=== PATIENT | male | born 1945 | race Caucasian/White ===

== ENCOUNTER → 2017-05-10 12:53 | Outpatient (CLI) | payer MEDICARE, SELFPAY ==
[2017-05-10 14:05] LABS: Hemoglobin A1C 6.6 % (0.0-7.0)
[2017-05-10 14:25] LABS: Alanine Aminotransferase 26 U/L (12-78); Albumin Level 3.8 gm/dL (3.4-5.0); Albumin/Globulin Ratio 0.9 (1.1-1.8); Alkaline Phosphatase 69 U/L (46-116); Anion Gap 14.6 mEq/L (5-15); Aspartate Amino Transferase 21 U/L (15-37); Bilirubin,Total 0.3 mg/dL (0.2-1.0); Blood Urea Nitrogen 25 mg/dL (7-18); Calcium 8.6 mg/dL (8.5-10.1); Carbon Dioxide 28 mmol/L (21.0-32.0); Chloride 102 mmol/L (98-107); Chol/HDL Ratio 2.6 (1-3.5); Cholesterol 114 mg/dL (140-200); Estimated Glomerular Filt Rate 54 ml/min (>60); GFR (African American) 65 ML/MIN (>60); Globulin 4.1 gm/dl (1.3-3.2); Glucose 107 mg/dL (74-106); HDL Cholesterol 44 mg/dL (27-67); LDL Cholesterol 46 mg/dL (0-130); Potassium 4.6 mmoL/L (3.5-5.1); Sodium 140 mmol/L (136-145); Total Protein,Serum 7.9 gm/dL (6.4-8.2); Triglycerides 122 mg/dL (30-200); VLDL Cholesterol 24 mg/dL (0-40)
== END ==
PROVIDERS: PCP Internal Medicine Adolescent Medicine; Visit Provider Internal Medicine Adolescent Medicine
DX: R73.9 Hyperglycemia, unspecified (principal); E78.5 Hyperlipidemia, unspecified
CPT/HCPCS: 36415; 80053; 80061; 83036

== ENCOUNTER → 2017-05-11 12:01 | Outpatient (CLI) | payer MEDICARE, SELFPAY ==
--- NOTE | 2017-05-11 12:08 | XR_ITS ---
EXAM: XR lumbar spine min 4V HISTORY: Low back pain ITS.REASON: PAD,CAD,CLAUDICATION, ORDERING PHYSICIAN: Cody Hook MD PATIENT AGE: 72 years COMPARISON: None FINDINGS: Normal alignment. Minimal lumbar curvature convex left No fracture or dislocation. No lytic or blastic change. Small anterior osteophytes are present involving the lumbar spine. There is mild wedging involving what appears to represent T11 appears old No significant degenerative change. The disc spaces are preserved. Severe atherosclerotic calcification noted of the aorta. Bilateral iliac artery stents are present. IMPRESSION: 1. Mild spondylosis with small anterior osteophytes. 2. Otherwise negative lumbar spine with no acute finding 3. Atherosclerotic vascular disease. 4. Old wedging of T11
--- NOTE | 2017-05-11 12:56 | US_ITS ---
US Arterial Ankle Brachial Ind INDICATION: Claudication, hypertension, smoker, diabetes, leg pain, rest pain, diminished pulses ORDERING PHYSICIAN: Cody Hook MD PATIENT AGE: 72 years TECHNIQUE: Segmental pressures obtained of both right and left leg. These are compared to brachial blood pressure to yield index at each level sampled including summary DOMITILA. The data sheets from the procedure are available in PACS FINDINGS Rest study only performed today No prior studies available for comparison. Blood pressures reported are in millimeters mercury. RIGHT LEG DOMITILA = .8 Brachial BP: Number Thigh BP: 132 Calf BP: >254 Ankle PT: 124 Ankle DP : 126 Digit =69 LEFT LEG DOMITILA = .5 Brachial BPD: 149 Thigh BP: 131 Calf BP: 86 Ankle PT:72 Ankle DP: 57 Digit = 30 Pulses and waveforms: Diminished pulses and waveforms and diminished pulses and waveforms of the left leg. Dorsalis pedis bilaterally IMPRESSION: 1. Low left DOMITILA of 0.5 consistent with moderate to severe arterial disease. The greatest pressure drop between the left thigh and calf degenerative stenosis in the popliteal area. CT angiogram may confirm. 2. Slightly low right DOMITILA of 0.8 indicating mild arterial disease. 3. Depressed waveforms and pulses as described above
== END ==
PROVIDERS: PCP Internal Medicine Adolescent Medicine; Visit Provider Internal Medicine
DX: I70.213 Atherosclerosis of native arteries of extremities with intermittent claudication, bilateral legs (principal); I73.9 Peripheral vascular disease, unspecified; I25.10 Atherosclerotic heart disease of native coronary artery without angina pectoris; G57.90 Unspecified mononeuropathy of unspecified lower limb
CPT/HCPCS: 72110; 93922

== ENCOUNTER → 2017-05-27 06:58 | Day surgery (SDC) | payer MEDICARE, SELFPAY ==
[2017-05-27] VITALS (40 sets, daily range): BP systolic 100–173; BP diastolic 38–89; PULSE 47–59; RESP 16–20; TEMP 36.7; O2SAT 92–100; BMI 32.3
--- NOTE | 2017-05-27 | IR_ITS ---
PROCEDURE: 1. Catheter placement in the abdominal aorta 2. Abdominal aortography 3. Repositioning of the catheter in the abdominal aorta 4. Bilateral iliofemoral runoff 5. Angioplasty stent deployment to the left superficial femoral artery 6. Angioplasty stent deployment to the left common femoral artery INDICATION: 1. Peripheral artery disease 2. Abnormal DOMITILA 0.5 on the left [place] class III claudication Informed consent was obtained prior to the procedure. COMPLICATIONS: None ESTIMATED BLOOD LOSS: Blood loss less than 10 cc. TECHNIQUE:1% lidocaine used to anesthetize the right groin. The right femoral artery was accessed via the Seldinger technique and a 5 Algerian sheath was placed in the right femoral artery. Pigtail catheter was placed in the abdominal aorta and abdominal aortography was performed. The catheter was then repositioned and bilateral iliofemoral runoff was performed. Following this a rim catheter was placed in the distal abdominal aorta and used to cannulate the left common iliac artery. A wire was placed into the left superficial femoral artery and a 6 Algerian destination sheath was advanced. Following this an 8 mm x 60 mm self-expanding Nolasco stent was deployed in the left SFA extending back into the left common femoral artery. Following this a 7 mm x 60 mm balloon was deployed at 12 gus in order to post dilate. Repeat angiography demonstrated excellent patency of the stent with its significant improvement in flow to the left superficial femoral artery. At the end of the procedure the apparatus was removed the sheath was removed the patient was transferred to the postop holding area in stable condition ANGIOGRAPHIC RESULTS: The suprarenal abdominal aorta is calcified with no focal stenosis while the infrarenal abdominal aorta has 20% stenoses which are also calcified. The mesenteric arteries and renal arteries appear to have no significant flow limitation. The right common iliac artery has a stent in the proximal to mid segment which is widely patent free of in-stent restenosis while the left common iliac artery has a stent in the ostium extending into the mid segment distally and even into the external iliac artery. Stent is widely patent in the left system The right external iliac artery has a 20% stenosis while the right common femoral arteries normal. The right profunda femoris artery is normal. The right superficial femoral artery has mild atheromatous plaque as does the right popliteal artery. The anterior tibialis artery is patent while the peroneal and posterior tibialis artery are occluded proximally. The left external iliac artery has a 10% stenosis while the left common femoral artery has 20 and 30% disease. The left profunda femoris artery is normal. The ostium of the left superficial femoral artery has an 80-90% stenosis followed by an additional 80% proximal stenosis. The remaining vessel is patent with 40% mid vessel calcification with a widely patent popliteal artery with no stenosis greater than 20%. The posterior tibialis artery is occluded while the peroneal artery is patent. The left anterior tibialis artery is patent to the mid segment then becomes subtotally occluded and reconstitutes distally and supplies a left foot Impression: Peripheral artery disease as described above Severe stenosis in the left superficial femoral artery treated with one bare metal self expanding stent extending back into the left common femoral artery Plan: Aspirin Plavix Physical therapy LDL less than 55 Risk factor modification
[2017-05-27 07:33] LABS: Basophils # 0.1 K/mm3 (0-0.2); Basophils % 0.7 % (0.1-2.0); Eosinophils # 0.4 K/mm3 (0.0-0.4); Eosinophils % 3.1 % (0.1-12.0); Hematocrit 37.5 % (42.0-52.0); Hemoglobin 12.2 g/dL (14.1-18.0); Lymphocytes # 2.9 K/mm3 (0.7-4.5); Lymphocytes % 22.3 K/mm3 (10-50); Mean Corpuscular HGB Conc 32.6 g/dL (31.8-35.4); Mean Corpuscular Hemoglobin 29.7 pg (27.0-31.2); Mean Corpuscular Volume 91.3 fl (80-94); Mean Platelet Volume 8.4 fl (7.4-10.4); Monocytes % 7.6 % (1.7-9.3); Neutrophils # 8.8 K/mm3 (1.8-7.8); Neutrophils % 66.3 % (37.0-80.0); Platelet Count 268 K/mm3 (142-424); Red Blood Count 4.11 M/mm3 (4.60-6.20); Red Cell Distribution Width 13.6 % (11.5-17.5); White Blood Count 13.2 K/mm3 (4.8-10.8)
[2017-05-27 07:37] LABS: Blood Urea Nitrogen 17 mg/dL (7-18); Carbon Dioxide 31 mmol/L (21.0-32.0); Chloride 102 mmol/L (98-107); Creatinine Clearance Estimated 84 mL/min (0-300); Creatinine,Serum 1.24 mg/dL (0.70-1.30); Estimated Glomerular Filt Rate 57 ml/min (>60); GFR (African American) 69 ML/MIN (>60); Glucose 123 mg/dL (74-106); Sodium 139 mmol/L (136-145)
[2017-05-27 09:59] LABS: CATHL Activated Clotting Time 324 SEC (74-125)
--- NOTE | 2017-05-27 11:58 | HMH.ITSHM ---
topirmate, amilriptyline, tizanidine, lorazepam, atorvastatin
[2017-05-27 12:18] LABS: Microscopic, Urine URINE MICROSCOPIC (MICROSCOPIC)
[2017-05-27 12:22] LABS: Appearance,Urine CLEAR (Clear); Bilirubin,Urine Negative (Negative); Blood, Urine Negative (Negative); Color,Urine YELLOW (Yellow); Glucose,Urine (UA) Negative (Negative); Ketones,Urine Negative (Negative); Leukocyte Esterase,Urine Negative (Negative); Nitrate,Urine Negative (Negative); PH,Urine 6.5 (5.0-8.5); Protein,Urine Negative (Negative); Urobilinogen,Urine 0.2 EU/dl (0.2)
[2017-05-27 12:27] LABS: Bacteria,Urine Trace /lpf
--- NOTE | 2017-05-27 16:31 | SUR.PHASEII ---
villagomez catheter discontinued prior to discharge, patient urinated after discontinuation. patient and spouse both stated understanding of discharge instructions.
[2017-06-24 08:16] LABS: CATHL Activated Clotting Time 181 SEC (74-125)
== END ==
PROVIDERS: Family Provider Internal Medicine Adolescent Medicine; PCP Internal Medicine Adolescent Medicine; Visit Provider Internal Medicine
DX: I70.212 Atherosclerosis of native arteries of extremities with intermittent claudication, left leg (principal); I10 Essential (primary) hypertension; Z95.828 Presence of other vascular implants and grafts
CPT/HCPCS: 36200; 37226; 75630; 80048; 81001; 85025; 85347; 99152; 99153; C1725; C1766; C1769; C1876; C1894; J1644; J2720; Q9966

== ENCOUNTER → 2017-10-01 10:20 | Outpatient (CLI) | payer MEDICARE, SELFPAY ==
--- NOTE | 2017-10-01 10:23 | XR_ITS ---
XR shoulder RT min 2V COMPARISON: Right shoulder 01/15/2016 HISTORY: Right shoulder pain TECHNIQUE: 3 views right shoulder FINDINGS: Multiple metallic anchors are again seen projecting over the humeral head and near the AC joint. Humeral head right somewhat high in the glenoid and there is a slightly lateral downsloping acromion process and the findings would predispose to some degree of impingement syndrome. There is mild spurring of the AC joint superiorly. There are no soft tissue calcifications. IMPRESSION: Findings suggesting predisposition to impingement syndrome, stable postsurgical changes as well
== END ==
PROVIDERS: PCP Internal Medicine Adolescent Medicine; Visit Provider Orthopaedic Surgery
DX: M25.511 Pain in right shoulder (principal)
CPT/HCPCS: 73030

== ENCOUNTER → 2017-10-12 09:59 | Outpatient (CLI) | payer MEDICARE, SELFPAY ==
[2017-10-12 10:30] LABS: Basophils # 0.1 K/mm3 (0-0.2); Basophils % 0.6 % (0.1-2.0); Eosinophils # 0.5 K/mm3 (0.0-0.4); Eosinophils % 3.4 % (0.1-12.0); Hematocrit 46.2 % (42.0-52.0); Hemoglobin 14.4 g/dL (14.1-18.0); Lymphocytes # 2.7 K/mm3 (0.7-4.5); Lymphocytes % 19.5 K/mm3 (10-50); Mean Corpuscular HGB Conc 31.1 g/dL (31.8-35.4); Mean Corpuscular Hemoglobin 28.8 pg (27.0-31.2); Mean Corpuscular Volume 92.8 fl (80-94); Monocytes # 0.9 K/mm3 (0.1-1.0); Monocytes % 6.9 % (1.7-9.3); Neutrophils # 9.5 K/mm3 (1.8-7.8); Neutrophils % 69.5 % (37.0-80.0); Platelet Count 291 K/mm3 (142-424); Red Blood Count 4.98 M/mm3 (4.60-6.20); Red Cell Distribution Width 14.1 % (11.5-17.5); White Blood Count 13.6 K/mm3 (4.8-10.8)
[2017-10-12 11:14] LABS: Alanine Aminotransferase 21 U/L (12-78); Albumin Level 3.5 gm/dL (3.4-5.0); Albumin/Globulin Ratio 0.9 (1.1-1.8); Alkaline Phosphatase 64 U/L (46-116); Anion Gap 11.4 mEq/L (5-15); Aspartate Amino Transferase 15 U/L (15-37); Bilirubin,Total 0.4 mg/dL (0.2-1.0); Blood Urea Nitrogen 18 mg/dL (7-18); Calcium 8.4 mg/dL (8.5-10.1); Carbon Dioxide 30 mmol/L (21.0-32.0); Chloride 101 mmol/L (98-107); Creatinine,Serum 1.21 mg/dL (0.70-1.30); Estimated Glomerular Filt Rate 59 ml/min (>60); Free Thyroxine Index 2.1 ug/dL (5.93-13.13); GFR (African American) 71 ML/MIN (>60); Globulin 3.7 gm/dl (1.3-3.2); Glucose 127 mg/dL (74-106); Potassium 4.4 mmoL/L (3.5-5.1); Sodium 138 mmol/L (136-145); T4 (Thyroxine) 5.4 ug/dl (4.7-13.3); Thyroid Stimulating Hormone 5.06 uIU/ml (0.358-3.740); Total Protein,Serum 7.2 gm/dL (6.4-8.2); Triiodothryronine (T3) Uptake 38 % (31-39)
[2017-10-12 11:17] LABS: Hemoglobin A1C 6.1 % (0.0-7.0)
== END ==
PROVIDERS: Visit Provider Internal Medicine Adolescent Medicine
DX: R73.9 Hyperglycemia, unspecified (principal); E78.5 Hyperlipidemia, unspecified; R94.6 Abnormal results of thyroid function studies; I25.10 Atherosclerotic heart disease of native coronary artery without angina pectoris
CPT/HCPCS: 36415; 80053; 83036; 84436; 84443; 84479; 85025

== ENCOUNTER → 2017-10-18 07:48 | Outpatient (CLI) | payer MEDICARE, SELFPAY ==
--- NOTE | 2017-10-18 07:48 | MR_ITS ---
MR shoulder RT wo con COMPARISON: None HISTORY: Shoulder pain, Cyst like knot on top of shoulder, prior shoulder surgery ORDERING PHYSICIAN: Phuc Cordero MD PATIENT AGE: 72 years COMPARISON: 10/01/2017 radiograph TECHNIQUE: Standard multiplanar multiecho sequences are performed. FINDINGS: There is extensive artifact from patient's prior shoulder surgery. This does obscure detail of the shoulder girdle. Cannot adequately evaluate the supraspinatus tendon due to the artifact. There is a 3.9 x 2 x 3.4 cm fluid collection along the superior aspect of the shoulder. This is superior and lateral to the acromioclavicular joint subcutaneous in nature.. The subscapularis and teres minor tendons appear intact. No obvious labral tear. IMPRESSION: 1. Extensive artifact obscuring fine detail from prior shoulder surgery. 2. 3.9 x 2 x 3.4 cm subcutaneous cyst superior to the lateral aspect of the acromion
== END ==
PROVIDERS: Family Provider Internal Medicine Adolescent Medicine; PCP Internal Medicine Adolescent Medicine; Visit Provider Orthopaedic Surgery
DX: M75.101 Unspecified rotator cuff tear or rupture of right shoulder, not specified as traumatic (principal); M67.411 Ganglion, right shoulder
CPT/HCPCS: 73221

== ENCOUNTER → 2018-01-05 09:07 | Outpatient (CLI) | payer MEDICARE, SELFPAY ==
[2018-01-05 09:22] LABS: Blood Urea Nitrogen 22 mg/dL (7-18); Creatinine,Serum 1.28 mg/dL (0.70-1.30); Estimated Glomerular Filt Rate 55 ml/min (>60); GFR (African American) 66 ML/MIN (>60)
--- NOTE | 2018-01-05 09:39 | CT_ITS ---
CT angio LE BI INDICATION: Intermittent claudication, leg pain ITS.REASON: INTERMITTENT CLAUDICATION' ORDERING PHYSICIAN: Karan Fuller MD PATIENT AGE: 72 years COMPARISON: None TECHNIQUE: Axial images are obtained following the bolus administration 120 mL's of Isovue-370 contrast. Sagittal and coronal reformatted images are reviewed as well. All CT scans at the facility use one or more dose reduction, viz: automated exposure control, ma/kV adjustment per patient size (including targeted exams where dose is matched to indication, i.e. head), or iterative reconstruction technique. FINDINGS: Angiographic findings: There are atheromatous changes of the abdominal aorta and its branches. High-grade stenosis is present at the ostium of the superior mesenteric artery with approximate 75% stenosis at the ostium of the superior mesenteric artery. Severe stenosis of 90% or more present at the ostium of the inferior mesenteric artery. No evidence of abdominal aortic aneurysm. No significant renal artery stenosis. There are patent bilateral common iliac artery stents. Atheromatous changes of the right external iliac with no significant stenosis. Atheromatous changes of the left external iliac but no significant stenosis. There is a patent stent within the left common femoral artery. Bilateral lower extremity runoff: There are segmental areas of plaque with stenosis of approximately 50% in the mid to proximal right SFA. Short segment high-grade stenosis of 70% noted in the mid SFA with some calcific plaque in this region. The popliteal artery is unremarkable. Atherosclerotic changes involving the runoff vessels in the calf. Severe atheromatous changes involving the runoff vessels. The main runoff vessel to the ankle on the right is the dorsalis pedis and peroneal. The anterior tibial is not visualized past the mid calf. On the left scattered atheromatous changes involving the SFA. Popliteal patent. Severe atheromatous changes involve the trifurcation vessels to the calf with multiple small segmental areas of stenosis. Dorsalis pedis is patent at the foot. The peroneal is patent at the ankle and the anterior tibia is present in the mid calf region. Nonangiographic findings: Prior cholecystectomy. The liver, spleen, adrenal glands, pancreas, and kidneys show no acute finding. There is diverticulosis of the sigmoid colon and descending colon. IMPRESSION: 1. 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 2. Patent bilateral common iliac artery stents and left common femoral artery stent. 3. 50% stenosis of the proximal right SFA with 70% stenosis in the mid SFA on the right. 4. Extensive plaque involving the trifurcation vessels bilaterally.
--- NOTE | 2018-01-05 13:26 | HMH.ITSHM ---
HCTZ AMLODIPINE,TAMUSLOIN LEVOTHRYROIXE, CLOPIDKORGREL CARVELIDLO LRASZEMA ASPRIN,
== END ==
PROVIDERS: Family Provider Internal Medicine Adolescent Medicine; PCP Internal Medicine Adolescent Medicine; Visit Provider Internal Medicine Adolescent Medicine
DX: I73.9 Peripheral vascular disease, unspecified (principal)
CPT/HCPCS: 36415; 73701; 82565; 84520; Q9967

== ENCOUNTER → 2018-05-23 09:03 | Outpatient (CLI) | payer MEDICARE, SELFPAY ==
[2018-05-23 09:28] LABS: Basophils # 0.1 K/mm3 (0-0.2); Basophils % 0.8 % (0.1-2.0); Eosinophils # 0.6 K/mm3 (0.0-0.4); Hematocrit 44.2 % (42.0-52.0); Hemoglobin 14.1 g/dL (14.1-18.0); Lymphocytes # 2.8 K/mm3 (0.7-4.5); Lymphocytes % 18.7 % (10-50); Mean Corpuscular HGB Conc 31.9 g/dL (31.8-35.4); Mean Corpuscular Hemoglobin 29.5 pg (27.0-31.2); Mean Corpuscular Volume 92.4 fl (80-94); Monocytes % 6.3 % (1.7-9.3); Neutrophils # 10.7 K/mm3 (1.8-7.8); Neutrophils % 70.2 % (37.0-80.0); Platelet Count 316 K/mm3 (142-424); Red Blood Count 4.78 M/mm3 (4.60-6.20); Red Cell Distribution Width 14.2 % (11.5-17.5); White Blood Count 15.2 K/mm3 (4.8-10.8)
[2018-05-23 09:32] LABS: MANUAL DIFFERENTIAL MANUAL DIFFERENTIAL (MANUAL DIFF)
[2018-05-23 10:07] LABS: Hemoglobin A1C 6.6 % (0.0-7.0)
[2018-05-23 10:21] LABS: Alanine Aminotransferase 20 U/L (12-78); Albumin Level 3.4 gm/dL (3.4-5.0); Albumin/Globulin Ratio 0.9 (1.1-1.8); Alkaline Phosphatase 70 U/L (46-116); Anion Gap 13.2 mEq/L (5-15); Aspartate Amino Transferase 8 U/L (15-37); Bilirubin,Total 0.3 mg/dL (0.2-1.0); Blood Urea Nitrogen 18 mg/dL (7-18); Calcium 9.5 mg/dL (8.5-10.1); Carbon Dioxide 31 mmol/L (21.0-32.0); Chloride 101 mmol/L (98-107); Cholesterol 125 mg/dL (140-200); Creatinine,Serum 1.35 mg/dL (0.70-1.30); Estimated Glomerular Filt Rate 52 ml/min (>60); GFR (African American) 62 ML/MIN (>60); Globulin 3.9 gm/dl (1.3-3.2); Glucose 141 mg/dL (74-106); HDL Cholesterol 41 mg/dL (27-67); LDL Cholesterol 67 mg/dL (0-130); Potassium 4.2 mmoL/L (3.5-5.1); Sodium 141 mmol/L (136-145); Total Protein,Serum 7.3 gm/dL (6.4-8.2); Triglycerides 87 mg/dL (30-200); VLDL Cholesterol 17 mg/dL (0-40)
[2018-05-23 10:35] LABS: Eosinophils % 1 % (0-3); Lymphocytes % 22 % (10-50); Monocytes % 6 % (2-9); Neutrophils % 71 % (42-76); Platelet Estimate Normal; RBC Morphology Normal; Total Cells Counted 100
[2018-05-24 16:15] LABS: Vitamin B12 377 pg/mL (232-1245)
== END ==
PROVIDERS: Visit Provider Internal Medicine Adolescent Medicine
DX: G62.9 Polyneuropathy, unspecified (principal); E11.9 Type 2 diabetes mellitus without complications
CPT/HCPCS: 36415; 80053; 80061; 82607; 83036; 85007; 85025

== ENCOUNTER → 2018-10-26 12:54 | Outpatient (CLI) | payer MEDICARE, SELFPAY ==
[2018-10-26 13:17] LABS: Basophils # 0.1 K/mm3 (0-0.2); Basophils % 0.7 % (0.1-2.0); Eosinophils # 0.6 K/mm3 (0.0-0.4); Eosinophils % 3.8 % (0.1-12.0); Hematocrit 39.8 % (42.0-52.0); Hemoglobin 12.5 g/dL (14.1-18.0); Lymphocytes # 2.6 K/mm3 (0.7-4.5); Lymphocytes % 17.2 % (10-50); Mean Corpuscular HGB Conc 31.4 g/dL (31.8-35.4); Mean Corpuscular Hemoglobin 28.5 pg (27.0-31.2); Mean Corpuscular Volume 90.9 fl (80-94); Mean Platelet Volume 7.9 fl (7.4-10.4); Monocytes # 0.9 K/mm3 (0.1-1.0); Monocytes % 5.6 % (1.7-9.3); Neutrophils # 11.2 K/mm3 (1.8-7.8); Neutrophils % 72.8 % (37.0-80.0); Platelet Count 274 K/mm3 (142-424); Red Blood Count 4.38 M/mm3 (4.60-6.20); Red Cell Distribution Width 13.7 % (11.5-17.5); White Blood Count 15.4 K/mm3 (4.8-10.8)
[2018-10-26 13:21] LABS: MANUAL DIFFERENTIAL MANUAL DIFFERENTIAL (MANUAL DIFF)
[2018-10-26 16:44] LABS: Alanine Aminotransferase 20 U/L (12-78); Albumin Level 3.5 gm/dL (3.4-5.0); Alkaline Phosphatase 67 U/L (46-116); Anion Gap 14.4 mEq/L (5-15); Aspartate Amino Transferase 13 U/L (15-37); Bilirubin,Total 0.3 mg/dL (0.2-1.0); Blood Urea Nitrogen 22 mg/dL (7-18); Calcium 8.9 mg/dL (8.5-10.1); Carbon Dioxide 28 mmol/L (21.0-32.0); Chloride 105 mmol/L (98-107); Creatinine,Serum 1.26 mg/dL (0.70-1.30); Estimated Glomerular Filt Rate 56 ml/min (>60); GFR (African American) 68 ML/MIN (>60); Globulin 3.6 gm/dl (1.3-3.2); Glucose 103 mg/dL (74-106); Potassium 5.4 mmoL/L (3.5-5.1); Sodium 142 mmol/L (136-145); Total Protein,Serum 7.1 gm/dL (6.4-8.2)
[2018-10-26 17:21] LABS: Eosinophils % 2 % (0-3); Lymphocytes % 18 % (10-50); Monocytes % 2 % (2-9); Neutrophils % 78 % (42-76); Platelet Estimate Normal; RBC Morphology Normal; Total Cells Counted 100
== END ==
PROVIDERS: Visit Provider Internal Medicine Adolescent Medicine
DX: R19.7 Diarrhea, unspecified (principal)
CPT/HCPCS: 36415; 80053; 85007; 85025

== ENCOUNTER → 2018-11-14 09:43 | Outpatient (CLI) | payer MEDICARE, SELFPAY ==
--- NOTE | 2018-11-14 09:46 | CT_ITS ---
CT abdomen pelvis wo con CLINICAL INDICATION: Lower abdominal pain with nausea ITS.REASON: LOWER ABD PAIN ORDERING PHYSICIAN: Karan Fuller MD PATIENT AGE: 73 years COMPARISON: None TECHNIQUE: Axial images obtained with sagittal and coronal reformats. All CT scans at the facility use one or more dose reduction, viz: automated exposure control, ma/kV adjustment per patient size (including targeted exams where dose is matched to indication, i.e. head), or iterative reconstruction technique. FINDINGS: Lower thorax: Prior CABG. Coronary artery calcification and/or stents noted Postcholecystectomy change. The liver, spleen, adrenal glands, and pancreas have an unremarkable appearance. No renal or ureteral calculi. Vascular calcifications are present in the kidneys. Extensive vascular calcification also noted of the aorta and its branches. Calcification is present at the ostium of the superior mesenteric artery suggesting high-grade SMA stenosis. This could be confirmed with CT angiogram if clinically warranted. No intestinal obstruction or free air. Unremarkable appendix. Colonic diverticulosis is noted. There is some mild thickening of the sigmoid colon with some very minimal haziness of the pericolic fat may represent some mild diverticulitis. No evidence of abscess or perforation. There is mild prominence of the prostate 5.5 cm. IMPRESSION: 1. Dense calcification at the ostium of the superior mesenteric artery which may result in SMA stenosis. CT angiogram may confirm 2. Diverticulosis of the descending and sigmoid colon with possible low grade diverticulitis of the sigmoid colon without evidence of abscess or perforation.
== END ==
PROVIDERS: PCP Internal Medicine Adolescent Medicine; Visit Provider Internal Medicine Adolescent Medicine
DX: R10.30 Lower abdominal pain, unspecified (principal)
CPT/HCPCS: 74176

== ENCOUNTER → 2019-03-06 08:14 | Outpatient (CLI) | payer MEDICARE, SELFPAY ==
[2019-03-06 08:40] LABS: Basophils # 0.1 K/mm3 (0-0.2); Basophils % 0.7 % (0.1-2.0); Eosinophils # 0.5 K/mm3 (0.0-0.4); Eosinophils % 3.6 % (0.1-12.0); Hematocrit 42.2 % (42.0-52.0); Hemoglobin 12.7 g/dL (14.1-18.0); Lymphocytes # 2.5 K/mm3 (0.7-4.5); Lymphocytes % 17.9 % (10-50); Mean Corpuscular HGB Conc 30.2 g/dL (31.8-35.4); Mean Corpuscular Hemoglobin 29.8 pg (27.0-31.2); Mean Corpuscular Volume 98.9 fl (80-94); Mean Platelet Volume 8.8 fl (7.4-10.4); Monocytes # 0.9 K/mm3 (0.1-1.0); Monocytes % 6.2 % (1.7-9.3); Neutrophils % 71.7 % (37.0-80.0); Platelet Count 284 K/mm3 (142-424); Red Blood Count 4.27 M/mm3 (4.60-6.20); Red Cell Distribution Width 13.9 % (11.5-17.5); White Blood Count 13.9 K/mm3 (4.8-10.8)
[2019-03-06 09:36] LABS: Alanine Aminotransferase 17 U/L (12-78); Albumin Level 3.4 gm/dL (3.4-5.0); Alkaline Phosphatase 63 U/L (46-116); Anion Gap 10.7 mEq/L (5-15); Aspartate Amino Transferase 17 U/L (15-37); Bilirubin,Total 0.3 mg/dL (0.2-1.0); Blood Urea Nitrogen 27 mg/dL (7-18); Calcium 8.7 mg/dL (8.5-10.1); Carbon Dioxide 29 mmol/L (21.0-32.0); Chloride 102 mmol/L (98-107); Chol/HDL Ratio 2.8 (1-3.5); Cholesterol 112 mg/dL (140-200); Creatinine,Serum 1.44 mg/dL (0.70-1.30); Estimated Glomerular Filt Rate 48 ml/min (>60); GFR (African American) 58 ML/MIN (>60); Globulin 3.5 gm/dl (1.3-3.2); Glucose 120 mg/dL (74-106); HDL Cholesterol 40 mg/dL (27-67); LDL Cholesterol 57 mg/dL (0-130); Potassium 4.7 mmoL/L (3.5-5.1); Sodium 137 mmol/L (136-145); Thyroid Stimulating Hormone 1.97 uIU/ml (0.358-3.740); Total Protein,Serum 6.9 gm/dL (6.4-8.2); Triglycerides 77 mg/dL (30-200); VLDL Cholesterol 15 mg/dL (0-40)
[2019-03-07 11:28] LABS: Vitamin B12 536 pg/mL (232-1245)
== END ==
PROVIDERS: Visit Provider Internal Medicine Adolescent Medicine
DX: M54.5 Low back pain (principal); I25.9 Chronic ischemic heart disease, unspecified; G62.9 Polyneuropathy, unspecified; Z79.899 Other long term (current) drug therapy
CPT/HCPCS: 36415; 80053; 80061; 82607; 84443; 85025

== ENCOUNTER 2019-03-24 08:54 | Outpatient (RCR) | payer MEDICARE, SELFPAY ==
--- NOTE | 2019-03-24 10:34 | HMH.PTOPEV ---
PT Outpatient Evaluation Rehab PT Outpatient Evaluation Start: 03/24/19 09:14 Freq: Status: Active Protocol: Document 03/24/19 09:15 SANGEETA (Rec: 03/24/19 10:34 SANGEETA [id number]) Electronically Signed By Kb Mercedes, PT 03/24/19 09:15 Outpatient Therapy Subjective History Subjective History Pt reports h/o chronic LBP for ~20+ yrs, however, reports exacerbation since August. Pt reports R > L sided LBP with intermittent B LE s/s, however , 'that leg pain in my calves might be coming from the stents they've put in my legs for my heart'. Chief Complaint Pain,Stiff Symptom Type Ache,Sharp,Dull Symptoms Relieved By Rest/Positioning Symptoms Aggravated By Bending/Stooping,Physical Activity,Lifting Prior Functional Limitations Lifting,Housework,Standing, Walking Current Functional Limitations Lifting,Housework,Standing, Walking Symptom Description Intermittent Level of pain today (0-10) 0 Pain scale - at its best (0-10) 0 Pain scale - at its worst (0-10) 8 Lumbopelvic Eval Posture Thoracic Spine Posture Standing Position Flattened Lumbar Spine Posture Standing Position Flattened Assistive device Assistive Devices None / NA Gait Observation General Gait Pattern Observation Antalgic Gait Palapation tenderness right lumbar spinal tenderness Yes: 3/4 paraspinal tenderness Yes: 3/4 Lumbar/Sacral Palpation Findings Tenderness Accessory Movement L-spine Vertebrae Accessory Movements Right P/A [place] that Elicit Symptoms L4 right L5 right Range of Motion Lumbar Spine Active Flexion Range of 0-30 Motion (degrees) Lumbar Spine Active Extension Range of 0-15 Motion (degrees) Left Lumbar Spine Lateral Flexion Active 0-30 Range of Motion (degrees) Right Lumbar Spine Lateral Flexion 0-20 Active Range of Motion (degrees) Lumbar Spine ROM Limitations Pain Manual Muscle Test Bilateral Knee Extension Strength Grade 5 Normal Knee Flexion Strength Grade 5 Normal Hip Flexion Strength Grade 4 Good Extensor Hallucis Longus Strength Grade 5 Normal Ankle Dorsiflexion Strength Grade 5 Normal Gastronemius/Soleus Strength Grade 5 Normal DTR Rt Patellar 1+ Lt Patellar 1+ Rt Gastroc/Soleus 1+ Lt Gastroc/Soleus 1+ Special Tests Hip Piriformis Test
== END 2019-03-24 08:59 | disposition home or self-care (01) ==
LOC: PT 08:54
PROVIDERS: PCP Internal Medicine Adolescent Medicine; Visit Provider Internal Medicine Adolescent Medicine
DX: M54.5 Low back pain (principal)
CPT/HCPCS: 97010; 97014; 97035; 97110; 97163; G0283

== ENCOUNTER → 2019-10-19 11:47 | Outpatient (CLI) | payer MEDICARE, SELFPAY ==
--- NOTE | 2019-10-19 | CA_ITS ---
APPROVED REPORT Exam: Pharmacologic Technologist: Clover Gaxiola, Ht: 6 ft 2 in Wt: 250 lbs BSA: 2.39 m2 HR: 49 bpm BP: 158/53 mmHg Medical History Medical History: HTN, Hyperlipidemia, Smoking Cardiac Risk Factors: HTN, Hyperlipidemia, FHX of CAD, Smoking Stress Test Details Test: LEXISCAN HR Resting HR: 50 bpm Max Heart Rate (APMHR): 144 bpm Max HR Achieved: 60 bpm Target HR (85% APMHR): 122 bpm % of APMHR: 41 Recovery HR: 52 bpm BP Resting BP: 158.0/53.0 mmHg Max BP: 158.0/53.0 mmHg Recovery BP: 146.0/49.0 mmHg ECG Resting ECG: MARKED SINUS BRADYCARDIA,T WAVE ABNORMALITY Clinical Exercise duration: 04:11 min Highest Stage Achieved: Exercise capacity: 1.0 METs Stress ECG Conclusion DURING INFUSION PATIENT HAD SOA,NAUSEA AND HOT FEELING. NO CHEST PAIN. NO ARRHYTHMIAS/ECTOPY. MILD EXAGGERATION OF BASELINE ABNORMALITIES. UNREMARKABLE LEXISCAN STRESS. MYOVIEW IMAGES REPORTED SEPARATELY Electronically signed by : Ochoa Starr, 10/19/2019 14:47:25
--- NOTE | 2019-10-19 11:47 | NM_ITS ---
APPROVED REPORT Exam: Nuclear Stress Test Indication: syncope..fatigue Patient Location: Outpatient Stress Tech: Saranya Usnkson NM Tech:Roxy JoyceRANDY RT(R)(N) Ht: 6 ft 2 in Wt: 250 lbs HR: 49 bpm BP: 158/53 mmHg BSA: 2.39 m2 BMI: 32.0 History: syncope..fatigue Procedure: Patient received a 0.4 mg of intravenous Lexiscan, resting heart rate 49 bpm, resting blood pressure 158/53 mmHg, with Lexiscan maximum heart rate achived was 56 bpm which is Less than 85 % of the maximum predicted heart rate and blood pressure was 140/53 mmHg. With Lexiscan, patient denied any complaint of chest pain. Electrocardiogram Resting electrocardiogram showed sinus rhythm, with Lexiscan there is less than 1.[address] segment depression noted from the baseline EKG. The EKG portion of the Lexiscan Myoview is nondiagnostic. Cardiac Stress and Resting SPECT Images: Cardiac Stress and Resting SPECT images were obtained using technetium 99m Myoview 32.1 mCi stress and 10.61 mCi at rest. Gated SPECT with analysis of segmental wall motion and calculation of the ejection fraction also done. Cardiac stress and resting SPECT images show uniform myocardial activity without segmental perfusion abnormality, computer derived ejection fraction is 64% with no regional wall motion abnormality, right ventricle is normal size and contractility. Conclusion: 1. The EKG portion of the Lexiscan Myoview is nondiagnostic. 2. No scintigraphic evidence of reversible ischemia seen, computer derived ejection fraction is 64% with no regional wall motion abnormality, right ventricle is normal size and contractility. 3. Normal Lexiscan Myoview study. Electronically signed by : Ochoa Starr, 10/19/2019 15:23:31
--- NOTE | 2019-10-19 13:43 | HMH.ITSHM ---
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 [] tamsulosin losartan levothyroxine hctz clopidogrel asa atorvastatin amlodipine
== END ==
PROVIDERS: PCP Internal Medicine Adolescent Medicine; Visit Provider Physician Assistant
DX: E78.5 Hyperlipidemia, unspecified (principal); G62.9 Polyneuropathy, unspecified; I10 Essential (primary) hypertension; I25.10 Atherosclerotic heart disease of native coronary artery without angina pectoris; I73.9 Peripheral vascular disease, unspecified; I77.1 Stricture of artery; R55 Syncope and collapse; Z95.1 Presence of aortocoronary bypass graft; Z95.828 Presence of other vascular implants and grafts
CPT/HCPCS: 78452; 93017; A9502; J2785

== ENCOUNTER 2019-10-31 08:55 | Day surgery (SDC) | payer MEDICARE, SELFPAY ==
[2019-10-31] VITALS (21 sets, daily range): BP systolic 114–172; BP diastolic 48–111; PULSE 49–60; RESP 15–18; TEMP 36.8; O2SAT 91–98; BMI 32.2
--- NOTE | 2019-10-31 | IR_ITS ---
APPROVED REPORT Patient Location: Outpatient PROCEDURES Catheter placement in the abdominal aorta Abdominal aortography Repositioning of the catheter in the abdominal aorta Bilateral iliofemoral runoff INDICATION Abnormal DOMITILA, [place] class III claudication, Known peripheral artery disease Informed consent was obtained prior to the procedure. COMPLICATIONS none Estimated Blood Loss: less than 10 mls TECHNIQUE 1% lidocaine used anesthetize the right groin the right femoral artery is accessed via the Salinger technique and a 5 Faroese sheath was placed in the right femoral artery. The pigtail catheter was advanced to the abdominal aorta and abdominal aortography was performed. The catheter was then repositioned and bilateral iliofemoral runoff was performed. At the end of the procedure the patient was transferred to the postop holding her stable condition for sheath removal ANGIOGRAPHIC RESULTS The suprarenal abdominal aorta is mildly atheromatous while the inferior renal abdominal aorta is mild to moderately atheromatous with diffuse 20 to 30% stenoses. The bilateral renal arteries are normal. The superior mesenteric artery is normal. The right common iliac artery has a stent in its proximal to mid segment which is widely patent free of in-stent restenosis. The right internal iliac artery is patent as is the right external iliac artery. The right common femoral artery is normal. The right profunda femoris artery is normal. The right superficial femoral artery has a mid vessel 50 to 60% stenosis. The right popliteal artery has an eccentric 60% stenosis. The right anterior tibialis artery is mid mid vessel occluded while the posterior tibialis artery is proximally occluded but does reconstitute distally. The right peroneal artery is patent and then crosses over into the dorsalis pedis. The left common iliac artery has a stent in the ostial proximal segment widely patent free of in-stent restenosis. The left internal iliac artery is occluded while the external iliac artery is widely patent. The left common femoral artery is normal and patent. The left profunda femoris artery has a proximal 50% stenosis and otherwise patent. Left superficial femoral artery has proximal and mid vessel 30 to 40% [id number] stenoses. The left popliteal artery is widely patent. There appears to be three-vessel runoff below the knee on the left side IMPRESSION Peripheral artery disease as described above PLAN 1. Continue medical management Electronically signed by : Cody Hook, 10/31/2019 12:33:12
[2019-10-31 09:35] LABS: Anion Gap 13.6 mEq/L (5-15); Blood Urea Nitrogen 19 mg/dl (9-20); Calcium 8.8 mg/dl (8.4-10.2); Carbon Dioxide 27 mmol/L (22.0-30.0); Chloride 103 mmol/L (98-107); Creatinine Clearance Estimated 84 mL/min (50-200); Estimated Glomerular Filt Rate 59 ml/min (>60); GFR (African American) 71 ML/MIN (>60); Glucose 134 mg/dl (74-100); Potassium 4.6 mmoL/L (3.5-5.1); Sodium 139 mmol/L (136-145)
[2019-10-31 09:39] LABS: Basophils # 0.1 K/mm3 (0-0.2); Basophils % 0.8 % (0.1-2.0); Eosinophils # 0.5 K/mm3 (0.0-0.4); Eosinophils % 3.5 % (0.1-12.0); Hematocrit 43.4 % (42.0-52.0); Hemoglobin 13.8 g/dL (14.1-18.0); Lymphocytes # 2.4 K/mm3 (0.7-4.5); Lymphocytes % 17.2 % (10-50); Mean Corpuscular HGB Conc 31.8 g/dL (31.8-35.4); Mean Corpuscular Hemoglobin 30.2 pg (27.0-31.2); Mean Platelet Volume 8.6 fl (7.4-10.4); Monocytes # 0.7 K/mm3 (0.1-1.0); Neutrophils # 10.4 K/mm3 (1.8-7.8); Neutrophils % 73.6 % (37.0-80.0); Platelet Count 264 K/mm3 (142-424); Red Blood Count 4.57 M/mm3 (4.60-6.20); Red Cell Distribution Width 14.2 % (11.5-17.5); White Blood Count 14.1 K/mm3 (4.8-10.8)
== END 2019-10-31 14:39 | disposition home or self-care (01) ==
LOC: CATHLAB 08:56
PROVIDERS: PCP Internal Medicine Adolescent Medicine; Visit Provider Internal Medicine
DX: I70.213 Atherosclerosis of native arteries of extremities with intermittent claudication, bilateral legs (principal); R55 Syncope and collapse; I25.10 Atherosclerotic heart disease of native coronary artery without angina pectoris; I10 Essential (primary) hypertension; I77.1 Stricture of artery; Z95.5 Presence of coronary angioplasty implant and graft; Z95.1 Presence of aortocoronary bypass graft; Z95.820 Peripheral vascular angioplasty status with implants and grafts; Z79.01 Long term (current) use of anticoagulants; Z79.82 Long term (current) use of aspirin; Z79.899 Other long term (current) drug therapy; Z72.0 Tobacco use; E03.9 Hypothyroidism, unspecified
CPT/HCPCS: 36247; 75716; 80048; 85025; 99152; C1725; C1769; C1894; J1644; Q9966

== ENCOUNTER → 2020-01-15 07:05 | Outpatient (CLI) | payer MEDICARE, SELFPAY ==
--- NOTE | 2020-01-15 07:10 | CT_ITS ---
PROCEDURE: CT LUNG SCREENING CLINICAL INDICATION: CURRENT SMOKER 50 pack year smoking history COMPARISON: CT LDCTLCAS LDCT FOR LUNG CA SCREEN from 10/22/2016 TECHNIQUE: The exam was performed on a GE Light Speed [address] scanner using 2.90 mGy CTDI. A low dose helical CT CHEST was performed on a multi-detector scanner. All CT scans at the facility use one or more dose reduction, viz: automated exposure control, ma/kV adjustment per patient size (including targeted exams where dose is matched to indication, i.e. head), or iterative reconstruction technique. The LDCT was performed in a facility that meets the criteria for the screening program. Data regarding this exam was submitted to ACR which is an approved registry. The order for this exam indicates that it came as a result of a lung cancer screening counseling shard decision-making visit that included all the elements required of such a visit including smoking cessation. The radiologist interpreting this exam meets the CMS criteria for the LDCT lung cancer screening program. The exam is reported using the Lung-RADS classification scale and reported to the ACR registry. NOTE: This study was performed for the specific purposes of lung cancer screening and is not an alternative to diagnostic chest CT. RADIATION DOSE: CTDI vol(CT dose Index-volume) = 2.90mG DLP (Dose Length Product) = 114.11 mGcm FINDINGS: Changes of COPD with mild prominence of the interstitium with mild bronchial thickening and scattered areas of scarring and/or atelectatic change. There is evidence of old granulomatous disease. There is a stable 4 mm noncalcified nodule in the right lung base posteriorly axial image 65 OTHER FINDINGS: Prior CABG. Coronary artery calcification. Calcification of the aortic root IMPRESSION: Lung-RADS Category 2 Benign Appearance or Behavior Follow-up: Continue annual screening with LDCT in 12 months COPD/chronic bronchitis Dictated by: Garrison Barron MD 01/21/2020 08:56 Garrison Barron MD in [place] 01/21/2020 08:56
[2020-01-15 07:57] LABS: Basophils # 0.1 K/mm3 (0-0.2); Eosinophils # 0.4 K/mm3 (0.0-0.4); Hematocrit 43.1 % (42.0-52.0); Hemoglobin 13.9 g/dL (14.1-18.0); Lymphocytes # 2.6 K/mm3 (0.7-4.5); Lymphocytes % 18.5 % (10-50); Mean Corpuscular HGB Conc 32.2 g/dL (31.8-35.4); Mean Corpuscular Hemoglobin 30.2 pg (27.0-31.2); Mean Corpuscular Volume 94.1 fl (80-94); Mean Platelet Volume 8.4 fl (7.4-10.4); Monocytes # 0.8 K/mm3 (0.1-1.0); Monocytes % 5.4 % (1.7-9.3); Neutrophils # 10.3 K/mm3 (1.8-7.8); Neutrophils % 72.2 % (37.0-80.0); Platelet Count 288 K/mm3 (142-424); Red Blood Count 4.58 M/mm3 (4.60-6.20); Red Cell Distribution Width 14.6 % (11.5-17.5); White Blood Count 14.3 K/mm3 (4.8-10.8)
[2020-01-15 09:11] LABS: Hemoglobin A1C 6.6 % (4.0-6.0)
[2020-01-15 10:25] LABS: Alanine Aminotransferase 12 U/L (12-78); Albumin Level 3.8 g/dl (3.5-5.0); Albumin/Globulin Ratio 1.2 (1.1-1.8); Alkaline Phosphatase 63 U/L (38-126); Anion Gap 13.9 mEq/L (5-15); Aspartate Amino Transferase 19 U/L (17-59); Bilirubin,Total 0.4 mg/dl (0.2-1.3); Blood Urea Nitrogen 18 mg/dl (9-20); Calcium 9.6 mg/dl (8.4-10.2); Carbon Dioxide 28 mmol/L (22.0-30.0); Chloride 101 mmol/L (98-107); Chol/HDL Ratio 4.4 (1-3.5); Cholesterol 203 mg/dl (140-200); Estimated Glomerular Filt Rate 54 ml/min (>60); GFR (African American) 65 ML/MIN (>60); Globulin 3.1 g/dL (1.3-3.2); Glucose 141 mg/dl (74-100); HDL Cholesterol 46 mg/dl (40-60); Potassium 4.9 mmoL/L (3.5-5.1); Sodium 138 mmol/L (136-145); Total Protein,Serum 6.9 g/dl (6.3-8.2); Triglycerides 125 mg/dl (30-150); Uric Acid 10.3 mg/dl (3.5-8.5); VLDL Cholesterol 25 mg/dL (0-40)
[2020-01-15 10:35] LABS: Direct LDL Cholesterol 142.29 mg/dL (100-129)
[2020-01-15 10:55] LABS: Thyroid Stimulating Hormone 5.32 uIU/mL (0.465-4.68)
== END ==
PROVIDERS: PCP Internal Medicine Adolescent Medicine; Visit Provider Internal Medicine Adolescent Medicine
DX: Z87.891 Personal history of nicotine dependence (principal); Z12.2 Encounter for screening for malignant neoplasm of respiratory organs; I25.10 Atherosclerotic heart disease of native coronary artery without angina pectoris; E03.9 Hypothyroidism, unspecified; E11.9 Type 2 diabetes mellitus without complications; E78.5 Hyperlipidemia, unspecified; M10.9 Gout, unspecified
CPT/HCPCS: 36415; 80053; 80061; 83036; 84443; 84550; 85025

== ENCOUNTER → 2020-02-16 11:04 | Outpatient (CLI) | payer MEDICARE, SELFPAY ==
--- NOTE | 2020-02-16 11:10 | XR_ITS ---
PROCEDURE: XR CHEST PORTABLE CLINICAL HISTORY: COVID OUT PATIENT Cough, weakness, shortness of air, heart disease COMPARISON: No exams were available for comparison FINDINGS: There is cardiomegaly without failure. Prior median sternotomy. The lungs are clear without infiltrates, suspicious nodules, or pleural effusions. No acute bony abnormalities. IMPRESSION: Cardiomegaly otherwise negative Dictated by: Garrison Barron MD 02/16/2020 12:04 Garrison Barron MD in [place] 02/16/2020 12:04
[2020-02-17 16:13] LABS: Covid-19 Nasal PCR Sendout Lex Not Detected
== END ==
PROVIDERS: PCP Internal Medicine Adolescent Medicine; Visit Provider Internal Medicine Adolescent Medicine
DX: Z03.818 Encounter for observation for suspected exposure to other biological agents ruled out (principal); R05 Cough
CPT/HCPCS: 71045; U0004

== ENCOUNTER → 2020-05-15 09:38 | Outpatient (CLI) | payer MEDICARE, SELFPAY ==
[2020-05-15 10:14] LABS: Basophils # 0.1 K/mm3 (0-0.2); Basophils % 0.3 % (0.1-2.0); Eosinophils # 0.1 K/mm3 (0.0-0.4); Eosinophils % 0.3 % (0.1-12.0); Hematocrit 46.1 % (42.0-52.0); Hemoglobin 14.4 g/dL (14.1-18.0); Lymphocytes # 2.1 K/mm3 (0.7-4.5); Lymphocytes % 10.5 % (10-50); Mean Corpuscular HGB Conc 31.2 g/dL (31.8-35.4); Mean Corpuscular Hemoglobin 30.5 pg (27.0-31.2); Mean Corpuscular Volume 97.7 fl (80-94); Mean Platelet Volume 8.8 fl (7.4-10.4); Monocytes # 0.8 K/mm3 (0.1-1.0); Monocytes % 4.2 % (1.7-9.3); Neutrophils # 16.8 K/mm3 (1.8-7.8); Neutrophils % 84.6 % (37.0-80.0); Platelet Count 306 K/mm3 (142-424); Red Blood Count 4.72 M/mm3 (4.60-6.20); Red Cell Distribution Width 16.1 % (11.5-17.5); White Blood Count 19.9 K/mm3 (4.8-10.8)
[2020-05-15 10:18] LABS: MANUAL DIFFERENTIAL MANUAL DIFFERENTIAL (MANUAL DIFF)
[2020-05-15 10:21] LABS: Hemoglobin A1C 6.4 % (4.0-6.0)
[2020-05-15 10:54] LABS: Chloride 107 mmol/L (98-107); Potassium 4.8 mmoL/L (3.5-5.1); Sodium 141 mmol/L (136-145)
[2020-05-15 10:56] LABS: Alanine Aminotransferase 16 U/L (12-78); Albumin Level 3.9 g/dl (3.5-5.0); Alkaline Phosphatase 64 U/L (38-126); Aspartate Amino Transferase 20 U/L (17-59); Bilirubin,Total 0.2 mg/dl (0.2-1.3); Blood Urea Nitrogen 35 mg/dl (9-20); Estimated Glomerular Filt Rate 54 ml/min (>60); GFR (African American) 65 ML/MIN (>60)
[2020-05-15 10:57] LABS: Albumin/Globulin Ratio 1.2 (1.1-1.8); Anion Gap 9.8 mEq/L (5-15); Calcium 9.7 mg/dl (8.4-10.2); Carbon Dioxide 29 mmol/L (22.0-30.0); Chol/HDL Ratio 3.5 (1-3.5); Cholesterol 194 mg/dl (140-200); Globulin 3.3 g/dL (1.3-3.2); Glucose 129 mg/dl (74-100); HDL Cholesterol 55 mg/dl (40-60); Total Protein,Serum 7.2 g/dl (6.3-8.2); Triglycerides 85 mg/dl (30-150); VLDL Cholesterol 17 mg/dL (0-40)
[2020-05-15 11:08] LABS: Direct LDL Cholesterol 118.59 mg/dL (100-129)
[2020-05-15 11:37] LABS: Lymphocytes % 13 % (10-50); Monocytes % 5 % (2-9); Neutrophils % 81 % (42-76); Platelet Estimate Normal; RBC Morphology Normal; Total Cells Counted 100
== END ==
PROVIDERS: Visit Provider Internal Medicine Adolescent Medicine
DX: I25.10 Atherosclerotic heart disease of native coronary artery without angina pectoris (principal); E78.5 Hyperlipidemia, unspecified; R73.9 Hyperglycemia, unspecified
CPT/HCPCS: 36415; 80053; 80061; 83036; 85007; 85025

== ENCOUNTER → 2020-06-10 12:19 | Outpatient (CLI) | payer MEDICARE, SELFPAY ==
--- NOTE | 2020-06-10 12:23 | XR_ITS ---
PROCEDURE: XR SACROILIAC JOINT BI MIN 3V CLINICAL INDICATION: LOW BACK PAIN AT MULTIPLE SITES COMPARISON: No exams were available for comparison FINDINGS: No fracture or dislocation. No lytic or blastic change. There is normal mineralization. The SI joints have an unremarkable appearance. No fracture or dislocation. No lytic or blastic change. Other findings:None. IMPRESSION: No acute findings. Dictated by: Garrison Barron MD 06/10/2020 15:13 Garrison Barron MD in [place] 06/10/2020 15:13
--- NOTE | 2020-06-10 12:24 | XR_ITS ---
PROCEDURE: XR LUMBAR SPINE MIN 4V CLINICAL INDICATION: LOW BACK PAIN AT MULTIPLE SITES COMPARISON: CR [id number] XR lumbar spine min 4V from 05/11/2017 FINDINGS: No fracture or dislocation. No lytic or blastic change. There is normal mineralization. Mild lumbar curvature convex left. Multilevel degenerative disc disease is present from L1-S1 most severe at L2-L3. Small endplate osteophytes are present from L1-L4. Other findings:There is diffuse vascular calcification with bilateral iliac artery stents calcification noted over both renal outlines and may represent vascular calcifications. Cannot exclude a small right renal stone at 3 mm. IMPRESSION: Degenerative changes of the thoracic spine as described above Dictated by: Garrison Barron MD 06/10/2020 15:12 Garrison Barron MD in [place] 06/10/2020 15:12
== END ==
PROVIDERS: PCP Internal Medicine Adolescent Medicine; Visit Provider Internal Medicine Adolescent Medicine
DX: M54.5 Low back pain (principal)
CPT/HCPCS: 72110; 72202

== ENCOUNTER → 2020-06-17 08:24 | Outpatient (POV) | payer MEDICARE, SELFPAY ==
[2020-06-17 08:57] VITALS: BP 112/50; PULSE 65; RESP 18; O2SAT 98; BMI 32.2
--- NOTE | 2020-06-17 09:19 | HMH.PMCON ---
Assessment and Plan (1) Degenerative disc disease, lumbar Status: Chronic Category: Medical Code(s): M51.36 - Other intervertebral disc degeneration, lumbar region (2) Back pain Status: Chronic Qualifiers: Sciatica laterality: bilateral sciatica Category: Medical Code(s): M54.9 - Dorsalgia, unspecified - Assessment and plan all Dx Assessment and Plan for all problems:: Today we will order lumbar epidural at L4-L5 for diagnostic purposes, since he has gotten relief from these injections in the past. If he is or unrelieved by epidural we will order MRI for further evaluation. He is currently taking Plavix, will verify ability to discontinue the Plavix for 7 days prior to the injection. Pending Plavix discontinued we will schedule lumbar epidural injection. Dr. Louise has reviewed this note and agrees with this plan of care. This note was dictated using voice recognition software and may contain errors or omissions HPI - Data of Consult Consult date: 06/17/20 Requesting Physician: Matilde Baum APRN Primary Care Provider: Karan Fuller MD - Consult Narrative Reason for consult: Back pain History of present illness: Mr. Boswell is a 75 year old male In today for back pain as a referral from office for low back pain. He states he has been having back pain for the past 2 years. 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 Today he complains of low back pain as well as numbness and tingling in bilateral legs. He states that standing for long periods of time as well as bending forward makes the pain worse. He rates his pain today a 6 out of 10. At times he feels that the pain makes him want to pass out. Sitting provides relief in symptoms, I can sit all day without problems of him in a comfortable chair . He states he has had cortisone injections past that provided relief for 3 to 6 months. He has had failed chiropractic and physical therapy in the past. CC: Matilde Baum APRN [facility] History I have reviewed the patient's past medical history: Yes Medical History: Reports:: Coronary Artery Disease, Diabetes Mellitus Type 2, Gastroesophageal Reflux Disease(GERD), Hyperlipidemia, Hypertension, Peripheral Artery Disease, Supraventricular Tachycardia Denies:: Cancer, Diabetes Mellitus Type 1, MRSA, Seizures *Have you ever received a pneumonia vaccine?: Yes *Have you received a flu vaccine this season?: Yes Other Medical History: Reports: Arthritis Other Surgeries: Yes: Angiogram, Angioplasty, Other Amputation: No Fractures: No - *Social History Smoking Status: Current every day smoker Tobacco Type: cigarettes # Packs/Day (cigarettes): 1 #Yrs smoked (if former smoker): 60 Alcohol Intake: never Alcohol Intake Frequency:: other Substance Use Type: denies use *Occupational Status:: retired Housing: house Household Members: other *Travel in the last 8 weeks: None Family Hx:: Unable to obtain Review of Systems - Review of Systems ROS General: no recent weight change, no fever, no sleep disturbances Respiratory: no cough, no shortness of air, no recurring pulmonary infections Cardiovascular/Peripheral Vascular: No chest pain, No palpitations, no edema, no shortness of breath. Gastrointestinal: no new onset incontinence, normal bowel movements reported Genitourinary: no new onset incontinence Musculoskeletal:low back pain, numbness to bilateral legs. Psychiatric: normal mood/ affect, [denies depression], [denies anxiety] Neurological: [denies new onset weakness in extremities], [denies new onset balance issues] Meds Home Medications Medication Instructions Recorded Confirmed Type aspirin 81 mg tablet,delayed 81 mg PO ONCE 04/26/17 11/14/19 History release clopidogrel 75 mg tablet 75 mg PO ONCE 04/26/17 11/14/19 History levothyroxine 25 mcg tablet 25 mcg PO ONCE tab 04/26/17 11/14/19 H
== END ==
PROVIDERS: PCP Internal Medicine Adolescent Medicine; Visit Provider Clinical Nurse Specialist Family Health
DX: M51.36 Other intervertebral disc degeneration, lumbar region (principal)
CPT/HCPCS: 99202; G0463

== ENCOUNTER 2020-06-28 11:12 | Day surgery (SDC) | payer MEDICARE, SELFPAY ==
[2020-06-28 11:39] VITALS: BP 106/49; PULSE 61; RESP 18; TEMP 36.7; O2SAT 98; BMI 32.1
[2020-06-28 12:49] VITALS: BP 141/74; PULSE 79; RESP 18
[2020-06-28 12:50] VITALS: BP 142/79; PULSE 89; RESP 18; O2SAT 99
--- NOTE | 2020-06-28 12:52 | HMH.PMPROC ---
- Procedure Date: 06/28/20 Time: 12:53 Anesthesiologist:: Franck Louise MD Complications:: None Pre-procedure Diagnosis:: Generative disc disease of lumbar spine with lumbar radiculopathy symptoms Post-procedure Diagnosis:: Same Indications for Procedure:: Patient is a pleasant 75-year-old white male who we are treating for low back pain with lumbar radicular symptoms. He has been off his Plavix for 7 days. Will do lumbar epidural steroid injection today to help him with his pain symptoms. Procedure Details:: Lumbar epidural steroid injection under fluoroscopy Informed consent was obtained and the risk and benefits of the procedure was explained to the patient. The patient was taken to the procedure room. The patient was placed prone on the procedure table. The patient was prepped and draped in sterile fashion. C-arm fluoroscopy was used to view the lumbar spine. Skin and subcutaneous tissues were anesthetized using lidocaine. I placed an 18-gauge epidural needle and advanced into the L4-L5 interspace using fluoroscopic guidance and [id number] to air. After confirmation of needle placement in the epidural space with dye I injected 2 mL of lidocaine 1.5% with Depo-Medrol 80 mg. Patient tolerated the procedure well with no complications. Plan and Disposition:: We will follow-up with him in 2 weeks. Will reevaluate symptoms at that time. He can resume his Plavix tomorrow.
[2020-06-28 13:02] VITALS: BP 111/51; PULSE 66; RESP 20; O2SAT 98
== END 2020-06-28 13:03 | disposition home or self-care (01) ==
LOC: SC.PAINP 11:13
PROVIDERS: PCP Internal Medicine Adolescent Medicine; Visit Provider Anesthesiology
DX: M51.16 Intervertebral disc disorders with radiculopathy, lumbar region (principal); E78.5 Hyperlipidemia, unspecified; I10 Essential (primary) hypertension; I25.10 Atherosclerotic heart disease of native coronary artery without angina pectoris; I73.9 Peripheral vascular disease, unspecified; R55 Syncope and collapse; G62.9 Polyneuropathy, unspecified; F41.9 Anxiety disorder, unspecified; F32.9 Major depressive disorder, single episode, unspecified; Z95.1 Presence of aortocoronary bypass graft; Z88.0 Allergy status to penicillin; Z72.0 Tobacco use
CPT/HCPCS: 62323; J1040; Q9966

== ENCOUNTER → 2020-07-25 13:22 | Outpatient (POV) | payer MEDICARE, SELFPAY ==
[2020-07-25 13:49] VITALS: BP 145/85; PULSE 88; RESP 18; TEMP 36.6; O2SAT 99; BMI 32.1
--- NOTE | 2020-07-25 13:59 | P.CONS_ITS ---
[facility] Pain Management SOAP Note Subjective:: Patient is a pleasant 75-year-old white male who presents today for follow-up after lumbar epidural steroid injection. Patient did not get any relief from this injection. He rates his pain a 10 out of 10. Patient is interested in pursuing diagnostic imaging which I do believe will be beneficial. He may need a surgical neurosurgical consultation. We will also start him on Naprosyn. He has taken this in the past with good relief. ROS General: no recent weight change, no fever, no sleep disturbances Respiratory: no cough, no shortness of air, no recurring pulmonary infections Cardiovascular/Peripheral Vascular: No chest pain, No palpitations, no edema, no shortness of breath. Gastrointestinal: no new onset incontinence, normal bowel movements reported Genitourinary: no new onset incontinence Musculoskeletal: Back pain, leg pain Psychiatric: normal mood/ affect Neurological: [denies new onset weakness in extremities], [denies new onset balance issues] Objective:: Physical Exam General: Alert and oriented x3, no acute distress, pleasant and cooperative, [on room air] Lungs: Resps E/U, Symmetrical chest expansion Eyes: PERRL Musculoskeletal: Flexion and extension of lumbar spine somewhat guarded secondary to pain, deep tendon reflexes normal, strength in upper and lower extremities [5/5], [abnormal gait noted] Neurological: speech clear, hardware trainer equal, no gross sensory deficits Assessment:: Degenerative disc disease lumbar spine lumbar radiculopathy symptoms Plan:: We will see the patient back after a lumbar MRI to help determine pathology. Also start him on naproxen with his the naproxen 500 mg 1 p.o. twice daily. He has been instructed to call the office if he has any issues prior to his next appointment. Dr. Louise has reviewed this note and agrees with this plan of care. This note was dictated using voice recognition software and may contain errors or omissions [facility] History I have reviewed the patient's past medical history: Yes Medical History: Reports:: Coronary Artery Disease, Gastroesophageal Reflux Disease(GERD), Hyperlipidemia, Hypertension, Myocardial Infarction, Peripheral Artery Disease, Peripheral Vascular Disease, Supraventricular Tachycardia Denies:: Cancer, Diabetes Mellitus Type 1, Diabetes Mellitus Type 2, MRSA, Seizures *Have you ever received a pneumonia vaccine?: Yes *Have you received a flu vaccine this season?: Yes Other Medical History: Reports: Arthritis. Denies: Blood Transfusion Reaction Other Surgeries: Yes: Angiogram, Angioplasty, CABG, Cardiac Catheterization, Cardiac Surgery, Other Amputation: No Fractures: No - *Social History Smoking Status: Current every day smoker Tobacco Type: cigarettes # Packs/Day (cigarettes): 1 #Yrs smoked (if former smoker): 60 Alcohol Intake: never Alcohol Intake Frequency:: other Substance Use Type: denies use *Occupational Status:: other Housing: house Household Members: spouse *Travel in the last 8 weeks: None Family Hx:: Unable to obtain
== END ==
PROVIDERS: PCP Internal Medicine Adolescent Medicine; Visit Provider Clinical Nurse Specialist Family Health
DX: M51.16 Intervertebral disc disorders with radiculopathy, lumbar region (principal)
CPT/HCPCS: 99212; G0463

== ENCOUNTER → 2020-08-02 15:04 | Outpatient (CLI) | payer MEDICARE, SELFPAY ==
--- NOTE | 2020-08-02 15:19 | MR_ITS ---
PROCEDURE: MR LUMBAR SPINE WO CON CLINICAL INDICATION: Pt c/o lbp with bilateral leg weakness x5yrs with no recent trauma or injury. Prior L-spine x-rays done 06/10/2020. COMPARISON: CR XR LUMBAR SPINE MIN 4V from 06/10/2020 TECHNIQUE: Standard multiplanar multiecho sequences are performed without contrast. 3-D MIP and myelographic images are also rendered and reviewed FINDINGS: There is normal alignment. The spinal cord ends at the L1-L2 level. L1-L2: Unremarkable. L2-L3: Degenerative disc disease with bulging disc and a small central disc protrusion with facet and ligamentum hypertrophy and canal stenosis along with bilateral lateral recess and foraminal narrowing. There is anterior endplate spurring as well. Slightly hyperintense T1 and T2 rounded areas are present in the L1 and L2 vertebral bodies at 16 and 23 mm consistent with hemangiomas/lipomas. L3-L4: Mild facet ligamentum hypertrophy. L4-5: Minimal bulging disc slightly eccentric toward the left with facet and ligamentum hypertrophy with mild left lateral recess and foraminal narrowing. L5-S1: Mild facet hypertrophic change. IMPRESSION: 1. L2-L3: Degenerative disc disease with bulging disc and a small central disc protrusion with facet and ligamentum hypertrophy and canal stenosis along with bilateral lateral recess and foraminal narrowing. There is anterior endplate spurring as well. 2. L4-5: Minimal bulging disc slightly eccentric toward the left with facet and ligamentum hypertrophy with mild left lateral recess and foraminal narrowing. Dictated by: Garrison Barron MD 08/06/2020 15:55 Garrison Barron MD in [place] 08/06/2020 15:55
== END ==
PROVIDERS: PCP Internal Medicine Adolescent Medicine; Visit Provider Clinical Nurse Specialist Family Health
DX: M54.5 Low back pain (principal)
CPT/HCPCS: 72148; 76376

== ENCOUNTER → 2020-08-08 13:37 | Outpatient (POV) | payer MEDICARE, SELFPAY ==
[2020-08-08 14:00] VITALS: BP 141/74; PULSE 74; RESP 18; O2SAT 98; BMI 31.8
--- NOTE | 2020-08-08 14:05 | P.CONS_ITS ---
[facility] Pain Management SOAP Note Subjective:: Pleasant 75-year-old white male who presents today for follow-up after lumbar MRI. Patient has ligamentum flavum hypertrophy, facet arthropathy, spinal stenosis and bulging disc. Patient at this time does not want to move forward with any neurosurgical consultation. Patient rates his pain a 10 out of 10 when he is standing or walking and is alleviated by sitting and laying down. Patient and I discussed potential minimally invasive lumbar decompression he would like to move forward with an epidurogram to see if he is a candidate for this. ROS General: no recent weight change, no fever, no sleep disturbances Respiratory: no cough, no shortness of air, no recurring pulmonary infections Cardiovascular/Peripheral Vascular: No chest pain, No palpitations, no edema, no shortness of breath. Gastrointestinal: no new onset incontinence, normal bowel movements reported Genitourinary: no new onset incontinence Musculoskeletal: Back pain, leg pain Psychiatric: normal mood/ affect Neurological: [denies new onset weakness in extremities], [denies new onset balance issues] Objective:: Physical Exam General: Alert and oriented x3, no acute distress, pleasant and cooperative, [on room air] Lungs: Resps E/U, Symmetrical chest expansion, Eyes: PERRL Musculoskeletal: Flexion and extension of lumbar spine somewhat guarded secondary to pain, deep tendon reflexes normal, strength in upper and lower extremities [5/5], [abnormal gait noted] Neurological: speech clear, tobacco acreage measurer equal, no gross sensory deficits Assessment:: Degenerative disc disease lumbar spine lumbar radiculopathy, spinal stenosis with neurogenic claudication Plan:: We will schedule the patient for an epidurogram to see if he is a candidate for a minimally invasive lumbar decompression. Patient would like to avoid surgeries. He is not any anticoagulation therapy. I will follow-up with him afterwards reassess his symptoms at that time he has been instructed to call the office if he has any issues prior to his next appointment. Dr. Louise has reviewed this note and agrees with this plan of care. This note was dictated using voice recognition software and may contain errors or omissions [facility] History I have reviewed the patient's past medical history: Yes Medical History: Reports:: Coronary Artery Disease, Gastroesophageal Reflux Disease(GERD), Hyperlipidemia, Hypertension, Myocardial Infarction, Peripheral Artery Disease, Peripheral Vascular Disease, Supraventricular Tachycardia Denies:: Cancer, Diabetes Mellitus Type 1, Diabetes Mellitus Type 2, MRSA, Seizures *Have you ever received a pneumonia vaccine?: Yes *Have you received a flu vaccine this season?: Yes Other Medical History: Reports: Arthritis. Denies: Blood Transfusion Reaction Other Surgeries: Yes: Angiogram, Angioplasty, CABG, Cardiac Catheterization, Cardiac Surgery, Other Amputation: No Fractures: No - *Social History Smoking Status: Current every day smoker Tobacco Type: cigarettes # Packs/Day (cigarettes): 1 #Yrs smoked (if former smoker): 60 Alcohol Intake: never Alcohol Intake Frequency:: other Substance Use Type: denies use *Occupational Status:: other Housing: house Household Members: spouse *Travel in the last 8 weeks: None Family Hx:: Unable to obtain
== END ==
PROVIDERS: PCP Internal Medicine Adolescent Medicine; Visit Provider Clinical Nurse Specialist Family Health
DX: M51.16 Intervertebral disc disorders with radiculopathy, lumbar region (principal); M48.062 Spinal stenosis, lumbar region with neurogenic claudication
CPT/HCPCS: 99212; G0463

== ENCOUNTER → 2020-09-16 09:11 | Outpatient (POV) | payer MEDICARE, SELFPAY ==
[2020-09-16 09:15] VITALS: BP 140/72; PULSE 76; RESP 18; O2SAT 98; BMI 32.1
--- NOTE | 2020-09-16 09:49 | HMH.PAINSOAP ---
[facility] Pain Management SOAP Note Subjective:: Patient is a 75-year-old white male who presents today for follow-up. Patient was scheduled for a lumbar epidural steroid injection with an epidurogram. He is here today upset because he feels he was not thoroughly educated regarding the epidurogram. Patient says he is undergoing a series of the injections and did not get any relief and did not understand why he needed to do a repeat lumbar epidural steroid injection. Patient was being worked up for a mild procedure and needed an epidurogram. Patient says that he is unsure he wants to proceed with the epidurogram. We did discuss possible spinal cord stimulation. He says that he has a friend that is currently with SCS therapy and does well. She is a patient in our clinic. Patient feels that he was not given adequate information regarding the mild procedure and epidurogram. Patient says he has severe low back pain which is worse than his lower extremity pain. He says he would prefer to discuss possible SCS therapy. He has tried and failed conservative therapies of physical therapy for more than 6 weeks along with continued home stretching. He has also tried oral medications. Patient is on anticoagulation therapy and does understand that he would need to hold his therapy for the trial and for implant. He has been approved to hold his anticoagulation therapy with injections in the past. He is not gotten relief with epidural steroid injections in the past. He continues to have significant pain in his low back and into his bilateral lower extremities. He rates his pain a 10 out of 10 today. He does continue with home stretching at this time. Is unable to take anti-inflammatories due to his anticoagulation therapy. \ Review of Systems General: No recent weight changes, no fever, no sleep disturbances Respiratory: No cough, no shortness of air, no recurring pulmonary infections Cardiovascular/peripheral vascular: No chest pain, no palpitations, no edema, no shortness of breath Gastrointestinal: No new onset incontinence, normal bowel movements reported Genitourinary: No new onset incontinence Musculoskeletal: Low back pain with radiation into lower extremities Psychiatric: Normal mood/affect Neurological: [Denies weakness in extremities], [denies balance issues] Objective:: Physical exam General: Alert and oriented x3, no acute distress, pleasant and cooperative, [on room air] Lungs: Respirations even and unlabored, symmetrical chest expansion Eyes: PERRL Musculoskeletal: Flexion and extension of lumbar spine somewhat guarded secondary to pain, deep tendon reflexes normal, strength in upper and lower extremities [5/5], [abnormal gait noted] Neurological: Speech clear, exhaust emissions automotive technician equal, no gross sensory deficit Assessment:: Degenerative disc disease lumbar spine with lumbar radiculopathy symptoms, spinal stenosis with neurogenic claudication symptoms Plan:: Patient I did discuss the mild procedure in detail. He was given educational information. Patient says that he feels he would be more appropriate for possible SCS therapy. We will send him for psychological evaluation and discuss possible trial. He has tried and failed conservative therapies of injective therapy, physical therapy for greater than 6 weeks and home stretching. He is unable to take anti-inflammatories due to anticoagulation therapy. We will see him back after her psychological evaluation to discuss further plan of care. He is not interested in the mild procedure at this time. Dr. Louise has reviewed this note and agrees with this plan of care. This note was dictated using voice recognition software and make contain errors or omissions. [facility] History I have reviewed the patient's past medical history: Yes Medical History: Reports:: Coronary Artery Disease, Gastroesophageal Reflux Disease(GERD), Hyperlipidemia, Hypertension, Myocardial Infarction, Peripheral Artery Disease
--- NOTE | 2020-11-05 08:46 | PC.NURSE ---
Spoke with patient notifying of stim trial date and time, along with letting him know pre op will call for the arrival time and pre op labs. Patient is aware to stop bloodthinner Plavix on 11/08.
== END ==
PROVIDERS: Visit Provider Clinical Nurse Specialist Family Health
DX: M51.16 Intervertebral disc disorders with radiculopathy, lumbar region (principal); M48.062 Spinal stenosis, lumbar region with neurogenic claudication
CPT/HCPCS: 99212; G0463

== ENCOUNTER → 2020-11-13 13:31 | Outpatient (CLI) | payer MEDICARE, SELFPAY ==
[2020-11-13 14:24] LABS: Basophils # 0.1 K/mm3 (0-0.2); Basophils % 0.8 % (0.1-2.0); Eosinophils # 0.6 K/mm3 (0.0-0.4); Eosinophils % 3.7 % (0.1-12.0); Hematocrit 44.9 % (42.0-52.0); Hemoglobin 14.4 g/dL (14.1-18.0); Lymphocytes # 2.6 K/mm3 (0.7-4.5); Lymphocytes % 16.3 % (10-50); Mean Corpuscular HGB Conc 32.1 g/dL (31.8-35.4); Mean Corpuscular Volume 93.3 fl (80-94); Mean Platelet Volume 8.1 fl (7.4-10.4); Monocytes # 0.7 K/mm3 (0.1-1.0); Monocytes % 4.5 % (1.7-9.3); Neutrophils # 12.1 K/mm3 (1.8-7.8); Neutrophils % 74.7 % (37.0-80.0); Platelet Count 279 K/mm3 (142-424); Red Blood Count 4.81 M/mm3 (4.60-6.20); Red Cell Distribution Width 14.3 % (11.5-17.5); White Blood Count 16.2 K/mm3 (4.8-10.8)
[2020-11-13 14:26] LABS: MANUAL DIFFERENTIAL MANUAL DIFFERENTIAL (MANUAL DIFF)
[2020-11-13 15:11] LABS: Eosinophils % 2 % (0-3); Lymphocytes % 5 % (10-50); Monocytes % 1 % (2-9); Neutrophils % 83 % (42-76); Platelet Estimate Normal; RBC Morphology Normal; Total Cells Counted 100
[2020-11-13 15:18] LABS: Anion Gap 14.4 mEq/L (5-15); Blood Urea Nitrogen 17 mg/dl (9-20); Carbon Dioxide 29 mmol/L (22.0-30.0); Chloride 98 mmol/L (98-107); Estimated Glomerular Filt Rate 65 ml/min (>60); GFR (African American) 79 ML/MIN (>60); Glucose 122 mg/dl (74-100); Potassium 5.4 mmoL/L (3.5-5.1); Sodium 136 mmol/L (136-145)
[2020-11-15 10:42] LABS: Lactate Dehydrogenase 182 U/L (313-618); Uric Acid 9.8 mg/dl (3.5-8.5)
[2020-11-17 10:33] LABS: Peripheral Smear Review Scanned Result
== END ==
PROVIDERS: Internal Medicine Adolescent Medicine; Visit Provider Anesthesiology
DX: Z01.812 Encounter for preprocedural laboratory examination (principal); Z20.822 Contact with and (suspected) exposure to COVID-19; M51.16 Intervertebral disc disorders with radiculopathy, lumbar region
CPT/HCPCS: 36415; 80048; 83615; 84550; 85007; 85025; U0003

== ENCOUNTER 2020-11-15 07:10 | Day surgery (SDC) | payer MEDICARE, MEDICAID, SELFPAY ==
[2020-11-12 09:56] VITALS: BMI 32.3
[2020-11-15 07:28] VITALS: BP 154/54; PULSE 54; RESP 18; TEMP 36.1; O2SAT 97
[2020-11-15 07:55] LABS: Basophils # 0.2 K/mm3 (0-0.2); Eosinophils # 0.9 K/mm3 (0.0-0.4); Eosinophils % 5.3 % (0.1-12.0); Hematocrit 43.2 % (42.0-52.0); Lymphocytes # 2.6 K/mm3 (0.7-4.5); Lymphocytes % 15.1 % (10-50); Mean Corpuscular HGB Conc 32.4 g/dL (31.8-35.4); Mean Corpuscular Hemoglobin 30.2 pg (27.0-31.2); Mean Corpuscular Volume 93.1 fl (80-94); Mean Platelet Volume 8.2 fl (7.4-10.4); Monocytes # 0.9 K/mm3 (0.1-1.0); Neutrophils # 12.6 K/mm3 (1.8-7.8); Neutrophils % 73.6 % (37.0-80.0); Platelet Count 270 K/mm3 (142-424); Red Blood Count 4.64 M/mm3 (4.60-6.20); Red Cell Distribution Width 14.3 % (11.5-17.5); White Blood Count 17.1 K/mm3 (4.8-10.8)
[2020-11-15 07:57] LABS: MANUAL DIFFERENTIAL MANUAL DIFFERENTIAL (MANUAL DIFF)
[2020-11-15 07:59] LABS: Microscopic, Urine URINE MICROSCOPIC (MICROSCOPIC)
[2020-11-15 08:02] LABS: Appearance,Urine CLEAR (Clear); Bilirubin,Urine Negative (Negative); Blood, Urine Negative (Negative); Color,Urine YELLOW (Yellow); Glucose,Urine (UA) Negative (Negative); Ketones,Urine Negative (Negative); Leukocyte Esterase,Urine Negative (Negative); Nitrate,Urine Negative (Negative); PH,Urine 5.5 (5.0-8.5); Protein,Urine Negative (Negative); Urobilinogen,Urine 0.2 EU/dl (0.2)
[2020-11-15 08:05] LABS: Eosinophils % 1 % (0-3); Lymphocytes % 22 % (10-50); Monocytes % 9 % (2-9); Neutrophils % 68 % (42-76); Platelet Estimate Normal; RBC Morphology Normal; Total Cells Counted 100
[2020-11-15 08:19] LABS: Squamous Epithelial Cell,Urine Occasional #/hpf (0-5); WBC,Urine Occasional #/hpf (0-3)
--- NOTE | 2020-11-15 08:43 | XR_ITS ---
PROCEDURE: XR CHEST PORTABLE CLINICAL HISTORY: wbc 17.1 and expiratory wheezing COMPARISON: CR XR CHEST PORTABLE from 02/16/2020 FINDINGS: There has been a prior CABG. There is mild patient rotation to the right. Mild cardiomegaly. No lobar consolidation or collapse. There are degenerative changes in the shoulders and postsurgical change of the right shoulder. IMPRESSION: No acute findings. Dictated by: Garrison Barron MD 11/15/2020 10:25 Garrison Barron MD in [place] 11/15/2020 10:25
--- NOTE | 2020-11-15 15:32 | P.CONS_ITS ---
[facility] Pain Management SOAP Note Subjective:: This patient was scheduled for epidural placement x2 for temporary spinal cord stimulator trial today. However, lab work revealed leukocytosis with a white blood cell count of 16.2. Repeat CBC demonstrated a white blood cell count of 17.1. He states that he has been experiencing some burning on urination as well as some shortness of breath and wheezing. Preliminary UA was negative for UTI. He denies any recent steroid use. Given that the patient has an elevated white blood cell count with no known etiology I discussed with the patient we will postpone this elective procedure for now until further work-up has been performed. I recommended the patient contact his PCP to inform him of these lab results and further work-up if indicated. [facility] History Medical History: Reports:: Coronary Artery Disease, Gastroesophageal Reflux Disease(GERD), Hyperlipidemia, Hypertension, Myocardial Infarction, Peripheral Artery Disease, Peripheral Vascular Disease, Supraventricular Tachycardia Denies:: Cancer, Diabetes Mellitus Type 1, Diabetes Mellitus Type 2, Internal Pacemaker, MRSA, Seizures *Have you ever received a pneumonia vaccine?: Yes *Have you received a flu vaccine this season?: Yes Other Medical History: Reports: Arthritis. Denies: Blood Transfusion Reaction Other Surgeries: Yes: Angiogram, Angioplasty, CABG, Cardiac Catheterization, Cardiac Surgery, Other. No: Pacemaker Amputation: No Fractures: No - *Social History Last grade of school completed: High school graduate Smoking Status: Current every day smoker Tobacco Type: cigarettes # Packs/Day (cigarettes): 1 #Yrs smoked (if former smoker): 60 Alcohol Intake: never Alcohol Intake Frequency:: other Substance Use Type: denies use *Occupational Status:: unemployed Housing: house Household Members: spouse *Travel in the last 8 weeks: None Family Hx:: Unable to obtain
== END 2020-11-15 12:41 ==
LOC: OR 07:11
PROVIDERS: Visit Provider Anesthesiology Pain Medicine
DX: M51.36 Other intervertebral disc degeneration, lumbar region (principal); D72.829 Elevated white blood cell count, unspecified; R06.2 Wheezing; Z95.5 Presence of coronary angioplasty implant and graft
CPT/HCPCS: 71045; 81001; 85007; 85025; 96374; J3370

== ENCOUNTER → 2020-11-23 10:21 | Outpatient (CLI) | payer MEDICARE, MEDICAID, SELFPAY ==
[2020-11-23 10:54] LABS: Basophils # 0.1 K/mm3 (0-0.2); Basophils % 0.5 % (0.1-2.0); Eosinophils # 0.5 K/mm3 (0.0-0.4); Eosinophils % 2.2 % (0.1-12.0); Hematocrit 45.6 % (42.0-52.0); Hemoglobin 14.5 g/dL (14.1-18.0); Lymphocytes # 2.2 K/mm3 (0.7-4.5); Lymphocytes % 9.9 % (10-50); Mean Corpuscular HGB Conc 31.8 g/dL (31.8-35.4); Mean Corpuscular Hemoglobin 29.8 pg (27.0-31.2); Mean Corpuscular Volume 93.6 fl (80-94); Mean Platelet Volume 8.2 fl (7.4-10.4); Monocytes # 1.2 K/mm3 (0.1-1.0); Monocytes % 5.3 % (1.7-9.3); Neutrophils % 82.1 % (37.0-80.0); Platelet Count 258 K/mm3 (142-424); Red Blood Count 4.87 M/mm3 (4.60-6.20)
[2020-11-23 10:57] LABS: MANUAL DIFFERENTIAL MANUAL DIFFERENTIAL (MANUAL DIFF)
[2020-11-23 11:24] LABS: Hemoglobin A1C 6.1 % (4.0-6.0)
[2020-11-23 11:42] LABS: Alanine Aminotransferase 11 U/L (12-78); Albumin Level 3.5 g/dl (3.5-5.0); Albumin/Globulin Ratio 1.3 (1.1-1.8); Alkaline Phosphatase 66 U/L (38-126); Anion Gap 10.1 mEq/L (5-15); Aspartate Amino Transferase 16 U/L (17-59); Bilirubin,Total 0.5 mg/dl (0.2-1.3); Blood Urea Nitrogen 27 mg/dl (9-20); Calcium 8.5 mg/dl (8.4-10.2); Carbon Dioxide 32 mmol/L (22.0-30.0); Chloride 98 mmol/L (98-107); Estimated Glomerular Filt Rate 54 ml/min (>60); GFR (African American) 65 ML/MIN (>60); Globulin 2.8 g/dL (1.3-3.2); Glucose 201 mg/dl (74-100); Potassium 4.1 mmoL/L (3.5-5.1); Sodium 136 mmol/L (136-145); Total Protein,Serum 6.3 g/dl (6.3-8.2)
[2020-11-23 12:11] LABS: Thyroid Stimulating Hormone 2.22 uIU/mL (0.465-4.68)
[2020-11-23 13:27] LABS: Eosinophils % 2 % (0-3); Lymphocytes % 14 % (10-50); Monocytes % 10 % (2-9); Neutrophils % 74 % (42-76); Platelet Estimate Normal; RBC Morphology Normal; Total Cells Counted 100
== END ==
PROVIDERS: Visit Provider Internal Medicine Adolescent Medicine
DX: E03.9 Hypothyroidism, unspecified (principal); Z79.899 Other long term (current) drug therapy
CPT/HCPCS: 36415; 80053; 83036; 84443; 85007; 85025

== ENCOUNTER → 2020-11-26 16:03 | Outpatient (CLI) | payer MEDICARE, MEDICAID, SELFPAY ==
--- NOTE | 2020-11-26 16:10 | XR_ITS ---
PROCEDURE: XR ANKLE LT MIN 3V CLINICAL INDICATION: LT ANKLE PAIN COMPARISON: No exams were available for comparison FINDINGS: No fracture or dislocation. No lytic or blastic change. There is normal mineralization. The joint spaces are well-preserved. No significant degenerative/arthritic changes. No erosive changes evident. Vascular calcification. IMPRESSION: No acute findings. Dictated by: Garrison Barron MD 11/26/2020 17:12 Garrison Barron MD in [facility] 11/26/2020 17:12
== END ==
PROVIDERS: PCP Internal Medicine Adolescent Medicine; Visit Provider Internal Medicine Adolescent Medicine
DX: M25.572 Pain in left ankle and joints of left foot (principal)
CPT/HCPCS: 73610

== ENCOUNTER → 2020-12-09 08:42 | Outpatient (CLI) | payer MEDICARE, MEDICAID, SELFPAY ==
[2020-12-09 09:41] LABS: Basophils # 0.1 K/mm3 (0-0.2); Basophils % 0.8 % (0.1-2.0); Eosinophils # 1.2 K/mm3 (0.0-0.4); Eosinophils % 7.7 % (0.1-12.0); Hemoglobin 13.5 g/dL (14.1-18.0); Lymphocytes # 2.7 K/mm3 (0.7-4.5); Lymphocytes % 17.5 % (10-50); Mean Corpuscular HGB Conc 30.8 g/dL (31.8-35.4); Mean Corpuscular Hemoglobin 30.2 pg (27.0-31.2); Mean Corpuscular Volume 98.3 fl (80-94); Mean Platelet Volume 8.4 fl (7.4-10.4); Monocytes # 0.8 K/mm3 (0.1-1.0); Monocytes % 4.9 % (1.7-9.3); Neutrophils # 10.6 K/mm3 (1.8-7.8); Neutrophils % 69.1 % (37.0-80.0); Platelet Count 351 K/mm3 (142-424); Red Blood Count 4.48 M/mm3 (4.60-6.20); Red Cell Distribution Width 13.7 % (11.5-17.5); White Blood Count 15.4 K/mm3 (4.8-10.8)
[2020-12-09 09:44] LABS: MANUAL DIFFERENTIAL MANUAL DIFFERENTIAL (MANUAL DIFF)
[2020-12-09 10:09] LABS: Chloride 101 mmol/L (98-107); Sodium 136 mmol/L (136-145)
[2020-12-09 10:11] LABS: Alanine Aminotransferase 10 U/L (12-78); Alkaline Phosphatase 72 U/L (38-126); Aspartate Amino Transferase 18 U/L (17-59); Blood Urea Nitrogen 14 mg/dl (9-20); Estimated Glomerular Filt Rate 42 ml/min (>60); GFR (African American) 51 ML/MIN (>60)
[2020-12-09 10:12] LABS: Albumin Level 3.5 g/dl (3.5-5.0); Albumin/Globulin Ratio 1.1 (1.1-1.8); Calcium 8.9 mg/dl (8.4-10.2); Carbon Dioxide 22 mmol/L (22.0-30.0); Globulin 3.2 g/dL (1.3-3.2); Glucose 167 mg/dl (74-100); Total Protein,Serum 6.7 g/dl (6.3-8.2)
[2020-12-09 10:14] LABS: Bilirubin,Total 0.1 mg/dl (0.2-1.3)
[2020-12-09 10:16] LABS: Eosinophils % 10 % (0-3); Lymphocytes % 10 % (10-50); Monocytes % 2 % (2-9); Neutrophils % 77 % (42-76); Total Cells Counted 100
[2020-12-09 10:17] LABS: Hypochromasia 2+; Platelet Estimate Normal
== END ==
PROVIDERS: Visit Provider Internal Medicine Adolescent Medicine
DX: R06.02 Shortness of breath (principal)
CPT/HCPCS: 36415; 80053; 85007; 85025

== ENCOUNTER → 2021-01-20 09:16 | Outpatient (POV) | payer MEDICARE, MEDICAID, SELFPAY ==
[2021-01-20 09:37] VITALS: BP 129/69; PULSE 58; RESP 18; O2SAT 97; BMI 31.4
--- NOTE | 2021-01-20 12:27 | HMH.PAINSOAP ---
[facility] Pain Management SOAP Note Subjective:: Patient is a 76-year-old white male who presents today for follow-up. The patient was scheduled to undergo a spinal cord stimulator trial on 11/15/2020, however, due to leukocytosis with a white count of 17.1, the procedure was postponed. He was advised to follow-up with his primary care provider. Unfortunately, the patient's insurance was changed since then and he has had difficulty getting in with his primary care provider. Patient was worked up for possible urinary tract infection which was negative. The patient did have a fall 1 month prior to his stimulator trial and was noted to have an area to his left ankle that was infected. He was treated with antibiotic therapy to this area. Patient had forgotten to inform the provider prior to the trial that he had received antibiotic therapy for the area. He does rate his pain a 10 out of 10 today. He is having pain in the low back which will change periodically from side to side. The pain does go into his bilateral lower extremities causing him to have intermittent numbness and tingling. He has undergone physical therapy for more than 6 weeks and does continue with home stretching. He uses ice and heat therapies. He has tried injective therapy which gave him no significant relief. He is also tried using ice and heat therapies as well as [id number] oral medications. Patient has not gotten any significant relief. The pain is progressively worsening. The patient is now using a cane for ambulation. Review of Systems General: No recent weight changes, no fever, no sleep disturbances Respiratory: No cough, no shortness of air, no recurring pulmonary infections Cardiovascular/peripheral vascular: No chest pain, no palpitations, no edema, no shortness of breath Gastrointestinal: No new onset incontinence, normal bowel movements reported Genitourinary: No new onset incontinence Musculoskeletal: Low back pain with radiation into bilateral lower extremities Psychiatric: [Normal mood/affect] Neurological: [Denies weakness in extremities], [denies balance issues] Objective:: Physical exam General: Alert and oriented x3, no acute distress, pleasant and cooperative Lungs: Respirations even and unlabored, symmetrical chest expansion Eyes: PERRL Musculoskeletal: Flexion and extension of lumbar [spine] somewhat guarded secondary to pain, [antalgic gait noted] Neurological: Speech clear, no gross sensory deficit Assessment:: Degenerative disc disease lumbar spine with lumbar radiculopathy symptoms Plan:: We will schedule the patient once again for spinal cord stimulator trial. He has had a psychological evaluation and was considered an appropriate candidate. Patient will be seeing his primary care provider tomorrow and will be undergoing lab work. He will contact the clinic to inform us when he has completed lab work so that we may view the lab work to determine if he still has an elevated white count. If the patient does continue to have an elevated white count or any concerning lab work, we will need to postpone injective therapy as well as spinal cord stimulator trial until further work-up is performed. Patient does understand this. Patient says he is not on any anticoagulation therapy. Risk and benefits of the procedure have been explained in detail to the patient and he would like to proceed. He has tried physical therapy for more than 6 weeks and continues with home stretching. He has also tried ice and heat therapies and oral medications with no relief. The patient's pain is a 10 out of 10 today. We will see him back after his trial for reevaluation of symptoms. Patient has been instructed to contact the clinic with any concerns before the next appointment. Dr. Louise has reviewed this note and agrees with this plan of care. This note was dictated using voice recognition software and make contain errors or omissions. [facility]
== END ==
PROVIDERS: Visit Provider Clinical Nurse Specialist Family Health
DX: M51.16 Intervertebral disc disorders with radiculopathy, lumbar region (principal)
CPT/HCPCS: 99212; G0463

== ENCOUNTER → 2021-01-21 10:58 | Outpatient (CLI) | payer MEDICARE, MEDICAID, SELFPAY ==
[2021-01-21 11:41] LABS: Basophils # 0.2 K/mm3 (0-0.2); Basophils % 1.5 % (0.1-2.0); Eosinophils # 1.4 K/mm3 (0.0-0.4); Eosinophils % 8.4 % (0.1-12.0); Hematocrit 44.3 % (42.0-52.0); Lymphocytes # 2.1 K/mm3 (0.7-4.5); Lymphocytes % 12.6 % (10-50); Mean Corpuscular HGB Conc 31.5 g/dL (31.8-35.4); Mean Corpuscular Hemoglobin 29.9 pg (27.0-31.2); Mean Corpuscular Volume 95.1 fl (80-94); Mean Platelet Volume 8.5 fl (7.4-10.4); Monocytes # 0.8 K/mm3 (0.1-1.0); Monocytes % 4.9 % (1.7-9.3); Neutrophils # 11.9 K/mm3 (1.8-7.8); Neutrophils % 72.6 % (37.0-80.0); Platelet Count 381 K/mm3 (142-424); Red Blood Count 4.66 M/mm3 (4.60-6.20); Red Cell Distribution Width 14.8 % (11.5-17.5); White Blood Count 16.3 K/mm3 (4.8-10.8)
[2021-01-21 11:44] LABS: MANUAL DIFFERENTIAL MANUAL DIFFERENTIAL (MANUAL DIFF)
[2021-01-21 11:58] LABS: Alanine Aminotransferase 9 U/L (12-78); Albumin Level 3.7 g/dl (3.5-5.0); Albumin/Globulin Ratio 1.1 (1.1-1.8); Alkaline Phosphatase 73 U/L (38-126); Anion Gap 9.3 mEq/L (5-15); Aspartate Amino Transferase 18 U/L (17-59); Bilirubin,Total 0.2 mg/dl (0.2-1.3); Blood Urea Nitrogen 16 mg/dl (9-20); Calcium 9.1 mg/dl (8.4-10.2); Carbon Dioxide 32 mmol/L (22.0-30.0); Chloride 100 mmol/L (98-107); Estimated Glomerular Filt Rate 65 ml/min (>60); GFR (African American) 78 ML/MIN (>60); Globulin 3.4 g/dL (1.3-3.2); Glucose 133 mg/dl (74-100); Potassium 5.3 mmoL/L (3.5-5.1); Sodium 136 mmol/L (136-145); Total Protein,Serum 7.1 g/dl (6.3-8.2)
[2021-01-21 13:34] LABS: Eosinophils % 10 % (0-3); Lymphocytes % 17 % (10-50); Monocytes % 4 % (2-9); Neutrophils % 69 % (42-76); Total Cells Counted 100
[2021-01-21 13:35] LABS: Platelet Estimate Normal
== END ==
PROVIDERS: Visit Provider Internal Medicine Adolescent Medicine
DX: R53.83 Other fatigue (principal)
CPT/HCPCS: 36415; 80053; 85007; 85025

== ENCOUNTER → 2021-02-06 12:43 | Outpatient (CLI) | payer MEDICARE, MEDICAID, SELFPAY ==
[2021-02-11 15:10] LABS: Strongyloides IgG Antibody Negative (Negative)
== END ==
PROVIDERS: Visit Provider Internal Medicine Adolescent Medicine
DX: Z01.84 Encounter for antibody response examination (principal); D72.829 Elevated white blood cell count, unspecified
CPT/HCPCS: 36415; 86682

== ENCOUNTER → 2021-02-19 13:50 | Outpatient (CLI) | payer MEDICARE, MEDICAID, SELFPAY ==
[2021-02-19 14:24] LABS: Basophils # 0.2 K/mm3 (0-0.2); Basophils % 0.7 % (0.1-2.0); Eosinophils # 0.7 K/mm3 (0.0-0.4); Eosinophils % 2.9 % (0.1-12.0); Hematocrit 45.4 % (42.0-52.0); Hemoglobin 14.2 g/dL (14.1-18.0); Lymphocytes # 2.3 K/mm3 (0.7-4.5); Lymphocytes % 10.3 % (10-50); Mean Corpuscular HGB Conc 31.3 g/dL (31.8-35.4); Mean Corpuscular Hemoglobin 29.6 pg (27.0-31.2); Mean Corpuscular Volume 94.5 fl (80-94); Mean Platelet Volume 8.7 fl (7.4-10.4); Monocytes # 1.4 K/mm3 (0.1-1.0); Monocytes % 6.3 % (1.7-9.3); Neutrophils # 18.1 K/mm3 (1.8-7.8); Neutrophils % 79.8 % (37.0-80.0); Platelet Count 368 K/mm3 (142-424); Red Blood Count 4.81 M/mm3 (4.60-6.20); Red Cell Distribution Width 15.4 % (11.5-17.5); White Blood Count 22.7 K/mm3 (4.8-10.8)
[2021-02-19 14:29] LABS: MANUAL DIFFERENTIAL MANUAL DIFFERENTIAL (MANUAL DIFF)
[2021-02-19 14:53] LABS: Eosinophils % 3 % (0-3); Lymphocytes % 8 % (10-50); Monocytes % 8 % (2-9); Neutrophils % 81 % (42-76); Platelet Estimate Normal; Spherocytes 1+; Total Cells Counted 100
[2021-02-19 15:04] LABS: Chloride 94 mmol/L (98-107); Potassium 4.8 mmoL/L (3.5-5.1); Sodium 134 mmol/L (136-145)
[2021-02-19 15:07] LABS: Anion Gap 13.8 mEq/L (5-15); Blood Urea Nitrogen 16 mg/dl (9-20); Carbon Dioxide 31 mmol/L (22.0-30.0); Estimated Glomerular Filt Rate 72 ml/min (>60); GFR (African American) 87 ML/MIN (>60)
[2021-02-19 15:08] LABS: Calcium 9.1 mg/dl (8.4-10.2); Glucose 150 mg/dl (74-100)
== END ==
PROVIDERS: Visit Provider Anesthesiology
DX: Z01.812 Encounter for preprocedural laboratory examination (principal); Z11.52 Encounter for screening for COVID-19; M51.36 Other intervertebral disc degeneration, lumbar region
CPT/HCPCS: 36415; 80048; 85007; 85025; C9803; U0003; U0005

== ENCOUNTER → 2021-03-24 10:35 | Outpatient (CLI) | payer MEDICARE, MEDICAID, SELFPAY ==
[2021-03-24 11:24] LABS: Basophils # 0.1 K/mm3 (0-0.2); Basophils % 0.8 % (0.1-2.0); Eosinophils # 0.9 K/mm3 (0.0-0.4); Eosinophils % 5.6 % (0.1-12.0); Hemoglobin 14.2 g/dL (14.1-18.0); Lymphocytes # 2.3 K/mm3 (0.7-4.5); Lymphocytes % 14.3 % (10-50); Mean Corpuscular HGB Conc 31.5 g/dL (31.8-35.4); Mean Corpuscular Hemoglobin 29.4 pg (27.0-31.2); Mean Corpuscular Volume 93.4 fl (80-94); Monocytes # 0.9 K/mm3 (0.1-1.0); Monocytes % 5.8 % (1.7-9.3); Neutrophils # 11.8 K/mm3 (1.8-7.8); Neutrophils % 73.5 % (37.0-80.0); Platelet Count 341 K/mm3 (142-424); Red Blood Count 4.82 M/mm3 (4.60-6.20); Red Cell Distribution Width 15.2 % (11.5-17.5)
[2021-03-24 11:29] LABS: MANUAL DIFFERENTIAL MANUAL DIFFERENTIAL (MANUAL DIFF)
[2021-03-24 11:45] LABS: Eosinophils % 10 % (0-3); Lymphocytes % 16 % (10-50); Monocytes % 8 % (2-9); Neutrophils % 66 % (42-76); Total Cells Counted 100
[2021-03-24 11:46] LABS: Platelet Estimate Normal; Spherocytes 1+
[2021-03-24 11:51] LABS: Chloride 100 mmol/L (98-107)
[2021-03-24 11:52] LABS: Potassium 4.1 mmoL/L (3.5-5.1); Sodium 138 mmol/L (136-145)
[2021-03-24 11:54] LABS: Alanine Aminotransferase 15 U/L (12-78); Alkaline Phosphatase 74 U/L (38-126); Anion Gap 12.1 mEq/L (5-15); Aspartate Amino Transferase 24 U/L (17-59); Bilirubin,Total 0.2 mg/dl (0.2-1.3); Blood Urea Nitrogen 16 mg/dl (9-20); Carbon Dioxide 30 mmol/L (22.0-30.0); Estimated Glomerular Filt Rate 72 ml/min (>60); GFR (African American) 87 ML/MIN (>60)
[2021-03-24 11:55] LABS: Albumin Level 3.9 g/dl (3.5-5.0); Albumin/Globulin Ratio 1.3 (1.1-1.8); Glucose 208 mg/dl (74-100); Total Protein,Serum 6.9 g/dl (6.3-8.2)
[2021-03-25 08:20] LABS: Hep A Ab, IgM Negative (Negative); Hepatitis B Core Antibody IgM Negative (Negative); Hepatitis B Surface Antigen Negative (Negative); Hepatitis C Antibody 0.1 s/co ratio (0.0-0.9)
[2021-03-26 12:34] LABS: Strongyloides IgG Antibody Negative (Negative)
[2021-03-31 15:32] LABS: Interpretation: Negative (.)
== END ==
PROVIDERS: Visit Provider Internal Medicine Medical Oncology
DX: D47.1 Chronic myeloproliferative disease (principal); D72.829 Elevated white blood cell count, unspecified; R10.84 Generalized abdominal pain; Z79.899 Other long term (current) drug therapy; R79.89 Other specified abnormal findings of blood chemistry; Z72.0 Tobacco use
CPT/HCPCS: 36415; 80053; 80074; 81206; 81270; 85007; 85025; 86682

== ENCOUNTER → 2021-03-28 09:36 | Outpatient (CLI) | payer MEDICARE, MEDICAID, SELFPAY ==
--- NOTE | 2021-03-28 09:40 | CT_ITS ---
PROCEDURE: CT ABDOMEN PELVIS W CON CLINICAL INDICATION: ANEMIA COMPARISON: CT AGLEBI CT angio LE BI from 01/05/[address] ABDOMEN PELVIS WO CON from 11/14/2018 TECHNIQUE: IV Contrast: 75ML Isovue 370 Oral Contrast None Axial images obtained with sagittal and coronal reformats. All CT scans at the facility use one or more dose reduction, viz: automated exposure control, ma/kV adjustment per patient size (including targeted exams where dose is matched to indication, i.e. head), or iterative reconstruction technique. FINDINGS: LOWER THORAX: Coronary artery calcifications. Prior median sternotomy. ABDOMEN & PELVIS: There are low-density changes involving the liver near the gallbladder fossa. These are nonspecific and could be related to focal fatty infiltration. The spleen, adrenal glands, pancreas, and kidneys have an unremarkable appearance. No renal or ureteral calculi. Unremarkable appendix. There is colonic diverticulosis. No evidence of diverticulitis. No pelvic mass or abnormal fluid collection. The prostate is enlarged at 5.7 cm. Atherosclerotic changes of the aorta with calcific plaque of the aortoiliac vessels. There is moderate to high-grade stenosis involving the ostium of the left iliac artery with calcific plaque. The degree of stenosis is difficult to evaluate but is at least 60 percent. No acute bony anomalies. Mild degenerative changes are present in the lumbar spine and in the hips. There is mild lumbar scoliosis convex left. IMPRESSION: No acute finding. Focal low-density changes involving the liver in the left hepatic lobe at the gallbladder fossa region possibly related to focal fatty infiltration. MRI could confirm if clinically desired. Follow-up suggested to confirm stability and the possibility of a neoplastic process Colonic diverticulosis. No evidence of diverticulitis. 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
--- NOTE | 2021-03-28 09:40 | CT_ITS ---
PROCEDURE: CT CHEST W CON CLINCAL INDICATION: ANEMIA COMPARISON: No exams were available for comparison TECHNIQUE: IV Contrast: 75ml Isovue 370 Axial images obtained with sagittal and coronal reformats. All CT scans at the facility use one or more dose reduction, viz: automated exposure control, ma/kV adjustment per patient size (including targeted exams where dose is matched to indication, i.e. head), or iterative reconstruction technique. FINDINGS: HEART AND MEDIASTINAL STRUCTURES: Prior CABG. No mediastinal mass or adenopathy. Coronary artery calcifications there is atheromatous plaque within the thoracic aorta with some ulceration along the descending thoracic aorta. No mediastinal or hilar mass or adenopathy. LUNGS AND PLEURAL SPACES: Evidence of old granulomatous disease. Thickening of the interlobular septa consistent with interstitial lung disease. There are scattered areas of scarring. No suspicious nodules. No effusions or infiltrates. BONY STRUCTURES: No acute bony abnormalities apparent. UPPER ABDOMEN: Please see abdomen report from the same day ADDITIONAL FINDINGS: No other significant abnormalities. IMPRESSION: 1. No acute finding. 2. Prominence of the interlobular septa suggesting interstitial lung disease. 3. Other nonacute findings as described above Dictated by: Garrison Barron MD 03/29/2021 09:54 Garrison Barron MD in [facility] 03/29/2021 09:54
== END ==
PROVIDERS: PCP Internal Medicine Adolescent Medicine; Visit Provider Internal Medicine Medical Oncology
DX: D64.9 Anemia, unspecified (principal)
CPT/HCPCS: 71260; 74177; Q9967

== ENCOUNTER → 2021-04-30 13:22 | Outpatient (CLI) | payer MEDICARE, MEDICAID, SELFPAY ==
[2021-04-30 14:46] LABS: Basophils # 0.1 K/mm3 (0-0.2); Eosinophils # 0.5 K/mm3 (0.0-0.4); Eosinophils % 5.3 % (0.1-12.0); Hematocrit 46.5 % (42.0-52.0); Hemoglobin 15.2 g/dL (14.1-18.0); Lymphocytes # 1.9 K/mm3 (0.7-4.5); Lymphocytes % 21.7 % (10-50); Mean Corpuscular HGB Conc 32.6 g/dL (31.8-35.4); Mean Corpuscular Hemoglobin 30.5 pg (27.0-31.2); Mean Corpuscular Volume 93.4 fl (80-94); Mean Platelet Volume 9.2 fl (7.4-10.4); Monocytes # 0.7 K/mm3 (0.1-1.0); Monocytes % 8.3 % (1.7-9.3); Neutrophils # 5.6 K/mm3 (1.8-7.8); Neutrophils % 63.7 % (37.0-80.0); Platelet Count 301 K/mm3 (142-424); Red Blood Count 4.98 M/mm3 (4.60-6.20); Red Cell Distribution Width 15.5 % (11.5-17.5); White Blood Count 8.8 K/mm3 (4.8-10.8)
[2021-04-30 15:08] LABS: Anion Gap 17.6 mEq/L (5-15); Blood Urea Nitrogen 19 mg/dl (9-20); Calcium 9.5 mg/dl (8.4-10.2); Carbon Dioxide 30 mmol/L (22.0-30.0); Chloride 92 mmol/L (98-107); Estimated Glomerular Filt Rate 59 ml/min (>60); GFR (African American) 71 ML/MIN (>60); Glucose 153 mg/dl (74-100); Potassium 4.6 mmoL/L (3.5-5.1); Sodium 135 mmol/L (136-145)
== END ==
PROVIDERS: Visit Provider Anesthesiology
DX: Z01.818 Encounter for other preprocedural examination (principal); U07.1 COVID-19
CPT/HCPCS: 36415; 80048; 85025; C9803; U0003; U0005

== ENCOUNTER 2021-05-02 15:19 | Emergency (ER) | payer MEDICARE, MEDICAID, SELFPAY ==
[2021-05-02 15:20] VITALS: BP 146/59; PULSE 56; RESP 18; TEMP 36.6; O2SAT 98; BMI 12.3
[2021-05-02 15:39] VITALS: BMI 27.2
--- NOTE | 2021-05-02 15:53 | ECG_ITS ---
APPROVED REPORT Exam: Resting ECG HR:54 bpm ECG Measurements Heart Rate 54 AXES PA 219 P -16 QRSd 97 QRS 2 QT 469 T 222 QTc 455 Conclusion SINUS BRADYCARDIA WITH FIRST DEGREE AV BLOCK ST DEVIATION AND MODERATE T-WAVE ABNORMALITY, unchanged from 2017 ABNORMAL ECG UNCONFIRMED REPORT Electronically signed by : Karan Fuller MD 05/03/2021 13:46:57
--- NOTE | 2021-05-02 16:10 | XR_ITS ---
PROCEDURE INFORMATION: Exam: XR Chest Exam date and time: 05/02/2021 4:10 PM Age: 76 years old Clinical indication: Cough; Prior surgery; Surgery type: Stents; Patient HX: Covid positive, PT having trouble with blood pressure, smoker; Additional info: Syncope TECHNIQUE: Imaging protocol: XR of the chest. Views: 1 view. COMPARISON: CT CHEST W CON 03/28/2021 10:06 AM FINDINGS: Tubes, catheters and devices: There are sternal wires consistent with previous sternotomy incision. Airway: Patent Lungs: Unremarkable. No consolidation. Pleural spaces: Unremarkable. No pleural effusion. No pneumothorax. Heart/Mediastinum: The heart is mildly enlarged. Bones/joints: Tendon anchors in the right shoulder. No acute skeletal abnormality or aggressive osseous lesion. IMPRESSION: No acute thoracic pathology.
[2021-05-02 16:12] LABS: Alanine Aminotransferase 22 U/L (12-78); Albumin Level 4.1 g/dl (3.5-5.0); Albumin/Globulin Ratio 1.1 (1.1-1.8); Alkaline Phosphatase 85 U/L (38-126); Anion Gap 12.9 mEq/L (5-15); Aspartate Amino Transferase 37 U/L (17-59); Basophils # 0.1 K/mm3 (0-0.2); Basophils % 0.8 % (0.1-2.0); Bilirubin,Total 0.4 mg/dl (0.2-1.3); Blood Urea Nitrogen 21 mg/dl (9-20); Carbon Dioxide 29 mmol/L (22.0-30.0); Chloride 95 mmol/L (98-107); Creatinine Clearance Estimated 57 mL/min (50-200); Eosinophils # 0.4 K/mm3 (0.0-0.4); Eosinophils % 4.4 % (0.1-12.0); Estimated Glomerular Filt Rate 53 ml/min (>60); GFR (African American) 65 ML/MIN (>60); Globulin 3.6 g/dL (1.3-3.2); Glucose 139 mg/dl (74-100); Hematocrit 44.2 % (42.0-52.0); Hemoglobin 14.1 g/dL (14.1-18.0); Lymphocytes # 1.6 K/mm3 (0.7-4.5); Lymphocytes % 16.9 % (10-50); Mean Corpuscular Hemoglobin 29.8 pg (27.0-31.2); Mean Corpuscular Volume 93.3 fl (80-94); Mean Platelet Volume 9.2 fl (7.4-10.4); Monocytes # 0.8 K/mm3 (0.1-1.0); Monocytes % 7.8 % (1.7-9.3); Neutrophils # 6.7 K/mm3 (1.8-7.8); Neutrophils % 70.1 % (37.0-80.0); Platelet Count 275 K/mm3 (142-424); Potassium 3.9 mmoL/L (3.5-5.1); Red Blood Count 4.73 M/mm3 (4.60-6.20); Red Cell Distribution Width 15.3 % (11.5-17.5); Sodium 133 mmol/L (136-145); Total Protein,Serum 7.7 g/dl (6.3-8.2); White Blood Count 9.6 K/mm3 (4.8-10.8)
[2021-05-02 16:29] LABS: D-Dimer 0.96 ug/mL (0.0-0.5)
--- NOTE | 2021-05-02 16:34 | HMH.EDGENADL ---
ED Disposition Clinical Impression: Pre-syncope, Orthostatic hypotension Disposition: Home, Self-Care Condition on Discharge: Good Instructions: DI for COVID-19 (Suspected or Confirmed ), DI for Orthostatic Hypotension Referrals: Khoa Mckeon MD [Primary Care Provider] - 3 days Time of Disposition: 18:17 - Critical Care Critical Care Time: Yes Attestation: On 05/02/21, the high probability of a clinically significant, sudden or life threatening deterioration of the following system(s) required my full and direct attention, intervention and personal management. The time I documented below is in addition to time spent performing reported procedures but includes the following listed in this critical care notation. Total Critical Care Time: 35 Vital system(s) involved:: Circulatory Failure My critical care processes included: Assessment & monitoring of V/S, Initial and Re-exams, Data Review/Interpretation, Medication Orders and management, Documentation Comment: I spent 35 minutes routinely reevaluating this patient due to hypotension and significant risk for life-threatening pulmonary embolism as well as syncope. I also made medication adjustments due to patient's orthostatic hypotension. Medical Decision Making - Medical Records Medical records reviewed: Yes: I reviewed the patient's medical records. - Darren Inquiry Pt receiving controlled substance: No Vital Signs: 05/02/21 15:20 Temperature 97.9 F Temperature Source Oral Pulse Rate [Right Radial] 56 L Respiratory Rate 18 Blood Pressure [Right Arm] 146/59 H Blood Pressure Mean [Right Arm] 88 Blood Pressure Source [Right Arm] Automatic Cuff Blood Pressure Position [Right Arm] Sitting 02 Sat by Pulse Oximetry 98 Oxygen Delivery Method Room Air - Lab Data Lab results reviewed: Yes: I reviewed the patient's lab results. Lab Results 05/02/21 15:36: D-Dimer 0.96 H 05/02/21 15:45: WBC 9.6, RBC 4.73, Hgb 14.1, Hct 44.2, MCV 93.3, MCH 29.8, MCHC 32.0, RDW 15.3, Plt Count 275, MPV 9.2, Neut % (Auto) 70.1, Lymph % (Auto) 16.9, Tucker % (Auto) 7.8, Eos % (Auto) 4.4, Baso % (Auto) 0.8, Neut # (Auto) 6.7, Lymph # (Auto) 1.6, Tucker # (Auto) 0.8, Eos # (Auto) 0.4, Baso # (Auto) 0.1 05/02/21 15:45: Sodium 133 L, Potassium 3.9, Chloride 95 L, Carbon Dioxide 29, Anion Gap 12.9, BUN 21 H, Creatinine 1.30 H, Estimated Creat Clear 57, Estimated GFR 53 L, Est GFR ( Amer) 65, Glucose 139 H, Calcium 9.0, Total Bilirubin 0.4, AST 37, ALT 22, Alkaline Phosphatase 85, Troponin I 0.01, Total Protein 7.7, Albumin 4.1, Globulin 3.6 H, Albumin/Globulin Ratio 1.1 Result diagrams: 05/02/21 15:45 05/02/21 15:45 Orders (Tests/Meds): ED MEDICATIONS Discontinued Medications Generic Name Dose Route Start Last Admin Trade Name Freq PRN Reason Stop Dose Admin Albuterol/Ipratropium 3 ml 05/02/21 16:10 Ipratropium/Albuterol 3 Ml Neb IH 05/02/21 16:11 ONCE ONE Albuterol/Ipratropium 1 puff 05/02/21 17:01 05/02/21 17:02 Combivent 20mcg/100mcg Respimat Inhaler IH 05/02/21 17:02 1 puff ONCE ONE Administration Lactated Ringer's 500 mls @ 999 mls/hr 05/02/21 16:15 05/02/21 16:32 Lactated Ringer's 1000 Ml Bag IV 05/02/21 16:45 999 mls/hr .Q31M VJ Administration Iopamidol 70 ml 05/02/21 17:30 05/02/21 17:31 Iopamidol-370 (76%);100ml Bottle IV 05/02/21 17:31 70 ml ONCE ONE Administration Sodium Chloride 50 ml 05/02/21 17:30 05/02/21 17:31 0.9 % Sodium Chloride 50 Ml Vial IV 05/02/21 17:31 50 ml ONCE ONE Administration Sodium Chloride 10 ml 05/02/21 17:30 05/02/21 17:31 Sodium Chloride 0.9% 10ml Syr (Rad Only) IV 05/02/21 17:31 10 ml ONCE ONE Administration ORDERS Category Date Time Status Troponin I Q3H Lab 05/02/21 18:45 Ordered Troponin I Q3H Lab 05/02/21 21:45 Ordered Medical Decision Narrative: 76-year-old male with past medical history of CAD, PAD, status post three-vessel CABG and BPH on multiple m
[2021-05-02 16:37] LABS: Troponin I 0.01 ng/ml (0.00-0.034)
--- NOTE | 2021-05-02 17:17 | CT_ITS ---
PROCEDURE INFORMATION: Exam: CTA Chest With Contrast Exam date and time: 05/02/2021 5:17 PM Age: 76 years old Clinical indication: Cough; Additional info: Pre-syncope; Elevated d-dimer TECHNIQUE: Imaging protocol: Computed tomographic angiography of the chest with contrast. 3D rendering (Not supervised by radiologist): MIP and/or 3D reconstructed images were created by the technologist. Radiation optimization: All CT scans at this facility use at least one of these dose optimization techniques: automated exposure control; mA and/or kV adjustment per patient size (includes targeted exams where dose is matched to clinical indication); or iterative reconstruction. Contrast material: ISOVUE 370; Contrast volume: 75 ml; Contrast route: INTRAVENOUS (IV); COMPARISON: CT CHEST W CON 03/28/2021 10:06 AM FINDINGS: Limitations: Evaluation of the lung parenchyma and distal pulmonary arterial segmental branches is limited by respiratory motion. Tubes, catheters and devices: There are sternal wires consistent with previous sternotomy incision. Pulmonary arteries: No definitive evidence for pulmonary emboli, with the caveat that the distal pulmonary arterial segmental branches are obscured by respiratory motion. Pulmonary arteries are otherwise normal in course and caliber. Aorta: The aorta demonstrates severe atherosclerotic calcification. There are multiple atherosclerotic plaque ulcerations seen throughout the descending thoracic aorta. There is no evidence for a penetrating atherosclerotic ulcer. Thyroid: There is a 1.3 cm nodule in the left thyroid lobe. Consider correlation with nonemergent thyroid ultrasound. Lungs: There is subpleural atelectasis of the dependent portions of the lungs. COPD related lung changes are appreciated. Evaluation of the lung parenchyma is partially limited by respiratory motion. No significant acute interstitial or airspace disease is appreciated at this time. Mild apical predominant paraseptal emphysema. Pleural spaces: Unremarkable. No pneumothorax. No pleural effusion. Heart: There is calcification of the aortic valve annulus. There is severe atherosclerotic calcification of the coronary arteries. Prior CABG. The heart is mildly enlarged. No pericardial thickening or effusion. Lymph nodes: Unremarkable. No enlarged lymph nodes. Diaphragm: A small hiatal hernia is present. Gallbladder and bile ducts: Prior cholecystectomy. Bones/joints: No acute skeletal pathology. Moderate multilevel degenerative changes of the spine, as manifested by multilevel anterior osteophytes and multilevel decrease in intervertebral disc space. Soft tissues: Tendon anchors in the right humeral head. Other findings: The visualized intra-abdominal structures demonstrate no acute findings. IMPRESSION: 1. No discrete evidence for pulmonary emboli, with the caveat that the distal segmental pulmonary arterial branches are obscured by respiratory motion. 2. No other acute thoracic pathology is identified. 3. Incidental/chronic findings as above. COMMENTS: Consistent with the [employer]'s Incidental Findings Committee white paper (J Am Chidi Radiol 2015): In patients aged 35 years and older with an incidental thyroid nodule equal to or greater than 1.[address], MRI or extrathyroidal US, further evaluation with dedicated thyroid US is recommended for patients with normal life expectancy and without comorbidities. For smaller nodules without suspicious features, no further evaluation or follow up is recommended.
[2021-05-02 19:18] VITALS: BP 128/55; PULSE 62; RESP 16; TEMP 36.8; O2SAT 99
== END 2021-05-02 19:19 | disposition home or self-care (01) ==
PROVIDERS: Emergency Provider Emergency Medicine; PCP Internal Medicine Adolescent Medicine
DX: R55 Syncope and collapse (principal); U07.1 COVID-19; I95.1 Orthostatic hypotension; I25.10 Atherosclerotic heart disease of native coronary artery without angina pectoris; E11.9 Type 2 diabetes mellitus without complications; K21.9 Gastro-esophageal reflux disease without esophagitis; E78.5 Hyperlipidemia, unspecified; I10 Essential (primary) hypertension; I25.2 Old myocardial infarction; F17.210 Nicotine dependence, cigarettes, uncomplicated
CPT/HCPCS: 71045; 71275; 80053; 84484; 85025; 85378; 93005; 96365; 99283; Q9967

== ENCOUNTER 2021-06-16 06:37 | Day surgery (SDC) | payer MEDICARE, MEDICAID, SELFPAY ==
[2021-06-12 09:53] VITALS: BMI 29.5
[2021-06-16 07:06] VITALS: BP 155/55; PULSE 79; RESP 18; TEMP 36.6; O2SAT 94
[2021-06-16 07:20] LABS: Basophils # 0.1 K/mm3 (0-0.2); Basophils % 0.7 % (0.1-2.0); Eosinophils # 1.2 K/mm3 (0.0-0.4); Hematocrit 42.1 % (42.0-52.0); Hemoglobin 13.2 g/dL (14.1-18.0); Lymphocytes # 2.4 K/mm3 (0.7-4.5); Lymphocytes % 14.5 % (10-50); Mean Corpuscular HGB Conc 31.4 g/dL (31.8-35.4); Mean Corpuscular Hemoglobin 28.9 pg (27.0-31.2); Mean Corpuscular Volume 91.9 fl (80-94); Mean Platelet Volume 8.4 fl (7.4-10.4); Neutrophils # 11.8 K/mm3 (1.8-7.8); Neutrophils % 71.7 % (37.0-80.0); Platelet Count 359 K/mm3 (142-424); Red Blood Count 4.58 M/mm3 (4.60-6.20); Red Cell Distribution Width 15.9 % (11.5-17.5); White Blood Count 16.4 K/mm3 (4.8-10.8)
--- NOTE | 2021-06-16 07:24 | HMH.ANESCL ---
[facility] [place] Anesthesia Checklist - Patient Identification Patient Identification: Arm Band - Structural Data Admitted From: Home Planned Operative Procedure/s: Spinal cord stimulator trial Consent for Planned Operative Procedure(s) Verified: Yes - NPO Status Verified Time NPO: 00:00 - Additional verifications Anesthesia Reactions: No Hx Blood Transfusions: No Blood Transfusion Reaction: No - Airway Assessment C-Spine Mobility Assessed: Yes TMJ Mobility Assessed: Yes Dentition: Edentulous - Neurological Assessment Level of Consciousness: Awake Hx Seizures: No Numbness or tingling in extremities: No - Anesthesia Plan Anesthesia Risk discussed: Yes Anesthesia Plan: Verified ASA Class: III Anesthesia Type: MAC [facility] [place] History I have reviewed the patient's past medical history: Yes Medical History: Reports:: Coronary Artery Disease, Gastroesophageal Reflux Disease(GERD), Hyperlipidemia, Hypertension, Myocardial Infarction, Peripheral Artery Disease, Peripheral Vascular Disease, Supraventricular Tachycardia Denies:: Cancer, Diabetes Mellitus Type 1, Diabetes Mellitus Type 2, Internal Pacemaker, MRSA, Seizures *Have you ever received a pneumonia vaccine?: No *Have you received a flu vaccine this season?: Yes Other Medical History: Reports: Arthritis. Denies: Blood Transfusion Reaction Anesthesia experience/problems:: None Laterality Cases: Right: Arthroscopy Shoulder Other Surgeries: Yes: Angiogram, Angioplasty, CABG, Cardiac Catheterization, Cardiac Surgery, Other. No: Pacemaker Amputation: No Fractures: No - *Social History Last grade of school completed: High school graduate Smoking Status: Current every day smoker Tobacco Type: cigarettes # Packs/Day (cigarettes): 1 #Yrs smoked (if former smoker): 60 Alcohol Intake: never Alcohol Intake Frequency:: other Substance Use Type: denies use *Occupational Status:: retired Housing: house Household Members: significant other *Travel in the last 8 weeks: None Family Hx:: Diabetes, Hypertension, Kidney Disease
[2021-06-16 07:25] LABS: MANUAL DIFFERENTIAL MANUAL DIFFERENTIAL (MANUAL DIFF)
[2021-06-16 07:29] LABS: Blood Urea Nitrogen 13 mg/dl (9-20); Calcium 8.5 mg/dl (8.4-10.2); Carbon Dioxide 28 mmol/L (22.0-30.0); Chloride 99 mmol/L (98-107); Creatinine Clearance Estimated 90 mL/min (50-200); Estimated Glomerular Filt Rate 72 ml/min (>60); GFR (African American) 87 ML/MIN (>60); Glucose 145 mg/dl (74-100); Sodium 136 mmol/L (136-145)
[2021-06-16 07:45] LABS: Eosinophils % 4 % (0-3); Lymphocytes % 11 % (10-50); Monocytes % 7 % (2-9); Neutrophils % 78 % (42-76); Platelet Estimate Normal; RBC Morphology Normal; Total Cells Counted 100
[2021-06-16 09:32] VITALS: BP 120/52; PULSE 64; RESP 18; TEMP 36.6; O2SAT 94
--- NOTE | 2021-06-16 09:33 | HMH.OPNOTE ---
Date of procedure: 06/16/21 Pre-op Diagnosis:: Degenerative disc disease of lumbar spine with lumbar radiculopathy symptoms Post-op Diagnosis:: Same Procedure performed:: Spinal cord stimulator lead placement epidural x2 for spinal cord stimulator trial Surgeon:: Franck Louise MD INSURANCE ATTORNEY:: Vianey Hutchinson Anesthesia: MAC Estimated blood loss (mL): 1 Clinical Note:: This patient is a pleasant 76-year-old white male who we are treating for low back pain with lumbar radiculopathy symptoms. He has failed all previous conservative therapy including injections, oral medications, physical therapy and he is not a surgical candidate. He primarily has pain in his back with radiation into the right hip now this is new. Injections have helped his left leg radicular symptoms. He has not had any success with conservative treatments for his low back pain and right hip radicular symptoms. He does have a high white count today however given his history this is normal for him. Operative findings:: None Operative note:: Informed consent was obtained the risk and benefits of the procedure were explained to the patient. Patient was taken to the procedure room and prepped and draped in sterile fashion. C-arm fluoroscopy was used to view the lumbar spine. The skin and subcutaneous tissues were anesthetized using lidocaine. A 17-gauge epidural needle was inserted and advanced into the L2-L3 interspace. After confirmation of needle placement in the epidural space stimulating lead was inserted and advanced very easily to the T7-T8-T9 vertebral body. A second needle was inserted advanced again into the L2-3 interspace. Again after confirmation of needle placement in the epidural space a second stimulating lead was inserted and advanced again very easily to the T7-T8-T9 vertebral body. Lead placement was checked in AP and lateral views. Thanks the stylets and needles were removed. The leads were secured in place. Patient was taken recovery in stable condition. Patient was programmed by the [employer] delivery representative with good stimulation in all areas of pain. He was placed on a paresthesia free fast program. Patient was discharged home neurologically intact with good relief of pain symptoms. Plan and disposition: We will follow-up with him in 1 week for lead pull. If he has any problems or questions he is to call us back in the pain clinic. We will continually evaluate him make changes as needed throughout the week. Condition: stable Disposition: PACU Complications:: none
[2021-06-16 09:47] VITALS: BP 132/62; PULSE 65; RESP 18; TEMP 36.6; O2SAT 97
[2021-06-16 10:02] VITALS: BP 150/66; PULSE 66; RESP 18; TEMP 36.6; O2SAT 97
[2021-06-16 10:17] VITALS: BP 143/67; PULSE 65; RESP 18; TEMP 36.6; O2SAT 96
[2021-06-16 10:35] VITALS: BP 159/53; PULSE 68; RESP 18; TEMP 36.6; O2SAT 97
== END 2021-06-16 10:35 | disposition home or self-care (01) ==
LOC: OR 06:40
PROVIDERS: PCP Internal Medicine Adolescent Medicine; Visit Provider Anesthesiology
DX: M51.16 Intervertebral disc disorders with radiculopathy, lumbar region (principal); I25.10 Atherosclerotic heart disease of native coronary artery without angina pectoris; K21.9 Gastro-esophageal reflux disease without esophagitis; E78.5 Hyperlipidemia, unspecified; I10 Essential (primary) hypertension; I25.2 Old myocardial infarction; R00.0 Tachycardia, unspecified; I73.9 Peripheral vascular disease, unspecified; M19.90 Unspecified osteoarthritis, unspecified site; Z72.0 Tobacco use
CPT/HCPCS: 63650 ×2; 80048; 85007; 85025; 96374; C1778; J2704; J3370

== ENCOUNTER → 2021-06-20 14:26 | Outpatient (POV) | payer MEDICARE, MEDICAID, SELFPAY ==
[2021-06-20 14:41] VITALS: BP 141/65; PULSE 58; RESP 20; O2SAT 97; BMI 28.2
--- NOTE | 2021-06-20 15:10 | HMH.PAINSOAP ---
[facility] Pain Management SOAP Note Subjective:: This patient is a pleasant 76-year-old white male who we are treating for low back pain with lumbar radiculopathy symptoms. He has failed all previous conservative therapy including injections, oral medications, physical therapy and he is not a surgical candidate. Most of his pain is primarily in the back with radiation into the right hip which is new. He has undergone spinal cord stimulator trial with some relief of his pain symptoms. His is noticed that he has been more functional and more active. He is walking more than he had previously. He would like to extend this trial. We will reprogram him today and extend his trial to Wednesday. Objective:: Alert and oriented x3 no acute distress. Patient does have an antalgic gait. Motor strength of lower extremities is 5/5. There is no gross sensory deficit. Stimulator leads are in place we did retape the trial leads. Assessment:: Degenerative disc disease of lumbar spine with lumbar radiculopathy symptoms Plan:: We will extend his trial to Wednesday. We will reprogram him today. We will follow-up with him on Wednesday to assess efficacy of the trial. Patient is to concentrate on activity level more so than pain. [facility] History Medical History: Reports:: Coronary Artery Disease, Gastroesophageal Reflux Disease(GERD), Hyperlipidemia, Hypertension, Myocardial Infarction, Peripheral Artery Disease, Peripheral Vascular Disease, Supraventricular Tachycardia Denies:: Cancer, Diabetes Mellitus Type 1, Diabetes Mellitus Type 2, Internal Pacemaker, MRSA, Seizures *Have you ever received a pneumonia vaccine?: Yes *Have you received a flu vaccine this season?: Yes Other Medical History: Reports: Arthritis. Denies: Blood Transfusion Reaction Laterality Cases: Right: Arthroscopy Shoulder Other Surgeries: Yes: Angiogram, Angioplasty, CABG, Cardiac Catheterization, Cardiac Surgery, Other. No: Pacemaker Amputation: No Fractures: No - *Social History Smoking Status: Current every day smoker Tobacco Type: cigarettes # Packs/Day (cigarettes): 1 #Yrs smoked (if former smoker): 60 Alcohol Intake: never Alcohol Intake Frequency:: other Substance Use Type: denies use *Occupational Status:: other Housing: house Household Members: significant other *Travel in the last 8 weeks: None Family Hx:: Diabetes, Hypertension, Kidney Disease
== END ==
PROVIDERS: PCP Internal Medicine Adolescent Medicine; Visit Provider Anesthesiology
DX: M51.16 Intervertebral disc disorders with radiculopathy, lumbar region (principal)
CPT/HCPCS: 99212; G0463

== ENCOUNTER → 2021-06-23 10:24 | Outpatient (POV) | payer MEDICARE, MEDICAID, SELFPAY ==
[2021-06-23 10:38] VITALS: BP 162/64; PULSE 74; RESP 20; TEMP 36.6; O2SAT 99; BMI 28.5
--- NOTE | 2021-06-23 11:35 | HMH.PMPROC ---
- Procedure Date: 06/23/21 Time: 11:30 Anesthesiologist:: John Gann CRNA Complications:: None Pre-procedure Diagnosis:: The disc disease lumbar spine multiple levels. Lumbar radiculopathy. Post-procedure Diagnosis:: Same Indications for Procedure:: Patient presents to the office today for spinal cord stimulator trial lead pull. Patient had minimal relief from his initial placement. However, 3 days ago patient underwent adjustment with a spinal cord stimulator rep. Patient reporting today pain level has decreased since adjustment. Also, patient reports having less stiffness with daily activities. Procedure Details:: Verbal consent was obtained. Patient was taken to the procedure room. Using sterile technique the spinal cord stimulator trial leads were pulled. Patient tolerated the procedure without difficulty. There were no complications. Plan and Disposition:: Patient will return to see us in 1 month for follow-up and reevaluation.
== END ==
PROVIDERS: Visit Provider Nurse Anesthetist, Certified Registered
DX: M51.16 Intervertebral disc disorders with radiculopathy, lumbar region (principal)
CPT/HCPCS: 99212; G0463

== ENCOUNTER → 2021-07-24 11:42 | Outpatient (POV) | payer MEDICARE, MEDICAID, SELFPAY ==
[2021-07-24 11:58] VITALS: BP 115/63; PULSE 60; RESP 18; TEMP 36.2; O2SAT 96; BMI 28.2
--- NOTE | 2021-07-24 13:05 | HMH.PAINSOAP ---
[facility] Pain Management SOAP Note Subjective:: Patient is a pleasant 68-year-old male who presents today for follow-up. Patient is currently being treated for degenerative disc disease lumbar spine with lumbar radiculopathy symptoms. We have tried conservative therapy such as oral medication, injective therapy, and at home exercise with minimal relief. Patient tried a spinal cord stimulator last month that provided no relief. Patient states that he continues to have pain around his right upper buttock. He cannot tolerate any prolonged activity such as sitting, standing, and walking. Denies any recent falls or traumas. Denies any loss of bowel and bladder functions. He was recently started on tramadol [address] Mckeon. He takes about 2 tablets every 2 to 3 days. He states that this is somewhat helping his pain. He is also taking gabapentin 600 mg twice a day that are prescribed by an outside clinic. [facility] #[id number] with an active morphine equivalent of 0. Review of Systems: General: No recent weight changes, no fever, no sleep disturbances Respiratory: No cough, no shortness of air, no recurring pulmonary infections Cardiovascular/peripheral vascular: No chest pain, no palpitations, no edema, no shortness of breath Gastrointestinal: No new onset incontinence, normal bowel movements reported Genitourinary: No new onset incontinence Musculoskeletal: Right hip pain, low back pain Psychiatric: [Normal mood/affect] Neurological: [Denies weakness in extremities], [denies balance issues] Objective:: Physical Exam: General: Alert and oriented x3, no acute distress, pleasant and cooperative, [on room air] Lungs: Respirations even and unlabored, symmetrical chest expansion Eyes: PERRL Musculoskeletal: Flexion and extension of lumbar [spine] somewhat guarded secondary to pain, [antalgic gait noted]; right SI is positive for MALLORY, Issac's, Westville's, Gaenslen's, compression, and distraction. Neurological: Speech clear, no gross sensory deficit Assessment:: Degenerative disc disease of lumbar spine with lumbar radiculopathy symptoms Sacroiliitis Plan:: Patient continues to have pain on his right upper buttock. He has tried and failed a spinal cord stimulator trial. He is currently taking tramadol 50 mg 2 tablets every 2 to 3 days. He is also taking gabapentin 600 mg twice a day. These medications are not helping manage his pain. Patient cannot tolerate any prolonged activities such as sitting, standing, and walking. Right SI is positive for MALLORY, Issac's, Westville's, Gaenslen's, compression, and distraction. Risk and benefits have been discussed with the patient. Patient would like to proceed with the procedure. We will not continue his tramadol this clinic. Patient has been instructed to contact the clinic with any concerns before the next appointment. Dr. Louise has reviewed this note and agrees with this plan of care. This note was dictated using voice recognition software and make contain errors or omissions. [facility] History Medical History: Reports:: Coronary Artery Disease, Gastroesophageal Reflux Disease(GERD), Hyperlipidemia, Hypertension, Myocardial Infarction, Peripheral Artery Disease, Peripheral Vascular Disease, Supraventricular Tachycardia Denies:: Cancer, Diabetes Mellitus Type 1, Diabetes Mellitus Type 2, Internal Pacemaker, MRSA, Seizures *Have you ever received a pneumonia vaccine?: Yes *Have you received a flu vaccine this season?: Yes Other Medical History: Reports: Arthritis. Denies: Blood Transfusion Reaction Laterality Cases: Right: Arthroscopy Shoulder Other Surgeries: Yes: Angiogram, Angioplasty, CABG, Cardiac Catheterization, Cardiac Surgery, Other. No: Pacemaker Amputation: No Fractures: No - *Social History Smoking Status: Current every day smoker Tobacco Type: cigarettes # Packs/Day (cigarettes): 1 #Yrs smoked (if former smoker): 60 Alcohol Intake: never Alcohol Intake Frequency:: other Substance
== END ==
PROVIDERS: Visit Provider Student in an Organized Health Care Education/Training Program
DX: M51.16 Intervertebral disc disorders with radiculopathy, lumbar region (principal); M46.1 Sacroiliitis, not elsewhere classified
CPT/HCPCS: 99212; G0463

== ENCOUNTER 2021-08-01 07:38 | Day surgery (SDC) | payer MEDICARE, MEDICAID, SELFPAY ==
[2021-08-01 08:23] VITALS: BP 144/91; PULSE 55; RESP 18; TEMP 36.4; O2SAT 97; BMI 28.2
[2021-08-01 08:32] VITALS: BP 107/84; PULSE 62; RESP 18; O2SAT 96
[2021-08-01 08:36] VITALS: BP 163/62; PULSE 57; RESP 18; O2SAT 98
[2021-08-01 08:45] VITALS: BP 152/62; PULSE 54; RESP 18; O2SAT 99
--- NOTE | 2021-08-01 08:45 | P.PCN_ITS ---
- Procedure Date: 08/01/21 Time: 08:45 Anesthesiologist:: John Gann CRNA Complications:: None Pre-procedure Diagnosis:: Right sacroiliitis Post-procedure Diagnosis:: Same Indications for Procedure:: This a pleasant 76-year-old male who is responded in the past significantly with SI joint injections. He has extreme point tenderness over the right SI joint. He reports his pain is 8/10. Pain intensifies when sitting and/or standing for any length of time. We will inject his right SI joint today. Procedure Details:: Procedure: Right sacroliliac joint injection under fluoroscopy Informed consent was obtained and the risk and benefits of the procedure were explained to the patient.~ The patient was taken to the procedure room and noninvasive monitors were placed including noninvasive blood pressure cuff and pulse oximeter.~ The patient was placed prone on the procedure table.~ The~ right hip was cleansed using Betadine as a cleansing solution.~ C-arm fluorosocpy was used to view the right SI joint.~ The skin and subcutaneous tissues were anesthetized using Lidocaine 1.5% and a 25-gauge needle.~ After this, a 22-gauge spinal needle was inserted under fluoroscopic guidance into the inferior aspect of the right SI joint.~ Omnipaque dye was injected and a good spread was seen throughout the joint.~ After this, approximately 5 mL of bupivac jasvir 0.25% and Depo-Medrol 40 mg was incrementally injected into the sacroiliac joint.~ The patient tolerated the procedure well with no complications.~ The patient was observed in the Pain Clinic, then discharged home neurologically intact.~ Plan and Disposition:: Patient was discharged without pain. He was doing very well. He will return to see us in the clinic for follow-up.
== END 2021-08-01 08:46 | disposition home or self-care (01) ==
LOC: SC.PAINP 07:39
PROVIDERS: PCP Internal Medicine Adolescent Medicine; Visit Provider Nurse Anesthetist, Certified Registered
DX: M46.1 Sacroiliitis, not elsewhere classified (principal); I25.10 Atherosclerotic heart disease of native coronary artery without angina pectoris; K21.9 Gastro-esophageal reflux disease without esophagitis; E78.5 Hyperlipidemia, unspecified; I10 Essential (primary) hypertension; I25.2 Old myocardial infarction; I73.9 Peripheral vascular disease, unspecified; R00.0 Tachycardia, unspecified; Z72.0 Tobacco use; Z83.3 Family history of diabetes mellitus; Z82.49 Family history of ischemic heart disease and other diseases of the circulatory system; Z84.2 Family history of other diseases of the genitourinary system
CPT/HCPCS: 27096; G0260; J1040

== ENCOUNTER → 2021-09-02 09:17 | Outpatient (POV) | payer MEDICARE, MEDICAID, SELFPAY ==
[2021-09-02 09:42] VITALS: BP 96/43; PULSE 52; RESP 18; TEMP 35.9; O2SAT 98; BMI 28.2
--- NOTE | 2021-09-02 09:50 | HMH.PAINSOAP ---
[facility] Pain Management SOAP Note Subjective:: This patient is a pleasant 76-year-old male who returns our clinic today after receiving a right SI joint injection on 08/01/2021. He reports significant improvement terms of right hip pain. This lasted about 3 weeks. His pain is coming back to some degree. However, he still remains better than he was prior to the injection. I discussed with the patient in detail regarding a repeat injection. He agrees. He rates his pain 6/10. He said prior to the injection it was 10/10. [facility] [phone] is been reviewed and appropriate. Patient is taken tramadol 50 mg 1 p.o. as needed. This medication comes from his PCP. Objective:: Patient is awake alert oriented x3. In no acute distress. Flexion and extension of the cervical lumbar spine normal. Deep tendon reflexes upper and lower extremities normal. There is no gross sensory deficit. Gait is antalgic. Patient requires a cane for stability. Assessment:: Degenerative disc lumbar spine multilevels. Bilateral sacroiliitis. Plan:: Patient has extreme point tenderness over the right SI joint. Again, I discussed in detail with the patient regarding a second injection at the right SI joint. He wishes to proceed. We will get him on the schedule. [facility] History Medical History: Reports:: Coronary Artery Disease, Gastroesophageal Reflux Disease(GERD), Heart Murmur, Hyperlipidemia, Hypertension, Myocardial Infarction, Peripheral Artery Disease, Peripheral Vascular Disease, Supraventricular Tachycardia Denies:: Cancer, Diabetes Mellitus Type 1, Diabetes Mellitus Type 2, Internal Pacemaker, MRSA, Seizures *Have you ever received a pneumonia vaccine?: Yes *Have you received a flu vaccine this season?: Yes Other Medical History: Reports: Arthritis. Denies: Blood Transfusion Reaction Laterality Cases: Right: Arthroscopy Shoulder Other Surgeries: Yes: Angiogram, Angioplasty, CABG, Cardiac Catheterization, Cardiac Surgery, Other. No: Pacemaker Amputation: No Fractures: No - *Social History Smoking Status: Current every day smoker Tobacco Type: cigarettes # Packs/Day (cigarettes): 1 #Yrs smoked (if former smoker): 60 Alcohol Intake: never Alcohol Intake Frequency:: other Substance Use Type: denies use *Occupational Status:: retired Housing: house Household Members: significant other *Travel in the last 8 weeks: None Family Hx:: No significant family history
== END ==
PROVIDERS: Visit Provider Nurse Anesthetist, Certified Registered
DX: M51.36 Other intervertebral disc degeneration, lumbar region (principal); M46.1 Sacroiliitis, not elsewhere classified
CPT/HCPCS: 99212; G0463

== ENCOUNTER 2021-09-12 12:31 | Day surgery (SDC) | payer MEDICARE, MEDICAID, SELFPAY ==
[2021-09-12 12:43] VITALS: BP 140/55; PULSE 60; RESP 20; TEMP 36.5; O2SAT 97; BMI 28.2
[2021-09-12 12:49] VITALS: BP 138/112; PULSE 60; RESP 18; O2SAT 96
[2021-09-12 12:51] VITALS: BP 156/60; PULSE 59; RESP 18; O2SAT 97
--- NOTE | 2021-09-12 13:03 | HMH.PMPROC ---
- Procedure Date: 09/12/21 Time: 13:03 Anesthesiologist:: Franck Louise MD Complications:: None Pre-procedure Diagnosis:: Sacroiliitis Post-procedure Diagnosis:: Same Indications for Procedure:: Patient is a pleasant 76-year-old white male who we are treating for right-sided hip pain. He is tender over the right SI joint. Is positive Octavio's test on the right side. He has a positive Liliane test on the right side. Is positive SI joint compression test on the right side. We will do a right SI joint injection under fluoroscopy today to help with his pain symptoms. Procedure Details:: Right SI joint injection under fluoroscopy Informed consent was obtained and the risks and benefits of the procedure was going to the patient. Patient was taken to the procedure room. Patient was placed prone on the procedure table. The right hip was prepped using ChloraPrep. The skin and subcutaneous tissues were anesthetized using lidocaine. I placed a 22-gauge spinal needle into the inferior aspect of the right SI joint. Needle placement was confirmed with dye. After this we injected 5 mL bupivacaine 0.25% and Depo-Medrol 40 mg into the right SI joint. The patient tolerated the procedure well with no complication. Plan and Disposition:: We will follow-up with him in 2 weeks. Will reevaluate his symptoms at that time.
[2021-09-12 13:05] VITALS: BP 149/55; PULSE 55; RESP 20; O2SAT 97
== END 2021-09-12 13:06 | disposition home or self-care (01) ==
LOC: SC.PAINP 12:32
PROVIDERS: PCP Internal Medicine Adolescent Medicine; Visit Provider Anesthesiology
DX: M46.1 Sacroiliitis, not elsewhere classified (principal)
CPT/HCPCS: 27096; G0260; J1040; Q9966

== ENCOUNTER → 2021-10-23 10:20 | Outpatient (POV) | payer MEDICARE, MEDICAID, SELFPAY ==
[2021-10-23 11:03] VITALS: BP 98/56; PULSE 50; RESP 18; TEMP 36.3; O2SAT 97; BMI 28.2
--- NOTE | 2021-10-23 14:31 | HMH.PAINSOAP ---
[facility] Pain Management SOAP Note Subjective:: Patient is a pleasant 76-year-old male who presents today for follow-up after a right SI injection on October 09, 2021. Patient is currently being treated for right hip pain, right sacroiliitis, degenerative disc disease of lumbar spine. After his injection, patient had significant relief with his right upper buttock pain. He states though that he has been having weakness on his right leg. He is unsure if this started after the injection. He has been trouble with lifting his right leg. He is still having trouble with walking and standing. It does help when he lays down. Rates pain today as 10 out of 10. He is prescribed tramadol [address] Mckeon. [facility] [id number] with an active morphine equivalent of 0. Review of Systems: General: No recent weight changes, no fever, no sleep disturbances Respiratory: No cough, no shortness of air, no recurring pulmonary infections Cardiovascular/peripheral vascular: No chest pain, no palpitations, no edema, no shortness of breath Gastrointestinal: No new onset incontinence, normal bowel movements reported Genitourinary: No new onset incontinence Musculoskeletal: Low back pain, right hip pain Psychiatric: [Normal mood/affect] Neurological: [Denies weakness in extremities], [denies balance issues] Objective:: Physical Exam: General: Alert and oriented x3, no acute distress, pleasant and cooperative Lungs: Respirations even and unlabored, symmetrical chest expansion Eyes: PERRL Musculoskeletal: Flexion and extension of lumbar [spine] somewhat guarded secondary to pain, [antalgic gait noted]; limited range of motion of the right hip secondary to pain Neurological: Speech clear, no gross sensory deficit Assessment:: Degenerative disc disease of lumbar spine, right-sided sacroiliitis, right hip pain Plan:: Patient had significant relief with the right SI injection and has been able to increase activity since then. He does complain of pain around his low back and has been having weakness with lifting his right leg. We will obtain an updated lumbar MRI. We will also refer the patient for physical therapy for his right leg weakness. I will start the patient on a compounding cream that he can use for his low back pain. Patient has been instructed to contact the clinic with any concerns before the next appointment. Dr. Louise has reviewed this note and agrees with this plan of care. This note was dictated using voice recognition software and make contain errors or omissions. [facility] History Medical History: Reports:: Coronary Artery Disease, Gastroesophageal Reflux Disease(GERD), Heart Murmur, Hyperlipidemia, Hypertension, Myocardial Infarction, Peripheral Artery Disease, Peripheral Vascular Disease, Supraventricular Tachycardia Denies:: Cancer, Diabetes Mellitus Type 1, Diabetes Mellitus Type 2, Internal Pacemaker, MRSA, Seizures *Have you ever received a pneumonia vaccine?: No *Have you received a flu vaccine this season?: Yes Other Medical History: Reports: Arthritis, Hypothyroidism. Denies: Blood Transfusion Reaction Laterality Cases: Right: Arthroscopy Shoulder Other Surgeries: Yes: Angiogram, Angioplasty, CABG, Cardiac Catheterization, Cardiac Surgery, Other. No: Pacemaker Amputation: No Fractures: No - *Social History Smoking Status: Current every day smoker Tobacco Type: cigarettes # Packs/Day (cigarettes): 1 #Yrs smoked (if former smoker): 60 Alcohol Intake: never Alcohol Intake Frequency:: other Substance Use Type: denies use *Occupational Status:: other Housing: house Household Members: other *Travel in the last 8 weeks: None Family Hx:: No significant family history
== END ==
PROVIDERS: Visit Provider Student in an Organized Health Care Education/Training Program
DX: M51.36 Other intervertebral disc degeneration, lumbar region (principal); M46.1 Sacroiliitis, not elsewhere classified; M19.90 Unspecified osteoarthritis, unspecified site; Z72.0 Tobacco use
CPT/HCPCS: 99212; G0463

== ENCOUNTER → 2021-10-28 10:56 | Outpatient (CLI) | payer MEDICARE, MEDICAID, SELFPAY ==
--- NOTE | 2021-10-28 10:59 | MR_ITS ---
FINAL REPORT CLINICAL HISTORY: BACK PAIN. RIGHT SIDED LOW BACK PAIN. SYMPTOMS FOR 3 YEARS. NO INJURY OR TRAUMA. RIGHT FOOT DROP. COMPARISON: 08/02/2020 FINDINGS: MRI LUMBAR SPINE W/O CONTRAST Multiplanar MR imaging of the lumbar spine was performed without contrast. On the sagittal T2-weighted images, disc degeneration is seen throughout. Endplate changes are seen at multiple levels. The vertebral alignment is normal. There is leftward curvature. Note is made of several hemangiomas. There is no evidence of fracture. The conus has an unremarkable appearance. T11-12: An annular bulge is present. There is a small right foraminal disc protrusion. T12-L1: No significant central canal stenosis or neuroforaminal narrowing. L1-2: There is an annular disc bulge with facet arthropathy and vertebral osteophytes. There is mild bilateral neural foraminal narrowing. L2-3: There is an annular disc bulge with facet arthropathy and vertebral osteophytes. There is moderate right and mild left neural foraminal narrowing. L3-4: An annular bulge is present. There is mild bilateral neural foraminal narrowing. L4-5: An annular bulge is present. There is a left foraminal disc protrusion. There is mild right moderate left neural foraminal narrowing. L5-S1: There is an annular disc bulge with facet arthropathy. IMPRESSION: There has been interval improvement of a central L2-3 disc protrusion. Other findings are stable. Reviewed, Interpreted and Dictated by Kodak Fletcher III, MD Transcribed by Dana Greer Authenticated and . [facility]
== END ==
PROVIDERS: PCP Internal Medicine Adolescent Medicine; Visit Provider Student in an Organized Health Care Education/Training Program
DX: M54.50 Low back pain, unspecified (principal)
CPT/HCPCS: 72148; 76376

== ENCOUNTER → 2021-11-25 10:42 | Outpatient (POV) | payer MEDICARE, MEDICAID, SELFPAY ==
[2021-11-25 10:48] VITALS: BP 110/54; PULSE 58; RESP 20; O2SAT 97; BMI 28.2
--- NOTE | 2021-11-25 12:23 | HMH.PAINSOAP ---
[facility] Pain Management SOAP Note Subjective:: Patient is a pleasant 76-year-old male who presents today for follow-up. We are currently treating the patient for degenerative disc disease of lumbar spine with lumbar radiculopathy symptoms, right-sided sacroiliitis, right hip pain. Today the patient rates his pain a 10 out of 10. He states is all in his low back that radiates to his right hip. He states occasionally he will have radiating symptoms down his right leg. Patient describes this as a sharp, throbbing sensation that is worse with increased activity. He states that since his last injection he cannot raise his right foot as well and just feels like it is weak. patient denies any new trauma or injury to the site. He denies any change to the location or type of pain he experiences. We have done injective therapy in the past for him with minimal to no improvement of his symptoms. Patient is currently managed with gabapentin 600 mg 4 times a day and tramadol 50 mg 6 times a day by Dr. Mckeon. Patient states his tramadol prescription only gives him a 5-day supply and states that that it has been like this since they started prescribing this medication. Patient states he does not feel like he is able to really see if he gets any improvement with the tramadol due to the limited pills he is given. Patient denies any side effects from these medications. He states he does also try [id number] Tylenol and ibuprofen with no relief of symptoms. He has been given the compounding cream but he felt like that actually made his pain worse. Patient states he would like to be referred to a surgeon to see if surgery is an option for improvement. Patient states he recently had an updated MRI of his lumbar spine and was told for the most part it was unremarkable. His Darren is [id number]. It has been reviewed and appropriate. Injections: LESI L4-L5 06/2020 Right SI 07/2021 Right SI 09/2021 Review of Systems: General: No recent weight changes, no fever, no sleep disturbances Respiratory: No cough, no shortness of air, no recurring pulmonary infections Cardiovascular/peripheral vascular: No chest pain, no palpitations, no edema, no shortness of breath Gastrointestinal: No new onset incontinence, normal bowel movements reported Genitourinary: No new onset incontinence Musculoskeletal: Low back pain, right leg pain Psychiatric: [Normal mood/affect] Neurological: [Denies weakness in extremities], [denies balance issues] Objective:: Physical Exam: General: Alert and oriented x3, no acute distress, pleasant and cooperative Lungs: Respirations even and unlabored, symmetrical chest expansion Eyes: PERRL Musculoskeletal: Flexion and extension of lumbar [spine] somewhat guarded secondary to pain, [antalgic gait noted]. Point tenderness along lumbar spine and radiates to right hip Neurological: Speech clear, no gross sensory deficit. FINAL REPORT CLINICAL HISTORY: BACK PAIN. RIGHT SIDED LOW BACK PAIN. SYMPTOMS FOR 3 YEARS. NO INJURY OR TRAUMA. RIGHT FOOT DROP. COMPARISON: 08/02/2020 FINDINGS: MRI LUMBAR SPINE W/O CONTRAST Multiplanar MR imaging of the lumbar spine was performed without contrast. On the sagittal T2-weighted images, disc degeneration is seen throughout. Endplate changes are seen at multiple levels. The vertebral alignment is normal. There is leftward curvature. Note is made of several hemangiomas. There is no evidence of fracture. The conus has an unremarkable appearance. T11-12: An annular bulge is present. There is a small right foraminal disc protrusion. T12-L1: No significant central canal stenosis or neuroforaminal narrowing. L1-2: There is an annular disc bulge with facet arthropathy and vertebral osteophytes. There is mild bilateral neural foraminal narrowing. L2-3: There is an annular disc bulge with facet arthropathy and vertebral osteophytes. There is moderate right and mild left neural foraminal narrowing. L3-4:
== END ==
PROVIDERS: Visit Provider Nurse Practitioner Family
DX: M51.16 Intervertebral disc disorders with radiculopathy, lumbar region (principal); M46.1 Sacroiliitis, not elsewhere classified
CPT/HCPCS: 99212; G0463

== ENCOUNTER → 2022-03-16 07:59 | Outpatient (CLI) | payer MEDICARE, MEDICAID, SELFPAY ==
--- NOTE | 2022-03-16 08:16 | CT_ITS ---
FINAL REPORT TECHNIQUE: Axial imaging of the chest was obtained without contrast. Reformatted images were also obtained and reviewed.This study was performed with techniques to keep radiation doses as low as reasonably achievable, (ALARA). Individualized dose reduction technique using automated exposure control or adjustment of mA and/or kV according to the patient's size were employed. CLINICAL HISTORY: LUNG NODULE COMPARISON: 05/02/2021, 03/28/2021 FINDINGS: There is a 9 mm nodule in the inferior left thyroid lobe which is stable from prior exam. Patient is status post median sternotomy. There is no axillary adenopathy. There is no hilar or mediastinal mass or adenopathy. Heart size is normal. There is no pericardial or pleural effusion. There is mild pulmonary scarring/fibrosis. A 4 mm nodule is seen at the right lung base on image number 56 which is partially obscured by pulmonary opacities but appears stable. No new suspicious infiltrate or nodule is identified on lung window images. Limited imaging of the upper abdomen demonstrates postoperative change of cholecystectomy. IMPRESSION: Stable left thyroid lobe nodule. Stable 4 mm nodule in the right lung base. No new mass or nodule. Reviewed, Interpreted and Dictated by Kodak Fletcher III, MD Transcribed by Carlee Rehman Authenticated and [facility]
[2022-03-16 08:21] LABS: Basophils # 0.1 K/mm3 (0-0.2); Basophils % 0.9 % (0.1-2.0); Eosinophils # 0.8 K/mm3 (0.0-0.4); Eosinophils % 5.5 % (0.1-12.0); Hematocrit 42.9 % (42.0-52.0); Hemoglobin 13.5 g/dL (14.1-18.0); Lymphocytes # 2.8 K/mm3 (0.7-4.5); Lymphocytes % 18.8 % (10-50); Mean Corpuscular HGB Conc 31.6 g/dL (31.8-35.4); Mean Platelet Volume 8.1 fl (7.4-10.4); Monocytes # 0.9 K/mm3 (0.1-1.0); Monocytes % 5.8 % (1.7-9.3); Neutrophils # 10.4 K/mm3 (1.8-7.8); Platelet Count 372 K/mm3 (142-424); Red Blood Count 4.51 M/mm3 (4.60-6.20); Red Cell Distribution Width 15.7 % (11.5-17.5); White Blood Count 15.1 K/mm3 (4.8-10.8)
[2022-03-16 08:23] LABS: MANUAL DIFFERENTIAL MANUAL DIFFERENTIAL (MANUAL DIFF)
[2022-03-16 08:32] LABS: Eosinophils % 4 % (0-3); Lymphocytes % 21 % (10-50); Monocytes % 7 % (2-9); Neutrophils % 68 % (42-76); Total Cells Counted 100
[2022-03-16 08:33] LABS: Platelet Estimate Normal; RBC Morphology Normal
[2022-03-16 09:29] LABS: Chloride 100 mmol/L (98-107); Potassium 4.1 mmoL/L (3.5-5.1); Sodium 136 mmol/L (136-145)
[2022-03-16 09:32] LABS: Alanine Aminotransferase 12 U/L (12-78); Albumin Level 3.8 g/dl (3.5-5.0); Albumin/Globulin Ratio 1.2 (1.1-1.8); Alkaline Phosphatase 75 U/L (38-126); Anion Gap 7.1 mEq/L (5-15); Aspartate Amino Transferase 21 U/L (17-59); Bilirubin,Total 0.4 mg/dl (0.2-1.3); Blood Urea Nitrogen 19 mg/dl (9-20); Calcium 9.2 mg/dl (8.4-10.2); Carbon Dioxide 33 mmol/L (22.0-30.0); Estimated Glomerular Filt Rate 72 ml/min (>60); GFR (African American) 87 ML/MIN (>60); Globulin 3.1 g/dL (1.3-3.2); Glucose 110 mg/dl (74-100); Total Protein,Serum 6.9 g/dl (6.3-8.2)
== END ==
PROVIDERS: PCP Internal Medicine Adolescent Medicine; Visit Provider Internal Medicine Adolescent Medicine
DX: I25.10 Atherosclerotic heart disease of native coronary artery without angina pectoris (principal); R91.1 Solitary pulmonary nodule
CPT/HCPCS: 36415; 71250; 80053; 85007; 85025

== ENCOUNTER → 2022-06-04 15:12 | Outpatient (CLI) | payer MEDICARE, MEDICAID, SELFPAY ==
--- NOTE | 2022-06-04 15:20 | XR_ITS ---
FINAL REPORT CLINICAL HISTORY: LUNG CRACKLES COMPARISON: 05/02/2021 FINDINGS: Two views of the chest were obtained. There is cardiomegaly. There is evidence of prior median sternotomy. There is a small right pleural effusion which has worsened. There is right base lung opacity may represent atelectasis or pneumonia which has worsened from prior. There is no pneumothorax. The bony thorax is intact. Postoperative changes in the right shoulder. IMPRESSION: Worsened right lung base atelectasis or pneumonia and worsened right pleural effusion. Reviewed, Interpreted and Dictated by Kodak Fletcher III, MD Transcribed by Barbra Arellano Authenticated and [facility]
== END ==
PROVIDERS: PCP Internal Medicine Adolescent Medicine; Visit Provider Internal Medicine Adolescent Medicine
DX: R09.89 Other specified symptoms and signs involving the circulatory and respiratory systems (principal)
CPT/HCPCS: 71046

== ENCOUNTER → 2022-07-23 13:40 | Outpatient (CLI) | payer MEDICARE, MEDICAID, SELFPAY ==
--- NOTE | 2022-07-23 | CA_ITS ---
FINAL REPORT TECHNIQUE: Ultrasound images of the deep venous system were obtained from the left groin to the calf veins. CLINICAL HISTORY: .LEFT LEG EDEMA, HTN, CHRONIC BACK INJURY COMPARISON: None FINDINGS: The deep venous system is normally compressible. Normal flow is identified. IMPRESSION: No evidence of left lower extremity DVT. Reviewed, Interpreted and Dictated by Kodak Fletcher III, MD Transcribed by Barbra Arellano Authenticated and [facility]
--- NOTE | 2022-07-23 14:05 | XR_ITS ---
FINAL REPORT CLINICAL HISTORY: LT LEG SWELLING COMPARISON: 11/26/2020 FINDINGS: LEFT ANKLE Three views of the left ankle were obtained. There is no acute fracture or dislocation. There are mild degenerative changes. There is a posterior calcaneal spur. There is soft tissue swelling. IMPRESSION: Soft tissue swelling with no acute bony abnormality. Reviewed, Interpreted and Dictated by Kodak Fletcher III, MD Transcribed by Dana Greer Authenticated and [facility]
--- NOTE | 2022-07-23 14:05 | XR_ITS ---
FINAL REPORT CLINICAL HISTORY: LEFT LEG SWELLING FINDINGS: LEFT TIBIA FIBULA 2 views were obtained. There is no acute fracture or dislocation. There are mild degenerative changes of the knee and ankle. There are mild vascular calcifications. IMPRESSION: No acute bony abnormality. Reviewed, Interpreted and Dictated by Kodak Fletcher III, MD Transcribed by Dana Greer Authenticated and [facility]
== END ==
PROVIDERS: PCP Internal Medicine Adolescent Medicine; Visit Provider Internal Medicine Adolescent Medicine
DX: M79.662 Pain in left lower leg (principal); M25.572 Pain in left ankle and joints of left foot; M79.89 Other specified soft tissue disorders
CPT/HCPCS: 73590; 73610; 93971

== ENCOUNTER 2022-09-22 08:27 | Day surgery (SDC) | payer MEDICARE, MEDICAID, SELFPAY ==
[2022-09-21 10:33] VITALS: BMI 25.7
[2022-09-22 08:58] VITALS: BP 129/51; PULSE 54; RESP 18; TEMP 36.1; O2SAT 97
[2022-09-22 09:30] VITALS: BP 129/51; PULSE 54; RESP 18; TEMP 36.1; O2SAT 97
== END 2022-09-22 09:30 | disposition home or self-care (01) ==
PROVIDERS: PCP Internal Medicine Adolescent Medicine; Visit Provider Ophthalmology
PROC: (CPT 66821; principal; 2022-09-22 09:00)
DX: H26.40 Unspecified secondary cataract (principal); H40.9 Unspecified glaucoma; H04.123 Dry eye syndrome of bilateral lacrimal glands
CPT/HCPCS: 66821

== ENCOUNTER → 2022-12-17 13:34 | Outpatient (CLI) | payer MEDICARE, MEDICAID, SELFPAY ==
--- NOTE | 2022-12-17 13:39 | CT_ITS ---
FINAL REPORT TECHNIQUE: Axial images through the chest was performed with and without contrast by computed tomography. Sagittal and coronal reformatted images were obtained and reviewed. This study was performed with techniques to keep radiation doses as low as reasonably achievable, (ALARA). Individualized dose reduction techniques using automated exposure control or adjustment of mA and/or kV according to the patient's size were employed. CLINICAL HISTORY: WHEEZING, smoker COMPARISON: 03/16/2022 FINDINGS: The patient is status post median sternotomy. There are multiple small mediastinal nodes. No axillary nodes are identified. The heart is normal in size. There is no pleural or pericardial effusion. There is mild bibasilar atelectasis. There is mild diffuse bronchial wall thickening consistent with bronchitis. Limited images of the upper abdomen show the patient to be status postcholecystectomy. IMPRESSION: Mild bronchial wall thickening consistent with bronchitis. Reviewed, Interpreted and Dictated by Kodak Fletcher III, MD Transcribed by Jennifer Blancas Authenticated and [facility]
== END ==
PROVIDERS: PCP Internal Medicine Adolescent Medicine; Visit Provider Internal Medicine Adolescent Medicine
DX: R06.2 Wheezing (principal)
CPT/HCPCS: 71270; Q9967

== ENCOUNTER → 2023-01-11 12:01 | Outpatient (CLI) | payer MEDICARE, MEDICAID, SELFPAY ==
[2023-01-11 12:40] LABS: Basophils # 0.1 K/mm3 (0-0.2); Basophils % 0.6 % (0.1-2.0); Eosinophils # 1.1 K/mm3 (0.0-0.4); Eosinophils % 7.4 % (0.1-12.0); Hematocrit 38.9 % (42.0-52.0); Hemoglobin 11.9 g/dL (14.1-18.0); Lymphocytes # 2.4 K/mm3 (0.7-4.5); Lymphocytes % 16.3 % (10-50); Mean Corpuscular HGB Conc 30.7 g/dL (31.8-35.4); Mean Corpuscular Hemoglobin 29.2 pg (27.0-31.2); Mean Platelet Volume 8.8 fl (7.4-10.4); Monocytes % 6.8 % (1.7-9.3); Neutrophils # 10.2 K/mm3 (1.8-7.8); Neutrophils % 68.9 % (37.0-80.0); Platelet Count 246 K/mm3 (142-424); Red Blood Count 4.09 M/mm3 (4.60-6.20); Red Cell Distribution Width 16.5 % (11.5-17.5); White Blood Count 14.8 K/mm3 (4.8-10.8)
[2023-01-11 13:26] LABS: Alanine Aminotransferase 22 U/L (12-78); Albumin Level 3.5 g/dl (3.5-5.0); Alkaline Phosphatase 69 U/L (38-126); Anion Gap 9.5 mEq/L (5-15); Aspartate Amino Transferase 24 U/L (17-59); Bilirubin,Direct 0.1 mg/dl (0.0-0.4); Bilirubin,Indirect 0.1 mg/dL (0.0-0.9); Bilirubin,Total 0.2 mg/dl (0.2-1.3); Bilirubin,Unconjugated 0.1 mg/dL (0.0-1.1); Blood Urea Nitrogen 15 mg/dl (9-20); Calcium 8.5 mg/dl (8.4-10.2); Carbon Dioxide 35 mmol/L (22.0-30.0); Chloride 101 mmol/L (98-107); Chol/HDL Ratio 2.4 (1-3.5); Cholesterol 120 mg/dl (140-200); Estimated Glomerular Filt Rate 65 ml/min (>60); GFR (African American) 78 ML/MIN (>60); Glucose 129 mg/dl (74-100); HDL Cholesterol 49 mg/dl (40-60); Potassium 4.5 mmoL/L (3.5-5.1); Sodium 141 mmol/L (136-145); Total Protein,Serum 6.7 g/dl (6.3-8.2); Triglycerides 47 mg/dl (30-150); VLDL Cholesterol 9 mg/dL (0-40)
[2023-01-11 13:37] LABS: Direct LDL Cholesterol 60.29 mg/dL (100-129)
[2023-01-11 13:43] LABS: Free T4 (Free Thyroxine) 1.02 ng/dl (0.78-2.19)
[2023-01-11 13:57] LABS: Thyroid Stimulating Hormone 3.42 uIU/mL (0.465-4.68)
[2023-01-11 15:46] LABS: Iron 46 ug/dL (49-181)
[2023-01-11 15:55] LABS: Total Iron Binding Capacity 270 ug/dL (261-462)
== END ==
PROVIDERS: PCP Internal Medicine Adolescent Medicine; Visit Provider Nurse Practitioner Family
DX: R06.02 Shortness of breath (principal); E78.5 Hyperlipidemia, unspecified; I25.10 Atherosclerotic heart disease of native coronary artery without angina pectoris; R60.0 Localized edema; I10 Essential (primary) hypertension; I73.9 Peripheral vascular disease, unspecified; Z95.1 Presence of aortocoronary bypass graft; R79.89 Other specified abnormal findings of blood chemistry
CPT/HCPCS: 36415; 80048; 80061; 80076; 83540; 83550; 84439; 84443; 85025

== ENCOUNTER → 2023-01-12 12:22 | Outpatient (CLI) | payer MEDICARE, MEDICAID, SELFPAY ==
--- NOTE | 2023-01-12 13:05 | CA_ITS ---
APPROVED REPORT EXAM: Comprehensive 2D, Doppler, and color-flow Echocardiogram [employer] Worker: Kristy Rios CRT Ht: 6 ft 2 in Wt: 224lbs BSA: 2.28 BP: 120/44 mmHg Indications: SOB, PAD, PVD, Edema, HLD 2D Dimensions LVOT 1.58 cm (M/F) 1.5-2.5 LA Volume 57.70 mL LA Volume Index 25.31 mL/m2 (M/F) 16-34 M-Mode Dimensions RVDd 2.71 cm (0.9-2.6) LA Diam 5.34 cm (1.9-4.0) LVDd 6.19 cm (3.5-5.7) Ao Diam 4.06 cm (2.0-3.7) LVDs 4.05 cm (3.5-5.7) IVSd 1.24 cm (0.6-1.1) PWd 0.74 cm (0.6-1.1) EF (Teich) 62.70% FS 34.60% EDV (Teich) 193.30 mL TAPSE 1.84 (<1.7) ESV (Teich) 72.10 mL LV Diastology E Decel Time 203.00 (160-240 msec) E/A Ratio 1.44 MED E' 4.60 (< 7 cm/sec) MED A' 5.50 cm/s E'/MED E' Ratio 22.13 (>14) LAT E' 5.10 (<10 cm/sec) LAT A' 4.40 cm/s E/LAT E' Ratio 19.96 (>14) Aortic Valve AO Peak GR. 5.00 mmHg Mitral Valve MV A Velocity 71.00 (40-130 cm/s) E/A Ratio 1.44 MV Decel. Time 203.00 (160-240 ms) Pulmonary Valve PV Peak Velocity 100.00 (50-150 cm/s) Tricuspid Valve TR P. Velocity 266.00 cm/s RAP Estimate 10.00 mmHg RVSP 38.30 mmHg Left Ventricle The left ventricle is normal size. The left ventricular systolic function is normal. The left ventricular ejection fraction is within the normal range. There is normal left ventricular wall thickness. There is normal LV segmental wall motion. Diastolic function is indeterminate. LVEF is 60% Right Ventricle The right ventricle is normal size. The right ventricular systolic function is normal. Atria The left atrium size is normal. The right atrium size is normal. The interatrial septum is not well visualized. Aortic Valve The aortic valve is mildly thickened. There is no aortic valvular stenosis. Trace aortic regurgitation. Mitral Valve The mitral valve is mildly thickened. No evidence of mitral valve stenosis. Trace mitral regurgitation. Tricuspid Valve The tricuspid valve leaflets are thin and fragile. Mild tricuspid regurgitation. RVSP is 28 mmHg + RA pressure. Pulmonic Valve The pulmonary valve is normal in structure. Trace pulmonic regurgitation. Great Vessels The aortic root is normal in size. The ascending aorta is not well visualized. The IVC is not well visualized. Veins Pericardium There is no pericardial effusion. Other Information Study Quality: Technically Difficult Conclusion This was a technically difficult study due to poor acoustic windows. Normal biventricular systolic function. No significant valvular stenosis or regurgitation. RVSP is 28 mmHg + RA pressure. Electronically signed by : Katiana Mead MD 01/12/2023 19:00:36
== END ==
PROVIDERS: PCP Internal Medicine Adolescent Medicine; Visit Provider Nurse Practitioner Family
DX: R06.02 Shortness of breath (principal); R60.0 Localized edema
CPT/HCPCS: 93306

== ENCOUNTER 2023-04-19 12:31 | Outpatient (CLI) | payer MEDICARE, MEDICAID, SELFPAY ==
[2023-04-19 13:49] LABS: Blood Urea Nitrogen 13 mg/dl (9-20); Estimated Glomerular Filt Rate 81 ml/min (>60); GFR (African American) 98 ML/MIN (>60)
== END 2023-04-19 23:59 ==
LOC: LAB 12:38
PROVIDERS: PCP Internal Medicine Adolescent Medicine; Visit Provider Nurse Practitioner Family
DX: I10 Essential (primary) hypertension (principal); Z72.0 Tobacco use
CPT/HCPCS: 36415; 82565; 84520

== ENCOUNTER 2023-05-11 09:49 | Outpatient (CLI) | payer MEDICARE, MEDICAID, SELFPAY ==
--- NOTE | 2023-05-11 09:54 | CT_ITS ---
FINAL REPORT TECHNIQUE: Multiple axial CT sections were performed from the foramen magnum to the vertex. Coronal and sagittal reformatted images were also obtained. Precontrast and postcontrast injection images were obtained. This study was performed with technique to keep radiation doses as low as reasonably achievable, (ALARA). Individualized dose reduction techniques using automated exposure control or adjustment of mA and/or kV according to the patient size were employed. CLINICAL HISTORY: SLURRED SPEECH/BLURRED VISION COMPARISON: None FINDINGS: CT HEAD WITH AND WITHOUT CONTRAST: The ventricles are normal in size and configuration. No extra-axial fluid collections are noted. No mass effect or midline shift is seen. No focal enhancement or mass is seen. The paranasal sinuses are unremarkable. IMPRESSION: Unremarkable CT of the head with and without contrast. Reviewed, Interpreted and Dictated by Ade Mcmullen MD Transcribed by Nelsy Frausto Authenticated and [facility]
[2023-05-11] MEDS: IOHEXOL-240 100ML BOTTLE 100 ML IV (10:11)
== END 2023-05-11 23:59 ==
PROVIDERS: PCP Internal Medicine Adolescent Medicine; Visit Provider Internal Medicine Adolescent Medicine
DX: R47.81 Slurred speech (principal); R26.89 Other abnormalities of gait and mobility; W19.XXXA Unspecified fall, initial encounter
CPT/HCPCS: 70470; Q9966

== ENCOUNTER 2023-06-03 14:54 | Outpatient (CLI) | payer MEDICARE, SELFPAY ==
[2023-06-03 15:10] LABS: Basophils % 0.2 % (0.1-2.0); Eosinophils # 0.7 K/mm3 (0.0-0.4); Eosinophils % 4.6 % (0.1-12.0); Hematocrit 42.8 % (42.0-52.0); Hemoglobin 13.8 g/dL (14.1-18.0); Lymphocytes # 2.2 K/mm3 (0.7-4.5); Lymphocytes % 15.5 % (10-50); Mean Corpuscular HGB Conc 32.4 g/dL (31.8-35.4); Mean Corpuscular Hemoglobin 31.8 pg (27.0-31.2); Mean Corpuscular Volume 98.1 fl (80-94); Mean Platelet Volume 8.6 fl (7.4-10.4); Monocytes # 0.9 K/mm3 (0.1-1.0); Monocytes % 6.5 % (1.7-9.3); Neutrophils # 10.5 K/mm3 (1.8-7.8); Neutrophils % 73.3 % (37.0-80.0); Platelet Count 265 K/mm3 (142-424); Red Blood Count 4.36 M/mm3 (4.60-6.20); Red Cell Distribution Width 15.3 % (11.5-17.5); White Blood Count 14.3 K/mm3 (4.8-10.8)
[2023-06-03 15:29] LABS: Alanine Aminotransferase 14 U/L (12-78); Albumin Level 3.6 g/dl (3.5-5.0); Albumin/Globulin Ratio 1.2 (1.1-1.8); Alkaline Phosphatase 74 U/L (38-126); Anion Gap 9.8 mEq/L (5-15); Aspartate Amino Transferase 21 U/L (17-59); Bilirubin,Total 0.4 mg/dl (0.2-1.3); Blood Urea Nitrogen 19 mg/dl (9-20); Calcium 8.7 mg/dl (8.4-10.2); Carbon Dioxide 31 mmol/L (22.0-30.0); Chloride 102 mmol/L (98-107); Estimated Glomerular Filt Rate 53 ml/min (>60); GFR (African American) 64 ML/MIN (>60); Glucose 140 mg/dl (74-100); Potassium 3.8 mmoL/L (3.5-5.1); Sodium 139 mmol/L (136-145); Total Protein,Serum 6.6 g/dl (6.3-8.2)
== END 2023-06-03 23:59 ==
PROVIDERS: PCP Internal Medicine Adolescent Medicine; Visit Provider Internal Medicine Adolescent Medicine
DX: R10.32 Left lower quadrant pain (principal)
CPT/HCPCS: 36415; 80053; 85025

== ENCOUNTER 2023-06-22 08:21 | Outpatient (CLI) | payer MEDICARE, MEDICAID, SELFPAY ==
--- NOTE | 2023-06-22 08:25 | CT_ITS ---
FINAL REPORT TECHNIQUE: Axial CT images of the abdomen and pelvis were obtained before and after the administration of IV contrast. Oral contrast was administered.This study was performed with techniques to keep radiation doses as low as reasonably achievable (ALARA). Individualized dose reduction techniques using automated exposure control or adjustment of mA and/or kV according to the patient''s size were employed. CLINICAL HISTORY: LEFT LOWER QUADRANT ABDOMINAL PAIN COMPARISON: 03/28/2021 FINDINGS: Abdomen: There is a 4 mm right lower lobe nodule not well-seen on the previous exam but could have been obscured by atelectasis. The heart is normal in size. The liver has an unremarkable appearance, without evidence of mass or biliary duct dilatation. Postcholecystectomy. The spleen is unremarkable. No adrenal masses present. The pancreas has an unremarkable appearance. The kidneys enhance normally. The aorta is normal in caliber. There are diffuse vascular calcifications. There is no free fluid or adenopathy. No mass or abnormal fluid collection is seen. There is a small umbilical hernia containing fat. There are bilateral iliac artery stents. Precontrast images demonstrate no evidence of nephrolithiasis. Pelvis: The appendix is normal. There is descending and sigmoid diverticulosis. There is stranding adjacent to the distal sigmoid colon with several mildly enlarged lymph nodes which may represent mild acute diverticulitis. There is also wall thickening of the distal sigmoid colon, neoplasm not excluded. There is bladder wall thickening with mild stranding, likely inflammatory. There is a small amount of pelvic free fluid, likely reactive. There is no evidence of bowel obstruction. There are bilateral inguinal hernias containing fat. IMPRESSION: Right lower lobe 4 mm nodule. Recommend follow-up chest CT in 6 to 12 months to evaluate for stability. Descending and sigmoid diverticulosis with possible mild acute diverticulitis in the distal sigmoid colon. Wall thickening of the distal sigmoid colon, neoplasm not excluded. Recommend correlation with colonoscopy. Reviewed, Interpreted and Dictated by Kodak Fletcher III, MD Transcribed by Barbra Arellano Authenticated and [facility]
[2023-06-22] MEDS: BARIUM SULFATE(READI-CAT2);450ML BOTTLE 450 ML PO (08:51)
[2023-06-22] MEDS: IOPAMIDOL-370 (76%);100ML BOTTLE 75 ML IV (08:51)
[2023-06-22] MEDS: SODIUM CHLORIDE 0.9% 10ML SYR (RAD ONLY) 10 ML IV (08:51)
== END 2023-06-22 23:59 ==
LOC: RAD 08:21
PROVIDERS: PCP Internal Medicine Adolescent Medicine; Visit Provider Internal Medicine Adolescent Medicine
DX: R10.32 Left lower quadrant pain (principal)
CPT/HCPCS: 74178; Q9967

== ENCOUNTER 2023-08-02 16:26 | Outpatient (CLI) | payer MEDICARE, MEDICAID, SELFPAY ==
--- NOTE | 2023-08-02 | XR_ITS ---
PROCEDURE INFORMATION: Exam: XR Chest Exam date and time: 08/02/2023 4:32 PM Age: 78 years old Clinical indication: Chest wall pain TECHNIQUE: Imaging protocol: Radiologic exam of the chest. Views: 2 views. COMPARISON: CT CHEST WO/W CON 12/17/2022 2:45 PM FINDINGS: Lungs: The lungs are clear. Pleural spaces: Unremarkable. No pleural effusion. No pneumothorax. Heart/Mediastinum: The heart size is within normal limits. Bones/joints: Median sternotomy wires are identified. IMPRESSION: No acute abnormalities are identified.
[2023-08-02 17:14] LABS: Basophils # 0.1 K/mm3 (0-0.2); Basophils % 0.6 % (0.1-2.0); Eosinophils # 0.3 K/mm3 (0.0-0.4); Eosinophils % 1.7 % (0.1-12.0); Hematocrit 43.3 % (42.0-52.0); Hemoglobin 13.8 g/dL (14.1-18.0); Lymphocytes # 2.7 K/mm3 (0.7-4.5); Lymphocytes % 13.8 % (10-50); Mean Corpuscular HGB Conc 31.8 g/dL (31.8-35.4); Mean Corpuscular Hemoglobin 30.1 pg (27.0-31.2); Mean Corpuscular Volume 94.8 fl (80-94); Mean Platelet Volume 8.7 fl (7.4-10.4); Monocytes # 1.4 K/mm3 (0.1-1.0); Neutrophils # 14.8 K/mm3 (1.8-7.8); Neutrophils % 76.9 % (37.0-80.0); Platelet Count 311 K/mm3 (142-424); Red Blood Count 4.57 M/mm3 (4.60-6.20); Red Cell Distribution Width 15.3 % (11.5-17.5); White Blood Count 19.3 K/mm3 (4.8-10.8)
[2023-08-02 17:15] LABS: MANUAL DIFFERENTIAL MANUAL DIFFERENTIAL (MANUAL DIFF)
[2023-08-02 19:14] LABS: Eosinophils % 2 % (0-3); Lymphocytes % 16 % (10-50); Monocytes % 8 % (2-9); Neutrophils % 74 % (42-76); Platelet Estimate Normal; RBC Morphology Normal; Total Cells Counted 100
[2023-08-02 19:38] LABS: Alanine Aminotransferase 10 U/L (12-78); Albumin Level 3.4 g/dl (3.5-5.0); Albumin/Globulin Ratio 1.2 (1.1-1.8); Alkaline Phosphatase 60 U/L (38-126); Anion Gap 7.6 mEq/L (5-15); Aspartate Amino Transferase 22 U/L (17-59); Bilirubin,Total 0.5 mg/dl (0.2-1.3); Blood Urea Nitrogen 13 mg/dl (9-20); Calcium 8.3 mg/dl (8.4-10.2); Carbon Dioxide 32 mmol/L (22.0-30.0); Chloride 100 mmol/L (98-107); Estimated Glomerular Filt Rate 64 ml/min (>60); GFR (African American) 78 ML/MIN (>60); Globulin 2.9 g/dL (1.3-3.2); Glucose 106 mg/dl (74-100); Potassium 3.6 mmoL/L (3.5-5.1); Sodium 136 mmol/L (136-145); Total Protein,Serum 6.3 g/dl (6.3-8.2)
[2023-08-02 20:09] LABS: Thyroid Stimulating Hormone 1.75 uIU/mL (0.465-4.68)
[2023-08-02 20:45] LABS: Vitamin B12 285 pg/mL (239-931)
[2023-08-02 20:57] LABS: Ferritin 105 ng/ml (17.9-464)
== END 2023-08-02 23:59 | disposition home or self-care (01) ==
LOC: LAB 16:27
PROVIDERS: PCP Internal Medicine Adolescent Medicine; Visit Provider Nurse Practitioner Family
DX: R41.89 Other symptoms and signs involving cognitive functions and awareness; R07.89 Other chest pain; D64.9 Anemia, unspecified
CPT/HCPCS: 36415; 71046; 80053; 82607; 82728; 82746; 84443; 85007; 85025

== ENCOUNTER 2023-08-11 13:38 | Outpatient (CLI) | payer MEDICARE, MEDICAID, SELFPAY ==
--- NOTE | 2023-08-11 13:41 | XR_ITS ---
FINAL REPORT CLINICAL HISTORY: Precordial chest pain COMPARISON: 08/02/2023 FINDINGS: No acute pulmonary density is evident. There is no evidence of effusion or other pleural disease. Status post CABG. The cardiac silhouette is unremarkable. IMPRESSION: Unremarkable chest exam. No change from prior. Reviewed, Interpreted and Dictated by Ade Mcmullen MD Transcribed by Barbra Arellano Authenticated and [facility]
== END 2023-08-11 23:59 | disposition home or self-care (01) ==
LOC: RAD 13:39
PROVIDERS: PCP Internal Medicine Adolescent Medicine; Visit Provider Physician Assistant
DX: R06.02 Shortness of breath (principal); I25.10 Atherosclerotic heart disease of native coronary artery without angina pectoris; I10 Essential (primary) hypertension; Z95.1 Presence of aortocoronary bypass graft; I73.9 Peripheral vascular disease, unspecified; I77.1 Stricture of artery; Z95.828 Presence of other vascular implants and grafts; E78.49 Other hyperlipidemia
CPT/HCPCS: 71046

== ENCOUNTER 2023-08-17 08:44 | Day surgery (SDC) | payer MEDICARE, MEDICAID, SELFPAY ==
[2023-08-17] VITALS (12 sets, daily range): BP systolic 117–195; BP diastolic 43–94; PULSE 46–56; RESP 17–18; TEMP 36.1–36.9; O2SAT 94–97; BMI 26.9
--- NOTE | 2023-08-17 07:28 | IR_ITS ---
APPROVED REPORT Patient Location: Outpatient Librarian Specialist: RANDY Ge RT (R) PROCEDURES Selective coronary angiogram Selective engagement of the left internal mammary artery to the LAD Selective engagement of the saphenous vein graft to the circumflex artery Drug-eluting stent deployment to the ostial left main artery Drug-eluting stent deployment to the ostial proximal mid and distal dominant right coronary in a contiguous manner Drug-eluting stent deployment to the ostial proximal saphenous vein graft to circumflex artery INDICATION Coronary artery disease, Crescendo angina pectoris, History of coronary bypass surgery Informed consent was obtained prior to the procedure. COMPLICATIONS NONE Estimated Blood Loss: LESS THAN 10 ML TECHNIQUE One percent lidocaine used to anesthetize the right groin. The right femoral artery was accessed via the Seldinger technique and a 5 [place] sheath was placed in the right femoral artery. A JL 4, JR4 catheter were used to perform left heart catheterization, left ventriculogram selective coronary angiography as well as selective engagement of the 1 vein graft and the left internal mammary artery. At the end of the diagnostic angiogram therapeutic heparin was administered giving a therapeutic ACT and the 5 [place] sheath was exchanged for a 6 [place] sheath. A JL 4 guide catheter was placed in left main artery followed by Choice PT extra-support wire placed on the LAD. A 4 mm x 8 mm Gordon frontier stent was deployed in the ostial segment of the left main artery at 24 gus reducing the stenosis to 0%. SHAUNA-3 flow was present before and after the procedure. Following this the guide catheter was removed and a JR4 guide catheter was placed in the right coronary followed by Choice PT extra-support wire placed distally. Two 3.5 x 38 mm Gordon frontier stents were placed in the proximal mid and distal segment in overlapping manner and deployed at 20 and then 24 gus. An additional 4 mm x 26 mm Jose Martin frontier stent was placed in the ostial proximal segment overlapping one of the 38 mm stents and then deployed at 20 gus. The balloon was advanced and deployed at [address] to the RV marginal to further post dilate. SHAUNA-3 flow was present before and after the procedure. After achieving excellent angiographic results the guide catheter was placed in the saphenous vein graft of the circumflex artery followed by Choice PT extra-support wire. Predilatation was required as the stent would not pass due to the severe in-stent restenosis in the ostial proximal segment. The guide liner was then required to deliver a 3.5 x 38 mm Jose Martin frontier stent at 24 gus. A 4 mm x 12 mm noncompliant balloon was then deployed in the ostial segment. At 20 gus patient was experiencing chest pain therefore the balloon was decreased and deflated and the apparatus was removed. SHAUNA-3 flow was present before and after the procedure. Following this the apparatus was removed the groin was reprepped closure change sheath was removed and hemostasis was achieved using Perclose device patient was transferred to the postop putting in stable condition ANGIOGRAPHIC RESULTS The left main artery Has an ostial 50 to 60% stenosis followed by a stent which extends into the LAD which is widely patent with minimal in-stent restenosis. The left anterior descending artery Has a stent originating off the left main artery which is patent in the proximal segment followed by hazy concentric 30% stenosis. The remaining LAD has additional 20% disease. This gives rise to a large second diagonal artery which is widely patent with mild 30% stenosis The circumflex artery Proximally occluded The right coronary artery Dominant and has an ostial 30% stenosis followed by proximal 30 and 50% stenosis followed by mid vessel 50% stenosis followed by concentric distal 70% stenosis followed by additional distal 50% stenosis The ONTIVEROS ventriculogram reveals Not performed The left ventricular end-diastolic pressure Not measured VILLALTA to LAD proximally occluded Saphenous vein graft to circumflex artery has ostial proximal hazy 70,80, and 90% stenoses. There are distal hazy 40 and 50% stenoses. IMPRESSION Coronary disease as described above Successful stent to the ostial left main artery severe disease reduced to 0% with 1 drug-eluting stent Occluded left internal mammary artery Successful reconstruction of the moderate and severely diseased dominant right coronary diffuse disease reduced to 0% with 3 contiguous drug-eluting stents Successful stenting of an ostial proximal severely diseased saphenous vein graft to an obtuse marginal artery/circumflex artery reducing severe disease to less than 20% with 1 drug-eluting stent PLAN 1. Dual antiplatelet therapy 2. Cardiac rehabilitation 3. Avoidance of tobacco products 4. Risk factor modification 5. Tighter control of hypertension 6. LDL less than 55 to be achieved with high intensity statin Electronically signed by : Cody Hook MD 08/17/2023 13:03:21
--- OUTSIDE RECORDS SUMMARY | 2023-08-17 08:47 | XMS_ITS | Patient Health Record ---
Author Name Unknown Organization [facility] Address [address] [place] [address] Care Team Providers Care Rn Vascular Name Role Phone Karan Fuller Primary Care Provider Karan Fuller Unavailable Unavailable Yarely Lara Unavailable [phone] Shauna Martin Unavailable [phone] ALLERGIES Allergen (clinical drug ingredient) Drug/Non Drug Allergy documented on EMR Reaction Allergy Type Onset Date Status penicillin swelling Drug Allergy Active RESULTS Component Value Reference Range Notes CT Scan : Head, with/without contrast Reviewed date:05/14/2023 12:31:41 PM Interpretation: Performing Lab: Notes/Report: M-Manual Differential Reviewed date:08/03/2023 02:09:50 PM Interpretation: Performing Lab: Notes/Report: VENUS MANUAL DIFFERENTIAL MANUAL DIFF TCC 100 NEUT%M 74 42-76 % LYMPH%M 16 10-50 % MONO%M 8 2-9 % EOS%M 2 0-3 % PLTE Normal RM Normal H-VITB12 Reviewed date:08/03/2023 02:09:50 PM Interpretation: Performing Lab: Notes/Report: VITB12 285 239-931 pg/mL H-FOL Reviewed date:08/03/2023 02:09:51 PM Interpretation: Performing Lab: Notes/Report: FOL 13.90 Normal Adult: 2.76->20 ng/mL Folate Deficent: 1.04-2.79ng/mL M-BUN & Creatinine Reviewed date:04/19/2023 08:13:47 PM Interpretation: Performing Lab: Notes/Report: BUN 13 9-20 mg/dl CREATT 0.90 0.66-1.25 mg/dl GFRAA 98 >60 ML/MIN EGFR 81 >60 ml/min X ray : Chest Reviewed date:08/03/2023 04:45:48 PM Interpretation: Performing Lab: Notes/Report: M-Thyroid Stimulating Hormon e Reviewed date:08/03/2023 04:46:14 PM Interpretation: Performing Lab: Notes/Report: TSH 1.75 0.465-4.68 uIU/mL M-Ferritin Reviewed date:08/03/2023 04:45:36 PM Interpretation: Performing Lab: Notes/Report: JAMEEL 105 17.9-464 ng/ml M-Comprehensive Metabolic Pa katlin Reviewed date:08/03/2023 04:46:00 PM Interpretation: Performing Lab: Notes/Report: NA 136 136-145 mmol/L K 3.6 3.5-5.1 mmoL/L CL 100 98-107 mmol/L CO2 32 22.0-30.0 mmol/L GAP 7.6 5-15 mEq/L BUN 13 9-20 mg/dl CREATT 1.10 0.66-1.25 mg/dl GFRAA 78 >60 ML/MIN EGFR 64 >60 ml/min GLU 106 74-100 mg/dl CA 8.3 8.4-10.2 mg/dl BILIT 0.5 0.2-1.3 mg/dl AST 22 17-59 U/L ALT 10 12-78 U/L TP 6.3 6.3-8.2 g/dl ALB 3.4 3.5-5.0 g/dl GLOB 2.9 1.3-3.2 g/dL AGRATIO 1.2 1.1-1.8 ALP 60 38-126 U/L M-Complete Blood Count Auto Diff Reviewed date:08/03/2023 04:46:22 PM Interpretation: Performing Lab: Notes/Report: WBC 19.3 4.8-10.8 K/mm3 RBC 4.57 4.60-6.20 M/mm3 HGB 13.8 14.1-18.0 g/dL HCT 43.3 42.0-52.0 % MCV 94.8 80-94 fl MCH 30.1 27.0-31.2 pg MCHC 31.8 31.8-35.4 g/dL RDW 15.3 11.5-17.5 % PLT 311 142-424 K/mm3 MPV 8.7 7.4-10.4 fl NE% 76.9 37.0-80.0 % LY% 13.8 10-50 % MO% 7.0 1.7-9.3 % EO% 1.7 0.1-12.0 % BA% 0.6 0.1-2.0 % NE# 14.8 1.8-7.8 K/mm3 LY# 2.7 0.7-4.5 K/mm3 MO# 1.4 0.1-1.0 K/mm3 EO# 0.3 0.0-0.4 K/mm3 BA# 0.1 0-0.2 K/mm3 CT Scan : Abdomen and Pelvis , with and without contrast Reviewed date:06/24/2023 04:30:12 PM Interpretation: Performing Lab: Notes/Report: M-Comprehensive Metabolic Pa katlin Reviewed date:06/04/2023 11:30:01 AM Interpretation: Performing Lab: Notes/Report: NA 139 136-145 mmol/L K 3.8 3.5-5.1 mmoL/L CL 102 98-107 mmol/L CO2 31 22.0-30.0 mmol/L GAP 9.8 5-15 mEq/L BUN 19 9-20 mg/dl CREATT 1.30 0.66-1.25 mg/dl GFRAA 64 >60 ML/MIN EGFR 53 >60 ml/min GLU 140 74-100 mg/dl CA 8.7 8.4-10.2 mg/dl BILIT 0.4 0.2-1.3 mg/dl AST 21 17-59 U/L ALT 14 12-78 U/L TP 6.6 6.3-8.2 g/dl ALB 3.6 3.5-5.0 g/dl GLOB 3.0 1.3-3.2 g/dL AGRATIO 1.2 1.1-1.8 ALP 74 38-126 U/L M-Complete Blood Count Auto Diff Reviewed date:06/04/2023 11:30:01 AM Interpretation: Performing Lab: Notes/Report: WBC 14.3 4.8-10.8 K/mm3 RBC 4.36 4.60-6.20 M/mm3 HGB 13.8 14.1-18.0 g/dL HCT 42.8 42.0-52.0 % MCV 98.1 80-94 fl MCH 31.8 27.0-31.2 pg MCHC 32.4 31.8-35.4 g/dL RDW 15.3 11.5-17.5 % PLT 265 142-424 K/mm3 MPV 8.6 7.4-10.4 fl NE% 73.3 37.0-80.0 % LY% 15.5 10-50 % MO% 6.5 1.7-9.3 % EO% 4.6 0.1-12.0 % BA% 0.2 0.1-2.0 % NE# 10.5 1.8-7.8 K/mm3 LY# 2.2 0.7-4.5 K/mm3 MO# 0.9 0.1-1.0 K/mm3 EO# 0.7 0.0-0.4 K/mm3 BA# 0.0 0-0.2 K/mm3 Rapid Covid Antigen Reviewed date:04/07/2023 06:04:12 PM Interpretation:Negative Performing Lab: Notes/Report: Negative HEMOGLOBIN A1c (496) Reviewed date:12/18/2022 04:35:23 PM Interpretation: Performing Lab:[facility] [id number] [facility] HospitaleIL[address] Eliseo Kamara Notes/Report: NON-FASTING; NON-FASTING HEMOGLOBIN A1c 5.8 <5.7 % of total Hgb For someone without known diabetes, a hemoglobin A1c value between 5.7% and 6.4% is consistent with prediabetes and should be confirmed with a follow-up test. For someone with known diabetes, a value <7% indicates that their diabetes is well controlled. A1c targets should be individualized based on duration of diabetes, age, comorbid conditions, and other considerations. This assay result is consistent with an increased risk of diabetes. Currently, no consensus exists regarding use of hemoglobin A1c for diagnosis of diabetes for children. BASIC METABOLIC PANEL (46093 ) Reviewed date:12/18/2022 04:35:23 PM Interpretation: Performing Lab:[facility] [id number] [facility] CenterZozfVV[address] Eliseo Kamara Notes/Report: NON-FASTING; NON-FASTING GLUCOSE 94 65-99 mg/dL Fasting reference interval UREA NITROGEN (BUN) 15 7-25 mg/dL CREATININE 1.08 0.70-1.28 mg/dL EGFR 70 > OR = 60 mL/min/1.73m2 BUN/CREATININE RATIO SEE NOTE: 6-22 (calc) Not Reported: BUN and Creatinine are within reference range. SODIUM 142 135-146 mmol/L POTASSIUM 4.0 3.5-5.3 mmol/L CHLORIDE 102 98-110 mmol/L CARBON DIOXIDE 31 20-32 mmol/L CALCIUM 8.8 8.6-10.3 mg/dL TSH W/REFLEX TO FT4 (28944) Reviewed date:12/11/2022 10:40:43 AM Interpretation: Performing Lab:DANITZA [employer] [id number] [employer] [facility] CenterGbayCU[address] Eliseo Kamara Notes/Report: NON-FASTING; NON-FASTING; NON-FASTING; NON-FASTING; NON-FAST TSH W/REFLEX TO FT4 4.16 0.40-4.50 mIU/L URINALYSIS, COMPLETE (5913) Reviewed date:12/11/2022 10:40:43 AM Interpretation: Performing Lab:DANITZA [employer] [id number] [address] [facility] CenterEogfJX[address] Eliseo Kamara Notes/Report: NON-FASTING; NON-FASTING; NON-FASTING; NON-FASTING; NON-FAST COLOR YELLOW YELLOW APPEARANCE CLEAR CLEAR SPECIFIC GRAVITY 1.015 1.001-1.035 PH 5.5 5.0-8.0 GLUCOSE NEGATIVE NEGATIVE BILIRUBIN NEGATIVE NEGATIVE KETONES NEGATIVE NEGATIVE OCCULT BLOOD NEGATIVE NEGATIVE PROTEIN 2+ NEGATIVE NITRITE NEGATIVE NEGATIVE LEUKOCYTE ESTERASE NEGATIVE NEGATIVE WBC NONE SEEN < OR = 5 /HPF RBC NONE SEEN < OR = 2 /HPF SQUAMOUS EPITHELIAL CELLS NONE SEEN < OR = 5 /HPF BACTERIA NONE SEEN NONE SEEN /HPF HYALINE CAST 0-5 NONE SEEN /LPF NOTE This urine was analyzed for the presence of WBC, RBC, bacteria, casts, and other formed elements. Only those elements seen were reported. CBC (INCLUDES DIFF/PLT) (639 9) Reviewed date:12/11/2022 10:40:43 AM Interpretation: Performing Lab:[facility] Centere[address] [facility] CenterAirnIU[address] Eliseo Kamara Notes/Report: NON-FASTING; NON-FASTING; NON-FASTING; NON-FASTING; NON-FAST WHITE BLOOD CELL COUNT 14.1 3.8-10.8 Thousand/uL RED BLOOD CELL COUNT 3.94 4.20-5.80 Million/uL HEMOGLOBIN 11.6 13.2-17.1 g/dL HEMATOCRIT 35.2 38.5-50.0 % MCV 89.3 80.0-100.0 fL MCH 29.4 27.0-33.0 pg MCHC 33.0 32.0-36.0 g/dL RDW 15.1 11.0-15.0 % PLATELET COUNT 259 140-400 Thousand/uL MPV 10.7 7.5-12.5 fL ABSOLUTE NEUTROPHILS 9433 5575-5286 cells/uL ABSOLUTE LYMPHOCYTES 2369 850-3900 cells/uL ABSOLUTE MONOCYTES 1100 200-950 cells/uL ABSOLUTE EOSINOPHILS 1043 15-500 cells/uL ABSOLUTE BASOPHILS 155 0-200 cells/uL NEUTROPHILS 66.9 LYMPHOCYTES 16.8 MONOCYTES 7.8 EOSINOPHILS 7.4 BASOPHILS 1.1 PROTEIN, TOTAL W/CREAT, RAND OM URINE (4495) Reviewed date:12/11/2022 10:40:43 AM Interpretation: Performing Lab:[facility]1355 [employer] [facility] CenterKmzwZT[address] Eliseo Kamara Notes/Report: NON-FASTING; NON-FASTING; NON-FASTING; NON-FASTING; NON-FAST CREATININE, RANDOM URINE 102 20-320 mg/dL PROTEIN/CREATININE RATIO 804 25-148 mg/g creat PROTEIN/CREATININE RATIO 0.804 0.025-0.148 mg/mg creat PROTEIN, TOTAL, RANDOM UR 82 5-25 mg/dL COMPREHENSIVE METABOLIC PANE L ([id number]) Reviewed date:12/11/2022 10:40:43 AM Interpretation: Performing Lab:[facility]13[address] [facility] CenterKpycTH[address] Eliseo Kamara Notes/Report: NON-FASTING; NON-FASTING; NON-FASTING; NON-FASTING; NON-FAST GLUCOSE 98 65-99 mg/dL Fasting reference interval UREA NITROGEN (BUN) 14 7-25 mg/dL CREATININE 0.92 0.70-1.28 mg/dL EGFR 85 > OR = 60 mL/min/1.73m2 BUN/CREATININE RATIO SEE NOTE: 6- (calc) Not Reported: BUN and Creatinine are within reference range. SODIUM 140 135-146 mmol/L POTASSIUM 4.4 3.5-5.3 mmol/L CHLORIDE 105 98-110 mmol/L CARBON DIOXIDE 27 20-32 mmol/L CALCIUM 8.9 8.6-10.3 mg/dL PROTEIN, TOTAL 7.3 6.1-8.1 g/dL ALBUMIN 3.9 3.6-5.1 g/dL GLOBULIN 3.4 1.9-3.7 g/dL (calc) ALBUMIN/GLOBULIN RATIO 1.1 1.0-2.5 (calc) BILIRUBIN, TOTAL 0.4 0.2-1.2 mg/dL ALKALINE PHOSPHATASE 74 35-144 U/L AST 16 10-35 U/L ALT 14 9-46 U/L REASON FOR REFERRAL Reason CT chest With and wi thout contrast Diagnosis 1 Wheezing (R06.2) Referral Organization [facility] Referring Provider First Name Karan Referring Provider Last Name Alina Referring Provider Speciality Internal M edicine General Notes Patrick Velazquez 12:57:51 PM > waiting on pre certMarcus Jenci D 12/15/2022 04:13:54 PM > pt notified Referral Priority Routine Referral Appointment Date 12/17/[address] head with and wit hout contrast Diagnosis 1 Slurred speech (R47. 81) Referral Organization [facility] Referring Provider First Name Yarely Referring Provider Last Name Jane Referring Provider Speciality Family Pra ctice General Notes Nayana Michel 2022 03:55:45 PM >Precert done for [facility] since they have the first aval. [employer] auth # [id number] exp 05-08-23 [facility] , Order faxed with precert information to [facility], They will call patient to schedule, Patrick Velazquez 04/13/2023 11:34:05 AM > Petr and I spoke to Meghann about appt Referral Priority Routine Referral Appointment Date 04/27/[address] abd pelvis at [facility] Diagnosis 1 Left lower quadrant abdominal pain (R10.32) Referral Organization [facility] Referring Provider First Name Karan Referring Provider Last Name Aleeherson Referring Provider Speciality Internal M edicine General Notes Patrick Velazquez 09:45:09 AM >, Patrick Velazquez 06/07/2023 11:32:41 AM > pt informed Referral Priority Urgent Referral Appointment Date 06/22/2023 Reason [facility] Neurology for ne urocognitive testing Diagnosis 1 Cognitive changes (R 41.89) Referral Organization [facility] Referring Provider First Name Yarely Referring Provider Last Name Jane [facility] Referred Address [address] [facility] [address] [place], [place],[address],[place] Referred Provider Specialty Neurology General Notes Nayana Michel 2023 02:48:45 PM >Referral sent to Neurology [facility] Referral Priority Routine Reason Dr. Martinez - [place] py Consultation Referral Organization [facility] Referring Provider First Name Yarely Referring Provider Last Name Jane Ref[facility] Referred Organization [facility] Referred Address [address] [facility] [address] [place], [place],[address],[place] Referred Provider Specialty General Surg emile General Notes Nayana Michel 2023 02:46:02 PM >Patient wishes to cancel appt until he sees Dr. Eng. Referral Priority Routine Referral Appointment Date 08/11/[address] Eng - [facility]- Elev ated WBC abnormal abd/pelvis CT Referral Organization [facility] Referring Provider First Name Yarely Referring Provider Last Name Jane Ref[facility] Referred Organization [facility] Referred Address [address] [facility] [address] [place], [place],[address],[place] Referred Provider Specialty Hematology General Notes Nayana Michel 2023 09:43:15 AM >referral sent to Dr. Eng Referral Priority Routine MEDICATIONS Medication SIG (Take, Route, Frequency, Duration) Notes Start Date End Date Status Lipitor 20 mg 1 tab(s) orally once a day for 90 days Active Plavix 75 mg 1 tab(s) orally once a day for 90 days Active Synthroid 50 mcg (0.05 mg) TAKE 1 TABLET EVERY DAY. orally once a day for 90 days Active allopurinol 300 mg 1 tab(s) orally once a day for 90 days Active albuterol 0.083% 3 mL inhaled tid for 30 day(s) 02/06/2021 Active lisinopril 40 mg 1 tab(s) orally once a day for 90 days 05/24/2023 Active nitroglycerin 0.4 mg 1 tab(s) sublingual ly every 5 minutes PRN chest pain for 30 day(s) Active carvedilol 25 mg 1 tab(s) orally 3 ti mes daily for 30 days Active LORazepam 0.5 mg 1 tab(s) orally 3 ti mes a day for 30 days 06/24/2023 Active Farxiga 10 mg 1 tab(s) orally once a day for 90 days Active traMADol 50 mg 1 tab(s) orally ever y 6 hours for 30 days 06/21/2023 Active IMMUNIZATIONS Vaccine Route Administration Date Status Comme nts Prevnar PCV-13 (Pneumococcal conjugate 13) IM Intramuscular 06/21/2014 Administered Prevnar PCV-13 (Pneumococcal conjugate 13) Unknown 12/20/2017 Administered Pneumovax 23 IM Intramuscular 05/10/2017 Administered Influenza-Fluzone 3+years (NON-MEDICARE) IM Intramuscular 01/23/2015 Administered Influenza-Fluzone 3+years (NON-MEDICARE) Unknown 12/20/2017 Administered Fluzone High Dose IM Intramuscular 01/24/2019 Administered Fluvirin (MEDICARE ONLY) IM Intramuscular 12/12/2015 Administered Given by [facility] Lot # [id number] Exp 07/01/16 Adacel (Tdap) IM Intramuscular 05/24/2015 Administered SOCIAL HISTORY Tobacco Use: Social History Observation Description Date Details (start date - stop date) Current Smoker NA - NA Sex Assigned At : Social History Observation Description Sex Assigned At Unknown Smoking: Question Answer Notes Are you a: current smoker How often do you smoke cigarettes? every day How many cigarettes a day do you smoke? 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) Active confirmed 878595168 Problem Polyneuropathy, unspecified (G62.9) Active confirmed 22388868 Problem Other chronic pain (G89.29) Active confirmed 94741676 Problem Other secondary cataract, bilateral (H26.493) Active confirmed 140865736 Problem Essential (primary) hypertension (I10) Active confirmed 45011205 Problem Chronic ischemic heart disease, 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) Active confirmed Chronic ischemi c heart disease (472024134) Problem Orthostatic hypotension (I95.1) Active confirmed 36062642 Problem Chronic rhinitis (J31.0) Active confirmed 63992048 Problem Centrilobular emphysema (J43.2) Active confirmed 76476571 Problem Tobacco use disorder (Z72.0) Active confirmed 94759098 Problem Hyperglycemia (R73.9) Active confirmed 51024558 Problem Hyperlipemia, idiopathic familial (E78.5) Active confirmed 262436020 Problem Mild cognitive impairment (G31.84) Active confirmed 702901559 Problem Hypertension, essential (I10) Active confirmed 45512171 Problem Diverticulitis (K57.92) Active confirmed 543090054 Problem COPD exacerbation (J44.1) Active confirmed 702159259 Problem BMI 33.0-33.9,adult (Z68.33) Active confirmed 653246969 Problem Other chronic pain (G89.29) Active confirmed 35120491 Problem Type 2 diabetes mellitus without complication (E11.9) Active confirmed 54546744 Problem Coronary artery disease involving washoe coronary artery of washoe heart without angina pectoris (I25.10) Active confirmed 4479588190403 Problem Frequent falls (R29.6) Active confirmed 484778010 Problem BMI 36.0-36.9,adult (Z68.36) Active confirmed 160338968 Problem Sigmoid diverticulitis (K57.32) Active confirmed 837124717 Problem Lung nodule (R91.1) Active confirmed 653353292 Problem Gouty arthritis (M10.9) Active confirmed 95162621 Problem Hypothyroidism, unspecified type (E03.9) Active confirmed 47452676 Problem Intermittent claudication (I73.9) Active confirmed 19330581 Problem Peripheral neuropathic pain (G62.9) Active confirmed 934153007 Problem 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) Active confirmed 485725436 Problem Tobacco dependence (F17.200) Active confirmed 05197792 Problem Leukocytosis, unspecified (D72.829) Active confirmed 071420437 Problem Seasonal allergic rhinitis, unspecified allergic rhinitis trigger (J30.2) Active confirmed 998948826 Problem Leukocytosis, unspecified type (D72.829) Active confirmed 432656129 Problem Peripheral polyneuropathy (G62.9) Active confirmed 70987603 Problem Tinnitus of left ear (H93.12) Active confirmed 88630076 Problem Type 2 diabetes mellitus with diabetic neuropathy, without long-term current use of insulin (E11.40) Active confirmed 46007850 Problem Balance problem (R26.89) Active confirmed Impairment of balance (101325407) Problem Poor balance (R26.89) Active confirmed 506343160 Problem Arterial leg ulcer (L97.909) Active confirmed Arteritic le g ulcer (disorder) (695713602) Problem Lumbago of multiple sites in spine with sciatica (M54.40) Active confirmed 405347642 VITAL SIGNS Heart Rate 74 /min 08/02/2023 Temperature 98.4 degrees Fahrenheit 08/02/2023 Blood pressure diastolic 50 mm Hg 08/02/2023 Height 72 in 08/02/2023 Blood pressure systolic 130 mm Hg 08/02/2023 Weight 209.4 lbs 08/02/2023 BMI 28.4 kg/m2 08/02/2023 Encounters Encounter Location Date Provider Diagnosis [facility] [address] [facility] [address] [place] [address] 09/14/2022 Karan Besson [facility] [address] [place] [address] 09/16/2022 Karan Besson [facility] [address] [place] [address] 12/30/2022 Karan Besson [facility] [address] [place] [address] 02/15/2023 Karan Besson [facility] [address] [place] [address] 03/01/2023 Shauna Martin [facility] [address] [facility] [address] [place] [address] 03/10/2023 Karan Fuller [facility] [address] [facility] [address] [place] [address] 07/29/2023 Yarely Lara [facility] [address] [address] 12/08/2022 Karan Fuller Hypertension, essent ial I10 ; Peripheral edema R60.9 ; Generalized anxiety disorder F41.1 ; Hypothyroidism, unspecified type E03.9 ; Frequent falls R29.6 and Wheezing R06.2 [facility] [address] [place] [address] 12/16/2022 Karan Fuller Type 2 diabetes gail itus with other diabetic kidney complication E11.29 ; Proteinuria, unspecified R80.9 ; Type 2 diabetes mellitus with other specified complication E11.69 ; Mixed hyperlipidemia E78.2 and Hypertension, essential I10 [facility] [address] [address] 04/07/2023 Yarely Lara Cough R05.9 ; Acute non-recurrent maxillary sinusitis J01.00 ; Slurred speech R47.81 and Poor balance R26.89 [facility] [address] [place] [address] 05/24/2023 Karan Fuller Mild cognitive impairment G31.84 ; Coronary artery disease involving washoe coronary artery of washoe heart without angina pectoris I25.10 ; Hyperlipemia, idiopathic familial E78.5 ; Peripheral neuropathic pain G62.9 ; Type 2 diabetes mellitus without complication E11.9 ; Hypothyroidism, unspecified type E03.9 ; Healthcare maintenance Z00.00 and Essential (primary) hypertension I10 [facility] [address] [address] 06/03/2023 Karan Fuller Left lower quadrant abdominal pain R10.32 and Pneumonia of right lower lobe due to infectious organism J18.9 [facility] [address] [place] [address] 07/23/2023 Yarely Lara Diverticulitis K57.9 2 and Costochondritis M94.0 [facility] [address] [place] [address] 08/02/2023 Yarely Lara Chest wall pain R07. 89 and Cognitive changes R41.89 [facility] [address] [place] [address] 12/09/2022 Karan Besson [facility] [address] [place] [address] 12/15/2022 Karan Besson [facility] [address] [place] [address] 02/04/2023 Karan Besson [facility] [address] [place] [address] 02/18/2023 Karan Besson Hypertension, essent ial I10 [facility] [address] [place] [address] 02/18/2023 Karan Besson Hypertension, essent ial I10 [facility] [address] [place] [address] 04/07/2023 Karan Besson Slurred speech R47.8 1 ; Balance problem R26.89 and Fall at home W19.XXXA [facility] [address] [place] [address] 04/09/2023 Karan Besson [facility] [address] [place] [address] 04/13/2023 Yarely Lara Hypertension, essent ial I10 [facility] [address] [place] [address] 06/03/2023 Karan Besson Left lower quadrant abdominal pain R10.32 [facility] [address] [place] [address] 06/24/2023 Karan Besson Left lower quadrant abdominal pain R10.32 [facility] [address] [place] [address] 08/10/2023 Karan Besson [facility] [address] [place] [address] 08/11/2023 Yarely Lara Essential (primary) hypertension I10 [facility] [address] [place] [address] 08/11/2023 Yarely Lara ASSESSMENTS Encounter Date Diagnosis Assessment Notes Treatment Notes Treatment Clinical Notes 04/13/2023 Hypertension, essential (ICD-10 - I10) 04/07/2023 Slurred speech (ICD-10 - R47.81) 07/23/2023 Diverticulitis (ICD-10 - K57.92) allergic to PCN...recommend treatment as noted but discussed importance of FU with fevers, worsening pain, etc. Also encouraged to consider colonoscopy 07/23/2023 Costochondritis (ICD-10 - M94.0) prednisone as noted, also discussed positioning 06/24/2023 Left lower quadrant abdominal pain (ICD-10 - R10.32) 06/03/2023 Left lower quadrant abdominal pain (ICD-10 - R10.32) 06/03/2023 Pneumonia of right lower lobe due to infectious organism (ICD-10 - J18.9) ALso with concern on RLL given coarsness but overall breathing is stable PLAN: Augmentin for suspected dibverticulits will cover PNA with adequate course. 06/03/2023 Left lower quadrant abdominal pain (ICD-10 - R10.32) LLQ tenderness to palpation, history of diverticulitis and feels the exact same per patient PLAN: Will trial augmentin BID for [address] A/P w/ contrast, will obtain labs prior to ordering scan. 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 - starting Farxiga 10 mg daily 12/16/2022 Proteinuria, unspecified (ICD-10 - R80.9) - patient with bilateral lower extremity edema as well as proteinuria on labs obtained last visit - UA and BMP obtained last visit otherwise WNL - will start lisinopril 20 mg daily and Farxiga 10 mg daily 12/08/2022 Hypertension, essential (ICD-10 - I10) Blood pressure at goal today, continue current therapy 12/08/2022 Peripheral edema (ICD-10 - R60.9) Persistant over past week, no orthopnea, no changes in urination, no acute redness or trauma, had U/S duplex of lower extremities at last visit, no indications that patient had acute DVT in the interim, will check labs to assess renal and liver function, TSH 02/18/2023 Hypertension, essential (ICD-10 - I10) 02/18/2023 Hypertension, essential (ICD-10 - I10) 04/07/2023 Acute non-recurrent maxillary sinusitis (ICD-10 - J01.00) 04/07/2023 Cough (ICD-10 - R05.9) 05/24/2023 Mild cognitive impairment (ICD-10 - G31.84) MOCA 24, consistent with MCI No signs of depressions PHQ2 =0 Discussed results with patient who expresses appreciation No further testing warranted. 05/24/2023 Coronary artery disease involving washoe coronary artery of washoe heart without angina pectoris (ICD-10 - I25.10) Continue plavix and statin 08/02/2023 Chest wall pain (ICD-10 - R07.89) Particular symptoms are resolved at this point. His imaging at that time was concerning for some abnormalities in the large intestine but he had declined colonoscopy at that point. Encouraged him to repeat labs today, obtain CXR and we will consider additional evaluation based on results. 08/02/2023 Cognitive changes (ICD-10 - R41.89) 08/11/2023 Essential (primary) hypertension (ICD-10 - I10) 05/24/2023 Hyperlipemia, idiopathic familial (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) Continue statin, labs UTD 04/07/2023 Slurred speech (ICD-10 - R47.81) very difficult between he and SO to discern acuteness of symptoms, we will arrange for outpatient imaging but instructed them both to seek emergency room eval should symptoms acutely worsen or new concerns arise needs FU in 1-2 weeks to re-eval blood pressure control, cognition 12/08/2022 Generalized anxiety disorder (ICD-10 - F41.1) Symptoms stable and controlled on Lorazepam, will send refill 12/16/2022 Type 2 diabetes mellitus with other specified complication (ICD-10 - E11.69) 04/07/2023 Balance problem (ICD-10 - R26.89) 04/07/2023 Fall at home (ICD-10 - W19.XXXA) 12/16/2022 Mixed hyperlipidemia (ICD-10 - E78.2) 04/07/2023 Poor balance (ICD-10 - R26.89) 12/08/2022 Hypothyroidism, unspecified type (ICD-10 - E03.9) Having LE edema persistant over past week, additionally mentioning bradycardia however has been going on for some time, will check TSH 05/24/2023 Peripheral neuropathic pain (ICD-10 - G62.9) Stable on home gabapentin 05/24/2023 Type 2 diabetes mellitus without complication (ICD-10 - E11.9) COntinue current regimen of farxiga on KALIE-I and statin 12/08/2022 Frequent falls (ICD-10 - R29.6) Patient with frequent falls and would greatly benefit from rollator walker. A cane is unable to meet patients needs as he is having upper extremity weakness 12/16/2022 Hypertension, essential (ICD-10 - I10) - patient states that he has noted SBPs in the 170s periodically at home. SBP in clinic today is 140 - no associated red flag sxs - will start lisinopril 20 mg for better blood pressure control in addition to renal protection - patient with BLLE edma and currently on 10 mg amlodipine. Will halve amlodipine dose as this could be a contributing factor to his edema and in the setting of starting lisinopril 12/08/2022 Wheezing (ICD-10 - R06.2) Patient has focused wheezing in the right lower lung field. Given his history of heavy smoking, history of abnormal low-dose CT scan and now focused wheezing needs CT of chest with contrast to rule out bronchial lesion 05/24/2023 Hypothyroidism, unspecified type (ICD-10 - E03.9) Continue levothyroxine 50mcg 05/24/2023 Healthcare maintenance (ICD-10 - Z00.00) In regards to health risk assessment-reviewed with patient-concerned about memory but MoCA test is reassuring. Fall risk discussed. No issues with depression at this point.Agred out of cancer screenings Routine labs UTD Vaccines UTD at this time One fall a couple of months, TIA workup completed, functionally independant with cane. 05/24/2023 Essential (primary) hypertension (ICD-10 - I10) On coeg 25mg BID and amlodipine 5mg Increase lisinopril to 40mg daily PLAN OF TREATMENT Pending Test Test Name Order Date Echocardiogram 11/06/2016 Physical Therapy 03/17/2019 Physical Therapy 03/23/2019 CT Scan : Chest, With & Without Contrast 12/08/2022 Ankle/Brachial Index--Segmental BPs 12/11 CT Scan : Chest with Contrast 12/06/2020 H-CMP 09/04/2016 C-CMP 08/28/2016 C-LIPID PANEL 08/28/2016 C-TSH 08/28/2016 C-PSA 08/28/2016 C-HGBA1C 08/28/2016 CT SCan : LS spine 03/03/2019 M-Complete Blood Count Auto Diff 019 M-BUN & Creatinine 04/13/2023 M-Uric Acid 11/15/2020 M-Lactate Dehydrogenase 11/15/2020 M-Peripheral Smear Review 11/15/2020 M-Vitamin B12 08/02/2023 M-Folate 08/02/2023 M-COVID WITH RESPIRATORY PANEL 0 Insurance Providers Payer Name Payer Address Payer Phone Subscriber Number Group Number Insured Name Patient Relationship to Insured Coverage Start Date Coverage End Date [employer] [address] [address] [place] [phone] [id number] Boswell Self - patient is the insured MEDICATIONS ADMINISTERED Medication Instructions Date of Administration Dosage Notes Triamcinolone Acetonide 40mg Injection 02/07/2020 1 mL Triamcinolone Acetonide 40mg Injection 05/13/2020 1 mL Triamcinolone Acetonide 40mg Injection 08/22/2020 1 mL Kenalog 10/16/2013 1 Kenalog 03/19/2014 1 Kenalog 06/21/2014 1 Kenalog 10/01/2014 1 mL Kenalog 12/05/2014 1 mL Kenalog 10/11/2015 1 mL Kenalog 04/10/2016 1 mL MEDICAL (GENERAL) HISTORY Medical History History ICD Code hypertension coronary artery disease PVD s/p right lower extremity angioplast y tobacco use NIDDM GERD [facility] 2016 [facility] - normal Normal LDCT 01/29 Surgical History Surgery Date(Month/Year) Open heart surgeryx 2, 5 stents angioplasty right leg rotator cuff surgery, right shoulder carotid endarctectomy Cholecystectomy bilateral eyelids-tucked 03/2015 2 stents 01/2017 cataract surgery-both eyes 02/2017 2 stents placed- left leg 05/26/2017 Hospitalization History Reason Date(Month/Year) above surgeries
[2023-08-17 09:19] LABS: Basophils # 0.1 K/mm3 (0-0.2); Basophils % 1.2 % (0.1-2.0); Eosinophils # 0.6 K/mm3 (0.0-0.4); Eosinophils % 4.8 % (0.1-12.0); Hematocrit 40.5 % (42.0-52.0); Hemoglobin 12.8 g/dL (14.1-18.0); Lymphocytes # 2.3 K/mm3 (0.7-4.5); Lymphocytes % 20.1 % (10-50); Mean Corpuscular HGB Conc 31.6 g/dL (31.8-35.4); Mean Corpuscular Hemoglobin 29.7 pg (27.0-31.2); Mean Corpuscular Volume 94.1 fl (80-94); Mean Platelet Volume 8.5 fl (7.4-10.4); Monocytes # 0.7 K/mm3 (0.1-1.0); Monocytes % 5.8 % (1.7-9.3); Neutrophils # 7.9 K/mm3 (1.8-7.8); Neutrophils % 68.1 % (37.0-80.0); Platelet Count 239 K/mm3 (142-424); Red Blood Count 4.31 M/mm3 (4.60-6.20); Red Cell Distribution Width 15.4 % (11.5-17.5); White Blood Count 11.7 K/mm3 (4.8-10.8)
[2023-08-17] MEDS: HEPARIN 1,000 UNITS/500ML NS (CATH LAB) 3000 UNIT IV (10:39)
[2023-08-17] MEDS: 0.9 % SODIUM CHLORIDE 500 ML 25 ML IV (10:39)
[2023-08-17] MEDS: diphenhydrAMINE 50MG/ML VIAL 50 MG IV (10:40)
[2023-08-17] MEDS: LIDOCAINE 1% 10ML MDV 20 ML IJ (10:40)
[2023-08-17 10:47] LABS: Chloride 104 mmol/L (98-107); Sodium 136 mmol/L (136-145)
[2023-08-17 10:48] LABS: Potassium 4.2 mmoL/L (3.5-5.1)
[2023-08-17] MEDS: FENTANYL 100MCG/2ML VIAL 50 MCG IV (10:50)
[2023-08-17] MEDS: MIDAZOLAM HCL 1MG/1ML 5ML VIAL 1 MG IV (10:50)
[2023-08-17 10:51] LABS: Anion Gap 5.2 mEq/L (5-15); Blood Urea Nitrogen 15 mg/dl (9-20); Calcium 8.3 mg/dl (8.4-10.2); Carbon Dioxide 31 mmol/L (22.0-30.0); Creatinine Clearance Estimated 79 mL/min (50-200); Estimated Glomerular Filt Rate 93 ml/min (>60); GFR (African American) 113 ML/MIN (>60); Glucose 121 mg/dl (74-100)
[2023-08-17] MEDS: HEPARIN 1,000 UNITS/ML 10ML VIAL (CATH LAB) 10000 UNIT IV (10:58)
[2023-08-17] MEDS: HYDRALAZINE 20MG/ML VIAL 20 MG IV (11:25)
[2023-08-17] MEDS: CLOPIDOGREL 300MG TABLET 600 MG PO (11:45)
[2023-08-17] MEDS: IOPAMIDOL-370 (76%);100ML BOTTLE 110 ML IV (14:17)
[2023-08-17 14:49] LABS: CATHL Activated Clotting Time > 400 SEC (74-125)
== END 2023-08-17 14:51 | disposition home or self-care (01) ==
PROVIDERS: PCP Internal Medicine Adolescent Medicine; Visit Provider Internal Medicine
DX: R06.02 Shortness of breath (principal); I25.110 Atherosclerotic heart disease of native coronary artery with unstable angina pectoris; I10 Essential (primary) hypertension; Z95.828 Presence of other vascular implants and grafts; I77.1 Stricture of artery; Z95.1 Presence of aortocoronary bypass graft; I73.9 Peripheral vascular disease, unspecified; E78.5 Hyperlipidemia, unspecified
CPT/HCPCS: 80048; 85025; 85347; 92928; 92937; 93459; 99152; 99153; C1725; C1760; C1769; C1876; C1894; C9600; C9604; J1644; Q9967

== ENCOUNTER 2023-08-20 13:36 | Outpatient (CLI) | payer MEDICARE, MEDICAID, SELFPAY ==
--- OUTSIDE RECORDS SUMMARY | 2023-08-20 13:39 | XMS_ITS | Patient Health Record ---
Author Name Unknown Organization [facility] Address [address] [place] [address] Care Team Providers Care Gas Station Clerk Name Role Phone Karan Fuller Primary Care Provider [phone] Karan Fuller Unavailable Unavailable Yarely Lara Unavailable [phone] Shauna Martin Unavailable [phone] ALLERGIES Allergen (clinical drug ingredient) Drug/Non Drug Allergy documented on EMR Reaction Allergy Type Onset Date Status penicillin swelling Drug Allergy Active RESULTS Component Value Reference Range Notes COMPREHENSIVE METABOLIC RAYMUNDO Saleh (95992) Reviewed date:12/11/2022 10:40:43 AM Interpretation: Performing Lab:CB, [facility] [address], [facility] HealthBksvQA[address] Eliseo Kamara Notes/Report: NON-FASTING; NON-FASTING; NON-FASTING; NON-FASTING; [...] 16 10-35 U/L ALT 14 9-46 U/L PROTEIN, TOTAL W/CREAT, RAND OM URINE (1715) Reviewed date:12/11/2022 10:40:43 AM Interpretation: Performing Lab:DANITZA Sakti[facility] [id number], [facility] AmericaDkmrMQ[address] Eliseo Kamara Notes/Report: NON-FASTING; NON-FASTING; NON-FASTING; NON-FASTING; NON-FAST CREATININE, RANDOM URINE 102 20-320 mg/dL PROTEIN/CREATININE RATIO 804 25-148 mg/g creat PROTEIN/CREATININE RATIO 0.804 0.025-0.148 mg/mg creat PROTEIN, TOTAL, RANDOM UR 82 5-25 mg/dL CBC (INCLUDES DIFF/PLT) (639 9) Reviewed date:12/11/2022 10:40:43 AM Interpretation: Performing Lab:DANITZA Sak[facility]dy [id number] [employer], [facility] AmericaFwgySP[address] Eliseo Kamara Notes/Report: NON-FASTING; NON-FASTING; NON-FASTING; NON-FASTING; NON-FAST WHITE BLOOD CELL COUNT 14.1 3.8-10.8 Thousand/uL RED BLOOD CELL COUNT 3.94 4.20-5.80 Million/uL HEMOGLOBIN 11.6 13.2-17.1 g/dL HEMATOCRIT 35.2 38.5-50.0 % MCV 89.3 80.0-100.0 fL MCH 29.4 27.0-33.0 pg MCHC 33.0 32.0-36.0 g/dL RDW 15.1 11.0-15.0 % PLATELET COUNT 259 140-400 Thousand/uL MPV 10.7 7.5-12.5 fL ABSOLUTE NEUTROPHILS [phone] cells/uL ABSOLUTE LYMPHOCYTES 2369 850-3900 cells/uL ABSOLUTE MONOCYTES 1100 200-950 cells/uL ABSOLUTE EOSINOPHILS 1043 15-500 cells/uL ABSOLUTE BASOPHILS 155 0-200 cells/uL NEUTROPHILS 66.9 LYMPHOCYTES 16.8 MONOCYTES 7.8 EOSINOPHILS 7.4 BASOPHILS 1.1 URINALYSIS, COMPLETE (2735) Reviewed date:12/11/2022 10:40:43 AM Interpretation: Performing Lab:DANIT[facility] Sakti3-Buddy [id number] [employer] [place], [facility] CenterRiaxLY[address] Eliseo Kamara Notes/Report: NON-FASTING; NON-FASTING; NON-FASTING; NON-FASTING; [...] elements. Only those elements seen were reported. TSH W/REFLEX TO FT4 (28399) Reviewed date:12/11/2022 10:40:43 AM Interpretation: Performing Lab:DANITZA Sak[facility] Associatese1355 [employer] [place], [facility] CenterRnvpNJ[address] Eliseo Kamara Notes/Report: NON-FASTING; NON-FASTING; NON-FASTING; NON-FASTING; NON-FAST TSH W/REFLEX TO FT4 4.16 0.40-4.50 mIU/L BASIC METABOLIC PANEL (30436 ) Reviewed date:12/18/2022 04:35:23 PM Interpretation: Performing Lab:DANITZA [facility] Associatese1355 [employer] BlViolet [place], [facility] CenterPorcYA[address] Eliseo Kamara Notes/Report: NON-FASTING; NON-FASTING GLUCOSE 94 [...] 31 20-32 mmol/L CALCIUM 8.8 8.6-10.3 mg/dL HEMOGLOBIN A1c (496) Reviewed date:12/18/2022 04:35:23 PM Interpretation: Performing Lab:CB, [facility] [address], Phillip ChavesQpgeQK[address] Eliseo Kamara Notes/Report: NON-FASTING; NON-FASTING HEMOGLOBIN A1c [...] A1c for diagnosis of diabetes for children. M-Complete Blood Count Auto Diff Reviewed date:06/04/2023 [...] 0.7 0.0-0.4 K/mm3 BA# 0.0 0-0.2 K/mm3 M-Comprehensive Metabolic Pa katlin Reviewed date:06/04/2023 11:30:01 [...] AGRATIO 1.2 1.1-1.8 ALP 74 38-126 U/L CT Scan : Abdomen and Pelvis , with and without contrast Reviewed date:06/24/2023 04:30:12 PM Interpretation: Performing Lab: Notes/Report: CT Scan : Head, with/without contrast Reviewed [...] Normal Adult: 2.76->20 ng/mL Folate Deficent: 1.04-2.79ng/mL X ray : Chest Reviewed date:08/03/2023 04:45:48 [...] 0.3 0.0-0.4 K/mm3 BA# 0.1 0-0.2 K/mm3 Rapid Covid Antigen Reviewed date:04/07/2023 06:04:12 PM Interpretation:Negative Performing Lab: Notes/Report: Negative M-BUN & Creatinine Reviewed date:04/19/2023 08:13:47 PM Interpretation: Performing Lab: Notes/Report: BUN 13 9-20 mg/dl CREATT 0.90 0.66-1.25 mg/dl GFRAA 98 >60 ML/MIN EGFR 81 >60 ml/min REASON FOR REFERRAL Reason CT chest With and wi thout contrast Diagnosis 1 Wheezing (R06.2) Referral Organization [facility] Referring Provider First Name Karan Referring Provider Last Name Alina Referring Provider Speciality Internal M edicine General Notes Patrick Velazquez 12:57:51 PM > waiting on pre certMarcus Jenci D 12/15/2022 04:13:54 PM > pt notified Referral Priority Routine Referral Appointment Date 12/17/[address] head with and wit hout contrast Diagnosis 1 Slurred speech (R47. 81) Referral Organization [facility] Referring Provider First Name Yarely Referring Provider Last Name Jane Referring Provider Speciality Family Pra ctice General Notes Nayana Michel 2022 03:55:45 PM >Precert done for [facility] since they have the first aval. [employer] auth # [id number] exp 05-08-23 [facility] , Order faxed with precert information to [facility], They will call patient to schedule, Patrick Velazquez 04/13/2023 11:34:05 AM > Petr and I spoke to Meghann about appt Referral Priority Routine Referral Appointment Date 04/27/[address] abd pelvis at [facility] Diagnosis 1 Left lower quadrant abdominal pain (R10.32) Referral Organization [facility] Referring Provider First Name Karan Referring Provider Last Name Aleeherson Referring Provider Speciality Internal M edicine General Notes Patrick Velazquez 09:45:09 AM >, Patrick Velazquez 06/07/2023 11:32:41 AM > pt informed Referral Priority Urgent Referral Appointment Date 06/22/2023 Reason [facility] Neurology for ne urocognitive testing Diagnosis 1 Cognitive changes (R 41.89) Referral Organization [facility] Referring Provider First Name Yarely Referring Provider Last Name Jane [facility] Referred Address [address] [facility] [address] [place], [place],[address],[place] Referred Provider Specialty Neurology General Notes Nayana Michel 2023 02:48:45 PM >Referral sent to Neurology [facility] Referral Priority Routine Reason Dr. Martinez - [place] py Consultation Referral Organization [facility] Referring Provider First Name Yarely Referring Provider Last Name Jane [facility] Referred Organization [facility] Referred Address [address] [facility] [address] [place], [place],[address],[place] Referred Provider Specialty General Surg emile General Notes Nayana Michel 2023 02:46:02 PM >Patient wishes to cancel appt until he sees Dr. Eng. Referral Priority Routine Referral Appointment Date 08/11/[address] Eng - [facility]- Elev ated WBC abnormal abd/pelvis CT Referral Organization [facility] Referring Provider First Name Yarely Referring Provider Last Name Jane [facility] Referred Organization [facility] Referred Address [address] [facility] [address] [place], [place],[address],[place] Referred Provider Specialty Hematology General Notes Nayana [...] Vaccine Route Administration Date Status Comme nts Adacel (Tdap) IM Intramuscular 05/24/2015 Administered Fluvirin (MEDICARE ONLY) IM Intramuscular 12/12/2015 Administered Given by [facility] Lot # [id number] 07/01/16 Fluzone High Dose IM Intramuscular 01/24/2019 Administered Influenza-Fluzone 3+years (NON-MEDICARE) IM Intramuscular 01/23/2015 Administered Influenza-Fluzone 3+years (NON-MEDICARE) Unknown 12/20/2017 Administered Pneumovax 23 IM Intramuscular 05/10/2017 Administered Prevnar PCV-13 (Pneumococcal conjugate 13) IM Intramuscular 06/21/2014 Administered Prevnar PCV-13 (Pneumococcal conjugate 13) Unknown 12/20/2017 Administered SOCIAL HISTORY Tobacco Use: Social History [...] other 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) Active confirmed [id number] Problem Type 2 diabetes mellitus with other specified complication (E11.69) Active confirmed 975664032116 Problem Mixed hyperlipidemia (E78.2) Active confirmed 881003770 Problem Generalized anxiety disorder (F41.1) Active confirmed 77119041 Problem 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) Active confirmed 174491233 Problem Polyneuropathy, unspecified (G62.9) Active confirmed 67409809 Problem Other chronic pain (G89.29) Active confirmed 03431196 Problem Other secondary cataract, bilateral (H26.493) Active confirmed 068824343 Problem Essential (primary) hypertension (I10) Active confirmed 00870183 Problem Chronic ischemic heart disease, 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) Active confirmed Chronic ischemi c heart disease (399519785) Problem Orthostatic hypotension (I95.1) Active confirmed 79022072 Problem Chronic rhinitis (J31.0) Active confirmed 27953225 Problem Centrilobular emphysema (J43.2) Active confirmed 81277787 Problem Tobacco use disorder (Z72.0) Active confirmed 76114672 Problem Hyperglycemia (R73.9) Active confirmed 68508858 Problem Hyperlipemia, idiopathic familial (E78.5) Active confirmed 933394525 Problem Mild cognitive impairment (G31.84) Active confirmed 555000967 Problem Hypertension, essential (I10) Active confirmed 11979871 Problem Diverticulitis (K57.92) Active confirmed 920293287 Problem COPD exacerbation (J44.1) Active confirmed 032349568 Problem BMI 33.0-33.9,adult (Z68.33) Active confirmed 501207428 Problem Other chronic pain (G89.29) Active confirmed 38878156 Problem Type 2 diabetes mellitus without complication (E11.9) Active confirmed 81566399 Problem Coronary artery disease involving omaha coronary artery of omaha heart without angina pectoris (I25.10) Active confirmed 4119974051568 Problem Frequent falls (R29.6) Active confirmed 291838725 Problem BMI 36.0-36.9,adult (Z68.36) Active confirmed 516057862 Problem Sigmoid diverticulitis (K57.32) Active confirmed 243278029 Problem Lung nodule (R91.1) Active confirmed 370794662 Problem Gouty arthritis (M10.9) Active confirmed 00100346 Problem Hypothyroidism, unspecified type (E03.9) Active confirmed 62185022 Problem Intermittent claudication (I73.9) Active confirmed 75340823 Problem Peripheral neuropathic pain (G62.9) Active confirmed 010302523 Problem 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) Active confirmed 351072377 Problem Tobacco dependence (F17.200) Active confirmed 96522536 Problem Leukocytosis, unspecified (D72.829) Active confirmed 155143021 Problem Seasonal allergic rhinitis, unspecified allergic rhinitis trigger (J30.2) Active confirmed 186036356 Problem Leukocytosis, unspecified type (D72.829) Active confirmed 088953126 Problem Peripheral polyneuropathy (G62.9) Active confirmed 80228994 Problem Tinnitus of left ear (H93.12) Active confirmed 94365626 Problem Type 2 diabetes mellitus with diabetic neuropathy, without long-term current use of insulin (E11.40) Active confirmed 07327322 Problem Balance problem (R26.89) Active confirmed Impairment of balance (767501186) Problem Poor balance (R26.89) Active confirmed 344942872 Problem Arterial leg ulcer (L97.909) Active confirmed Arteritic le g ulcer (disorder) (275691384) Problem Lumbago of multiple sites in spine with sciatica (M54.40) Active confirmed 134059823 VITAL SIGNS Heart Rate 74 /min 08/02/2023 Temperature 98.4 degrees Fahrenheit 08/02/2023 Blood pressure diastolic 50 mm Hg 08/02/2023 Height 72 in 08/02/2023 Blood pressure systolic 130 mm Hg 08/02/2023 Weight 209.4 lbs 08/02/2023 BMI 28.4 kg/m2 08/02/2023 Encounters Encounter Location Date Provider Diagnosis [facility] [address] [facility] [address] [place] [address] 09/14/2022 Karan Besson [facility] [address] [place] [address] 09/16/2022 Karan Besson [facility] [address] [place] [address] 12/30/2022 Karan Besson [facility] [address] [place] [address] 02/15/2023 Karan Besson [facility] [address] [place] [address] 03/01/2023 Shauna Martin [facility] [address] [facility] [address] [place] [address] 03/10/2023 Karan Fuller [facility] [address] [facility] [address] [place] [address] 07/29/2023 Yarely Lara [facility] [address] [address] 12/08/2022 Karan Fuller Hypertension, essent ial I10 ; Peripheral edema R60.9 ; Generalized anxiety disorder F41.1 ; Hypothyroidism, unspecified type E03.9 ; Frequent falls R29.6 and Wheezing R06.2 [facility] [address] [place] [address] 12/16/2022 Karan Fuller Type 2 diabetes gail itus with other diabetic kidney complication E11.29 ; Proteinuria, unspecified R80.9 ; Type 2 diabetes mellitus with other specified complication E11.69 ; Mixed hyperlipidemia E78.2 and Hypertension, essential I10 [facility] [address] [address] 04/07/2023 Yarely Lara Cough R05.9 ; Acute non-recurrent maxillary sinusitis J01.00 ; Slurred speech R47.81 and Poor balance R26.89 [facility] [address] [place] [address] 05/24/2023 Karan Fuller Mild cognitive impairment G31.84 ; Coronary artery disease involving omaha coronary artery of omaha heart without angina pectoris I25.10 ; Hyperlipemia, idiopathic familial E78.5 ; Peripheral neuropathic pain G62.9 ; Type 2 diabetes mellitus without complication E11.9 ; Hypothyroidism, unspecified type E03.9 ; Healthcare maintenance Z00.00 and Essential (primary) hypertension I10 [facility] [address] [address] 06/03/2023 Karan Fuller Left lower quadrant abdominal pain R10.32 and Pneumonia of right lower lobe due to infectious organism J18.9 [facility] [address] [place] [address] 07/23/2023 Yarely Lara Diverticulitis K57.9 2 and Costochondritis M94.0 [facility] [address] [place] [address] 08/02/2023 Yarely Lara Chest wall pain R07. 89 and Cognitive changes R41.89 [facility] [address] [place] [address] 12/09/2022 Karan Besson [facility] [address] [place] [address] 12/15/2022 Karan Besson [facility] [address] [place] [address] 02/04/2023 Karan Besson [facility] [address] [place] [address] 02/18/2023 Karan Besson Hypertension, essent ial I10 [facility] [address] [place] [address] 02/18/2023 Karan Besson Hypertension, essent ial I10 [facility] [address] [place] [address] 04/07/2023 Karan Besson Slurred speech R47.8 1 ; Balance problem R26.89 and Fall at home W19.XXXA [facility] [address] [place] [address] 04/09/2023 Karan Besson [facility] [address] [place] [address] 04/13/2023 Yarely Lara Hypertension, essent ial I10 [facility] [address] [place] [address] 06/03/2023 Karan Besson Left lower quadrant abdominal pain R10.32 [facility] [address] [place] [address] 06/24/2023 Karan Besson Left lower quadrant abdominal pain R10.32 [facility] [address] [place] [address] 08/10/2023 Karan Besson [facility] [address] [place] [address] 08/11/2023 Yarely Lara Essential (primary) hypertension I10 [facility] [address] [place] [address] 08/11/2023 Yarely Lara ASSESSMENTS Encounter Date Diagnosis Assessment Notes Treatment Notes Treatment Clinical Notes 12/16/2022 Type 2 diabetes mellitus with other [...] mg daily and Farxiga 10 mg daily 04/07/2023 Slurred speech (ICD-10 - R47.81) 04/13/2023 Hypertension, essential (ICD-10 - I10) 05/24/2023 Mild cognitive impairment (ICD-10 - G31.84) MOCA 24, consistent with MCI No signs of depressions PHQ2 =0 Discussed results with patient who expresses appreciation No further testing warranted. 05/24/2023 Coronary artery disease involving omaha coronary artery of omaha heart without angina pectoris (ICD-10 - I25.10) Continue plavix and statin 06/24/2023 Left lower quadrant abdominal pain (ICD-10 - R10.32) 07/23/2023 Diverticulitis (ICD-10 - K57.92) allergic to PCN...recommend treatment as noted but discussed importance of FU with fevers, worsening pain, etc. Also encouraged to consider colonoscopy 07/23/2023 Costochondritis (ICD-10 - M94.0) prednisone as noted, also discussed positioning 08/02/2023 Chest wall pain (ICD-10 - R07.89) [...] 08/11/2023 Essential (primary) hypertension (ICD-10 - I10) 06/03/2023 Left lower quadrant abdominal pain (ICD-10 [...] will obtain labs prior to ordering scan. 04/07/2023 Acute non-recurrent maxillary sinusitis (ICD-10 - J01.00) 04/07/2023 Cough (ICD-10 - R05.9) 02/18/2023 Hypertension, essential (ICD-10 - I10) 02/18/2023 Hypertension, essential (ICD-10 - I10) 12/08/2022 Hypertension, essential (ICD-10 - I10) Blood [...] to assess renal and liver function, TSH 12/08/2022 Generalized anxiety disorder (ICD-10 - F41.1) Symptoms stable and controlled on Lorazepam, will send refill 04/07/2023 Slurred speech (ICD-10 - R47.81) very difficult between he and SO to discern acuteness of symptoms, we will arrange for outpatient imaging but instructed them both to seek emergency room eval should symptoms acutely worsen or new concerns arise needs FU in 1-2 weeks to re-eval blood pressure control, cognition 04/07/2023 Balance problem (ICD-10 - R26.89) 05/24/2023 Hyperlipemia, idiopathic familial (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) Continue statin, labs UTD 12/16/2022 Type 2 diabetes mellitus with other specified complication (ICD-10 - E11.69) 12/16/2022 Mixed hyperlipidemia (ICD-10 - E78.2) 04/07/2023 Fall at home (ICD-10 - W19.XXXA) 05/24/2023 Peripheral neuropathic pain (ICD-10 - G62.9) Stable on home gabapentin 04/07/2023 Poor balance (ICD-10 - R26.89) 12/08/2022 Hypothyroidism, unspecified type (ICD-10 - E03.9) Having LE edema persistant over past week, additionally mentioning bradycardia however has been going on for some time, will check TSH 12/08/2022 Frequent falls (ICD-10 - R29.6) Patient with frequent falls and would greatly benefit from rollator walker. A cane is unable to meet patients needs as he is having upper extremity weakness 05/24/2023 Type 2 diabetes mellitus without complication (ICD-10 - E11.9) COntinue current regimen of farxiga on KALIE-I and statin 12/16/2022 Hypertension, essential (ICD-10 - I10) - [...] and in the setting of starting lisinopril 05/24/2023 Hypothyroidism, unspecified type (ICD-10 - E03.9) Continue levothyroxine 50mcg 12/08/2022 Wheezing (ICD-10 - R06.2) Patient has focused wheezing in the right lower lung field. Given his history of heavy smoking, history of abnormal low-dose CT scan and now focused wheezing needs CT of chest with contrast to rule out bronchial lesion 05/24/2023 Healthcare maintenance (ICD-10 - Z00.00) In [...] End Date [employer] [address] [address] [place] [address] [phone] [id number] Boswell Self - patient is [...]
[2023-08-20 14:26] LABS: Basophils # 0.1 K/mm3 (0-0.2); Basophils % 0.8 % (0.1-2.0); Eosinophils # 0.5 K/mm3 (0.0-0.4); Eosinophils % 4.4 % (0.1-12.0); Hematocrit 40.3 % (42.0-52.0); Hemoglobin 12.5 g/dL (14.1-18.0); Lymphocytes # 1.8 K/mm3 (0.7-4.5); Lymphocytes % 16.3 % (10-50); Mean Corpuscular Hemoglobin 29.9 pg (27.0-31.2); Mean Corpuscular Volume 96.6 fl (80-94); Mean Platelet Volume 8.5 fl (7.4-10.4); Monocytes # 0.7 K/mm3 (0.1-1.0); Monocytes % 6.1 % (1.7-9.3); Neutrophils # 7.8 K/mm3 (1.8-7.8); Neutrophils % 72.4 % (37.0-80.0); Platelet Count 227 K/mm3 (142-424); Red Blood Count 4.17 M/mm3 (4.60-6.20); Red Cell Distribution Width 15.5 % (11.5-17.5); White Blood Count 10.7 K/mm3 (4.8-10.8)
[2023-08-20 15:17] LABS: Anion Gap 9.4 mEq/L (5-15); Blood Urea Nitrogen 10 mg/dl (9-20); Calcium 8.5 mg/dl (8.4-10.2); Carbon Dioxide 31 mmol/L (22.0-30.0); Chloride 102 mmol/L (98-107); Estimated Glomerular Filt Rate 93 ml/min (>60); GFR (African American) 113 ML/MIN (>60); Glucose 147 mg/dl (74-100); Potassium 4.4 mmoL/L (3.5-5.1); Sodium 138 mmol/L (136-145)
== END 2023-08-20 23:59 | disposition home or self-care (01) ==
LOC: LAB 13:37
PROVIDERS: PCP Internal Medicine Adolescent Medicine; Visit Provider Internal Medicine
DX: I25.10 Atherosclerotic heart disease of native coronary artery without angina pectoris (principal); Z95.5 Presence of coronary angioplasty implant and graft
CPT/HCPCS: 36415; 80048; 85025

== ENCOUNTER 2024-02-15 12:47 | Outpatient (CLI) | payer MEDICARE, SELFPAY ==
--- NOTE | 2024-02-15 12:52 | XR_ITS ---
PROCEDURE INFORMATION: Exam: XR Chest Exam date and time: 02/15/2024 1:09 PM Age: 79 years old Clinical indication: Shortness of breath; Additional info: SOA TECHNIQUE: Imaging protocol: Radiologic exam of the chest. Views: 2 views. COMPARISON: CR XR CHEST 2V 08/11/2023 1:43 PM FINDINGS: Lungs: Questionable subtle hazy increased density in both lung bases. No consolidation. Lungs are otherwise clear. Pleural spaces: Interval development of small bilateral pleural effusions. Heart/Mediastinum: Cardiomegaly with post open heart changes redemonstrated. Bones/joints: Unremarkable. IMPRESSION: 1. Cardiomegaly. 2. Small bilateral pleural effusions. 3. Hazy increased density in the lung bases may be atelectasis but might also reflect developing ground-glass infectious or inflammatory pneumonitis or possibly early pulmonary edema changes.
[2024-02-15 13:19] LABS: Basophils # 0.1 K/mm3 (0-0.2); Basophils % 0.4 % (0.1-2.0); Eosinophils # 0.2 K/mm3 (0.0-0.4); Eosinophils % 1.7 % (0.1-12.0); Hematocrit 34.9 % (42.0-52.0); Hemoglobin 11.5 g/dL (14.1-18.0); Lymphocytes # 1.6 K/mm3 (0.7-4.5); Lymphocytes % 11.3 % (10-50); Mean Corpuscular HGB Conc 33.1 g/dL (31.8-35.4); Mean Corpuscular Hemoglobin 29.9 pg (27.0-31.2); Mean Corpuscular Volume 90.4 fl (80-94); Mean Platelet Volume 8.5 fl (7.4-10.4); Monocytes # 0.8 K/mm3 (0.1-1.0); Monocytes % 5.8 % (1.7-9.3); Neutrophils # 11.4 K/mm3 (1.8-7.8); Neutrophils % 80.7 % (37.0-80.0); Platelet Count 219 K/mm3 (142-424); Red Blood Count 3.86 M/mm3 (4.60-6.20); Red Cell Distribution Width 16.8 % (11.5-17.5); White Blood Count 14.1 K/mm3 (4.8-10.8)
[2024-02-15 13:38] LABS: Albumin Level 3.5 g/dl (3.5-5.0); Chloride 103 mmol/L (98-107); Sodium 141 mmol/L (136-145)
[2024-02-15 13:41] LABS: Alanine Aminotransferase 12 U/L (12-78); Albumin/Globulin Ratio 1.2 (1.1-1.8); Alkaline Phosphatase 75 U/L (38-126); Aspartate Amino Transferase 19 U/L (17-59); Blood Urea Nitrogen 12 mg/dl (9-20); Calcium 8.3 mg/dl (8.4-10.2); Carbon Dioxide 31 mmol/L (22.0-30.0); Estimated Glomerular Filt Rate 93 ml/min (>60); GFR (African American) 112 ML/MIN (>60); Glucose 122 mg/dl (74-100); Total Protein,Serum 6.5 g/dl (6.3-8.2)
[2024-02-15 14:10] LABS: Thyroid Stimulating Hormone 3.95 uIU/mL (0.465-4.68)
[2024-02-15 17:41] LABS: NT Pro Brain Natriuretic Pep. 13600 pg/mL (0-450)
== END 2024-02-15 23:59 | disposition home or self-care (01) ==
LOC: RAD 12:48
PROVIDERS: PCP Internal Medicine Adolescent Medicine; Visit Provider Nurse Practitioner Family
DX: R53.83 Other fatigue (principal); R42 Dizziness and giddiness; R06.02 Shortness of breath
CPT/HCPCS: 36415; 71046; 80053; 83880; 84443; 85025

== ENCOUNTER 2024-02-17 08:58 | Outpatient (CLI) | payer MEDICARE, MEDICAID, SELFPAY ==
--- NOTE | 2024-02-17 | CA_ITS ---
APPROVED REPORT EXAM: Comprehensive 2D, Doppler, and color-flow Echocardiogram Belt Loop Machine Operator: Kristy Rios CRT Ht: 6 ft 2 in Wt: 217lbs BSA: 2.25 BP: 147/48 mmHg Indications: Congestive Heart Failure, Shortness of Breath, Hyperlipidemia, Hypertension/HDD, SMOKER, CABG, ILIAC STENT 2D Dimensions LA Volume 70.20 mL LA Volume Index 30.50 mL/m2 (M/F) 16-34 M-Mode Dimensions RVDd 3.15 cm (0.9-2.6) LA Diam 4.30 cm (1.9-4.0) LVDd 5.45 cm (3.5-5.7) LVDs 4.20 cm (3.5-5.7) IVSd 1.70 cm (0.6-1.1) PWd 1.13 cm (0.6-1.1) EF (Teich) 45.60% FS 22.90% EDV (Teich) 144.40 mL TAPSE 1.80 (<1.7) ESV (Teich) 78.60 mL LV Diastology E Decel Time 273 (160-240 msec) E/A Ratio 1.34 MED A' 5.60 cm/s LAT A' 6.20 cm/s Aortic Valve AO Peak GR. 8.70 mmHg Mitral Valve MV E Max Willian. 231.0 (40-130 cm/s) MV A Velocity 173.0 (40-130 cm/s) E/A Ratio 1.34 MV PHT 80.0 ms Pulmonary Valve PV Peak Velocity 147.0 (50-150 cm/s) Tricuspid Valve TR P. Velocity 276.00 cm/s RAP Estimate 10.00 mmHg RVSP 40.50 mmHg Left Ventricle The left ventricle is normal size. The left ventricular systolic function is normal. The left ventricular ejection fraction is within the normal range. There is increased LV wall thickness. There is normal LV segmental wall motion. Diastolic function is indeterminate. LVEF is 55%. Right Ventricle The right ventricle is normal size. The right ventricular systolic function is normal. Atria Left atrium is mildly dilated. The right atrium is mildly dilated. There is no Doppler evidence of interatrial shunt. Aortic Valve Aortic valve is mildly thickened. There is no aortic valvular stenosis. Trace aortic regurgitation. Mitral Valve The mitral valve leaflets are mildly thickened. No evidence of mitral valve stenosis. There is at least moderate mitral regurgitation present. The MR jet is eccentric and posteriorly directed. The severity of the MR jet may be underestimated. Tricuspid Valve The tricuspid valve leaflets are thin and pliable. Mild tricuspid regurgitation. RVSP is 30 mmHg + RA pressure. Pulmonic Valve The pulmonary valve is normal in structure. Trace pulmonic regurgitation. Great Vessels The aortic root is normal in size. The ascending aorta is not well-visualized. The IVC is not well-visualized. Pericardium There is no pericardial effusion. Other Information Study Quality: Fair Conclusion Normal biventricular systolic function. Mild biatrial dilation. There is at least moderate mitral regurgitation present. The MR jet is eccentric and posteriorly directed. The severity of the MR jet may be underestimated. Mild TR. RVSP is 30 mmHg + RA pressure. In the setting of presence of symptoms and eccentric MR jet with at least moderate MR, further evaluation with outpatient GURDEEP is suggested to evaluate for true MR severity and mechanism of MR. Electronically signed by : Katiana Mead MD 02/17/2024 10:01:03
== END 2024-02-17 23:59 | disposition home or self-care (01) ==
LOC: RT 08:59
PROVIDERS: PCP Internal Medicine Adolescent Medicine; Visit Provider Nurse Practitioner Family
DX: I51.7 Cardiomegaly (principal); I50.9 Heart failure, unspecified
CPT/HCPCS: 93306

== ENCOUNTER 2024-02-24 13:51 | Outpatient (CLI) | payer MEDICARE, MEDICAID, SELFPAY ==
--- NOTE | 2024-02-24 13:54 | CT_ITS ---
FINAL REPORT TECHNIQUE: Thin section axial images were obtained from the lung apices to the upper abdomen by computed tomography. Reformatted images were obtained and reviewed. This study was performed with techniques to keep radiation doses al low as reasonably achievable (ALARA). Individualized dose reduction techniques using automated exposure control or adjustment of mA and/or kV according to the patient's size were employed. CLINICAL HISTORY: lung screening current smoker 1/2 ppd x 60 years COMPARISON: Prior LDCT report 01/15/2020, CT of the chest 12/17/2022 FINDINGS: CHEST CT LOW DOSE 79-year-old male, current smoker, 21-vzgq-wyth history. CTDI vol (mGy): 2.9 DLP (mGy-cm): 102.38 Evidence of a prior median sternotomy is noted. There is no axillary adenopathy. There is no mediastinal or hilar mass or adenopathy. The heart is normal in size. New right greater than left pleural effusions are present. There is mild emphysema and mild pulmonary scarring. Lung window images demonstrate a 4 mm right lung base nodule, image 62 of series 3, probably stable from the prior LDCT report of 2019. There is a new left lower lobe nodule measuring 11 mm in size, image #55 of series 3. An inflammatory etiology is favored. However, 3-month follow-up is suggested to determine resolution. Limited images of the upper abdomen are unremarkable. IMPRESSION: Lung-RADS category 0. Recommend 3 month follow up low dose chest CT. Reviewed, Interpreted and Dictated by Kodak Fletcher III, MD Transcribed by Nelsy Frausto Authenticated and [facility]
== END 2024-02-24 23:59 | disposition home or self-care (01) ==
LOC: RAD 13:51
PROVIDERS: PCP Internal Medicine Adolescent Medicine; Visit Provider Nurse Practitioner Family
DX: Z87.891 Personal history of nicotine dependence (principal)
CPT/HCPCS: 71271

== ENCOUNTER 2024-05-24 10:48 | Outpatient (CLI) | payer MEDICARE, MEDICAID, SELFPAY ==
[2024-05-24 11:11] LABS: Basophils # 0.2 K/mm3 (0-0.2); Basophils % 1.2 % (0.1-2.0); Eosinophils # 0.6 K/mm3 (0.0-0.4); Eosinophils % 4.7 % (0.1-12.0); Hematocrit 43.4 % (42.0-52.0); Hemoglobin 13.4 g/dL (14.1-18.0); Lymphocytes # 2.5 K/mm3 (0.7-4.5); Lymphocytes % 19.4 % (10-50); Mean Corpuscular HGB Conc 30.9 g/dL (31.8-35.4); Mean Corpuscular Hemoglobin 27.5 pg (27.0-31.2); Mean Corpuscular Volume 88.9 fl (80-94); Mean Platelet Volume 10.8 fl (7.4-10.4); Neutrophils # 8.5 K/mm3 (1.8-7.8); Neutrophils % 66.5 % (37.0-80.0); Platelet Count 259 K/mm3 (142-424); Red Blood Count 4.88 M/mm3 (4.60-6.20); Red Cell Distribution Width 15.5 % (11.5-17.5); White Blood Count 12.9 K/mm3 (4.8-10.8)
[2024-05-24 11:13] LABS: Albumin Level 4.1 g/dl (3.5-5.0); Chloride 101 mmol/L (98-107)
[2024-05-24 11:14] LABS: Potassium 4.1 mmoL/L (3.5-5.1); Sodium 138 mmol/L (136-145)
[2024-05-24 11:16] LABS: Alanine Aminotransferase 21 U/L (12-78); Albumin/Globulin Ratio 1.3 (1.1-1.8); Alkaline Phosphatase 67 U/L (38-126); Anion Gap 10.1 mEq/L (5-15); Aspartate Amino Transferase 28 U/L (17-59); Bilirubin,Total 0.3 mg/dl (0.2-1.3); Blood Urea Nitrogen 25 mg/dl (9-20); Carbon Dioxide 31 mmol/L (22.0-30.0); Estimated Glomerular Filt Rate 58 ml/min (>60); GFR (African American) 70 ML/MIN (>60); Globulin 3.1 g/dL (1.3-3.2); Total Protein,Serum 7.2 g/dl (6.3-8.2)
[2024-05-24 11:17] LABS: Calcium 8.5 mg/dl (8.4-10.2); Chol/HDL Ratio 2.8 (1-3.5); Cholesterol 102 mg/dl (140-200); Glucose 143 mg/dl (74-100); HDL Cholesterol 37 mg/dl (40-60); Triglycerides 73 mg/dl (30-150); VLDL Cholesterol 15 mg/dL (0-40)
[2024-05-24 11:30] LABS: Direct LDL Cholesterol 39.62 mg/dL (100-129)
[2024-05-24 11:48] LABS: Thyroid Stimulating Hormone 3.99 uIU/mL (0.465-4.68)
[2024-05-24 12:28] LABS: Uric Acid 3.6 mg/dl (3.5-8.5)
[2024-05-24 15:10] LABS: Hemoglobin A1C 5.8 % (4.0-6.0)
== END 2024-05-24 23:59 | disposition home or self-care (01) ==
LOC: LAB 10:50
PROVIDERS: PCP Nurse Practitioner Family; Visit Provider Nurse Practitioner Family
DX: E03.9 Hypothyroidism, unspecified (principal); E11.9 Type 2 diabetes mellitus without complications; I25.10 Atherosclerotic heart disease of native coronary artery without angina pectoris; M10.9 Gout, unspecified; F17.210 Nicotine dependence, cigarettes, uncomplicated; I10 Essential (primary) hypertension
CPT/HCPCS: 36415; 80053; 80061; 83036; 84443; 84550; 85025

== ENCOUNTER 2024-06-20 08:14 | Day surgery (SDC) | payer MEDICARE, MEDICAID, SELFPAY ==
--- NOTE | 2024-06-20 08:24 | CA_ITS ---
APPROVED REPORT EXAM: Limited 2D and color flow Echocardiogram Data Support Analyst: Nicole JesRICKIE Ht: 6 ft 2 in Wt: 217lbs BSA: 2.25 BP: 147/48 mmHg Indications: SOA, AT LEAST MODERATE MR ON TTE,HTN,HLD,CABG Procedure After obtaining informed consent, patient underwent transesophageal echo in the OP Surgery Suite. Type of Sedation : MAC Sedation start time: 11:25 Case end Time: 11:35 Complication encountered: transient hypoxia Synchronized Cardioversion acheived with 150 Joules after 1 attempt(s). Rhythm following Synchronized Cardioversion: Normal Sinus Rhythm Throughout the procedure, the blood pressure, pulse oximetry, cardiac rhythm, and rate were monitored. The patient tolerated the procedure without adverse effects. Recovery from conscious sedation was uneventful and vital signs were stable. Other Information Study Quality: Fair Conclusion This was a limited GURDEEP in the setting of inability to continue study due to patient hypoxia intra procedurally. Limited windows are obtained. As the indication for this study was to evaluate the mechanism and severity of MR, as well as evaluate for presence of MEHUL/MEHUL thrombus, the image acquisition was limited to the above. The left ventricle is normal in size. There is increased LV wall thickness. There is grossly normal LV systolic function. LVEF is 50%. The mitral valve leaflets are mildly thickened. There is mild prolapse of the anterior MV leaflet. Moderate mitral regurgitation is present. The MR jet is eccentric and posteriorly directed. The mechanism of MR is likely due to anterior MV prolapse (Mariel class II). There is no evidence of flail segment or chordal rupture. The left atrium is dilated. There is no evidence of LA or MEHUL thrombus in all imaging planes. Once GURDEEP demonstrated no evidence of LA or MEHUL thrombus, the probe was discontinued in the setting of hypoxia. Once the patient's hypoxia improved with supportive care, the patient underwent DCCV with 150 J, after which she converted from atrial fibrillation to normal sinus rhythm. He continued to be stable thereafter. In the recovery suite, he continued to be asymptomatic and stable. He was eventually discharged in stable condition. Electronically signed by : Katiana Mead MD 06/21/2024 12:48:54
[2024-06-20 10:00] VITALS: BMI 27.3
--- NOTE | 2024-06-20 10:20 | EXP.ANES.CKL ---
[facility] Disclaimer: The information contained in this section may have been updated after the patient was seen, as this information can be updated by other users. Medical History Foreign body in left ear Bilateral impacted cerumen Mitral regurgitation Abnormal echocardiogram Anemia SOB (shortness of breath) on exertion Edema Hypertension Neuropathy Claudication Bilateral iliac artery stenosis PAD (peripheral artery disease) Hyperlipidemia Surgical History History of shoulder surgery S/P insertion of iliac artery stent S/P CABG (coronary artery bypass graft) History of coronary artery bypass graft Family History Other Family history of diabetes mellitus type II Family history of hypertension Social History Smoking Status: Current every day smoker tobacco type: cigarettes packs per day: 1 second hand exposure: No alcohol intake: never substance use type: denies use current occupational status: retired Travel in the last 8 weeks: None household members: other housing: house current occupational exposures/hazards: No caffeine: Yes Have you lived/traveled outside US in past 30 days?: No Contact w/someone who lives/traveled outside US past 30 days?: No Exposure to someone with infectious disease in past 14 days?: No Do you have a fever (greater than 100.4 F or 38 C)?: No Have you tested positive for COVID-19: No Exposed to someone with COVID-19 in past 14 days?: No Do you have a sore throat?: No Do you have a cough?: No Do you have any weakness?: No Do you have any diarrhea?: No Are you experiencing any unusual bleeding?: No Do you have any muscle aches/pain?: No Do you have any abdominal pain?: No Are you experiencing loss of taste or smell?: No [facility] Anesthesia Checklist Patient Identification Patient Identification: Arm Band and Verbal (Name & ) Structural Data Admitted From: Home Planned Operative Procedure/s: GURDEEP Consent for Planned Operative Procedure(s) Verified: Yes Verified Documents: Surgical Consent and History and Physical NPO Status Verified Time NPO: 22:00 Chart Verification Results Verified: CBC, BMP, PT, PTT, INR and ECG Additional verifications Patient : No Anesthesia Reactions: No Hx Blood Transfusions: No Blood Transfusion Reaction: No Cardiovascular Assessment Pulse Rhythm: Irregular Peripheral Edema: No Airway Assessment Mallampati Score:: Class II C-Spine Mobility Assessed: Yes (FROM demonstarted) TMJ Mobility Assessed: Yes Dentition: Dentures-good fit (Upper & lower in place. Will be removed prior to procedure start) Neurological Assessment Level of Consciousness: Awake, Alert, Appropriate and Follows Commands Hx Seizures: No Numbness or tingling in extremities: No Anesthesia Plan Anesthesia Risk discussed: Yes Anesthesia Plan: Verified ASA Class: III Anesthesia Type: MAC
[2024-06-20 10:27] VITALS: BP 123/74; PULSE 99; RESP 16; TEMP 36.7; O2SAT 98; BMI 27.3
[2024-06-20 10:32] LABS: Basophils # 0.1 K/mm3 (0-0.2); Basophils % 0.8 % (0.1-2.0); Eosinophils # 0.4 K/mm3 (0.0-0.4); Eosinophils % 2.9 % (0.1-12.0); Hematocrit 41.7 % (42.0-52.0); Hemoglobin 13.1 g/dL (14.1-18.0); Lymphocytes # 2.3 K/mm3 (0.7-4.5); Lymphocytes % 16.7 % (10-50); Mean Corpuscular HGB Conc 31.4 g/dL (31.8-35.4); Mean Corpuscular Hemoglobin 27.8 pg (27.0-31.2); Mean Corpuscular Volume 88.5 fl (80-94); Mean Platelet Volume 10.9 fl (7.4-10.4); Monocytes % 7.2 % (1.7-9.3); Neutrophils # 9.8 K/mm3 (1.8-7.8); Platelet Count 232 K/mm3 (142-424); Red Blood Count 4.71 M/mm3 (4.60-6.20); Red Cell Distribution Width 16.4 % (11.5-17.5); White Blood Count 13.6 K/mm3 (4.8-10.8)
--- NOTE | 2024-06-20 10:35 | ECG_ITS ---
APPROVED REPORT Exam: Resting ECG HR:93 bpm ECG Measurements Heart Rate 93 AXES QRSd 108 QRS 37 QT 398 T -32 QTc 448 Conclusion ATRIAL FIBRILLATION INFERIOR MYOCARDIAL INFARCTION , OF INDETERMINATE AGE [40+ ms Q WAVE AND/OR ST/T ABNORMALITY IN II/aVF] ABNORMAL ECG UNCONFIRMED REPORT Electronically signed by : Karan Fuller MD 06/26/2024 08:56:49
[2024-06-20 10:43] LABS: INR 1.06 (0.9-1.1); Prothrombin Time 11.5 seconds (9.2-12.1)
[2024-06-20 10:55] LABS: Anion Gap 12.8 mEq/L (5-15); Blood Urea Nitrogen 14 mg/dl (9-20); Calcium 8.9 mg/dl (8.4-10.2); Carbon Dioxide 28 mmol/L (22.0-30.0); Chloride 102 mmol/L (98-107); Creatinine Clearance Estimated 79 mL/min (50-200); Estimated Glomerular Filt Rate 72 ml/min (>60); GFR (African American) 87 ML/MIN (>60); Glucose 106 mg/dl (74-100); Potassium 3.8 mmoL/L (3.5-5.1); Sodium 139 mmol/L (136-145)
[2024-06-20 11:04] VITALS: O2SAT 100
[2024-06-20 11:33] VITALS: BP 104/45; PULSE 50; RESP 16; TEMP 36.4; O2SAT 92
[2024-06-20 11:43] VITALS: BP 107/75; PULSE 50; RESP 16; O2SAT 97
--- NOTE | 2024-06-20 11:45 | ECG_ITS ---
APPROVED REPORT Exam: Resting ECG HR:51 bpm ECG Measurements Heart Rate 51 AXES OH 235 P -16 QRSd 110 QRS 31 QT 539 T -3 QTc 516 Conclusion SINUS BRADYCARDIA WITH FIRST DEGREE AV BLOCK Isolated Q in III ABNORMAL ECG UNCONFIRMED REPORT Electronically signed by : Karan Fuller MD 06/26/2024 08:56:31
[2024-06-20 11:53] VITALS: BP 108/73; PULSE 48; RESP 16; O2SAT 98
[2024-06-20 12:03] VITALS: BP 115/56; PULSE 52; RESP 16; O2SAT 95
--- NOTE | 2024-06-20 12:36 | SUR.PHASEII ---
1145- EKG done. No new orders received.
== END 2024-06-20 12:03 | disposition home or self-care (01) ==
PROVIDERS: PCP Nurse Practitioner Family; Visit Provider Internal Medicine
DX: I48.19 Other persistent atrial fibrillation (principal); R40.0 Somnolence; R06.83 Snoring; I34.0 Nonrheumatic mitral (valve) insufficiency; R93.1 Abnormal findings on diagnostic imaging of heart and coronary circulation; R06.02 Shortness of breath; I25.10 Atherosclerotic heart disease of native coronary artery without angina pectoris; I10 Essential (primary) hypertension; Z95.828 Presence of other vascular implants and grafts; I77.1 Stricture of artery; Z95.1 Presence of aortocoronary bypass graft; I73.9 Peripheral vascular disease, unspecified; E78.5 Hyperlipidemia, unspecified
CPT/HCPCS: 80048; 85025; 85610; 92960; 93005; 93270; 93312; 93319

== ENCOUNTER 2024-07-24 12:44 | Outpatient (CLI) | payer MEDICARE, MEDICAID, SELFPAY ==
--- NOTE | 2024-07-24 12:46 | CT_ITS ---
FINAL REPORT CLINICAL HISTORY: HX OF NICOTINE. SMOKER. 1PPD FOR 60 YEARS. COMPARISON: 02/24/2024 FINDINGS: Axial images were obtained from the lung apex to the mid abdomen by computed tomography. Low-dose protocol was utilized. CTDl vol(mGy): 2.90 DLP (mGy-cm): 103.42 FINDINGS: There is streak artifact from median sternotomy wires. There is no axillary adenopathy. There is no hilar or mediastinal adenopathy. Dense coronary artery calcifications are noted. The heart size is normal. There is no pericardial effusion. There is a small right and trace left pleural effusion. Limited images of the upper abdomen are unremarkable. Lung window images demonstrate overlying atelectasis in the right lung base. Previously described right base nodule is obscured by the atelectasis. Previously noted ill-defined density in the left lung base has resolved. IMPRESSION: Previously noted left lung base nodule has resolved. Previously described right base nodule is obscured by atelectasis on today's exam. Lung RADS category 1. Recommend 12 month follow-up low-dose chest CT. Stable bilateral pleural effusions and right lower lobe atelectasis. Lung RADS category S. Reviewed, Interpreted and Dictated by Lincoln Buitrago MD Transcribed by Jennifer Ku Authenticated and [facility]
--- OUTSIDE RECORDS SUMMARY | 2024-07-24 12:46 | XMS_ITS | Continuity of Care Document ---
Author Name [facility] Organization [facility] Care Team Providers Care Cosmetic Manager Name Role Phone [facility] Unavailable Unavailable Problems Combined list of problems from Department of Defense and [facility] Affairs facilities. It does not include entries that were removed or entered in error. Problem Status Onset Date Problem Type Date of Resolution Comments Source Chronic obstructive lung disease Active Condition [facility] COR ATHEROSCL NATV C VSL Active Condition [facility] Coronary artery disease Active Condition [facility] ESOPHAGEAL REFLUX Active Condition [facility] Hyperlipidemia Active Condition [place] [facility] HYPERTENSION NOS Active Condition [facility] Osteoarthritis * (ICD-9-CM 715.90) Active Condition [place] Pain in joint involving shoulder region (ICD-9-CM 719.41) [facility] Simple obesity Active Condition [place] [facility] Tobacco Use * (ICD-9-CM 305.1) Active Condition [facility] [facility] ANXIETY STATE NOS Inactive Condition 10/10/2008 [facility] ASTHMA UNSPEC W/O STATUS ASTH Inactive Condition 10/10/2008 [facility] Atrial Fibrillation * (ICD-9-CM 427.31) Inactive Condition 10/10/2008 [place] [facility] Benign prostatic hypertrophy without outflow obstruction Inactive Condition [facility]10/[facility] CHEST PAIN NEC Inactive Condition 10/10/2008 [facility] CHRONIC SINUSITIS NOS Inactive Condition 10/10/2008 [facility] DEPRESSIVE DISORDER NEC Inactive Condition 10/10/2008 [facility] DERMATITIS [facility] Inactive Condition 10/10/2008 [facility] Encounter for Therapeutic Drug Monitoring (ICD-9-CM V58.83) Inactive Condition 10/10/2008 [place] [facility] Bookbinding Machine Operator (current) use of Anticoagulants (ICD-9-CM V58.61) Inactive Condition 10/10/2008 [place] [facility] PROPHY VACC. STREP PNEU Inactive Condition 11/13/2008 [facility] Medications Combined list of outpatient medications from [...] ACTIVE TONO,ME BEKAH E 2006 [place] [facility] ATORVASTATI N CA 40MG TAB TAKE ONE-HALF TABLET BY MOUTH DAILY ORAL ACTIVE SANDERS,NITHYA EK R 2014 [place] [facility] CARVEDILOL TAB TAKE BY MOUTH ORAL ACTIVE SANDERS,NITHYA EK R 2014 [place] [facility] CHLORTHALID ONE 25MG TAB TAKE ONE TABLET BY MOUTH DAILY ORAL ACTIVE SANDERS,NITHYA EK R 2014 [place] [facility] CLOPIDOGREL BISULFATE 75MG TAB TAKE ONE TABLET BY MOUTH DAILY ORAL ACTIVE SANDERS,NITHYA EK R 2014 [place] [facility] INDOMETHACI N CAP,ORAL TAKE BY MOUTH ORAL ACTIVE SANDERS,NITHYA EK R 2014 [place] [facility] LOSARTAN POTASSIUM 100MG TAB TAKE ONE TABLET BY MOUTH DAILY ORAL ACTIVE SANDERS,NITHYA EK R 2014 [place] [facility] MELOXICAM 15MG TAB TAKE ONE TABLET BY MOUTH DAILY ORAL ACTIVE SANDRES,NITHYA EK R 2014 [place] [facility] TAMSULOSIN HCL 0.4MG CAP TAKE 1 CAPSULE BY MOUTH EVERY EVENING ORAL ACTIVE SANDERS,NITHYA EK R 2014 [place] [facility] Allergies, Adverse Reactions, Alerts Combined list of allergies from Department of Defense and Veterans Affairs facilities. It does not include entries that were removed or entered in error. Substance Category Reaction Severity Reaction type Status Date Reported Comments Source CHLORPHENIRA MINE Propensity to adverse reactions to drug (finding) NAUSEA,VOMI TING active 5 [place] [facility] CODEINE Propensity to adverse reactions to drug (finding) Hallucinati ons active 7 [place] [facility] PENICILLIN Propensity to adverse reactions to drug (finding) active 1 [place] [facility] ROSUVASTATIN Propensity to adverse reactions to drug (finding) Diarrhea, Nightmares active 1 [place] [facility] Immunizations Combined list of available immunizations from the Department of Defense and Veterans Affairs facilities. Immunization Series Date Given Administered By Site Reaction Lot Number CVX Code Drug Projection Technician Status Comments Source TD(ADULT) UNSPECIFIED FORMULATION 2014 139 complet ed [place] [facility] INFLUENZA A & B (HISTORICAL) 2014 88 complet ed [place] [facility] INFLUENZA A & B (HISTORICAL) 2012 88 complet ed [place] [facility] INFLUENZA A & B (HISTORICAL) 2011 88 complet ed [place] [facility] FLU,3 YRS (HISTORICAL) 2010 88 complet ed [place] [facility] INFLUENZA A & B (HISTORICAL) 2010 88 complet ed [place] [facility] INFLUENZA A & B (HISTORICAL) 2009 88 complet ed [place] [facility] INFLUENZA-H1N 1-09, ALL FORMULATIONS 2009 128 complet ed [employer] [place] [facility] FLU,3 YRS (HISTORICAL) 2008 88 complet ed [place] [facility] FLU,3 YRS (HISTORICAL) 2007 88 complet ed [place] PNEUMOCOCCAL, UNSPECIFIED FORMULATION 2006 CARINA LÓPEZ 109 complet ed [place] [facility] FLU,3 YRS (HISTORICAL) 2006 88 complet ed [place] [facility] INFLUENZA A & B (HISTORICAL) 2005 88 complet ed [place] [facility] INFLUENZA A & B (HISTORICAL) 2004 88 complet ed UP TO DATE FOR 2004- [place] [facility] PNEUMOCOCCAL, UNSPECIFIED FORMULATION 2004 109 complet ed UP TO DATE [facility] INFLUENZA A & B (HISTORICAL) 2004 NONE 88 complet ed [id number] exp 6-05 [place] TD(ADULT) UNSPECIFIED FORMULATION 2004 NONE 139 complet ed Completed Series, [id number] exp 10-06 [place] TD(ADULT) UNSPECIFIED FORMULATION 2004 139 complet ed [place] [facility] TDAP (HISTORICAL) 2004 115 complet ed [place] [facility] INFLUENZA, UNSPECIFIED FORMULATION 2002 NONE 88 complet ed Completed Series, yrly [place] PNEUMOCOCCAL, UNSPECIFIED FORMULATION 1996 ADRIANNE SAINI 109 complet ed [place] Social History Combined list of available smoking, tobacco, and other social history from Department of Defense and [facility] Affairs facilities. Social History Type Response Date Comment Source Tobacco smoking status GAIS V9 CURRENT TOBACCO USER 12/14/2014 [facility] History of tobacco use V9 TOBACCO OFFERED 12/14/2014 [facility] History of tobacco use V9 CURRENT TOBACCO USER 12/14/2013 [facility] History of tobacco use V9 CURRENT TOBACCO USER 12/05/2012 [facility] History of tobacco use V9 CURRENT TOBACCO USER 12/04/2011 [facility] History of tobacco use V9 CURRENT TOBACCO USER 11/25/2010 [facility] History of tobacco use V9 CURRENT TOBACCO USER 05/19/2010 [facility] History of tobacco use V9 CURRENT TOBACCO USER 11/04/2009 [facility] History of tobacco use V9 CURRENT TOBACCO USER 04/18/2009 [facility] History of tobacco use V9 CURRENT TOBACCO USER 11/13/2008 [facility] History of tobacco use V9 CURRENT TOBACCO USER 03/19/2008 [facility] History of tobacco use V9 CURRENT TOBACCO USER 10/31/2007 [facility] History of tobacco use V9 CURRENT TOBACCO USER 11/09/2006 [facility] History of tobacco use V9 CURRENT TOBACCO USER 03/26/2006 [facility] History of tobacco use HF V9 CURRENT SMOKER 10/05/2005 2ppd [facility] History of tobacco use HF V9 SECOND TOBACCO OUTSIDE COLLECTOR 03/20/2005 SMOKES UP TO 1 PPD [facility] History of tobacco use HF V9 CURRENT SMOKER 04/23/2004 1.5ppd [facility] History of tobacco use HF V9 SECOND TOBACCO OUTSIDE COLLECTOR 05/24/2003 1 pack a day [facility] History of tobacco use HF V9 CURRENT SMOKER 01/19/2003 1ppd [facility] History of tobacco use HF V9 THIRD TOBACCO OUTSIDE COLLECTOR 02/08/2002 1 pack a day [facility] History of tobacco use HF V9 SECOND TOBACCO OUTSIDE COLLECTOR 06/16/2001 less than a pack a day [facility] History of tobacco use HF V9 CURRENT SMOKER 05/16/2001 using patch and still smokes occasionally [facility]
== END 2024-07-24 23:59 | disposition home or self-care (01) ==
LOC: RAD 12:44
PROVIDERS: PCP Nurse Practitioner Family; Visit Provider Nurse Practitioner Family
DX: Z87.891 Personal history of nicotine dependence (principal)
CPT/HCPCS: 71271

== ENCOUNTER 2024-10-03 10:52 | Day surgery (SDC) | payer MEDICARE, MEDICAID, SELFPAY ==
[2024-10-02 15:03] VITALS: BMI 27.2
[2024-10-03 11:50] VITALS: BP 179/94; PULSE 63; RESP 18; TEMP 36.1; O2SAT 96; BMI 27.2
--- NOTE | 2024-10-03 12:00 | CA_ITS ---
APPROVED REPORT EXAM: Comprehensive 2D, Doppler, and color-flow Echocardiogram Hide Washer: Nicole OviedomermanRICKIE Ht: 6 ft 2 in Wt: 214lbs BSA: 2.24 BP: 118/86 mmHg Indications: A-FIB WITH CARDIOVERSION Procedure After obtaining informed consent, patient underwent transesophageal echo in the OP Surgery Suite. Type of Sedation : MAC Sedation was administered by Jose Oliver C.R.N.ASandy Sedation start time: 13:10 Case end Time: 13:20 Transesophageal probe was inserted and advanced into esophagus without difficulty by Dr. Miguel Mead. The GURDEEP was performed without complications. Synchronized Cardioversion acheived with 150 Joules after 1 attempt(s). Rhythm following Synchronized Cardioversion: Sinus Bradycardia Throughout the procedure, the blood pressure, pulse oximetry, cardiac rhythm, and rate were monitored. The patient tolerated the procedure without adverse effects. Recovery from conscious sedation was uneventful and vital signs were stable. Left Ventricle The left ventricle is normal size. Left ventricular systolic function is mildly decreased. There is increased overall thickness. There is mild global hypokinesis present. LVEF is 45%. Right Ventricle The right ventricle is normal size. The right ventricular systolic function is normal. Atria Left atrium is mildly dilated. No thrombus is visualized in the left atrium or appendage. Right atrium is mildly dilated. The interatrial septum is intact with no evidence for an atrial septal defect. Aortic Valve Aortic valve is trileaflet. The aortic valve is mildly thickened. There is no aortic valvular stenosis. Trace aortic regurgitation. Mitral Valve There is prolapse of the anterior mitral valve leaflet. No evidence of mitral valve stenosis. Moderate mitral regurgitation is present. The mechanism of MR is likely due to prolapse of the anterior mitral valve leaflet (Mariel class II ). Tricuspid Valve Tricuspid valve is grossly normal in structure and function. Trace tricuspid regurgitation. There is insufficient TR jet to estimate RVSP. Pulmonic Valve The pulmonary valve is normal in structure. Trace pulmonic regurgitation. Great Vessels The aortic root is normal in size. The ascending aorta is normal in size. Pericardium There is no pericardial effusion. Other Information Study Quality: Fair Conclusion Mildly reduced LV systolic function (LVEF 45%). Mild biatrial dilation. Prolapse of the anterior mitral valve leaflet. Moderate MR (Mariel class II). No evidence of LA or MEHUL thrombus. Compared to prior study from 06/20/2024, the LV systolic function appears mildly reduced in the setting of A-fib/RVR. Once GURDEEP demonstrated no evidence of LA or MEHUL thrombus, the patient underwent DCCV successfully with 150 J, after which he converted to normal sinus rhythm/sinus bradycardia. He continued to be stable and asymptomatic during recovery, and eventually was discharged in stable condition. At the time of discharge, he was prescribed amiodarone 400 mg PO TID to maintain normal sinus rhythm, with plan to taper down over time on an outpatient basis. Electronically signed by : Katiana Mead MD 10/03/2024 23:29:15
[2024-10-03 12:14] LABS: Basophils # 0.1 K/mm3 (0-0.2); Basophils % 1.1 % (0.1-2.0); Eosinophils # 0.6 Kmm3 (0.0-0.4); Eosinophils % 5.4 % (0.1-12.0); Immature Granulocytes # 0.03 10^3uL; Immature Granulocytes % 0.3 %; Lymphocytes # 2.2 K/mm3 (0.7-4.5); Lymphocytes % 18.9 % (10-50); Mean Corpuscular HGB Conc 31.7 g/dL (31.8-35.4); Mean Corpuscular Hemoglobin 28.1 pg (27.0-31.2); Mean Corpuscular Volume 88.7 fl (80-94); Mean Platelet Volume 10.2 fl (7.4-10.4); Monocytes # 0.8 K/mm3 (0.1-1.0); Monocytes % 7.1 % (1.7-9.3); Neutrophils # 7.6 K/mm3 (1.8-7.8); Neutrophils % 67.2 % (37.0-80.0); Nucleated Red Blood Cells # 0 10^3/uL; Nucleated Red Blood Cells % 0 %; Platelet Count 197 K/mm3 (142-424); Red Blood Count 4.62 M/mm3 (4.60-6.20); Red Cell Distribution Width 15.7 % (11.5-17.5); Red Cell Distribution Width-SD 50.9 fL; White Blood Count 11.4 K/mm3 (4.8-10.8)
[2024-10-03 12:16] LABS: Chloride 97 mmol/L (98-107); Potassium 3.8 mmoL/L (3.5-5.1); Sodium 137 mmol/L (136-145)
[2024-10-03 12:19] LABS: Anion Gap 10.8 mEq/L (5-15); Blood Urea Nitrogen 11 mg/dl (9-20); Calcium 8.6 mg/dl (8.4-10.2); Carbon Dioxide 33 mmol/L (22.0-30.0); Creatinine Clearance Estimated 79 mL/min (50-200); Estimated Glomerular Filt Rate 93 ml/min (>60); GFR (African American) 112 ML/MIN (>60); Glucose 109 mg/dl (74-100)
[2024-10-03 12:23] LABS: INR 1.08 (0.9-1.1); Prothrombin Time 11.9 seconds (10.1-12.5)
--- NOTE | 2024-10-03 12:42 | EXP.ANES.CKL ---
[facility] Disclaimer: The information contained in this section may have been updated after the patient was seen, as this information can be updated by other users. Medical History Foreign body in left ear Bilateral impacted cerumen Mitral regurgitation Abnormal echocardiogram Anemia SOB (shortness of breath) on exertion Edema Hypertension Neuropathy Claudication Bilateral iliac artery stenosis PAD (peripheral artery disease) Hyperlipidemia Surgical History History of shoulder surgery S/P insertion of iliac artery stent S/P CABG (coronary artery bypass graft) History of coronary artery bypass graft Family History Other Family history of diabetes mellitus type II Family history of hypertension Social History (Updated 10/03/24 @ 11:51 by Carissa Sanabria RN) Smoking Status: Current every day smoker tobacco type: cigarettes packs per day: 1 second hand exposure: No alcohol intake: never substance use type: denies use current occupational status: retired Travel in the last 8 weeks?: None household members: other housing: house current occupational exposures/hazards: No caffeine: Yes Have you lived/traveled outside US in past 30 days?: No Contact w/someone who lives/traveled outside US past 30 days?: No Exposure to someone with infectious disease in past 14 days?: No Do you have a fever (greater than 100.4 F or 38 C)?: No Have you tested positive for COVID-19?: No Exposed to someone with COVID-19 in past 14 days?: No Do you have a sore throat?: No Do you have a cough?: No Do you have any weakness?: No Are you experiencing any nausea/vomitting?: No Do you have any diarrhea?: No Are you experiencing any unusual bleeding?: No Do you have any muscle aches/pain?: No Do you have any abdominal pain?: No Are you experiencing loss of taste or smell?: No [facility] Anesthesia Checklist Patient Identification Patient Identification: Arm Band Structural Data Admitted From: Home Planned Operative Procedure/s: GURDEEP/Cardioversion Consent for Planned Operative Procedure(s) Verified: Yes Verified Documents: Surgical Consent and History and Physical NPO Status Verified Time NPO: 00:00 Additional verifications Anesthesia Reactions: No Hx Blood Transfusions: No Blood Transfusion Reaction: No Airway Assessment Mallampati Score:: Class II C-Spine Mobility Assessed: Yes TMJ Mobility Assessed: Yes Dentition: Good Dentition Neurological Assessment Level of Consciousness: Awake, Alert and Appropriate Anesthesia Plan Anesthesia Risk discussed: Yes Anesthesia Plan: Verified ASA Class: III Anesthesia Type: MAC
--- NOTE | 2024-10-03 12:48 | ECG_ITS ---
APPROVED REPORT Exam: Resting ECG HR:95 bpm ECG Measurements Heart Rate 95 AXES QRSd 110 QRS 91 QT 383 T -52 QTc 436 Conclusion ATRIAL FIBRILLATION BORDERLINE RIGHT AXIS DEVIATION [QRS AXIS > 90] MODERATE VOLTAGE CRITERIA FOR LVH, CONSIDER NORMAL VARIANT [MEETS CRITERIA IN ONE OF: R(aVL), S(V1), R(V5), R(V5/V6)+S(V1)] INFERIOR MYOCARDIAL INFARCTION , OF INDETERMINATE AGE [40+ ms Q WAVE AND/OR ST/T ABNORMALITY IN II/aVF] MODERATE T-WAVE ABNORMALITY, CONSIDER LATERAL ISCHEMIA [-0.1+ mV T-WAVE IN I/aVL/V5/V6] ABNORMAL ECG UNCONFIRMED REPORT Electronically signed by : Karan Fuller MD 10/04/2024 08:50:11
[2024-10-03] MEDS: LACTATED RINGERS 1000ML 1,000 ML 25 ML IV (12:51)
[2024-10-03 13:11] VITALS: BP 133/60; PULSE 48; RESP 16; TEMP 36.1; O2SAT 97
[2024-10-03 13:21] VITALS: BP 127/62; PULSE 51; RESP 16; O2SAT 97
--- NOTE | 2024-10-03 13:22 | ECG_ITS ---
APPROVED REPORT Exam: Resting ECG HR:48 bpm ECG Measurements Heart Rate 48 AXES MI 174 P -30 QRSd 110 QRS 39 QT 525 T 102 QTc 491 Conclusion SINUS BRADYCARDIA NONSPECIFIC ST & T-WAVE ABNORMALITY PROLONGED QT INTERVAL ABNORMAL ECG UNCONFIRMED REPORT Electronically signed by : Karan Fuller MD 10/04/2024 08:50:01
[2024-10-03 13:31] VITALS: BP 138/59; PULSE 48; RESP 16; O2SAT 98
[2024-10-03 13:41] VITALS: BP 133/63; PULSE 50; RESP 16; O2SAT 98
== END 2024-10-03 13:41 | disposition home or self-care (01) ==
PROVIDERS: PCP Internal Medicine Adolescent Medicine; Visit Provider Internal Medicine
PROC: (CPT 93312; principal; 2024-10-03 12:00)
DX: I48.19 Other persistent atrial fibrillation (principal); I34.0 Nonrheumatic mitral (valve) insufficiency; R93.1 Abnormal findings on diagnostic imaging of heart and coronary circulation; I25.10 Atherosclerotic heart disease of native coronary artery without angina pectoris; I11.0 Hypertensive heart disease with heart failure; I50.9 Heart failure, unspecified; I73.9 Peripheral vascular disease, unspecified; E78.49 Other hyperlipidemia; I77.1 Stricture of artery; R06.83 Snoring; Z95.1 Presence of aortocoronary bypass graft; Z95.828 Presence of other vascular implants and grafts; F17.210 Nicotine dependence, cigarettes, uncomplicated; Z79.01 Long term (current) use of anticoagulants; Z79.02 Long term (current) use of antithrombotics/antiplatelets; Z79.890 Hormone replacement therapy; Z79.84 Long term (current) use of oral hypoglycemic drugs; Z79.899 Other long term (current) drug therapy; Z79.51 Long term (current) use of inhaled steroids; Z88.0 Allergy status to penicillin; Z82.49 Family history of ischemic heart disease and other diseases of the circulatory system
CPT/HCPCS: 80048; 85025; 85610; 92960; 93005; 93270; 93312; 93319; J2003; J2704; J7120

== ENCOUNTER 2024-10-23 10:06 | Outpatient (CLI) | payer MEDICARE, MEDICAID, SELFPAY ==
--- OUTSIDE RECORDS SUMMARY | 2015-03-18 08:37 | XMS_ITS | Continuity of Care Document ---
Author Name [facility] Organization [facility] Care Team Providers Care Service Technician Copier Name Role Phone [facility] Unavailable Unavailable Problems Combined list of problems from Department of Defense and [facility] Affairs facilities. It does not include entries that were removed or entered in error. Problem Status Onset Date Problem Type Date of Resolution Comments Source Chronic obstructive lung disease Active Condition [facility] COR ATHEROSCL NATV C VSL Active Condition [facility] Coronary artery disease Active Condition [facility] ESOPHAGEAL REFLUX [facility] Hyperlipidemia Active [place] [facility] HYPERTENSION NOS Active [facility] Osteoarthritis * (ICD-9-CM 715.90) Active [place] Pain in joint involving shoulder region (ICD-9-CM 719.41) [facility] Simple obesity Active Condition [place] [facility] Tobacco Use * (ICD-9-CM 305.1) Active [place] [facility] ANXIETY STATE NOS Inactive Condition 10/10/2008 [facility] ASTHMA UNSPEC W/O STATUS ASTH Inactive Condition 10/10/2008 [facility] Atrial Fibrillation * (ICD-9-CM 427.31) Inactive Condition 10/10/2008 [place] [facility] Benign prostatic hypertrophy without outflow obstruction Inactive Condition [facility] CHEST PAIN NEC Inactive Condition 10/10/2008 [facility] CHRONIC SINUSITIS NOS Inactive Condition 10/10/2008 [facility] DEPRESSIVE DISORDER NEC Inactive Condition 10/10/2008 [facility] Inactive Condition [facility]/10[facility]2008 [facility] Encounter for Therapeutic Drug Monitoring (ICD-9-CM V58.83) Inactive Condition 10/10/2008 [place] [facility] Belt Puncher (current) use of Anticoagulants (ICD-9-CM V58.61) Inactive Condition 10/10/2008 [place] [facility] PROPHY VACC. STREP PNEU Inactive Condition 11/13/2008 [place] Medications Combined list of outpatient medications from Department of Defense and Veterans Affairs facilities.Medications provided include 1) outpatient medications from the last 15 months, and 2) patient-reported medications. Medication Details Route Status Patient Instructions Prescription Expires Prescription Number Last Dispense Date Ordering Provider Order Date Order Qty Source ASPIRIN 81MG TAB,EC TAKE ONE TABLET BY MOUTH DAILY ORAL ACTIVE TONO,ME BEKAH E 2006 [place] [facility] ATORVASTATI N [place] 40MG TAB TAKE ONE-HALF TABLET BY MOUTH DAILY ORAL ACTIVE SANDERS,NITHYA EK R 2014 [place] [facility] CARVEDILOL TAB TAKE BY MOUTH ORAL ACTIVE SANDERS,NITHYA EK R 2014 [place] [facility] CHLORTHALID ONE 25MG TAB TAKE ONE TABLET BY MOUTH DAILY ORAL ACTIVE SANDERS,NITHYA EK R 2014 [place] [facility] CLOPIDOGREL BISULFATE 75MG TAB TAKE ONE TABLET BY MOUTH DAILY ORAL ACTIVE SANDERS,NITHYA EK R 2014 [place] [facility] INDOMETHACI N CAP,ORAL TAKE BY MOUTH ORAL ACTIVE SANDERS,NITHYA EK R 2014 [place] [facility] [place]ARTAN POTASSIUM 100MG TAB TAKE ONE TABLET BY MOUTH DAILY ORAL ACTIVE SANDERS,NITHYA EK R 2014 [place] [facility] MELOXICAM 15MG TAB TAKE ONE TABLET BY MOUTH DAILY ORAL ACTIVE SANDERS,NITHYA EK R 2014 [place] [facility] TAMSULOSIN HCL 0.4MG CAP TAKE 1 CAPSULE BY MOUTH EVERY EVENING ORAL ACTIVE SANDERS,NITHYA EK R 2014 [place] [facility] Allergies, Adverse Reactions, Alerts Combined list of allergies from Department of Defense and Veterans Affairs facilities. It does not include entries that were removed or entered in error. Substance Category Reaction Severity Reaction type Status Date Reported Comments Source CHLORPHENIRA MINE Propensity to adverse reactions to drug (finding) NAUSEA,VOMI TING active 5 [place] [facility] CODEINE Propensity to adverse reactions to drug (finding) Hallucinati ons active 7 [place] [facility] PENICILLIN Propensity to adverse reactions to drug (finding) active 1 [place] [facility] ROSUVASTATIN Propensity to adverse reactions to drug (finding) Diarrhea, Nightmares active 1 [place] [facility] [facility] Immunizations Combined list of available immunizations from the Department of Defense and Veterans Affairs facilities. Immunization Series Date Given Administered By Site Reaction Lot Number CVX Code Drug Environmental Auditor Status Comments Source TD(ADULT) UNSPECIFIED FORMULATION 2014 139 complet ed [place] [facility] INFLUENZA A & B (HISTORICAL) 2014 88 complet ed [place] [facility] INFLUENZA A & B (HISTORICAL) 2012 88 complet ed [place] [facility] INFLUENZA A & B (HISTORICAL) 2011 88 complet ed [place] [facility] INFLUENZA A & B (HISTORICAL) 2010 88 complet ed [place] [facility] INFLUENZA A & B (HISTORICAL) 2010 88 complet ed [place] [facility] INFLUENZA A & B (HISTORICAL) 2009 88 complet ed [place] [facility] INFLUENZA-H1N 1-09, ALL FORMULATIONS 2009 128 complet ed [employer] [place] [facility] FLU,3 YRS (HISTORICAL) 2008 88 complet ed [place] [facility] INFLUENZA A & B (HISTORICAL) 2007 88 complet ed [place] PNEUMOCOCCAL, UNSPECIFIED FORMULATION 2006 CARINA LÓPEZ 109 complet ed [place] [facility] FLU,3 YRS (HISTORICAL) 2006 88 complet ed [place] [facility] INFLUENZA A & B (HISTORICAL) 2005 88 complet ed [place] [facility] INFLUENZA A & B (HISTORICAL) 2004 88 complet ed UP TO DATE FOR 2004- [place]ON [place] [facility] PNEUMOCOCCAL, UNSPECIFIED FORMULATION 2004 109 complet ed UP TO DATE [facility] INFLUENZA A & B (HISTORICAL) 2004 NONE 88 complet ed [id number] exp 6-05 [place] TD(ADULT) UNSPECIFIED FORMULATION 2004 NONE 139 complet ed Completed Series, [id number] exp 10-06 [place] TD(ADULT) UNSPECIFIED FORMULATION 2004 139 complet ed [place] [facility] TDAP (HISTORICAL) 2004 115 complet ed [place] [facility] INFLUENZA, UNSPECIFIED FORMULATION 2002 NONE 88 complet ed Completed Series, yrly [place] PNEUMOCOCCAL, UNSPECIFIED FORMULATION 1996 ADRIANNE SAINI 109 complet ed [place] Social History Combined list of available smoking, tobacco, and other social history from Department of Defense and [facility] Affairs facilities. Social History Type Response Date Comment Source Tobacco smoking status MIIS V9 CURRENT TOBACCO USER 12/14/2014 [facility] History of tobacco use V9 TOBACCO OFFERED 12/14/2014 [facility] History of tobacco use V9 CURRENT TOBACCO USER 12/14/2013 [facility] History of tobacco use V9 CURRENT TOBACCO USER 12/05/2012 [facility] History of tobacco use V9 CURRENT TOBACCO USER 12/04/2011 [facility] History of tobacco use V9 CURRENT TOBACCO USER 11/25/2010 [facility] History of tobacco use V9 CURRENT TOBACCO USER 05/19/2010 [facility] History of tobacco use V9 CURRENT TOBACCO USER 11/04/2009 [facility] History of tobacco use V9 CURRENT TOBACCO USER 04/18/2009 [facility] History of tobacco use V9 CURRENT TOBACCO USER 11/13/2008 [facility] History of tobacco use V9 CURRENT TOBACCO USER 03/19/2008 [facility] History of tobacco use V9 CURRENT TOBACCO USER 10/31/2007 [facility] History of tobacco use V9 CURRENT TOBACCO USER 11/09/2006 [facility] History of tobacco use V9 CURRENT TOBACCO USER 03/26/2006 [facility] History of tobacco use HF V9 CURRENT SMOKER 10/05/2005 2ppd [facility] History of tobacco use HF V9 SECOND TOBACCO CAFETERIA SERVER 03/20/2005 SMOKES UP TO 1 PPD [facility] History of tobacco use HF V9 CURRENT SMOKER 04/23/2004 1.5ppd [facility] History of tobacco use HF V9 SECOND TOBACCO CAFETERIA SERVER 05/24/2003 1 pack a day [facility] History of tobacco use HF V9 CURRENT SMOKER 01/19/2003 1ppd [facility] History of tobacco use HF V9 THIRD TOBACCO CAFETERIA SERVER 02/08/2002 1 pack a day [facility] History of tobacco use HF V9 SECOND TOBACCO CAFETERIA SERVER 06/16/2001 less than a pack a day [facility] History of tobacco use HF V9 CURRENT SMOKER 05/16/2001 using patch and still smokes occasionally [facility]
--- OUTSIDE RECORDS SUMMARY | 2024-10-18 07:15 | XMS_ITS ---
Author Organization [facility] Address [address] [place] [address] Care Team Providers Care Hedis Coordinator Name Role Phone Karan Fuller Primary Care Provider Karan Fuller Unavailable Unavailable Yarely Lara Unavailable [phone] Allergies Allergen (clinical drug ingredient) Drug/Non Drug Allergy documented on EMR Reaction Allergy Type Onset Date Status Penicillin swelling Drug Allergy Active REASON FOR VISIT rectal bleeding since having scope , hoarse , cough , rib pain Medications Medication SIG (Take, Route, Frequency, Duration) Notes Start Date End Date Status Clopidogrel Bisulfate 75 MG TAKE 1 TABLE T EVERY DAY; Duration: 90 Active Carvedilol 25 MG TAKE 1 TABLET TWICE DAILY; Duration: 90 Active Allopurinol 300 MG TAKE 1 TABLET EVERY DAY; Duration: 90 Active Trelegy Ellipta 100-62.5-25 MCG/ACT 1 puff Inhalation Once a day 10/18/2024 Active Furosemide 40 mg TAKE ONE TABLET BY M OUTH EVERY DAY; Duration: 30 Active hydrOXYzine Pamoate 25 MG 1 capsule at b edtime as needed for itching Orally Once a day; Duration: 30 days 09/05/2024 Active Synthroid 50 MCG TAKE 1 TABLET EVERY DAY. orally once a day; Duration: 90 days Active Lipitor 20 MG 1 tab(s) orally once a day; Duration: 90 days Active LORazepam 0.5 mg TAKE ONE TABLET BY M OUTH THREE TIMES DAILY; Duration: 30 08/25/2024 Active Xarelto 20 MG 1 tablet with food O rally Once a day Active NIFEDIPINE (EQV-PROCARDIA XL) 30 MG 1 TAB(S) ORALLY ONCE A DAY; Duration: 30 DAYS 02/15/2024 Active Nitroglycerin 0.4 MG 1 tab(s) sublingual ly daily; Duration: 30 days Active Farxiga 10 MG TAKE 1 TABLET EVERY DAY; Duration: 90 Active Pantoprazole Sodium 40 MG 1 tab(s) orall y twice a day; Duration: 30 days Active Losartan Potassium 100 MG 1 tablet Orall y Once a day; Duration: 30 days 10/18/2024 Active Amiodarone HCl 400 MG 1 tablet Orally 3 times a day Active Social History Tobacco Use: Social History Observation Description Date Details (start date - stop date) Current Smoker NA - NA Smoking: Question Answer Notes Are you a: current smoker How often do you smoke cigarettes? every day How many cigarettes a day do you smoke? 03-01 Problems Problem Type SNOMED Code ICD Code Onset Dates Problem Status W/U Status Risk Notes Problem Chronic anticoagulation (Z79.01) Active confirmed Problem Persistent atrial fibrillation (799705086) Persistent atrial fibrillation (I48.19) Active confirmed Vital Signs Temperature 98.2 degrees Fahrenheit 10/19/19 25 Blood pressure systolic 122 mm Hg 10/19/19 25 Blood pressure diastolic 78 mm Hg 025 Heart Rate 58 /min 10/18/2024 Height 72 in 10/18/2024 Weight 221 lbs 10/18/2024 BMI 29.97 kg/m2 10/18/2024 Oximetry 93 10/18/2024 Encounters Encounter Location Date Provider Diagnosis [address] [address] 10/18/2024 Yarely Lara Cough, persistent R0 5.3 ; Tarry stool K92.1 ; Chronic anticoagulation Z79.01 ; Persistent atrial fibrillation I48.19 ; Tobacco dependence F17.200 and Centrilobular emphysema J43.2 Assessments Encounter Date Diagnosis (ICD Code) Assessment Notes Treatment Notes Treatment Clinical Notes Section Notes 10/18/2024 Cough, persistent (ICD-10 - R05.3) Rec stop ACEI and start losartan as noted 10/18/2024 Tarry stool (ICD-10 - K92.1) Increase PPI to BID, encouraged to reschedule his cardiology FU which was supposed to be yesterday. Labs as noted. 10/18/2024 Chronic anticoagulation (ICD-10 - Z79.01) 10/18/2024 Persistent atrial fibrillation (ICD-10 - I48.19) cardiology managing 10/18/2024 Tobacco dependence (ICD-10 - F17.200) encouraged cessation 10/18/2024 Centrilobular emphysema (ICD-10 - J43.2) likely contributing to his persistent cough and mucous production...tri al of Trelegy inhaler once a day, sample provided Plan Of Treatment Medication Medication Name Sig Start Date Stop Date Notes Trelegy Ellipta 100-62.5-25 MCG/ACT 1 puff Inhalation Once a day 10/18/2024 Lisinopril 40 MG 1 tab(s) orally once a day Pantoprazole Sodium 40 MG 1 tab(s) orall y twice a day; Duration: 30 days Losartan Potassium 100 MG 1 tablet Orall y Once a day; Duration: 30 days 10/18/2024 Pending Test Test Name Order Date M-Complete Blood Count Auto Diff 025 M-Occult Blood,Stool 10/18/2024 M-Basic Metabolic Panel 10/18/2024 Next Appt Details Follow Up: 4 Weeks,prn, Reas on: Progress Notes * Moise HURST EDOB:[birth year] (79 yo M)Acc No.[id number]:10/18/2024 Progress Notes Patient: Moise LICONA Provider: ANTHONY Rice :1945 A ge:79 Y S ex:Male Date:10/18/2024 Address:[address] , [place], [id number] Pcp:Karan Fluler Subjective: * Chief Complaints: * 1 . Rectal bleeding since having scope , hoarse , cough , rib pain. * HPI: g en: 79-year-old male presents today accompanied by his significant other with several concerns. 1. Has noticed what he thinks is some GI bleeding over the past 24 hours. Noted with 1 bowel movement yesterday and once today, the stool is very dark black . He denies any abdominal pain or other GI symptoms. 2. Persistent cough, shortness of breath, sputum production. This has been ongoing for quite some time. He uses albuterol as needed with some relief. Continues to smoke but not every day. 3. Persistent atrial fibrillation. Symptoms are back. Underwent GURDEEP and cardioversion with [facility] cardiology about 2 weeks ago. He is still on Xarelto and amiodarone. * ROS: R ESPIRATORY: See HPI Y es. C ARDIOLOGY: no C hest pain. n o P alpitations. n o L eg edema. S hortness of breath y es. C ONSTITUTIONAL: no L oss of appetite. n o F ever. W eakness?yes, a t baseline. D ERMATOLOGY: no R christi. G ASTROENTEROLOGY: no V omiting. n o A bdominal pain. B lood in stool y es. U ROLOGY: no D ifficulty urinating. n o B lood in urine. * Medical History: H ypertension, Coronary artery disease, PVD s/p right lower extremity angioplasty, Tobacco use, NIDDM, GERD, C-scope in 2016 at [facility] - normal, Normal LDCT 01/29. * Surgical History: O pen heart surgeryx 2, 5 stents , angioplasty right leg , rotator cuff surgery, right shoulder , carotid endarctectomy , Cholecystectomy , bilateral eyelids-tucked 03/2015, 2 stents 01/2017, cataract surgery-both eyes 02/2017, 2 stents placed- left leg 05/26/2017, Stents placed 08/17/23. * Hospitalization/Major Diagno stic Procedure: a adriana surgeries . * Family History: F ather: , heart disease, bleeding ulcer. M other: , heart disease. P aternal Grand Father: . P aternal Grand Mother: . M aternal Grand Father: . M aternal Grand Mother: . P aternal uncle: . P aternal aunt: . M aternal uncle: . M aternal aunt: . S iblings: alive, Sister- heart problems. C hildren: alive. 1 sister(s) . 1 son(s) - healthy. . * Social History: S moking A re you a: c urrent smoker, H ow often do you smoke cigarettes? e very day, H ow many cigarettes a day do you smoke? 1 1-20. R ecreational drug use: no. Exercise: yes. Home smoke detector use: yes. Caffeine: yes, frequency:2-3 diet mt dew daily. Living Will: No. Alcohol: no. Sexually active: no. Travel outside [place]: no. Occupation: retired. * Medications: T aking Amiodarone HCl 400 MG Tablet 1 tablet Orally 3 times a day , Taking Xarelto 20 MG Tablet 1 tablet with food Orally Once a day , Taking Nitroglycerin 0.4 MG Tablet Sublingual 1 tab(s) sublingually daily , Taking Farxiga 10 MG Tablet TAKE 1 TABLET EVERY DAY , Taking NIFEDIPINE (EQV-PROCARDIA XL) 30 MG TABLET, EXTENDED RELEASE 1 TAB(S) ORALLY ONCE A DAY , Taking Lisinopril 40 MG Tablet 1 tab(s) orally once a day , Taking Lipitor 20 MG Tablet 1 tab(s) orally once a day , Taking Pantoprazole Sodium 40 MG Tablet Delayed Release 1 tab(s) orally once a day , Taking Synthroid 50 MCG Tablet TAKE 1 TABLET EVERY DAY. orally once a day , Taking LORazepam 0.5 mg Tablet TAKE ONE TABLET BY MOUTH THREE TIMES DAILY , Taking Furosemide 40 mg Tablet TAKE ONE TABLET BY MOUTH EVERY DAY , Taking hydrOXYzine Pamoate 25 MG Capsule 1 capsule at bedtime as needed for itching Orally Once a day , Taking Carvedilol 25 MG Tablet TAKE 1 TABLET TWICE DAILY , Taking Allopurinol 300 MG Tablet TAKE 1 TABLET EVERY DAY , Taking Clopidogrel Bisulfate 75 MG Tablet TAKE 1 TABLET EVERY DAY , Discontinued Breztri Aerosphere 160 MCG-4.8 MCG-9 MCG/INH AEROSOL 2 INH INHALED 2 TIMES A DAY , Discontinued Eliquis 5 MG Tablet as directed orally 2 times a day , Medication List reviewed and reconciled with the patient * Allergies: P enicillin: swelling. Objective: * Vitals: N urse: dw, Pain: 10, Temp: 98.2, Pulse O2: 93, RR: 18, HR: 58, BP: 122/78, Ht: 72, Wt: 221, BMI:29.97. * Examination: G eneral Examination: General P leasant and Cooperative, NAD on RA,. Heart: R egular Rate and Rhythm, systolic murmur. HEENT: d ry blood left canal, otherwise unremarkable. Lungs: s oft expiratory wheezes bilat bases. Abdomen: s oft, NT/ND, BS present. Extremities: n o edema. Psych N ormal Mood/Affect. Assessment: * Assessment: 1. C ough, persistent - R05.3 (Primary) 2 . T arry stool - K92.1 3 . C hronic anticoagulation - Z79.01 4 . P ersistent atrial fibrillation - I48.19 5 . T obacco dependence - F17.200 6 . C entrilobular emphysema - J43.2 Plan: * Treatment: 2. T arry stool Increase Pantoprazole Sodium Tablet Delayed Release, 40 MG, 1 tab(s), orally, twice a day, 30 days, 60 Tablet, Refills 1. L AB: M-Complete Blood Count Auto Diff L AB: M-Occult Blood,Stool L AB: M-Basic Metabolic Panel Clinical Notes: Increase PPI to BID, encouraged to reschedule his cardiology FU which was supposed to be yesterday. Labs as noted. 3. P ersistent atrial fibrillation Clinical Notes: cardiology managing 4. T obacco dependence Clinical Notes: encouraged cessation 5. C entrilobular emphysema Start Trelegy Ellipta Aerosol Powder Breath Activated, 100-62.5-25 MCG/ACT, 1 puff, Inhalation, Once a day. Clinical Notes: likely contributing to his persistent cough and mucous production...trial of Trelegy inhaler once a day, sample provided * Follow Up: 4 Weeks,prn * * Sign off status: Completed true * Provider: ANTHONY Rice Date: 10/18/2024 Generated for Marielena fall/Tristian/Lucinaitting on: 10/23/2024 10:12 AM EDT History and Physical Notes * Examination Category Sub-Category Detail Notes Category Not es General Examination HEENT: dry blood le ft canal, otherwise unremarkable Heart: Regular Rate and Rhy thm, systolic murmur Lungs: soft expiratory whee zes bilat bases Abdomen: soft, NT/ND, BS pres ent Extremities: no edema General Pleasant and Coopera tive, NAD on RA, Psych Normal Mood/Affect
--- OUTSIDE RECORDS SUMMARY | 2024-10-23 10:12 | XMS_ITS | Clinical Summary ---
Author Organization [facility] Address [address] [place] [address] Care Team Providers Care Fountain Dispenser Name Role Phone Karan Fuller MD Primary Care Provider [phone] Allergies Active Allergy Reactions Criticality Noted Date Comments Penicillin G Unknown - Patient st ates they do not know rxn details Low 01/27/2001 Medications allopurinol (Zyloprim) 300 MG tablet 1 (one) time each day at the same time. Active amLODIPine (Norvasc) 10 MG tablet 1 (one) time each day at the same time. Active atorvastatin (Lipitor) 20 MG tablet 2 Active carvedilol (Coreg) 25 MG tablet every 12 (twelve) hours. Active clopidogrel (Plavix) 75 MG tablet 2 Active gabapentin (Neurontin) 600 MG tablet every 8 (eight) hours. 2 Active hydroCHLOROthia zide (HYDRODiuril) 25 MG tablet 2 Active indomethacin (Indocin) 50 MG capsule 1 Active levothyroxine (Synthroid, Levoxyl) 50 MCG tablet Take 1 tablet by mouth 1 (one) time each day. Active LORazepam (Ativan) 0.5 MG tablet every 8 (eight) hours. 2 Active methocarbamol (Robaxin) 500 MG tablet every 8 (eight) hours. Active tamsulosin (Flomax) 0.4 MG 24 hr capsule Take 1 capsule by mouth 1 (one) time each day. Active tiZANidine (Zanaflex) 4 MG tablet 1 Active traMADol (Ultram) 50 MG tablet 1 tab(s) 2 Active HYDROcodone-erum taminophen ([place]) 5-325 MG tablet Active nitroglycerin (Nitrostat) 0.4 MG SL tablet DISSOLVE ONE TABLET UNDER THE TONGUE EVERY 5 MINUTES NEEDED FOR CHEST PAIN. DO NOT EXCEED A TOTAL OF 3 DOSES IN 15 MINUTES 1 Active albuterol (2.5 MG/3ML) 0.083% nebulizer solution INHALE THE CONTENTS OF 1 VIAL VIA NEBULIZER THREE TIMES DAILY 1 Active diazePAM (Valium) 5 MG tablet TAKE ONE TABLET BY MOUTH 1 hour BEFORE procedure. DO not drive, must have a driver service technician present FOR procedure. MAY CAUSE DROWSINESS 2 Active Active Problems No known active problems Social History Tobacco Use Types Packs/Day Years Used Date Smoking Tobacco: Every Day Cigarettes Smokeless Tobacco: Never Tobacco Cessation:Ready to Q uit: Not Asked; Counseling Given: Not Answered Sex and Gender Information Value Date Recorded Sex Assigned at Not on file Legal Sex Male 11:32 AM EDT Gender Identity Not on file Sexual Orientation Not on file Last Filed Vital Signs Vital Sign Reading Time Taken Comments Blood Pressure 150/68 08/11/2022 11:09 AM EDT Pulse 51 08/11/2022 11:09 AM EDT Temperature 36.3 C (97.3 F) 08/11/2022 10:42 AM EDT Respiratory Rate 18 08/11/2022 11:09 AM EDT Oxygen Saturation 98% 08/11/2022 11:09 AM EDT Inhaled Oxygen Concentration - - Weight 96.2 kg (212 lb) 07/01/2022 10:11 AM EDT Height 188 cm (6' 2 ) 07/01/2022 10:11 AM EDT Body Mass Index 27.22 07/01/2022 10:11 AM EDT Plan of Treatment Health Maintenance Due Date Last Done Comments [facility]-Depression Screening 1945 [facility] Annual Wellness (AWV) 1945 [facility]-Infant/Child/Adol SDOH Screenings 1945 [facility]- SDOH Screenings 1961 [facility]-Adult SDOH Screenings 1961 [facility]-RSV Vaccine: 60+ Years or (1 - 1-dose 75+ series) 2018 [facility]-Zoster Vaccines (2 of 2) 01/28/2023 12/03/2022 [facility]-OCZVN-21 Vaccine (3 - 2023- season) 2023 02/12/2021, 06/19/2020 [facility]-Influenza Vaccine (#1) 12/11/202412/03, 12/26/2021, 12/18/2020, Additional history exists [facility]-DTaP,Tdap,and Td Vaccines (4 - Td or Tdap) 12/14/2024 12/14/2014, 04/23/2004, 04/12/2004, Additional history exists [facility]-Pneumococcal Vaccine: 50+ Years Completed 12/20/2017, 05/10/2017, 03/14/2007, Additional history exists [facility]-Obesity Intervention Completed 023, 04/20/2022, 04/20/2022, Additional history exists HPV Vaccines Aged Out No longer eligi ble based on patient's age to complete this topic [facility]-HIB Vaccines Aged Out No longer e ligible based on patient's age to complete this topic [facility]-Hepatitis A Vaccines Aged Out No longer eligible based on patient's age to complete this topic [facility]-IPV Vaccines Aged Out No longer e ligible based on patient's age to complete this topic [facility]-Rotavirus Vaccines Aged Out No lo nger eligible based on patient's age to complete this topic Insurance [address] MEDICARE Care Teams Fountain Dispenser Relationship Specialty Start Date End Date Karan Fuller MD [address] [place] [address] PCP - General Internal Medicine 03/13/22
--- OUTSIDE RECORDS SUMMARY | 2024-10-23 10:13 | XMS_ITS | Patient Health Record ---
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86 4.60-6.20 M/mm3 HGB 11.5 14.1-18.0 g/dL HCT 34.9 42.0-52.0 % MCV 90.4 80-94 fl MCH 29.9 27.0-31.2 pg MCHC 33.1 31.8-35.4 g/dL RDW 16.8 11.5-17.5 % PLT 219 142-424 K/mm3 MPV 8.5 7.4-10.4 fl NE% 80.7 37.0-80.0 % LY% 11.3 10-50 % MO% 5.8 1.7-9.3 % EO% 1.7 0.1-12.0 % BA% 0.4 0.1-2.0 % NE# 11.4 1.8-7.8 K/mm3 LY# 1.6 0.7-4.5 K/mm3 MO# 0.8 0.1-1.0 K/mm3 EO# 0.2 0.0-0.4 K/mm3 BA# 0.1 0-0.2 K/mm3 M-Complete Blood Count Auto Diff Reviewed date:05/25/2024 12:43:08 PM Interpretation: Performing Lab: Notes/Report: WBC 12.9 4.8-10.8 K/mm3 RBC 4.88 4.60-6.20 M/mm3 HGB 13.4 14.1-18.0 g/dL HCT 43.4 42.0-52.0 % MCV 88.9 80-94 fl MCH 27.5 27.0-31.2 pg MCHC 30.9 31.8-35.4 g/dL RDW 15.5 11.5-17.5 % PLT 259 142-424 K/mm3 MPV 10.8 7.4-10.4 fl NE% 66.5 37.0-80.0 % LY% 19.4 10-50 % MO% 8.0 1.7-9.3 % EO% 4.7 0.1-12.0 % BA% 1.2 0.1-2.0 % NE# 8.5 1.8-7.8 K/mm3 LY# 2.5 0.7-4.5 K/mm3 MO# 1.0 0.1-1.0 K/mm3 EO# 0.6 0.0-0.4 K/mm3 BA# 0.2 0-0.2 K/mm3 Echocardiogram Reviewed date:02/19/2024 08:50:53 AM Interpretation: Performing Lab: Notes/Report: X ray : Chest Reviewed date:02/17/2024 08:22:54 AM Interpretation: Performing Lab: Notes/Report: CT Scan : Chest, Lung Cancer Screening Reviewed date:07/27/2024 10:49:52 AM Interpretation: Performing Lab: Notes/Report: Rapid Covid/Flu A-B Combo Reviewed date:01/06/2024 02:42:48 PM Interpretation: Performing Lab: Notes/Report: Rapid Covid neg Flu A neg Flu B neg M-Comprehensive Metabolic Pa katlin Reviewed date:05/25/2024 12:43:08 PM Interpretation: Performing Lab: Notes/Report: NA 138 136-145 mmol/L K 4.1 3.5-5.1 mmoL/L CL 101 98-107 mmol/L CO2 31 22.0-30.0 mmol/L GAP 10.1 5-15 mEq/L BUN 25 9-20 mg/dl CREATT 1.20 0.66-1.25 mg/dl GFRAA 70 >60 ML/MIN EGFR 58 >60 ml/min GLU 143 74-100 mg/dl CA 8.5 8.4-10.2 mg/dl BILIT 0.3 0.2-1.3 mg/dl AST 28 17-59 U/L ALT 21 12-78 U/L TP 7.2 6.3-8.2 g/dl ALB 4.1 3.5-5.0 g/dl GLOB 3.1 1.3-3.2 g/dL AGRATIO 1.3 1.1-1.8 ALP 67 38-126 U/L M-Comprehensive Metabolic Pa katlin Reviewed date:02/15/2024 05:07:10 PM Interpretation: Performing Lab: Notes/Report: NA 141 136-145 mmol/L K 4.0 3.5-5.1 mmoL/L CL 103 98-107 mmol/L CO2 31 22.0-30.0 mmol/L GAP 11.0 5-15 mEq/L BUN 12 9-20 mg/dl CREATT 0.80 0.66-1.25 mg/dl GFRAA 112 >60 ML/MIN EGFR 93 >60 ml/min GLU 122 74-100 mg/dl CA 8.3 8.4-10.2 mg/dl BILIT 1.0 0.2-1.3 mg/dl AST 19 17-59 U/L ALT 12 12-78 U/L TP 6.5 6.3-8.2 g/dl ALB 3.5 3.5-5.0 g/dl GLOB 3.0 1.3-3.2 g/dL AGRATIO 1.2 1.1-1.8 ALP 75 38-126 U/L M-Hemoglobin A1C Reviewed date:05/25/2024 12:43:08 PM Interpretation: Performing Lab: Notes/Report: HGBA1C 5.8 4.0-6.0 % < 6% Non-Diabetic Level < 7% Controlled Diabetic Level > 8% Poorly Controlled Diabetic Level M-Uric Acid Reviewed date:05/25/2024 12:43:08 PM Interpretation: Performing Lab: Notes/Report: URIC 3.6 3.5-8.5 mg/dl M-BNP Reviewed date:02/16/2024 10:30:50 AM Interpretation: Performing Lab: Notes/Report: BNPNTP [id number] 0-450 pg/mL M-Lipid Panel Reviewed date:05/25/2024 12:43:08 PM Interpretation: Performing Lab: Notes/Report: Patient Fasting? Y TRIG 73 30-150 mg/dl CHOL 102 140-200 mg/dl DLDL 39.62 100-129 mg/dL VLDL 15 0-40 mg/dL HDL 37 40-60 mg/dl CHLHDL 2.8 1-3.5 M-Thyroid Stimulating Hormon e Reviewed date:05/25/2024 12:43:08 PM Interpretation: Performing Lab: Notes/Report: TSH 3.99 0.465-4.68 uIU/mL M-Thyroid Stimulating Hormon e Reviewed date:02/15/2024 05:07:11 PM Interpretation: Performing Lab: Notes/Report: TSH 3.95 0.465-4.68 uIU/mL CT Scan : Chest, Lung Cancer Screening Reviewed date:03/07/2024 03:11:48 PM Interpretation: Performing Lab: Notes/Report: COMPREHENSIVE METABOLIC PANE L ([id number]) Reviewed date:09/06/2024 09:52:08 AM Interpretation: Performing Lab:CB, [facility] Tfbd[address] [facility] CenterteG[facility], [facility]wat[facility] HospitalVkyqMU[address] Eliseo Kamara Notes/Report: NON-FASTING; NON-FASTING; NON-FASTING; NON-FASTING GLUCOSE 100 65-99 mg/dL Fasting reference interval For someone without known diabetes, a glucose value between 100 and 125 mg/dL is consistent with prediabetes and should be confirmed with a follow-up test. UREA NITROGEN (BUN) 13 7-25 mg/dL CREATININE 0.92 0.70-1.22 mg/dL EGFR 84 > OR = 60 mL/min/1.73m2 BUN/CREATININE RATIO SEE NOTE: 6-22 (calc) Not Reported: BUN and Creatinine are within reference range. SODIUM 138 135-146 mmol/L POTASSIUM 4.3 3.5-5.3 mmol/L CHLORIDE 99 98-110 mmol/L CARBON DIOXIDE 29 20-32 mmol/L CALCIUM 9.1 8.6-10.3 mg/dL PROTEIN, TOTAL 6.9 6.1-8.1 g/dL ALBUMIN 3.7 3.6-5.1 g/dL GLOBULIN 3.2 1.9-3.7 g/dL (calc) ALBUMIN/GLOBULIN RATIO 1.2 1.0-2.5 (calc) BILIRUBIN, TOTAL 0.6 0.2-1.2 mg/dL ALKALINE PHOSPHATASE 75 35-144 U/L AST 15 10-35 U/L ALT 8 9-46 U/L URIC ACID (905) Reviewed date:09/06/2024 09:52:08 AM Interpretation: Performing Lab:DANITZA [address] [employer], Sc[employer] NetworksSyrcGY[address] Eliseo Kamara Notes/Report: NON-FASTING; NON-FASTING; NON-FASTING; NON-FASTING URIC ACID 3.9 4.0-8.0 mg/dL Therapeutic ta rget for gout patients: <6.0 mg/dL CBC (INCLUDES DIFF/PLT) (639 9) Reviewed date:09/06/2024 09:52:08 AM Interpretation: Performing Lab:DANITZA [employer] [address], Scintera NetworksZibsKW[address] Eliseo Kamara Notes/Report: NON-FASTING; NON-FASTING; NON-FASTING; NON-FASTING WHITE BLOOD CELL COUNT 11.8 3.8-10.8 Thousand/ uL RED BLOOD CELL COUNT 4.82 4.20-5.80 Million/uL HEMOGLOBIN 13.4 13.2-17.1 g/dL HEMATOCRIT 43.0 38.5-50.0 % MCV 89.2 80.0-100.0 fL MCH 27.8 27.0-33.0 pg MCHC 31.2 32.0-36.0 g/dL For adults, a slight decrease in the calculated MCHC value (in the range of 30 to 32 g/dL) is most likely not clinically significant; however, it should be interpreted with caution in correlation with other red cell parameters and the patient's clinical condition. RDW 15.4 11.0-15.0 % PLATELET COUNT 244 140-400 Thousand/uL MPV 10.7 7.5-12.5 fL ABSOLUTE NEUTROPHILS 7989 9170-8724 cells/uL ABSOLUTE LYMPHOCYTES 2112 850-3900 cells/uL ABSOLUTE MONOCYTES 909 200-950 cells/uL ABSOLUTE EOSINOPHILS 649 15-500 cells/uL ABSOLUTE BASOPHILS 142 0-200 cells/uL NEUTROPHILS 67.7 LYMPHOCYTES 17.9 MONOCYTES 7.7 EOSINOPHILS 5.5 BASOPHILS 1.2 TSH W/REFLEX TO FT4 (84727) Reviewed date:09/06/2024 09:52:08 AM Interpretation: Performing Lab:CB, [facility] [address], [facility] HospitalRkmsGO[address] Eliseo Kamara Notes/Report: NON-FASTING; NON-FASTING; NON-FASTING; NON-FASTING TSH W/REFLEX TO FT4 4.48 0.40-4.50 mIU/L Reason For Referral Reason CT lung cancer scree krystyna GEORGE Diagnosis 1 Tobacco use (Z72.0) Referral Organization [facility] Referring Provider First Name Shauna Referring Provider Last Name Veronica Referring Provider Speciality [facility] ctice Referral Priority Routine Referral Appointment Date 02/24/[address] lung cancer scree krystyna Diagnosis 1 Tobacco dependence ( F17.200) Referral Organization [facility] Referring Provider First Name Shauna Referring Provider Last Name Veronica [facility]erred Organization [facility] Referred Address [address] [facility] [address] [place], [place],[address],[place] Referred Provider Specialty Diagnostic R adiology General Notes Nayana Michel 2024 11:52:11 AM >Pl[facility] referral to [facility]- they will call patient to schedule- no precert needed Referral Priority Routine Referral Appointment Date 08/11/[address] lung cancer scree krystyna ordered at previous appointment Diagnosis 1 COPD exacerbation (J 44.1) Referral Organization [facility] Referring Provider First Name Shauna Referring Provider Last Name Veronica Referring Provider Speciality [facility] ctice Referred Organization [facility] Referred Address [address] [place], [place],[address],[place] Referred Provider Specialty Diagnostic R adiology General Notes Nayana Michel 2024 03:00:40 PM >sent Referral Priority Routine Referral Appointment Date 08/11/2024 Medications Medication SIG (Take, Route, Frequency, Duration) Notes Start Date End Date Status Furosemide 40 mg TAKE ONE TABLET BY M OUTH EVERY DAY; Duration: 30 Active Xarelto 20 MG 1 tablet with food O rally Once a day Active hydrOXYzine Pamoate 25 MG 1 capsule at b edtime as needed for itching Orally Once a day; Duration: 30 days 09/05/2024 Active NIFEDIPINE (EQV-PROCARDIA XL) 30 MG 1 TAB(S) ORALLY ONCE A DAY; Duration: 30 DAYS 02/15/2024 Active Clopidogrel Bisulfate 75 MG TAKE 1 TABLE T EVERY DAY; Duration: 90 Active Pantoprazole Sodium 40 MG 1 tab(s) orall y twice a day; Duration: 30 days Active Nitroglycerin 0.4 MG 1 tab(s) sublingual ly daily; Duration: 30 days Active Carvedilol 25 MG TAKE 1 TABLET TWICE DAILY; Duration: 90 Active Farxiga 10 MG TAKE 1 TABLET EVERY DAY; Duration: 90 Active Allopurinol 300 MG TAKE 1 TABLET EVERY DAY; Duration: 90 Active Synthroid 50 MCG TAKE 1 TABLET EVERY DAY. orally once a day; Duration: 90 days Active Trelegy Ellipta 100-62.5-25 MCG/ACT 1 puff Inhalation Once a day 10/18/2024 Active Losartan Potassium 100 MG 1 tablet Orall y Once a day; Duration: 30 days 10/18/2024 Active Lipitor 20 MG 1 tab(s) orally once a day; Duration: 90 days Active LORazepam 0.5 mg TAKE ONE TABLET BY M OUTH THREE TIMES DAILY; Duration: 30 08/25/2024 Active Amiodarone HCl 400 MG 1 tablet Orally 3 times a day Active Immunizations Vaccine Route Administration Date Status Comme nts Prevnar PCV-13 (Pneumococcal conjugate 13) IM Intramuscular 06/21/2014 Administered Prevnar PCV-13 (Pneumococcal conjugate 13) Unknown 12/20/2017 Administered Pneumovax 23 IM Intramuscular 05/10/2017 Administered Influenza-Fluzone 3+years (NON-MEDICARE) IM Intramuscular 01/23/2015 Administered Influenza-Fluzone 3+years (NON-MEDICARE) Unknown 12/20/2017 Administered Fluzone High Dose IM Intramuscular 01/24/2019 Administered Fluvirin (MEDICARE ONLY) IM Intramuscular 12/12/2015 Administered Given by [facility] Lot # [id number] Exp 07/01/16 Arexvy IM Intramuscular 05/25/2024 Administered Adacel (Tdap) IM Intramuscular 05/24/2015 Administered Social History Tobacco Use: Social History Observation Description Date Details (start date - stop date) Current Smoker NA - NA Smoking: Question Answer Notes Are you a: current smoker How often do you smoke cigarettes? every day How many cigarettes a day do you smoke? 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) Active confirmed Problem Information temporarily unavailable Polyneuropathy, unspecified (G62.9) Active confirmed Problem Information temporarily unavailable Other chronic pain (G89.29) Active confirmed Problem Information temporarily unavailable Other secondary cataract, bilateral (H26.493) Active confirmed Problem Information temporarily unavailable Chronic ischemic heart disease, 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) Active confirmed Problem Information temporarily unavailable Paroxysmal atrial fibrillation (I48.0) Active confirmed Problem Information temporarily unavailable Orthostatic hypotension (I95.1) Active confirmed Problem Information temporarily unavailable Chronic rhinitis (J31.0) Active confirmed Problem Information temporarily unavailable Centrilobular emphysema (J43.2) Active confirmed Problem Information temporarily unavailable Tobacco use disorder (Z72.0) Active confirmed Problem Information temporarily unavailable Hyperglycemia (R73.9) Active confirmed Problem Information temporarily unavailable Essential hypertension (I10) Active confirmed Problem Information temporarily unavailable Hyperlipemia, idiopathic familial (E78.5) Active confirmed Problem Information temporarily unavailable Mild cognitive impairment (G31.84) Active confirmed Problem Information temporarily unavailable Diverticulitis (K57.92) Active confirmed Problem Information temporarily unavailable COPD exacerbation (J44.1) Active confirmed Problem Information temporarily unavailable BMI 33.0-33.9,adult (Z68.33) Active confirmed Problem Information temporarily unavailable Other chronic pain (G89.29) Active confirmed Problem Information temporarily unavailable Heart failure (I50.9) Active confirmed Problem Information temporarily unavailable Type 2 diabetes mellitus without complication (E11.9) Active confirmed Problem Information temporarily unavailable Coronary artery disease involving [place] coronary artery of [place] heart without angina pectoris (I25.10) Active confirmed Problem Information temporarily unavailable Frequent falls (R29.6) Active confirmed Problem Information temporarily unavailable BMI 36.0-36.9,adult (Z68.36) Active confirmed Problem Information temporarily unavailable Sigmoid diverticulitis (K57.32) Active confirmed Problem Information temporarily unavailable Gouty arthritis (M10.9) Active confirmed Problem Information temporarily unavailable Pulmonary nodule (R91.1) Active confirmed Problem Information temporarily unavailable Hypothyroidism, unspecified type (E03.9) Active confirmed Problem Information temporarily unavailable Chronic anticoagulation (Z79.01) Active confirmed Problem Information temporarily unavailable Intermittent claudication (I73.9) Active confirmed Problem Information temporarily unavailable Peripheral neuropathic pain (G62.9) Active confirmed Problem Information temporarily unavailable 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) Active confirmed Problem Information temporarily unavailable Tobacco dependence (F17.200) Active confirmed Problem Information temporarily unavailable Leukocytosis, unspecified (D72.829) Active confirmed Problem Information temporarily unavailable Seasonal allergic rhinitis, unspecified allergic rhinitis trigger (J30.2) Active confirmed Problem Information temporarily unavailable Leukocytosis, unspecified type (D72.829) Active confirmed Problem Information temporarily unavailable Chronic kidney disease (CKD), stage II (mild) (N18.2) Active confirmed Problem Information temporarily unavailable Peripheral polyneuropathy (G62.9) Active confirmed Problem Information temporarily unavailable Tinnitus of left ear (H93.12) Active confirmed Problem Information temporarily unavailable Type 2 diabetes mellitus with diabetic neuropathy, without long-term current use of insulin (E11.40) Active confirmed Problem Information temporarily unavailable Balance problem (R26.89) Active confirmed Problem Information temporarily unavailable Poor balance (R26.89) Active confirmed Problem Information temporarily unavailable Arterial leg ulcer (L97.909) Active confirmed Problem Information temporarily unavailable Lumbago of multiple sites in spine with sciatica (M54.40) Active confirmed Problem Information temporarily unavailable Persistent atrial fibrillation (I48.19) Active confirmed Vital Signs Heart Rate 58 /min 10/18/2024 Temperature 98.2 degrees Fahrenheit 10/18/2024 Oximetry 93 10/18/2024 Blood pressure diastolic 78 mm Hg 10/18/2024 Height 72 in 10/18/2024 Blood pressure systolic 122 mm Hg 10/18/2024 Weight 221 lbs 10/18/2024 BMI 29.97 kg/m2 10/18/2024 Encounters Encounter Location Date Provider Diagnosis [facility] [address] [facility] [address] [place] [address] 07/15/2024 Provider Migration COPD exacerbation J44.1 and Thrush B37.0 [facility] [address] [facility] [address] [place] [address] 01/06/2024 Shaunamikaela Martin Acute cough R05.1 an d Bronchitis J40 [facility] [address] [facility] [address] [place], [place] [address] 01/18/2024 Yarely Wilsonowell Bilateral acute sero us otitis media, recurrence not specified H65.03 and Pre-syncope R55 [facility] [address] [place] [address] 02/01/2024 Shauna Veronica Bronchitis J40 and L eg edema R60.0 [facility] [address] [place], [place] [address] 02/15/2024 Shaunamikaela Martin Shortness of breath R06.02 ; Pneumonia of both lower lobes due to infectious organism J18.9 ; Tobacco use Z72.0 ; Dizziness R42 ; Fatigue, unspecified type R53.83 ; Essential hypertension I10 ; Persistent cough R05.3 and Pleural effusion J90 [facility] [address] [place], [place] [address] 03/21/2024 Shauna Martin Foreign body of left ear, initial encounter T16.2XXA [facility] [address] [facility] [address] [place], [place] [address] 05/25/2024 Shauna Martin Coronary artery dise ase involving [place] coronary artery of [place] heart without angina pectoris I25.10 ; Encounter for annual wellness exam in Medicare patient Z00.00 ; Tobacco dependence F17.200 ; Peripheral neuropathic pain G62.9 ; Hypothyroidism, unspecified type E03.9 ; Generalized anxiety disorder F41.1 ; Type 2 diabetes mellitus with other diabetic kidney complication E11.29 ; Essential hypertension I10 ; Chronic kidney disease (CKD), stage II (mild) N18.2 ; Encounter for immunization Z23 ; BMI 29.0-29.9,adult Z68.29 ; Pulmonary nodule R91.1 and Paroxysmal atrial fibrillation I48.0 [facility] [address] [place] [address] 07/13/2024 Shauna McNees COPD exacerbation J4 4.1 and Thrush B37.0 [facility] [address] [facility] [address] [place] [address] 07/27/2024 Shauna McNees Diverticulitis K57.9 2 [facility] [address] [facility] [address] [place] [address] 09/05/2024 Yarely Lara Hypothyroidism, unspecified type E03.9 ; Urticaria L50.9 ; Chronic kidney disease (CKD), stage II (mild) N18.2 and History of gout Z87.39 [facility] [address] [place] [address] 10/18/2024 Yarely Lara Cough, persistent R0 5.3 ; Tarry stool K92.1 ; Chronic anticoagulation Z79.01 ; Persistent atrial fibrillation I48.19 ; Tobacco dependence F17.200 and Centrilobular emphysema J43.2 [facility] [address] [facility] [address] [place] [address] 12/20/2023 Karan Besson [facility] [address] [place] [address] 12/22/2023 Karan Besson [facility] [address] [facility] [address] [place] [address] 01/11/2024 Shauna McNees [facility] [address] [facility] [address] [place] [address] 02/16/2024 Shauna McNees Essential hypertensi on I10 ; Persistent cough R05.3 ; Shortness of breath R06.02 and Pneumonia of both lower lobes due to infectious organism J18.9 [facility] [address] [facility] [address] [place] [address] 02/16/2024 Shauna McNees [facility] [address] [place] [address] 02/16/2024 Shanua McNees Heart failure I50.9 [facility] [address] [place] [address] 03/28/2024 Shauna McNees [facility] [address] [place] [address] 04/20/2024 Shauna McNees Type 2 diabetes mellitus without complication E11.9 ; Hyperlipemia, idiopathic familial E78.5 ; Hypothyroidism, unspecified type E03.9 ; Coronary artery disease involving [place] coronary artery of [place] heart without angina pectoris I25.10 and Gouty arthritis M10.9 [facility] [address] [place] [address] 05/25/2024 Shauna McNees [facility] [address] [place] [address] 05/26/2024 Shauna McNees [facility] [address] [place] [address] 05/26/2024 Karan Besson [facility] [address] [place] [address] 05/26/2024 Shauna McNees [facility] [address] [facility] [address] [place] [address] 06/16/2024 Shauna McNees [facility] [address] [place] [address] 06/19/2024 Shauna McNees [facility] [address] [place] [address] 07/13/2024 Shauna McNees Assessments Encounter Date Diagnosis (ICD Code) Assessment Notes Treatment Notes Treatment Clinical Notes Section Notes 01/06/2024 Bronchitis (ICD-10 - J40) Discussed the etiology and expected course of bronchitis. Discussed the rationale for antibiotics and steroid use and the importance of completing the prescription as prescribed. Discussed supportive care. Discussed the signs and symptoms of worsening infection/respira tory distress that may indicate need for reassement in clinic/ED. 01/06/2024 Acute cough (ICD-10 - R05.1) 01/18/2024 Bilateral acute serous otitis media, recurrence not specified (ICD-10 - H65.03) No active infection. Flonase bid x 7 days then once daily, continue antihistamine. Follow-up if develops fever, pain, hearing loss, worsening symptoms, or no improvement in a week. 01/18/2024 Pre-syncope (ICD-10 - R55) HR is low in 50's today, discussed to cut his BB dose down from tid to bid. Keep cardiology follow-up. Patient discussed with Attending Dr. Fuller who agrees with the plan of care above. 02/01/2024 Bronchitis (ICD-10 - J40) Likely has some degree of lung disease given his ongoing tobacco use. Start abx, steroids. Discussed supportive care and return precautions. 02/01/2024 Leg edema (ICD-10 - R60.0) Likely r/t CCB. Stop amlodipine, lasix x 3 days. RTC in 2 weeks for b/p check 02/15/2024 Shortness of breath (ICD-10 - R06.02) 02/15/2024 Pneumonia of both lower lobes due to infectious organism (ICD-10 - J18.9) CXR- small bilateral pleural effusions with hazy bibasilar densities concerning for inflammation, verses infection, or even possibly early pulmonary edema changes. Given his symptoms, elevated WBC (which could be secondary to recent steroids) will treat with abx, triple therapy inhaler and supportive care. Past due for CT of chest, concern for additional pathology including malignancy given his ongoing tobacco use. BNP added to labs. Otherwise labs unremarkable, dizziness likely related to vertigo and HTN. CCB added for HTN. RTC in 1 week 02/16/2024 Essential hypertension (ICD-10 - I10) 02/16/2024 Heart failure (ICD-10 - I50.9) 03/21/2024 Foreign body of left ear, initial encounter (ICD-10 - T16.2XXA) Multiple attempts to remove foreign body unsuccessful. Patient tolerated well. Called ENT provider who agreed to see patient immediately for removal. Sent from clinic to ENT office 04/20/2024 Type 2 diabetes mellitus without complication (ICD-10 - E11.9) 05/25/2024 Coronary artery disease involving [place] coronary artery of [place] heart without angina pectoris (ICD-10 - I25.10) No acute angina. Meds as above. Maximize glucose, LDL and blood pressure control. Stop smoking 05/25/2024 Encounter for annual wellness exam in Medicare patient (ICD-10 - Z00.00) Given patient''s advanced age is not a candidate for typical healthcare screening such as colonoscopy. No recent falls. Up-to-date with vaccinations. Routine labs from the past week reviewed 07/13/2024 COPD exacerbation (ICD-10 - J44.1) Discussed the etiology and expected course of COPD exacerbation. Discussed the rationale for avoiding antibiotics use as likely viral infection. CT lung cancer screening ordered in May, not obtained. Reordered today. Call office if have not heard about this appointment in 1 weeks. Discussed supportive care. Discussed the signs and symptoms of worsening infection that may indicate need for reassessment in clinic/ED. 07/13/2024 Thrush (ICD-10 - B37.0) Rinse mouth well after inhaler use. Nystatin as above 07/15/2024 COPD exacerbation (ICD-10 - J44.1) 07/15/2024 Thrush (ICD-10 - B37.0) 07/27/2024 Diverticulitis (ICD-10 - K57.92) Counseled on etiology and typical time course of diverticulitis. Initiate antibiotics as prescribed above. Recommended soft diet, high in fiber, adequate hydration. Avoid foods such as popcorn, nuts, corn as these can be inciting foods worsening symptoms. Counseled to follow-up if symptoms not improving in 2 to 3 days, develop fever, worsening abdominal pain, or nausea and vomiting. 09/05/2024 Hypothyroidism, unspecified type (ICD-10 - E03.9) r 09/05/2024 Urticaria (ICD-10 - L50.9) discussed possible [place] side effects with hydroxyzine...u se at HS only as needed, continue to try hydrating the skin well. _update labs to r/o underlying metabolic issues that may be contributing r 10/18/2024 Tarry stool (ICD-10 - K92.1) Increase PPI to BID, encouraged to reschedule his cardiology FU which was supposed to be yesterday. Labs as noted. 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 CSA utd and on chart. Darren report reviewed and is appropriate - discussed ongoing use of controlled medication and safety associated with these medications 09/05/2024 History of gout (ICD-10 - Z87.39) r 05/25/2024 Hypothyroidism, unspecified type (ICD-10 - E03.9) TSH WNL, continue synthroid 10/18/2024 Tobacco dependence (ICD-10 - F17.200) encouraged cessation 02/16/2024 Pneumonia of both lower lobes due to infectious organism (ICD-10 - J18.9) 04/20/2024 Coronary artery disease involving [place] coronary artery of [place] heart without angina pectoris (ICD-10 - I25.10) 02/15/2024 Fatigue, unspecified type (ICD-10 - R53.83) 02/15/2024 Essential hypertension (ICD-10 - I10) 04/20/2024 Gouty arthritis (ICD-10 - M10.9) 05/25/2024 Generalized anxiety disorder (ICD-10 - F41.1) Stable at baseline. No changes made. 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 No signs of excessive bleeding on eliquis Plan Of Treatment Pending Test Test Name Order Date Echocardiogram 11/06/2016 Physical Therapy 03/17/2019 Physical Therapy 03/23/2019 CT Scan : Chest, With & Without Contrast 12/08/2022 Ankle/Brachial Index--Segmental BPs 12/11 CT Scan : Chest with Contrast 12/06/2020 H-CMP 09/04/2016 C-CMP 08/28/2016 C-LIPID PANEL 08/28/2016 C-TSH 08/28/2016 C-PSA 08/28/2016 C-HGBA1C 08/28/2016 CT SCan : LS spine 03/03/2019 M-Complete Blood Count Auto Diff 019 M-Complete Blood Count Auto Diff 025 M-Complete Blood Count Auto Diff 025 M-Occult Blood,Stool 10/18/2024 M-Comprehensive Metabolic Panel 04/20/19 M-Basic Metabolic Panel 10/18/2024 M-BUN & Creatinine 04/13/2023 M-Hemoglobin A1C 04/20/2024 M-Uric Acid 04/20/2024 M-Uric Acid 11/15/2020 M-Lactate Dehydrogenase 11/15/2020 M-Lipid Panel 04/20/2024 M-Thyroid Stimulating Hormone 04/20/2024 M-Peripheral Smear Review 11/15/2020 M-Vitamin B12 08/02/2023 M-Folate 08/02/2023 M-COVID WITH RESPIRATORY PANEL 0 Insurance Providers Payer Name Payer Address Payer Phone Subscriber Number Group Number Insured Name Patient Relationship to Insured Coverage Start Date Coverage End Date [employer] MEDICARE DUAL [address] [address] [place] [phone] [id number] Moise Boswell Self - patient is the insured Medications Administered Medication Instructions Date of Administration Dosage Notes Dexamethasone 4mg Injection 01/06/2024 4 mg Triamcinolone Acetonide 40mg Injection 02/07/2020 1 mL Triamcinolone Acetonide 40mg Injection 05/13/2020 1 mL Triamcinolone Acetonide 40mg Injection 08/22/2020 1 mL Kenalog 10/16/2013 1 Kenalog 03/19/2014 1 Kenalog 06/21/2014 1 Kenalog 10/01/2014 1 mL Kenalog 12/05/2014 1 mL Kenalog 10/11/2015 1 mL Kenalog 04/10/2016 1 mL Medical (General) History Medical History History ICD Code hypertension coronary artery disease PVD s/p right lower extremity angioplast y tobacco use NIDDM GERD C-scope in 2016 at [facility] - normal Normal LDCT 01/29 Surgical History Surgery Date(Month/Year) Open heart surgeryx 2, 5 stents angioplasty right leg rotator cuff surgery, right shoulder carotid endarctectomy Cholecystectomy bilateral eyelids-tucked 03/2015 2 stents 01/2017 cataract surgery-both eyes 02/2017 2 stents placed- left leg 05/26/2017 Stents placed 08/17/23 Hospitalization History Reason Date(Month/Year) above surgeries
[2024-10-23 10:24] LABS: Hematocrit 39.5 % (42.0-52.0); Hemoglobin 12.0 g/dL (14.1-18.0); Immature Granulocytes % 0.4 %; Mean Corpuscular HGB Conc 30.4 g/dL (31.8-35.4); Mean Corpuscular Hemoglobin 28.2 pg (27.0-31.2); Mean Corpuscular Volume 92.7 fl (80-94); Nucleated Red Blood Cells % 0 %; Platelet Count 200 K/mm3 (142-424); Red Blood Count 4.26 M/mm3 (4.60-6.20); Red Cell Distribution Width-SD 56.1 fL; White Blood Count 10.1 K/mm3 (4.8-10.8)
[2024-10-23 11:02] LABS: Occult Blood,Stool Negative (Negative)
[2024-10-23 11:17] LABS: Anion Gap 15.2 mEq/L (5-15); Blood Urea Nitrogen 13 mg/dl (9-20); Calcium 9.2 mg/dl (8.4-10.2); Carbon Dioxide 31 mmol/L (22.0-30.0); Chloride 94 mmol/L (98-107); Creatinine,Serum 1.40 mg/dl (0.66-1.25); Estimated Glomerular Filt Rate 49 ml/min (>60); GFR (African American) 59 ML/MIN (>60); Glucose 135 mg/dl (74-100); Potassium 4.2 mmoL/L (3.5-5.1); Sodium 136 mmol/L (136-145)
== END 2024-10-23 23:59 | disposition home or self-care (01) ==
LOC: LAB 10:07
PROVIDERS: PCP Internal Medicine Adolescent Medicine; Visit Provider Nurse Practitioner Family
DX: K92.1 Melena (principal)
CPT/HCPCS: 36415; 80048; 82272; 85025; G0328

== ENCOUNTER 2024-11-14 14:38 | Outpatient (CLI) | payer MEDICARE, MEDICAID, SELFPAY ==
--- OUTSIDE RECORDS SUMMARY | 2015-03-18 08:37 | XMS_ITS | Continuity of Care Document ---
Author Name [facility] Organization [facility] Care Team Providers Care Component Assembler Name Role Phone [facility] Unavailable Unavailable Problems Combined list of problems from Department of Defense and [facility] Affairs facilities. It does not include entries that were removed or entered in error. Problem Status Onset Date Problem Type Date of Resolution Comments Source Chronic obstructive lung disease Active Condition [facility] COR ATHEROSCL NATV C VSL Active Condition [facility] Coronary artery disease Active Condition [facility] ESOPHAGEAL REFLUX Active [facility] Hyperlipidemia [facility] [place] [facility] HYPERTENSION NOS Active [facility] [facility] Osteoarthritis * (ICD-9-CM 715.90) Active [place] Pain in joint involving shoulder region (ICD-9-CM 719.41) [facility] Simple obesity Active [place] [facility] Tobacco Use * (ICD-9-CM 305.1) Active [place] [facility] ANXIETY STATE NOS Inactive Condition 10/10/2008 [facility] ASTHMA UNSPEC W/O STATUS ASTH Inactive Condition 10/10/2008 [facility] Atrial Fibrillation * (ICD-9-CM 427.31) Inactive Condition 10/10/2008 [place] [facility] Benign prostatic hypertrophy without outflow obstruction Inactive Condition 10[facility]10/[facility] CHEST PAIN NEC Inactive Condition 10/10/2008 [facility] CHRONIC SINUSITIS NOS Inactive Condition 10/10/2008 [facility] DEPRESSIVE DISORDER NEC Inactive Condition [facility]10[facility] Inactive Condition 10/10/2008 [facility] Encounter for Therapeutic Drug Monitoring (ICD-9-CM V58.83) Inactive Condition 10/10/2008 [place] [facility] Flight Technician (current) use of Anticoagulants (ICD-9-CM V58.61) Inactive Condition 10/10/2008 [place] [facility] PROPHY VACC. STREP PNEU Inactive Condition 11/13/2008 [place] Medications Combined list of outpatient medications [...] ACTIVE TONO,ME BEKAH E 2006 [place] [facility] ATORVASTATI N [place] 40MG TAB TAKE ONE-HALF TABLET BY MOUTH DAILY ORAL ACTIVE SANDERS,NITHYA EK R 2014 [place] [facility] CARVEDILOL TAB TAKE BY MOUTH ORAL ACTIVE SANDERS,NITHYA EK R 2014 [place] [facility] CHLORTHALID ONE 25MG TAB TAKE ONE TABLET BY MOUTH DAILY ORAL ACTIVE SANDERS,NITHYA EK R 2014 [place] [facility] CLOPIDOGREL BISULFATE 75MG TAB TAKE ONE TABLET BY MOUTH DAILY ORAL ACTIVE SANDERS,NITHYA EK R 2014 [place] [facility] INDOMETHACI N CAP,ORAL TAKE BY MOUTH ORAL ACTIVE SANDERS,NITHYA EK R 2014 [place] [facility] [place]ARTAN POTASSIUM 100MG TAB TAKE ONE TABLET BY MOUTH DAILY ORAL ACTIVE SANDERS,NITHYA EK R 2014 [place] [facility] MELOXICAM 15MG TAB TAKE ONE TABLET BY MOUTH DAILY ORAL ACTIVE SANDERS,NITHYA EK R 2014 [place] [facility] TAMSULOSIN HCL 0.4MG CAP TAKE 1 CAPSULE BY MOUTH EVERY EVENING ORAL ACTIVE SANDERS,NITHYA EK R 2014 [place] [facility] Allergies, Adverse Reactions, Alerts Combined list of allergies from Department of Defense and Veterans Affairs facilities. It does not include entries that were removed or entered in error. Substance Category Reaction Severity Reaction type Status Date Reported Comments Source CHLORPHENIRA MINE Propensity to adverse reactions to drug (finding) NAUSEA,VOMI TING active 5 [place] [facility] CODEINE Propensity to adverse reactions to drug (finding) Hallucinati ons active 7 [place] [facility] PENICILLIN Propensity to adverse reactions to drug (finding) active 1 [place] [facility] ROSUVASTATIN Propensity to adverse reactions to drug (finding) Diarrhea, Nightmares active 1 [place] [facility] Immunizations Combined list of available immunizations from the Department of Defense and Veterans Affairs facilities. Immunization Series Date Given Administered By Site Reaction Lot Number CVX Code Drug Welfare Administrator Status Comments Source TD(ADULT) UNSPECIFIED FORMULATION 2014 139 complet ed [place] [facility] INFLUENZA A & B (HISTORICAL) 2014 88 complet ed [place] [facility] INFLUENZA A & B (HISTORICAL) 2012 88 complet ed [place] [facility] INFLUENZA A & B (HISTORICAL) 2011 88 complet ed [place] [facility] [place] INFLUENZA A & B (HISTORICAL) 2010 88 complet ed [place] [facility] [place] INFLUENZA A & B (HISTORICAL) 2010 88 complet ed [place] [facility] INFLUENZA A & B (HISTORICAL) 2009 88 complet ed [place] [facility] INFLUEN[facility]-H1N 1-09, ALL FORMULATIONS 2009 128 complet ed [employer] [place] [facility] FLU,3 YRS (HISTORICAL) 2008 88 complet ed [place] [facility] INFLUENZA A & B (HISTORICAL) 2007 88 complet ed [place] PNEUMOCOCCAL, UNSPECIFIED FORMULATION 2006 CARINA LÓPEZ 109 complet ed [place] [facility] FLU,3 YRS (HISTORICAL) 2006 88 complet ed [place] [facility] INFLUENZA A & B (HISTORICAL) 2005 88 complet ed [place] [facility] INFLUENZA A & B (HISTORICAL) 2004 88 complet ed UP TO DATE FOR 2004- [place] [facility] [place] PNEUMOCOCCAL, UNSPECIFIED FORMULATION 2004 109 complet ed UP TO DATE [facility] INFLUENZA A & B (HISTORICAL) 2004 NONE 88 complet ed [id number] exp 6-05 [place] TD(ADULT) UNSPECIFIED FORMULATION 2004 NONE 139 complet ed Completed Series, [id number] exp 10-06 [place] TD(ADULT) UNSPECIFIED FORMULATION 2004 139 complet ed [place] [facility] [place] TDAP (HISTORICAL) 2004 115 complet ed [place] [facility] INFLUENZA, UNSPECIFIED FORMULATION 2002 NONE 88 complet ed Completed Series, yrly [place] PNEUMOCOCCAL, UNSPECIFIED FORMULATION 1996 ADRIANNE SAINI 109 complet ed [place] Social History Combined list of available smoking, tobacco, and other social history from Department of Defense and [facility] Affairs facilities. Social History Type Response Date Comment Source Tobacco smoking status MDIS V9 CURRENT TOBACCO USER 12/14/2014 [facility] History of tobacco use V9 TOBACCO OFFERED 12/14/2014 [facility] History of tobacco use V9 CURRENT TOBACCO USER 12/14/2013 [facility] History of tobacco use V9 CURRENT TOBACCO USER 12/05/2012 [facility] History of tobacco use V9 CURRENT TOBACCO USER 12/04/2011 [facility] History of tobacco use V9 CURRENT TOBACCO USER 11/25/2010 [facility] History of tobacco use V9 CURRENT TOBACCO USER 05/19/2010 [facility] History of tobacco use V9 CURRENT TOBACCO USER 11/04/2009 [facility] History of tobacco use V9 CURRENT TOBACCO USER 04/18/2009 [facility] History of tobacco use V9 CURRENT TOBACCO USER 11/13/2008 [facility] History of tobacco use V9 CURRENT TOBACCO USER 03/19/2008 [facility] History of tobacco use V9 CURRENT TOBACCO USER 10/31/2007 [facility] History of tobacco use V9 CURRENT TOBACCO USER 11/09/2006 [facility] History of tobacco use V9 CURRENT TOBACCO USER 03/26/2006 [facility] History of tobacco use HF V9 CURRENT SMOKER 10/05/2005 2ppd [facility] History of tobacco use HF V9 SECOND TOBACCO FLIGHT DIRECTOR 03/20/2005 SMOKES UP TO 1 PPD [facility] History of tobacco use HF V9 CURRENT SMOKER 04/23/2004 1.5ppd [facility] History of tobacco use HF V9 SECOND TOBACCO FLIGHT DIRECTOR 05/24/2003 1 pack a day [facility] History of tobacco use HF V9 CURRENT SMOKER 01/19/2003 1ppd [facility] History of tobacco use HF V9 THIRD TOBACCO FLIGHT DIRECTOR 02/08/2002 1 pack a day [facility] History of tobacco use HF V9 SECOND TOBACCO FLIGHT DIRECTOR 06/16/2001 less than a pack a day [facility] History of tobacco use HF V9 CURRENT SMOKER 05/16/2001 using patch and still smokes occasionally [facility]
--- OUTSIDE RECORDS SUMMARY | 2024-11-14 14:41 | XMS_ITS | Clinical Summary ---
Author Organization [facility] Address [address] [place] [address] Care Team Providers Care Operational Intelligence Officer Name Role Phone Karan Fuller MD Primary Care Provider [phone] Allergies Active Allergy Reactions Criticality Noted Date [...] tablet 1 tab(s) 2 Active HYDROcodone-erum taminophen ([place]) 5-325 MG tablet Active nitroglycerin (Nitrostat) 0.4 [...] procedure. DO not drive, must have a dairy truck driver present FOR procedure. MAY CAUSE DROWSINESS 2 [...] Date Last Done Comments [facility]-Depression Screening 1945 [facility]-Medicare Annual Wellness (AWV) 1945 [facility]-Infant/Child/Adol SDOH Screenings 1945 [facility]- SDOH Screenings 1961 [facility]-Adult SDOH Screenings 1961 [facility]-RSV Vaccine: 60+ Years or (1 - 1-dose 75+ series) 2018 [facility]-Zoster Vaccines (2 of 2) 01/28/2023 12/03/2022 [id number] Vaccine (3 - 2023- season) 2023 02/12/2021, [...] age to complete this topic Insurance [id number] MEDICARE Care Teams Operational Intelligence Officer Relationship Specialty Start Date End Date Karan Fuller MD [address] [place] [id number] PCP - General Internal Medicine 03/13/22
== END 2024-11-14 23:59 | disposition home or self-care (01) ==
LOC: RT 14:39
PROVIDERS: PCP Internal Medicine Adolescent Medicine; Visit Provider Physician Assistant
DX: I49.8 Other specified cardiac arrhythmias (principal); I49.5 Sick sinus syndrome; I50.20 Unspecified systolic (congestive) heart failure; R94.31 Abnormal electrocardiogram [ECG] [EKG]
CPT/HCPCS: 93225; 93227

== ENCOUNTER 2024-11-17 14:01 | Outpatient (CLI) | payer MEDICARE, MEDICAID, SELFPAY ==
--- OUTSIDE RECORDS SUMMARY | 2015-03-18 08:37 | XMS_ITS | Continuity of Care Document ---
Author Name [facility] Organization [facility] Care Team Providers Care Office Clin Asst Name Role Phone [facility] Unavailable Unavailable Problems Combined list of problems from Department of Defense and [facility] Affairs facilities. It does not include entries that were removed or entered in error. Problem Status Onset Date Problem Type Date of Resolution Comments Source Chronic obstructive lung disease Active Condition [facility] COR ATHEROSCL NATV C VSL Active Condition [facility] Coronary artery disease Active Condition [facility] ESOPHAGEAL REFLUX Active Condition [facility] Hyperlipidemia Active Condition [place] [facility] HYPERTENSION NOS Active Condition [facility] Osteoarthritis * (ICD-9-CM 715.90) Active Condition [place] Pain in joint involving shoulder region (ICD-9-CM 719.41) Active Condition [facility] Simple obesity Active Condition [place] [facility] Tobacco Use * (ICD-9-CM 305.1) Active Condition [place] [facility] ANXIETY STATE NOS Inactive Condition 10/10/2008 [facility] ASTHMA UNSPEC W/O STATUS ASTH Inactive Condition 10/10/2008 [facility] Atrial Fibrillation * (ICD-9-CM 427.31) Inactive Condition 10/10/2008 [place] [facility] Benign prostatic hypertrophy without outflow obstruction Inactive Condition 10/10/2008 [facility] CHEST PAIN NEC Inactive Condition 10/10/2008 [facility] CHRONIC SINUSITIS NOS Inactive Condition 10/10/2008 [facility] DEPRESSIVE DISORDER NEC Inactive Condition 10/10/2008 [facility] DERMATITIS NOS Inactive Condition 10/10/2008 [facility] Encounter for Therapeutic Drug Monitoring (ICD-9-CM V58.83) Inactive Condition 10/10/2008 [place] [facility] Hearing Therapist (current) use of Anticoagulants (ICD-9-CM V58.61) Inactive Condition 10/10/2008 [place] [facility] PROPHY VACC. STREP PNEU Inactive Condition 11/13/2008 [place] Medications Combined list of outpatient medications [...] ACTIVE TONO,ME BEKAH E 2006 [place] [facility] ATORVASTATI N CA 40MG TAB TAKE ONE-HALF TABLET BY MOUTH DAILY ORAL ACTIVE SANDERS,NITHYA EK R 2014 [place] [facility] CARVEDILOL TAB TAKE BY MOUTH ORAL ACTIVE SANDERS,NITHYA EK R 2014 [place] [facility] CHLORTHALID ONE 25MG TAB TAKE ONE TABLET BY MOUTH DAILY ORAL ACTIVE SANDERS,NITHYA EK R 2014 [place] [facility] CLOPIDOGREL BISULFATE 75MG TAB TAKE ONE TABLET BY MOUTH DAILY ORAL ACTIVE SANDERS,NITHYA EK R 2014 [place] [facility] INDOMETHACI N CAP,ORAL TAKE BY MOUTH ORAL ACTIVE SANDERS,NITHYA EK R 2014 [place] [facility] LOSARTAN POTASSIUM 100MG TAB TAKE ONE TABLET BY MOUTH DAILY ORAL ACTIVE SANDERS,NITHYA EK R 2014 [place] [facility] MELOXICAM 15MG TAB TAKE ONE TABLET BY MOUTH DAILY ORAL ACTIVE SANDERS,NITHYA EK R 2014 [place] [facility] TAMSULOSIN HCL 0.4MG CAP TAKE 1 CAPSULE BY MOUTH EVERY EVENING ORAL ACTIVE SANDERS,NITHYA EK R 2014 [place] [facility] Allergies, Adverse Reactions, Alerts Combined list of allergies from Department of Defense and Veterans Affairs facilities. It does not include entries that were removed or entered in error. Substance Category Reaction Severity Reaction type Status Date Reported Comments Source CHLORPHENIRA MINE Propensity to adverse reactions to drug (finding) NAUSEA,VOMI TING active 5 [place] [facility] CODEINE Propensity to adverse reactions to drug (finding) Hallucinati ons active 7 [place] [facility] PENICILLIN Propensity to adverse reactions to drug (finding) active 1 [place] [facility] ROSUVASTATIN Propensity to adverse reactions to drug (finding) Diarrhea, Nightmares active 1 [place] [facility] Immunizations Combined list of available immunizations from the Department of Defense and Veterans Affairs facilities. Immunization Series Date Given Administered By Site Reaction Lot Number CVX Code Drug Intramural Director Status Comments Source TD(ADULT) UNSPECIFIED FORMULATION 2014 139 complet ed [place] [facility] INFLUENZA A & B (HISTORICAL) 2014 88 complet ed [place] [facility] INFLUENZA A & B (HISTORICAL) 2012 88 complet ed [place] [facility] INFLUENZA A & B (HISTORICAL) 2011 88 complet ed [place] [facility] INFLUENZA A & B (HISTORICAL) 2010 88 complet ed [place] [facility] INFLUENZA A & B (HISTORICAL) 2010 88 complet ed [place] [facility] INFLUENZA A & B (HISTORICAL) 2009 88 complet ed [place] [facility] N[facility]EL INFLUENZA-H1N 1-09, ALL FORMULATIONS 2009 128 complet ed [employer] [place] [facility] FLU,3 YRS (HISTORICAL) 2008 88 complet ed [place] [facility] INFLUENZA A & B (HISTORICAL) 2007 88 complet ed [place] PNEUMOCOCCAL, UNSPECIFIED FORMULATION 2006 CARINA LÓPEZ 109 complet ed [place] [facility] FLU,3 YRS (HISTORICAL) 2006 88 complet ed [place] [facility] INFLUENZA A & B (HISTORICAL) 2005 88 complet ed [place] [facility] INFLUENZA A & B (HISTORICAL) 2004 88 complet ed UP TO DATE FOR 2004- [facility] [facility] PNEUMOCOCCAL, UNSPECIFIED FORMULATION 2004 109 complet ed UP TO DATE [facility] INFLUENZA A & B (HISTORICAL) 2004 NONE 88 complet ed [id number] exp 6-05 [place] TD(ADULT) UNSPECIFIED FORMULATION 2004 NONE 139 complet ed Completed Series, [id number] exp 10-06 [place] TD(ADULT) UNSPECIFIED FORMULATION 2004 139 complet ed [place] [facility] TDAP (HISTORICAL) 2004 115 complet ed [place] [facility] INFLUENZA, UNSPECIFIED FORMULATION 2002 NONE 88 complet ed Completed Series, yrly [place] PNEUMOCOCCAL, UNSPECIFIED FORMULATION 1996 ADRIANNE SAINI 109 complet ed [place] Social History Combined list of available smoking, tobacco, and other social history from Department of Defense and [facility] Affairs facilities. Social History Type Response Date Comment Source Tobacco smoking status KYIS V9 CURRENT TOBACCO USER 12/14/2014 [facility] History of tobacco use V9 TOBACCO OFFERED 12/14/2014 [facility] History of tobacco use V9 CURRENT TOBACCO USER 12/14/2013 [facility] History of tobacco use V9 CURRENT TOBACCO USER 12/05/2012 [facility] History of tobacco use V9 CURRENT TOBACCO USER 12/04/2011 [facility] History of tobacco use V9 CURRENT TOBACCO USER 11/25/2010 [facility] History of tobacco use V9 CURRENT TOBACCO USER 05/19/2010 [facility] History of tobacco use V9 CURRENT TOBACCO USER 11/04/2009 [facility] History of tobacco use V9 CURRENT TOBACCO USER 04/18/2009 [facility] History of tobacco use V9 CURRENT TOBACCO USER 11/13/2008 [facility] History of tobacco use V9 CURRENT TOBACCO USER 03/19/2008 [facility] History of tobacco use V9 CURRENT TOBACCO USER 10/31/2007 [facility] History of tobacco use V9 CURRENT TOBACCO USER 11/09/2006 [facility] History of tobacco use V9 CURRENT TOBACCO USER 03/26/2006 [facility] History of tobacco use HF V9 CURRENT SMOKER 10/05/2005 2ppd [facility] History of tobacco use HF V9 SECOND TOBACCO PPAP COORDINATOR 03/20/2005 SMOKES UP TO 1 PPD [facility] History of tobacco use HF V9 CURRENT SMOKER 04/23/2004 1.5ppd [facility] History of tobacco use HF V9 SECOND TOBACCO PPAP COORDINATOR 05/24/2003 1 pack a day [facility] History of tobacco use HF V9 CURRENT SMOKER 01/19/2003 1ppd [facility] History of tobacco use HF V9 THIRD TOBACCO PPAP COORDINATOR 02/08/2002 1 pack a day [facility] History of tobacco use HF V9 SECOND TOBACCO PPAP COORDINATOR 06/16/2001 less than a pack a day [facility] History of tobacco use HF V9 CURRENT SMOKER 05/16/2001 using patch and still smokes occasionally [facility]
--- OUTSIDE RECORDS SUMMARY | 2024-10-18 07:15 | XMS_ITS ---
Author Organization [facility] Address [address] [place] [address] Care Team Providers Care Package Pick Up Name Role Phone Karan Fuller Primary Care Provider Karan Fuller Unavailable Unavailable Yarely Lara Unavailable [phone] Allergies Allergen (clinical drug ingredient) Drug/Non Drug Allergy documented on EMR Reaction Allergy Type Onset Date Status Penicillin swelling Drug Allergy Active Results Component Value Reference Range Notes M-Complete Blood Count Auto Diff Reviewed date:11/02/2024 11:31:25 AM Interpretation: Performing Lab: Notes/Report: WBC 10.1 4.8-10.8 K/mm3 RBC 4.26 4.60-6.20 M/mm3 HGB 12.0 14.1-18.0 g/dL HCT 39.5 42.0-52.0 % MCV 92.7 80-94 fl MCH 28.2 27.0-31.2 pg MCHC 30.4 31.8-35.4 g/dL RDW 16.7 11.5-17.5 % PLT 200 142-424 K/mm3 MPV 10.8 7.4-10.4 fl NE% 70.5 37.0-80.0 % LY% 14.6 10-50 % MO% 8.5 1.7-9.3 % EO% 5.1 0.1-12.0 % BA% 0.9 0.1-2.0 % NE# 7.1 1.8-7.8 K/mm3 LY# 1.5 0.7-4.5 K/mm3 MO# 0.9 0.1-1.0 K/mm3 EO# 0.5 0.0-0.4 Kmm3 BA# 0.1 0-0.2 K/mm3 RDW-SD 56.1 NRBC% 0 IG% 0.4 NRBC# 0 IG# 0.04 M-Occult Blood,Stool Reviewed date:11/02/2024 11:31:25 AM Interpretation: Performing Lab: Notes/Report: OB Negative Negative M-Basic Metabolic Panel Reviewed date:11/02/2024 11:31:25 AM Interpretation: Performing Lab: Notes/Report: NA 136 136-145 mmol/L K 4.2 3.5-5.1 mmoL/L CL 94 98-107 mmol/L CO2 31 22.0-30.0 mmol/L GAP 15.2 5-15 mEq/L BUN 13 9-20 mg/dl CREATT 1.40 0.66-1.25 mg/dl GFRAA 59 >60 ML/MIN EGFR 49 >60 ml/min GLU 135 74-100 mg/dl CA 9.2 8.4-10.2 mg/dl REASON FOR VISIT rectal bleeding since having [...] (Z79.01) Active confirmed Problem Persistent atrial fibrillation (851780492) Persistent atrial fibrillation (I48.19) Active confirmed Vital Signs Temperature 98.2 degrees Fahrenheit 10/19/19 25 Oximetry 93 10/18/2024 Heart Rate 58 /min 10/18/2024 Blood pressure systolic 122 mm Hg 10/19/19 25 Blood pressure diastolic 78 mm Hg 025 Height 72 in 10/18/2024 Weight 221 lbs 10/18/2024 BMI 29.97 kg/m2 10/18/2024 Encounters Encounter Location Date Provider Diagnosis [address] [address] 10/18/2024 Yarely Lara Cough, persistent R0 5.3 [...] Once a day; Duration: 30 days 10/18/2024 Next Appt Details Follow Up: 4 Weeks,prn, Reas on: Provider Name:Yarely Paul ce, 11/23/2024 12:00:00 PM, [address] [facility] [address], [place], [address], Progress Notes * Moise HURST EDOB:[birth year] (79 yo M)Acc No.[id number]:10/18/2024 Progress Notes Patient: Moise LICONA Provider: ANTHONY Rice :1945 A ge:79 Y S ex:Male Date:10/18/2024 Address:[address] [place] [address] , [id number] Pcp:Karan Fuller Subjective: * Chief Complaints: * 1 . [...] are back. Underwent GURDEEP and cardioversion with [facility] cardiology about 2 weeks ago. He is [...] use, NIDDM, GERD, C-scope in 2016 at [facility] - normal, Normal LDCT 01/29. * Surgical [...] L AB: M-Complete Blood Count Auto Diff Value Reference Range W silverio Blood Count 10.1 4.8-10.8 - K/mm3 * R ed Blood Count 4.26 L 4.60-6.20 - M/mm3 * H emoglobin 12.0 L 14.1-18.0 - g/dL * H ematocrit 39.5 L 42.0-52.0 - % * M herrera Corpuscular Volume 92.7 80-94 - fl * M herrera Corpuscular Hemoglobin 28.2 27.0-31.2 - p g * M herrera Corpuscular HGB Conc 30.4 L 31.8-35.4 - g/d L * R ed Cell Distribution Width 16.7 11.5-17.5 - % * P latelet Count 200 142-424 - K/mm3 * M herrera Platelet Volume 10.8 H 7.4-10.4 - fl * N eutrophils % 70.5 37.0-80.0 - % * L ymphocytes % 14.6 10-50 - % * M onocytes % 8.5 1.7-9.3 - % * E osinophils % 5.1 0.1-12.0 - % * B asophils % 0.9 0.1-2.0 - % * N eutrophils # 7.1 1.8-7.8 - K/mm3 * L ymphocytes # 1.5 0.7-4.5 - K/mm3 * M onocytes # 0.9 0.1-1.0 - K/mm3 * E osinophils # 0.5 H 0.0-0.4 - Kmm3 * B asophils # 0.1 0-0.2 - K/mm3 * [facility] 11/01/2024 0 2:23:01 PM EDT > pt notified . Patient cough is no better really is worse , Still thick mucus [facility] 11/02/2024 11:31:15 AM EDT > pt notifieedThis lab was reviewed by Petr Carney on 11/02/2024 at 11:31 AM EDT ?LAB: M-Occult Blood,Stool* Value Reference Range O ccult Blood,Stool Negative Negative - * [facility] 11/01/2024 0 2:23:01 PM EDT > pt notified . Patient cough is no better really is worse , Still thick mucus [facility] 11/02/2024 11:31:15 AM EDT > pt notifieedThis lab was reviewed by Petr Carney on 11/02/2024 at 11:31 AM EDT ?LAB: M-Basic Metabolic Panel* Value Reference Range S odium 136 136-145 - mmol/L * P otassium 4.2 3.5-5.1 - mmoL/L * C hloride 94 L 98-107 - mmol/L * C arbon Dioxide 31 H 22.0-30.0 - mmol/L * A nion Gap 15.2 H 5-15 - mEq/L * B lood Urea Nitrogen 13 9-20 - mg/dl * C reatinine,Serum 1.40 H 0.66-1.25 - mg/dl * G FR () 59 >60 - ML/MIN * E stimated Glomerular Filt Rate 49 L >60 - ml/m in * G lucose 135 H 74-100 - mg/dl * [facility] 11/01/2024 0 2:23:01 PM EDT > pt notified . Patient cough is no better really is worse , Still thick mucus [facility] 11/02/2024 11:31:15 AM EDT > pt notifieedThis lab was reviewed by Petr Carney on 11/02/2024 at 11:31 AM EDT Clinical Notes: Increase PPI to BID, encouraged to reschedule his cardiology FU which was supposed to be yesterday. Labs as noted. ??3.?Persistent atrial fibrillation? Clinical Notes: cardiology managing??4.?Tobacco dependence? Clinical Notes: encouraged cessation??5.?Centrilobular emphysema? Start Trelegy Ellipta Aerosol Powder Breath Activated, 100-62.5-25 MCG/ACT, 1 puff, Inhalation, Once a day.?? Clinical Notes: likely contributing to his persistent cough and mucous production...trial of Trelegy inhaler once a day, sample provided?? * Follow Up: 4 Weeks,prn * * Sign off status: Completed true * Provider: ANTHONY Rice Date: 0 10/18/2024 Generated for Marielena fall/Tristian/Lucinaitting on: 0 11/17/2024 02:03 PM EDT History and Physical Notes * Examination [...]
--- OUTSIDE RECORDS SUMMARY | 2024-11-02 08:30 | XMS_ITS ---
Author Organization [facility] Address [address] [place], [place] [address] Care Team Providers Care Magnetic Resonance Technologist Name Role Phone Karan Fuller Primary Care Provider [phone] Karan Fuller Unavailable Unavailable Yarely Lara [phone] REASON FOR VISIT back pain Encounters Encounter Location Date Provider Diagnosis [facility] [address] [place] [address] 11/02/2024 Yarely Lara Plan Of Treatment Next Appt Details Provider Name:Yarely Paul ce, 11/23/2024 12:00:00 PM, [address], [place], [address], Progress Notes * Moise HURST EDOB:[birth year] (79 yo M)Acc No.[id number]:11/02/2024 Progress Notes Patient: Luz Maria JAVON Moise Jenkins Provider: ANTHONY Rice :1945 A ge:79 Y S ex:Male Date:11/02/2024 Address:[address], [place] Pcp:Karan Fuller Subjective: * Chief Complaints: * 1 . Back pain. * Medical History: Objective: * Vitals: Assessment: Plan: * Treatment: * * Electronic signature of Pau Lara APRN on 11/17/2024 at 02:04 PM EDT Sign off status: Pending * Provider: ANTHONY Rice Date: 11/02/2024 Generated for Marielena fall/Tristian/Trish on: 0 11/17/2024 02:04 PM EDT
--- OUTSIDE RECORDS SUMMARY | 2024-11-14 06:15 | XMS_ITS ---
Author Organization [facility] Address [address] [place], [place] [address] Care Team Providers Care Manager Of Construction Name Role Phone Karan Fuller Primary Care Provider Karan Fuller Unavailable Unavailable Yarely Lara Unavailable [phone] REASON FOR VISIT 2 wk f/u Encounters Encounter Location Date Provider Diagnosis [facility] [address] [place] [address] 11/14/2024 Yarely Lara Plan Of Treatment Next Appt Details Provider Name:Yarely Paul ce, 11/23/2024 12:00:00 PM, [address], [place], [place], [address], Progress Notes * Moise HURST EDOB:[birth year] (79 yo M)Acc No.[id number]:11/14/2024 Progress Notes Patient: Luz Maria JAVON Moise Jenkins Provider: ANTHONY Rice :1945 A ge:79 Y S ex:Male Date:11/14/2024 Address:[address] [address], [place] Pcp:Karan Fuller Subjective: * Chief Complaints: * 1 . 2 wk f/u. * Medical History: Objective: * Vitals: Assessment: Plan: * Treatment: * * Electronic signature of Pau Lara APRN on 11/17/2024 at 02:03 PM EDT Sign off status: Pending * Provider: ANTHONY Rice Date: 11/14/2024 Generated for Marielena Richardson/Trish on: 11/17/2024 02:03 PM EDT
--- OUTSIDE RECORDS SUMMARY | 2024-11-17 14:03 | XMS_ITS | Clinical Summary ---
Author Organization [facility] Address [address] [place] [address] Care Team Providers Care Fpga Engineer Name Role Phone Karan Fuller MD Primary Care Provider [phone] Allergies Active Allergy Reactions Criticality Noted Date [...] tablet 1 tab(s) 2 Active HYDROcodone-erum taminophen ([place]) 5-325 MG tablet Active nitroglycerin (Nitrostat) 0.4 [...] procedure. DO not drive, must have a vending route driver present FOR procedure. MAY CAUSE DROWSINESS [...] Date Last Done Comments [facility]-Depression Screening 1945 [facility]-Medicare Annual Wellness (AWV) 1945 [facility]-Infant/Child/Adol SDOH Screenings 1945 [facility]- SDOH Screenings 1961 [facility]-Adult SDOH Screenings 1961 [facility]-RSV Vaccine: 60+ Years or (1 - 1-dose 75+ series) 2018 [facility]-Zoster Vaccines (2 of 2) 01/28/2023 12/03/2022 [id number] Vaccine (3 - 2023- season) 2023 02/12/2021, [...] age to complete this topic Insurance [id number] MEDICARE Care Teams Fpga Engineer Relationship Specialty Start Date End Date Karan Fuller MD [address] [place] [id number] PCP - General Internal Medicine 03/13/22
--- OUTSIDE RECORDS SUMMARY | 2024-11-17 14:04 | XMS_ITS | Patient Health Record ---
Author Organization [facility] Address [address] [place] [address] Care Team Providers [employer] Coordinator Name Role Phone Karan Fuller Primary Care Provider Karan Fuller Unavailable Unavailable Yarely Lara Unavailable [phone] Shauna Martin Unavailable [phone] Yarely Concepcion Unavailable [phone] Migration, Provider Unavailable Unavailable Allergies Allergen (clinical drug ingredient) Drug/Non Drug Allergy documented on EMR Reaction Allergy Type Onset Date Status Penicillin swelling Drug Allergy Active Results Component Value Reference Range Notes CT Scan : Chest, Lung Cancer Screening Reviewed date:03/07/2024 03:11:48 PM Interpretation: Performing Lab: Notes/Report: X ray : Chest Reviewed date:02/17/2024 08:22:54 AM Interpretation: Performing Lab: Notes/Report: M-Thyroid Stimulating Hormon e Reviewed date:02/15/2024 05:07:11 PM Interpretation: Performing Lab: Notes/Report: TSH 3.95 0.465-4.68 uIU/mL M-Comprehensive Metabolic Pa katlin Reviewed date:02/15/2024 05:07:10 [...] AGRATIO 1.2 1.1-1.8 ALP 75 38-126 U/L M-Complete Blood Count Auto Diff Reviewed date:02/15/2024 [...] 0.2 0.0-0.4 K/mm3 BA# 0.1 0-0.2 K/mm3 Rapid Covid/Flu A-B Combo Reviewed date:01/06/2024 02:42:48 PM Interpretation: Performing Lab: Notes/Report: Rapid Covid neg Flu A neg Flu B neg CT Scan : Chest, Lung Cancer Screening Reviewed date:07/27/2024 10:49:52 AM Interpretation: Performing Lab: Notes/Report: COMPREHENSIVE METABOLIC PANE L ([id number]) Reviewed date:09/06/2024 09:52:08 AM Interpretation: Performing Lab:DANIT[facility] [facility] [id number] [employer] [facility], [facility] Eliseo Kamara Notes/Report: NON-FASTING; NON-FASTING; NON-FASTING; NON-FASTING [...] Reviewed date:09/06/2024 09:52:08 AM Interpretation: Performing Lab:DANITZA [employer] [id number] [address] BlHealthUnlocked, [facility] Eliseo Kamara Notes/Report: NON-FASTING; NON-FASTING; NON-FASTING; NON-FASTING URIC ACID 3.9 4.0-8.0 mg/dL Therapeutic ta rget for gout patients: <6.0 mg/dL CBC (INCLUDES DIFF/PLT) (639 9) Reviewed date:09/06/2024 09:52:08 AM Interpretation: Performing Lab:DANITZA [employer] [facility] Eliseo Kamara Notes/Report: NON-FASTING; NON-FASTING; NON-FASTING; NON-FASTING [...] MPV 10.7 7.5-12.5 fL ABSOLUTE NEUTROPHILS 7989 3500-0877 cells/uL ABSOLUTE LYMPHOCYTES 2112 850-3900 cells/uL ABSOLUTE MONOCYTES 909 200-950 cells/uL ABSOLUTE EOSINOPHILS 649 15-500 cells/uL ABSOLUTE BASOPHILS 142 0-200 cells/uL NEUTROPHILS 67.7 LYMPHOCYTES 17.9 MONOCYTES 7.7 EOSINOPHILS 5.5 BASOPHILS 1.2 TSH W/REFLEX TO FT4 ([id number]) Reviewed date:09/06/2024 09:52:08 AM Interpretation: Performing Lab:CB, [facility] [id number] [facility] Eliseo Kamara Notes/Report: NON-FASTING; NON-FASTING; NON-FASTING; NON-FASTING TSH W/REFLEX TO FT4 4.48 0.40-4.50 mIU/L M-Complete Blood Count Auto Diff Reviewed date:11/02/2024 [...] 135 74-100 mg/dl CA 9.2 8.4-10.2 mg/dl M-BNP Reviewed date:02/16/2024 10:30:50 AM Interpretation: Performing Lab: Notes/Report: BNPNTP 19120 0-450 pg/mL Echocardiogram Reviewed date:02/19/2024 08:50:53 AM Interpretation: Performing Lab: Notes/Report: M-Complete Blood Count Auto Diff Reviewed date:05/25/2024 [...] 0.6 0.0-0.4 K/mm3 BA# 0.2 0-0.2 K/mm3 M-Comprehensive Metabolic Pa katlin Reviewed date:05/25/2024 12:43:08 [...] AGRATIO 1.3 1.1-1.8 ALP 67 38-126 U/L M-Hemoglobin A1C Reviewed date:05/25/2024 12:43:08 PM Interpretation: Performing Lab: Notes/Report: HGBA1C 5.8 4.0-6.0 % < 6% Non-Diabetic Level < 7% Controlled Diabetic Level > 8% Poorly Controlled Diabetic Level M-Uric Acid Reviewed date:05/25/2024 12:43:08 PM Interpretation: Performing Lab: Notes/Report: URIC 3.6 3.5-8.5 mg/dl M-Lipid Panel Reviewed date:05/25/2024 12:43:08 PM Interpretation: Performing Lab: Notes/Report: Patient Fasting? Y TRIG 73 30-150 mg/dl CHOL 102 140-200 mg/dl DLDL 39.62 100-129 mg/dL VLDL 15 0-40 mg/dL HDL 37 40-60 mg/dl CHLHDL 2.8 1-3.5 M-Thyroid Stimulating Hormon e Reviewed date:05/25/2024 12:43:08 PM Interpretation: Performing Lab: Notes/Report: TSH 3.99 0.465-4.68 uIU/mL Reason For Referral Reason CT lung cancer scree krystyna GEORGE Diagnosis 1 Tobacco use (Z72.0) Referral Organization [facility] Referring Provider First Name Shauna Referring Provider Last Name Veronica Referring Provider [facility] ctice Referral Priority Routine Referral Appointment Date 02/24/[address] lung cancer scree krystyna Diagnosis 1 Tobacco dependence ( F17.200) Referral Organization [facility] NOEMY BARRETT Referring Provider First Name Shauna Referring Provider Last Name Veronica Referring Provider [facility] ctice Referred Organization [facility] Referred Address [address],[address],[place] Referred Provider Specialty Diagnostic R adiology General Notes Nayana Michel 2024 11:52:11 AM >Placed referral to [facility]- they will call patient to schedule- no precert needed Referral Priority Routine Referral Appointment Date 08/11/[address] lung cancer scree krystyna ordered at previous appointment Diagnosis 1 COPD exacerbation (J 44.1) Referral Organization [facility] Referring Provider First Name Shauna Referring Provider Last Name Veronica Referring Provider [facility] ctice Referred Organization [facility] Referred Address [address] [facility] [address] [place], [place],[address],[place] Referred Provider Specialty Diagnostic R adiology General Notes Nayana Michel 2024 03:00:40 PM >sent Referral Priority Routine Referral Appointment Date 08/11/2024 Medications Medication SIG (Take, Route, Frequency, Duration) Notes Start Date End Date Status Atorvastatin Calcium 20 MG TAKE 1 TABLET EVERY DAY; Duration: 90 Active Doxycycline Hyclate 100 MG 1 capsule Ora lly twice a day; Duration: 7 days 11/02/2024 Active Farxiga 10 MG TAKE 1 TABLET EVERY DAY; Duration: 90 Active Furosemide 40 mg TAKE ONE TABLET [...] a day; Duration: 30 days 10/18/2024 Active LORazepam 0.5 mg TAKE ONE TABLET BY M OUTH THREE TIMES DAILY; Duration: 30 08/25/2024 Active Amiodarone HCl 400 MG 1 tablet Orally 3 times a day Active Immunizations Vaccine Route Administration Date Status Comme nts Adacel (Tdap) IM Intramuscular 05/24/2015 Administered Arexvy IM Intramuscular 05/25/2024 Administered Fluvirin (MEDICARE ONLY) IM Intramuscular 12/12/2015 Administered Given by [facility] Lot # [id number] 07/01/16 Fluzone High Dose IM Intramuscular 01/24/2019 Administered Influenza-Fluzone 3+years (NON-MEDICARE) IM Intramuscular 01/23/2015 Administered Influenza-Fluzone 3+years (NON-MEDICARE) Unknown 12/20/2017 Administered Pneumovax 23 IM Intramuscular 05/10/2017 Administered Prevnar PCV-13 (Pneumococcal conjugate 13) IM Intramuscular 06/21/2014 Administered Prevnar PCV-13 (Pneumococcal conjugate 13) Unknown 12/20/2017 Administered Social History Tobacco Use: Social History [...] Information temporarily unavailable Coronary artery disease involving kashia coronary artery of kashia heart without angina pectoris (I25.10) Active confirmed [...] 10/18/2024 Encounters Encounter Location Date Provider Diagnosis [facility] [address] [place] [id number] 07/15/2024 Provider Migration COPD exacerbation J44.1 and Thrush B37.0 [facility] [address] [place] [address] 01/06/2024 Shauna Veronica Acute cough R05.1 an d Bronchitis J40 [facility] [address] [place] [address] 01/18/2024 Yarely Carlene Bilateral acute sero us otitis media, recurrence not specified H65.03 and Pre-syncope R55 [facility] [address] [place] [address] 02/01/2024 Shauna McAxel Bronchitis J40 and L eg edema R60.0 [facility] [address] [place], [place] [address] 02/15/2024 Shauna Veronica Shortness of breath R06.02 ; Pneumonia of both lower lobes due to infectious organism J18.9 ; Tobacco use Z72.0 ; Dizziness R42 ; Fatigue, unspecified type R53.83 ; Essential hypertension I10 ; Persistent cough R05.3 and Pleural effusion J90 [facility] [address] [place] [id number] 03/21/2024 Shauna Veronica Foreign body of left ear, initial encounter T16.2XXA [facility] [address] [place] [address] 05/25/2024 Shaunamikaela Martin Coronary artery dise ase involving kashia coronary artery of kashia heart without angina pectoris I25.10 ; Encounter [...] nodule R91.1 and Paroxysmal atrial fibrillation I48.0 [facility] [address] [facility] [address] [place] [address] 07/13/2024 Shauna McNees COPD exacerbation J4 4.1 and Thrush B37.0 [facility] [address] [facility] [address] [place] [address] 07/27/2024 Shauna McNees Diverticulitis K57.9 2 [facility] [address] [facility] [address] [place] [address] 09/05/2024 Yarely Lara Hypothyroidism, unspecified type E03.9 ; Urticaria L50.9 ; Chronic kidney disease (CKD), stage II (mild) N18.2 and History of gout Z87.39 [facility] [address] [address] 10/18/2024 Yarely Lara Cough, persistent R0 5.3 ; Tarry stool K92.1 ; Chronic anticoagulation Z79.01 ; Persistent atrial fibrillation I48.19 ; Tobacco dependence F17.200 and Centrilobular emphysema J43.2 [facility] [address] [facility] [address] [place] [address] 12/20/2023 Karan Besson [facility] [address] [facility] [address] [place] [address] 12/22/2023 Karan Besson [facility] [address] [facility] [address] [place] [address] 01/11/2024 Shauna McNees [facility] [address] [facility] [address] [place] [address] 02/16/2024 Shauna McNees Essential hypertensi on I10 ; Persistent cough R05.3 ; Shortness of breath R06.02 and Pneumonia of both lower lobes due to infectious organism J18.9 [facility] [address] [place] [address] 02/16/2024 Shauna McNees [facility] [address] [place] [address] 02/16/2024 Shauna McNees Heart failure I50.9 [facility] [address] [place] [address] 03/28/2024 Shauna McNees [facility] [address] [place] [address] 04/20/2024 Shauna McNees Type 2 diabetes mellitus without complication E11.9 ; Hyperlipemia, idiopathic familial E78.5 ; Hypothyroidism, unspecified type E03.9 ; Coronary artery disease involving kashia coronary artery of kashia heart without angina pectoris I25.10 and Gouty arthritis M10.9 [facility] [address] [place] [address] 05/25/2024 Shauna McNees [facility] [address] [place] [address] 05/26/2024 Shauna McNees [facility] [address] [place] [address] 05/26/2024 Karan Besson [facility] [address] [place] [address] 05/26/2024 Shauna McNees [facility] [address] [place] [address] 06/16/2024 Shauna McNees [facility] [address] [place] [address] 06/19/2024 Shauna McNees [facility] [address] [place] [address] 07/13/2024 Shauna McNees [facility] [address] [address] 11/02/2024 Yarely Lara Assessments Encounter Date Diagnosis (ICD Code) Assessment [...] - E11.9) 05/25/2024 Coronary artery disease involving kashia coronary artery of kashia heart without angina pectoris (ICD-10 - I25.10) [...] 09/05/2024 Urticaria (ICD-10 - L50.9) discussed possible SUPERVISOR BLASTING side effects with hydroxyzine...u se at HS [...] - J18.9) 04/20/2024 Coronary artery disease involving kashia coronary artery of kashia heart without angina pectoris (ICD-10 - I25.10) [...] 019 M-Complete Blood Count Auto Diff 025 M-Comprehensive Metabolic Panel 04/20/19 25 M-BUN & Creatinine 04/13/2023 M-Hemoglobin A1C 04/20/2024 M-Uric Acid 04/20/2024 M-Uric Acid 11/15/2020 M-Lactate Dehydrogenase 11/15/2020 M-Lipid Panel 04/20/2024 M-Thyroid Stimulating Hormone 04/20/2024 M-Peripheral Smear Review 11/15/2020 M-Vitamin B12 08/02/2023 M-Folate 08/02/2023 M-COVID WITH RESPIRATORY PANEL 0 Next Appt Details Provider Name:Yarely Saleh Humberto ce, 11/23/2024 12:00:00 PM, [address] [place] [facility] [address], [place], [address], Insurance Providers Payer Name Payer Address Payer Phone Subscriber Number Group Number Insured Name Patient Relationship to Insured Coverage Start Date Coverage End Date [employer] MED[employer] DUAL [address] [address] [place] [address] [id number] Moise Boswell Self - patient is the [...]
== END 2024-11-17 23:59 | disposition home or self-care (01) ==
LOC: LAB 14:01 → RT 14:02
PROVIDERS: PCP Internal Medicine Adolescent Medicine; Visit Provider Physician Assistant
DX: I48.91 Unspecified atrial fibrillation (principal); I48.92 Unspecified atrial flutter; I49.3 Ventricular premature depolarization; I50.20 Unspecified systolic (congestive) heart failure; R00.1 Bradycardia, unspecified
CPT/HCPCS: 93270

== ENCOUNTER 2025-01-05 07:59 | Outpatient (CLI) | payer MEDICARE, MEDICAID, SELFPAY ==
--- OUTSIDE RECORDS SUMMARY | 2024-11-02 08:30 | XMS_ITS ---
Author Organization [facility] Address [address] [place], [place] [address] Care Team Providers Care Policy Cancellation Clerk Name Role Phone Karan Fuller Primary Care Provider Karan Fuller Unavailable Unavailable Yarely Lara [phone] REASON FOR VISIT back pain Encounters Encounter Location Date Provider Diagnosis [facility] [address] [place], [place] [address] 11/02/2024 Yarely Lara Plan Of Treatment No Information Progress Notes * Moise HURST EDOB:[birth year] (79 yo M)Acc No.[id number]:11/02/2024 Progress Notes Patient: Luz Maria JAVON Moise Jenkins Provider: ANTHONY Rice :1945 A ge:79 Y S ex:Male Date:11/02/2024 Address:[address] [facility] [address] [place] Pcp:Karan Fuller Subjective: * Chief Complaints: * 1 . Back pain. * Medical History: Objective: * Vitals: Assessment: Plan: * Treatment: * * Electronic signature of Pau Lara APRN on 01/05/2025 at 08:02 AM EDT Sign off status: Pending * Provider: ANTHONY Rice Date: 0 11/02/2024 Generated for Marielena fall/Tristian/Lucinaitting on: 0 01/05/2025 08:02 AM EDT
--- OUTSIDE RECORDS SUMMARY | 2024-11-14 06:15 | XMS_ITS ---
Author Organization [facility] Address [address] [place], [place] [address] Care Team Providers Care Cabinetmaker Helper Name Role Phone Karan Fuller Primary Care Provider Karan Fuller Unavailable Unavailable Yarely Lara [phone] REASON FOR VISIT 2 wk f/u Encounters Encounter Location Date Provider Diagnosis [facility] [address] [place], [place] [address] 11/14/2024 Yarely Lara Plan Of Treatment No Information Progress Notes * Moise HURST EDOB:[birth year] (79 yo M)Acc No.[id number]:11/14/2024 Progress Notes Patient: Luz Maria JAVON Moise Jenkins Provider: ANTHONY Rice :1945 A ge:79 Y S ex:Male Date:11/14/2024 Address[address], [place] Pcp:Karan Fuller Subjective: * Chief Complaints: * 1 . 2 wk f/u. * Medical History: Objective: * Vitals: Assessment: Plan: * Treatment: * * Electronic signature of Pau Lara APRN on 01/05/2025 at 08:02 AM EDT Sign off status: Pending * Provider: ANTHONY Rice Date: 0 11/14/2024 Generated for Marielena fall/Tristian/Trihs on: 0 01/05/2025 08:02 AM EDT
--- OUTSIDE RECORDS SUMMARY | 2024-11-23 08:00 | XMS_ITS ---
Author Organization [facility] Address [address] [place] [address] Care Team Providers Care Panel Machine Tender Name Role Phone Karan Fuller Primary Care Provider Karan Fuller Unavailable Unavailable Yarely Lara Unavailable [phone] Allergies Allergen (clinical drug ingredient) Drug/Non Drug Allergy documented on EMR Reaction Allergy Type Onset Date Status Penicillin swelling Drug Allergy Active Results Component Value Reference Range Notes BASIC METABOLIC PANEL (54967 ) Reviewed date:11/27/2024 12:20:22 PM Interpretation: Performing Lab:[facility], [facility] [id number] [facility] Eliseo Kamara Notes/Report: NON-FASTING; NON-FASTING GLUCOSE 79 65-99 mg/dL Fasting reference interval UREA NITROGEN (BUN) 18 7-25 mg/dL CREATININE 1.15 0.70-1.22 mg/dL EGFR 64 > OR = 60 mL/min/1.73m2 BUN/CREATININE RATIO SEE NOTE: 6-22 (calc) Not Reported: BUN and Creatinine are within reference range. SODIUM 141 135-146 mmol/L POTASSIUM 4.2 3.5-5.3 mmol/L CHLORIDE 101 98-110 mmol/L CARBON DIOXIDE 33 20-32 mmol/L CALCIUM 8.8 8.6-10.3 mg/dL CBC (INCLUDES DIFF/PLT) (639 9) Reviewed date:11/27/2024 12:20:22 PM Interpretation: Performing Lab:CB, [facility] [id number], [id number] Eliseo Kamara Notes/Report: NON-FASTING; NON-FASTING WHITE BLOOD CELL COUNT 12.3 3.8-10.8 Thousand/ uL RED BLOOD CELL COUNT 4.51 4.20-5.80 Million/uL HEMOGLOBIN 13.2 13.2-17.1 g/dL HEMATOCRIT 43.7 38.5-50.0 % MCV 96.9 80.0-100.0 fL MCH 29.3 27.0-33.0 pg MCHC 30.2 32.0-36.0 g/dL For adults, a slight decrease in the calculated MCHC value (in the range of 30 to 32 g/dL) is most likely not clinically significant; however, it should be interpreted with caution in correlation with other red cell parameters and the patient's clinical condition. RDW 15.0 11.0-15.0 % PLATELET COUNT 283 140-400 Thousand/uL MPV 10.4 7.5-12.5 fL ABSOLUTE NEUTROPHILS 7995 3822-7359 cells/uL ABSOLUTE LYMPHOCYTES 2952 850-3900 cells/uL ABSOLUTE MONOCYTES 1132 200-950 cells/uL ABSOLUTE EOSINOPHILS 135 15-500 cells/uL ABSOLUTE BASOPHILS 86 0-200 cells/uL NEUTROPHILS 65 LYMPHOCYTES 24.0 MONOCYTES 9.2 EOSINOPHILS 1.1 BASOPHILS 0.7 REASON FOR VISIT 3 week follow up Medications Medication SIG (Take, Route, Frequency, Duration) Notes Start Date End Date Status Atorvastatin Calcium 20 MG TAKE 1 TABLET EVERY DAY; Duration: 90 Active Pantoprazole Sodium 40 MG 1 tab(s) orall y twice a day; Duration: 30 days Active Farxiga 10 MG TAKE 1 TABLET EVERY DAY; Duration: 90 Active Trelegy Ellipta 100-62.5-25 MCG/ACT 1 puff Inhalation Once a day 10/18/2024 Active Trelegy Ellipta 100-62.5-25 MCG/ACT 1 puff Inhalation Once a day; Duration: 30 days 11/24/2024 Active Allopurinol 300 MG TAKE 1 TABLET EVERY DAY; Duration: 90 Active hydrOXYzine Pamoate 25 MG 1 capsule at b edtime as needed for itching Orally Once a day; Duration: 30 days 09/05/2024 Active Carvedilol 25 MG TAKE 1 TABLET TWICE DAILY; Duration: 90 Active Clopidogrel Bisulfate 75 MG TAKE 1 TABLE T EVERY DAY; Duration: 90 Active LORazepam 0.5 mg TAKE ONE TABLET BY M OUTH THREE TIMES DAILY; Duration: 30 08/25/2024 Active Furosemide 40 mg TAKE ONE TABLET BY M OUTH EVERY DAY; Duration: 30 Active NIFEDIPINE (EQV-PROCARDIA XL) 30 MG 1 TAB(S) ORALLY ONCE A DAY; Duration: 30 DAYS 02/15/2024 Active Synthroid 50 MCG TAKE 1 TABLET EVERY DAY. orally once a day; Duration: 90 days Active Nitroglycerin 0.4 MG 1 tab(s) sublingual ly daily; Duration: 30 days Active Losartan Potassium 100 MG 1 tablet Orall y Once a day; Duration: 30 days 10/18/2024 Active Xarelto 20 MG 1 tablet with food O rally Once a day Active Amiodarone HCl 400 MG 1 tablet Orally 3 times a day Active Social History Tobacco Use: Social History Observation Description Date Details (start date - stop date) Current Smoker NA - NA Smoking: Question Answer Notes Are you a: current smoker How often do you smoke cigarettes? every day How many cigarettes a day do you smoke? 03-01 Vital Signs Temperature 97.5 degrees Fahrenheit 11/24/19 25 Heart Rate 76 /min 11/23/2024 Blood pressure systolic 138 mm Hg 11/24/19 25 Blood pressure diastolic 68 mm Hg 025 Height 72 in 11/23/2024 Weight 214.8 lbs 11/23/2024 BMI 29.13 kg/m2 11/23/2024 Encounters Encounter Location Date Provider Diagnosis [facility] [address] [facility] [address] [place], [place] [address] 11/23/2024 Yarely Lara Cough, persistent R05.3 ; Tobacco dependence F17.200 ; Centrilobular emphysema J43.2 and FABI (acute kidney injury) N17.9 Assessments Encounter Date Diagnosis (ICD Code) Assessment Notes Treatment Notes Treatment Clinical Notes Section Notes 11/23/2024 Cough, persistent (ICD-10 - R05.3) symptoms have improved, continue current regimen. Additional samples of Trelegy inhaler provided. Agreeable to repeat labs today. Has ongoing follow-up with cardiology 11/23/2024 Tobacco dependence (ICD-10 - F17.200) encouraged cessation 11/23/2024 Centrilobular emphysema (ICD-10 - J43.2) 11/23/2024 FABI (acute kidney injury) (ICD-10 - N17.9) Plan Of Treatment Medication Medication Name Sig Start Date Stop Date Notes Trelegy Ellipta 100-62.5-25 MCG/ACT 1 puff Inhalation Once a day; Duration: 30 days 11/24/2024 Next Appt Details Follow Up: 3 Months,prn, Annel son: Progress Notes * Moise HURST EDOB:[birth year] (79 yo M)Acc No.[id number]:11/23/2024 Progress Notes Patient: Moise LCIONA Provider: ANTHONY Rice :1945 A ge:79 Y S ex:Male Date:11/23/2024 Address:[address] [place] [address] , [place], [id number] Pcp:Karan Fuller Subjective: * Chief Complaints: * 1 . 3 week follow up. * HPI: g en: 79 yr old male, smoker, presents today to FU regarding persistent cough. Last visit we made several changes including stopping ACEI and starting ARB, added Trelegy and increased PPI. He reported no improvement and we started a round of oral doxycycline and he reports significant improvement at this point. No new concerns. His labs indicated stable anemia but FABI with creaitnine 1.4...instructed to decrease lasix but he says today that he hadn't been taking lasix routinely for a long time. * ROS: R ESPIRATORY: See HPI Y es. C ARDIOLOGY: no C hest pain. n o P alpitations. n o L eg edema. S hortness of breath y es. C ONSTITUTIONAL: no L oss of appetite. n o F ever. W eakness?yes, a t baseline. D ERMATOLOGY: no R christi. G ASTROENTEROLOGY: no V omiting. n o A bdominal pain. n o D iarrhea. n o C onstipation. n o B lood in stool. U ROLOGY: no D ifficulty urinating. n o B lood in urine. * Medical History: H ypertension, Coronary artery disease, PVD s/p right lower extremity angioplasty, Tobacco use, NIDDM, GERD, C-scope in 2016 at [place] - normal, Normal LDCT 01/29. * Surgical [...] uncle: . M aternal aunt: . S marva: alive, Sister- heart problems. C jasbir: alive. 1 sister(s) . 1 son(s) - healthy. . * Social History: S moking A re you a: c urrent smoker, H ow often do you smoke cigarettes? e very day, H ow many cigarettes a day do you smoke? 1 -20. R ecreational drug use: no. Exercise: yes. Home smoke detector use: yes. Caffeine: yes, frequency:2-3 diet mt dew daily. Living Will: No. Alcohol: no. Sexually active: no. Travel outside [place]: no. Occupation: retired. * Medications: T aking Pantoprazole Sodium 40 MG Tablet Delayed Release 1 tab(s) orally twice a day , Taking Losartan Potassium 100 MG Tablet 1 tablet Orally Once a day , Taking Amiodarone HCl 400 MG Tablet 1 tablet Orally 3 times a day , Taking Xarelto 20 MG Tablet 1 tablet with food Orally Once a day , Taking Nitroglycerin 0.4 MG Tablet Sublingual 1 tab(s) sublingually daily , Taking NIFEDIPINE (EQV-PROCARDIA XL) 30 MG TABLET, EXTENDED RELEASE 1 TAB(S) ORALLY ONCE A DAY , Taking Synthroid 50 MCG Tablet TAKE [...] TAKE 1 TABLET EVERY DAY , Taking Trelegy Ellipta 100-62.5-25 MCG/ACT Aerosol Powder Breath Activated 1 puff Inhalation Once a day , Taking Farxiga 10 MG Tablet TAKE 1 TABLET EVERY DAY , Taking Atorvastatin Calcium 20 MG Tablet TAKE 1 TABLET EVERY DAY , Discontinued Doxycycline Hyclate 100 MG Capsule 1 capsule Orally twice a day , Medication List reviewed and reconciled with the patient * Allergies: P enicillin: swelling. Objective: * Vitals: N urse: KJ, Pain: 9 back, Temp: 97.5, RR: 18, HR: 76, BP: 138/68, Ht: 72, Wt: 214.8, BMI:29.13. * Examination: G eneral Examination: General P leasant and Cooperative, NAD on RA,. Heart: R egular Rate and Rhythm, systolic murmur. Lungs: s onorous wheezes end of expiration bilat, otherwise clear. Abdomen: s oft, NT/ND, BS present. Extremities: n o edema. Psych N ormal Mood/Affect. Assessment: * Assessment: 1. C ough, persistent - R05.3 (Primary) 2 . T obacco dependence - F17.200? 3. C entrilobular emphysema - J43.2 4 . A KI (acute kidney injury) - N17.9 Plan: * Treatment: 2. T obacco dependence Clinical Notes: encouraged cessation 3. C entrilobular emphysema Start Trelegy Ellipta Aerosol Powder Breath Activated, 100-62.5-25 MCG/ACT, 1 puff, Inhalation, Once a day, 30 days, 1, Refills 2. 4. A KI (acute kidney injury) L AB: BASIC METABOLIC PANEL (75660) Value Reference Range G LUCOSE 79 65-99 - mg/dL * U ANNLE NITROGEN (BUN) 18 7-25 - mg/dL * C REATININE 1.15 0.70-1.22 - mg/dL * B UN/CREATININE RATIO SEE NOTE: 10-01 - (calc) * S ODIUM 141 135-146 - mmol/L * P OTASSIUM 4.2 3.5-5.3 - mmol/L * C HLORIDE 101 98-110 - mmol/L * C ARBON DIOXIDE 33 H 20-32 - mmol/L * C ALCIUM 8.8 8.6-10.3 - mg/dL * E GFR 64 > OR = 60 - mL/min/1 .73m2 * Tyra Reina 11/27/2024 09: 58:33 AM EDT > Tyra Hale 11/27/2024 12:19:54 PM EDT > Meghann Baker lab was reviewed by Tyra Reina on 11/27/2024 at 12:20 PM EDT ?LAB: CBC (INCLUDES DIFF/PLT) (1714)* Value Reference Range W NIKOLAI BLOOD CELL COUNT 12.3 H 3.8-10.8 - Thousan d/uL * R ED BLOOD CELL COUNT 4.51 4.20-5.80 - Million/ uL * H EMOGLOBIN 13.2 13.2-17.1 - g/dL * H EMATOCRIT 43.7 38.5-50.0 - % * M CV 96.9 80.0-100.0 - fL * M CH 29.3 27.0-33.0 - pg * M CHC 30.2 L 32.0-36.0 - g/dL * R DW 15.0 11.0-15.0 - % * P LATELET COUNT 283 140-400 - Thousand/u L * N EUTROPHILS 65 - % * A BSOLUTE NEUTROPHILS 7995 H 0388-9441 - cells/uL * L YMPHOCYTES 24.0 - % * A BSOLUTE LYMPHOCYTES 2952 850-3900 - cells/uL * M ONOCYTES 9.2 - % * A BSOLUTE MONOCYTES 1132 H 200-950 - cells/uL * E OSINOPHILS 1.1 - % * A BSOLUTE EOSINOPHILS 135 15-500 - cells/uL * B ASOPHILS 0.7 - % * A BSOLUTE BASOPHILS 86 0-200 - cells/uL * M PV 10.4 7.5-12.5 - fL * Tyra Reina Denis 11/27/2024 09: 58:33 AM EDT > Tyra Hale 11/27/2024 12:19:54 PM EDT > Meghann Baker lab was reviewed by Tyra Reina on 11/27/2024 at 12:20 PM EDT * Follow Up: 3 Months,prn * * Sign off status: Completed true * Provider: ANTHONY Rice Date: 0 11/23/2024 Generated for Marileena fall/Tristian/eTroshansmitting on: 0 01/05/2025 08:02 AM EDT History and Physical Notes * Examination Category Sub-Category Detail Notes Category Not es General Examination Heart: Regular Rate and Rhythm, systolic murmur Lungs: sonorous wheezes end of expiration bilat, otherwise clear Abdomen: soft, NT/ND, BS pres ent Extremities: no edema General Pleasant and Coopera tive, NAD on RA, Psych Normal Mood/Affect
--- OUTSIDE RECORDS SUMMARY | 2025-01-04 11:15 | XMS_ITS ---
Author Organization [facility] Address [address] [place] [address] Care Team Providers Care Tombstone Erector Name Role Phone Karan Fuller Primary Care Provider Karan Fuller Unavailable Unavailable Shauna Martin Unavailable [phone] Allergies Allergen (clinical drug ingredient) Drug/Non Drug Allergy documented on EMR Reaction Allergy Type Onset Date Status Penicillin swelling Drug Allergy Active REASON FOR VISIT Coughing up stuff, throat hurts, congestion. Says he's had this problem for a year Medications Medication SIG (Take, Route, Frequency, Duration) Notes Start Date End Date Status Losartan Potassium 100 mg TAKE ONE TABLE T BY MOUTH EVERY DAY; Duration: 30 Active Trelegy Ellipta 100-62.5-25 MCG/ACT 1 puff Inhalation Once a day; Duration: 30 days 11/24/2024 Active Synthroid 50 MCG TAKE 1 TABLET EVERY DAY. orally once a day; Duration: 90 days Active Nystatin 578748 UNIT/ML 5 mL Mouth/Throat Four times a day; Duration: 14 days swish in mouth 01/04/2025 Active Pantoprazole Sodium 40 mg TAKE ONE TABLE T BY MOUTH TWICE DAILY; Duration: 30 Active LORazepam 0.5 mg TAKE ONE TABLET BY M OUTH THREE TIMES DAILY; Duration: 30 11/25/2024 Active Atorvastatin Calcium 20 MG TAKE 1 TABLET EVERY DAY; Duration: 90 Active Farxiga 10 MG TAKE 1 TABLET EVERY DAY; Duration: 90 Active Trelegy Ellipta 100-62.5-25 MCG/ACT 1 puff Inhalation Once a day 10/18/2024 Active Clopidogrel Bisulfate 75 MG TAKE 1 TABLE T EVERY DAY; Duration: Active NIFEDIPINE (EQV-PROCARDIA XL) 30 MG 1 TAB(S) ORALLY ONCE A DAY; Duration: 30 DAYS 02/15/2024 Active Allopurinol 300 MG TAKE 1 TABLET EVERY DAY; Duration: 90 Active Carvedilol 25 MG TAKE 1 TABLET TWICE DAILY; Duration: 90 Active hydrOXYzine Pamoate 25 MG 1 capsule at b edtime as needed for itching Orally Once a day; Duration: 30 days 09/05/2024 Active Furosemide 40 mg TAKE ONE TABLET BY M OUTH EVERY DAY; Duration: 30 Active Nitroglycerin 0.4 MG 1 tab(s) sublingual ly daily; Duration: 30 days Active Xarelto 20 MG 1 tablet with food O rally Once a day Active Amiodarone HCl 400 MG 1 tablet Orally 3 times a day Active Vital Signs Temperature 97.9 degrees Fahrenheit 01/05/20 Heart Rate 104 /min 01/04/2025 Blood pressure systolic 140 mm Hg 01/05/20 25 Blood pressure diastolic 80 mm Hg 025 Height 72 in 01/04/2025 Weight 219.4 lbs 01/04/2025 BMI 29.75 kg/m2 01/04/2025 Encounters Encounter Location Date Provider Diagnosis [facility] [address] [facility] [address] [place], [place] [address] 01/04/2025 Shauna McNees Persistent cough R05 .3 ; Thrush B37.0 and COPD exacerbation J44.1 Assessments Encounter Date Diagnosis (ICD Code) Assessment Notes Treatment Notes Treatment Clinical Notes Section Notes 01/04/2025 Persistent cough (ICD-10 - R05.3) Likely related to chronic bronchitis. CT lung cancer screening UTD and stable Dexamethasone given IM CXR ordered- will obtain tomorrow Continue trelegy 01/04/2025 Thrush (ICD-10 - B37.0) Rinse mouth out after using inhaler. Treat with nystatin as above 01/04/2025 COPD exacerbation (ICD-10 - J44.1) Plan Of Treatment Medication Medication Name Sig Start Date Stop Date Notes Nystatin 230613 UNIT/ML 5 mL Mouth/Throa t Four times a day; Duration: 14 days 01/04/2025 Treatment Notes Assessment Notes Persistent cough Likely related to chronic bronchitis. CT lung cancer screening UTD and stable Dexamethasone given IM CXR ordered- will obtain tomorrow Continue trelegy Thrush Rinse mouth out afte r using inhaler. Treat with nystatin as above Pending Test Test Name Order Date X ray : Chest 01/04/2025 Next Appt Details Follow Up: pending cxr, Reas on: Medications Administered Medication Instructions Date of Administration Dosage Notes Dexamethasone 4mg Injection 01/04/2025 4 mg Progress Notes * Moise HURST EDOB:[birth year] (79 yo M)Acc No.[id number]:01/04/2025 Progress Notes Patient: Moise LICONA Provider: Denis Martin APRN :1945 A ge:79 Y S ex:Male Date:01/04/2025 Address:[address] [place] [address] , [facility], [id number] Pcp:Karan Fuller Subjective: * Chief Complaints: * 1 . Coughing up stuff, throat hurts, congestion. Says he's had this problem for a year. * HPI: g en: 79 yr old male, smoker, presents today to FU regarding persistent cough. Over the last few months s everal changes were made including stopping ACEI and starting ARB, adding Trelegy and increasing PPI with no improvement of cough Treated with Doxy Today, he reports cough is persistent, intermittently productive. SOA. + wheezing. Sore throat, chronic, intermittent. Increased symptoms the last week. No fevers. No sick contacts. * ROS: R ESPIRATORY: See HPI Y [...] use, NIDDM, GERD, C-scope in 2016 at [place] - normal, Normal LDCT 01/29. * Medications: T aking Amiodarone HCl 400 MG Tablet 1 tablet Orally 3 times a day , Taking Xarelto 20 MG Tablet 1 tablet with food Orally Once a day , Taking Nitroglycerin 0.4 MG Tablet Sublingual 1 tab(s) sublingually daily , Taking NIFEDIPINE (EQV-PROCARDIA XL) 30 MG TABLET, EXTENDED RELEASE 1 TAB(S) ORALLY ONCE A DAY , Taking Furosemide 40 mg Tablet TAKE [...] TAKE 1 TABLET EVERY DAY , Taking LORazepam 0.5 mg Tablet TAKE ONE TABLET BY MOUTH THREE TIMES DAILY , Taking Trelegy Ellipta 100-62.5-25 MCG/ACT Aerosol Powder Breath Activated 1 puff Inhalation Once a day , Taking Losartan Potassium 100 mg Tablet TAKE ONE TABLET BY MOUTH EVERY DAY , Taking Pantoprazole Sodium 40 mg Tablet Delayed Release TAKE ONE TABLET BY MOUTH TWICE DAILY , Taking Synthroid 50 MCG Tablet TAKE 1 TABLET EVERY DAY. orally once a day , Medication List reviewed and reconciled with the patient * Allergies: P enicillin: swelling. Objective: * Vitals: N urse: KJ, Pain: 0, Temp: 97.9, RR: 18, HR: 104, BP: 140/80, Ht: 72, Wt: 219.4, BMI:29.75. * Examination: E NT/Respiratory: General Appearance : w ell nourished and hydrated, alert.? Ears: a uditory canals normal bilaterally, tympanic membranes normal bilaterally. Nose : n ormal, no lesions. Sinuses : n on tender bilaterally. Oral Cavity e rythema with tiny white plaques scattered on posterior palate. Neck : n o cervical lymphadenopathy. Heart : R RR, normal S1 S2, no murmurs. Lungs : c lear to auscultation bilaterally, no crackles or wheezes. Abdomen : s oft, NT/ND, BS present. Skin : c lear without rashes. Assessment: * Assessment: 1. P ersistent cough - R05.3 (Primary) 2 . T hrush - B37.0 3 . C OPD exacerbation - J44.1 Plan: * Treatment: Notes: Likely related to chronic bronchitis. CT lung cancer screening UTD and stable Dexamethasone given IM CXR ordered- will obtain tomorrow Continue trelegy??2.?Thrush? Start Nystatin Suspension, 867048 UNIT/ML, 5 mL, Mouth/Throat, Four times a day swish in mouth, 14 days, 280 ML, Refills 0.?? Notes: Rinse mouth out after using inhaler. Treat with nystatin as above?? * Therapeutic Injections: Dexamethasone 4mg Injection : 4 mg (Route: Intramuscular) given by JOVANY Ayoub on right deltoid * Procedure Codes: J 1100 Dexamethasone Sodium Phosphate 4mg Injection, 26790 THERAPEUTIC ADMINISTRATION * Follow Up: p ending cxr * * Sign off status: Completed true * Provider: Denis Martin APRN Date: 0 01/04/2025 Generated for Marielena fall/Tristian/eTchynaitting on: 01/05/2025 08:02 AM EDT History and Physical Notes * Examination Category Sub-Category Detail Notes Category Not es ENT/Respiratory Oral Cavity erythema with ti ny white plaques scattered on posterior palate Sinuses : non tender bilateral ly Ears: auditory canals norm al bilaterally, tympanic membranes normal bilaterally Neck : no cervical lymphade nopathy Heart : RRR, normal S1 S2, n o murmurs Lungs : clear to auscultatio n bilaterally, no crackles or wheezes Abdomen : soft, NT/ND, BS pres ent General Appearance : well nourished and hydrated, alert Nose : normal, no lesions Skin : clear without rashes
--- OUTSIDE RECORDS SUMMARY | 2025-01-05 08:01 | XMS_ITS | Clinical Summary ---
[facility] Organization [facility] Address [address] [place] [address] Care Team Providers Care Wireless Construction Manager Name Role Phone Unavailable Primary Care Provider Unavailabl e Social History Tobacco Use Types Packs/Day Years Used Date Smoking Tobacco: Never Assessed Abuse Screen Answer Date Recorded Unsafe at Home or Work/School Not on file Feels Threatened by Someone? Not on file 12/2022 Does Anyone Keep You from Co ntacting Others or Doint Things Outside the Home? Not on file 01/18/2023 Physical Sign of Abuse Present Not on file 1 Housing Stability Answer Date Recorded Current Living Arrangements Not on file 12/2022 Potentially Unsafe Housing Conditions Not on rebecca e 01/18/2023 Family and Community Support Answer Harry e Recorded Help with Day-to-Day Activities Not on file 01/18/2023 Lonely or Isolated Not on file 01/18/2023 Employment Answer Date Recorded Do you want help finding or keeping work or a arash b? Not on file 01/18/2023 Disabilities Answer Date Recorded Concentrating, Remembering, or Making Decisions Difficulty Not on file 01/18/2023 Doing Errands Independently Difficulty Not on fi le 01/18/2023 Education Answer Date Recorded Help with school or training? Not on file Preferred Language Not on file 01/18/2023 Sex and Gender Information Value Date Recorded Sex Assigned at Not on file Legal Sex Male 10:49 AM EDT Gender Identity Not on file Sexual Orientation Not on file Plan of Treatment Upcoming Encounters Date Type Department Care Team (Late st Contact Info) Description 03/06/2025 2:00 PM EST Office Visit [facility] [address] [facility] [address] [place] [address] Tim Hernandez MD [address] [facility] [address] [place] [id number] Health Maintenance Due Date Last Done Comments ANNUAL WELLNESS VISIT 1945 TDAP/TD VACCINES (1 - Tdap) 1962 Pneumococcal Vaccine 50+ (1 of 1 - PCV) 1993 ZOSTER VACCINE (1 of 2) 1993 RSV Vaccine - Adults (1 - 1-dose 75+ series) 8 INFLUENZA VACCINE 11/10/2024 COVID-19 Vaccine (1 - 2023- season) [address] [place] [address] [employer]AGE [facility] [place]ICAID [place]
--- OUTSIDE RECORDS SUMMARY | 2025-01-05 08:02 | XMS_ITS | Patient Health Record ---
Author Organization [facility] Address [address] [place] [address] Care Team Providers Care Flake Or Shred Roll Operator Name Role Phone Karan Fuller Primary Care Provider Karan Fuller Unavailable Unavailable Yarely Lara Unavailable [phone] Shauna Martin Unavailable [phone] Yarely Concepcion Unavailable [phone] Migration, Provider Unavailable Unavailable Allergies Allergen (clinical drug ingredient) Drug/Non Drug Allergy documented on EMR Reaction Allergy Type Onset Date Status Penicillin swelling Drug Allergy Active Results Component Value Reference Range Notes M-Thyroid Stimulating Hormon e Reviewed date:02/15/2024 05:07:11 PM Interpretation: Performing Lab: Notes/Report: TSH 3.95 0.465-4.68 uIU/mL CT Scan : Chest, Lung Cancer Screening Reviewed date:03/07/2024 03:11:48 PM Interpretation: Performing Lab: Notes/Report: M-BNP Reviewed date:02/16/2024 10:30:50 AM Interpretation: Performing Lab: Notes/Report: BNPNTP 10734 0-450 pg/mL M-Comprehensive Metabolic Pa katlin Reviewed date:02/15/2024 05:07:10 [...] 0.2 0.0-0.4 K/mm3 BA# 0.1 0-0.2 K/mm3 X ray : Chest Reviewed date:02/17/2024 08:22:54 AM Interpretation: Performing Lab: Notes/Report: CT Scan : Chest, Lung Cancer Screening Reviewed date:07/27/2024 10:49:52 AM Interpretation: Performing Lab: Notes/Report: M-Complete Blood Count Auto Diff Reviewed date:11/02/2024 [...] 0 IG% 0.4 NRBC# 0 IG# 0.04 Echocardiogram Reviewed date:02/19/2024 08:50:53 AM Interpretation: Performing [...] 0.6 0.0-0.4 K/mm3 BA# 0.2 0-0.2 K/mm3 M-Occult Blood,Stool Reviewed date:11/02/2024 11:31:25 AM Interpretation: Performing Lab: Notes/Report: OB Negative Negative M-Comprehensive Metabolic Pa katlin Reviewed date:05/25/2024 12:43:08 [...] AGRATIO 1.3 1.1-1.8 ALP 67 38-126 U/L M-Basic Metabolic Panel Reviewed date:11/02/2024 11:31:25 AM Interpretation: Performing Lab: Notes/Report: NA 136 136-145 mmol/L K 4.2 3.5-5.1 mmoL/L CL 94 98-107 mmol/L CO2 31 22.0-30.0 mmol/L GAP 15.2 5-15 mEq/L BUN 13 9-20 mg/dl CREATT 1.40 0.66-1.25 mg/dl GFRAA 59 >60 ML/MIN EGFR 49 >60 ml/min GLU 135 74-100 mg/dl CA 9.2 8.4-10.2 mg/dl M-Hemoglobin A1C Reviewed date:05/25/2024 12:43:08 PM Interpretation: [...] Performing Lab: Notes/Report: TSH 3.99 0.465-4.68 uIU/mL CBC (INCLUDES DIFF/PLT) (639 9) Reviewed date:11/27/2024 12:20:22 PM Interpretation: Performing Lab:CB, [facility] [address], [facility]YadkRG[address] Eliseo Kamara Notes/Report: NON-FASTING; NON-FASTING WHITE BLOOD [...] MPV 10.4 7.5-12.5 fL ABSOLUTE NEUTROPHILS 7995 5280-5150 cells/uL ABSOLUTE LYMPHOCYTES 2952 850-3900 cells/uL ABSOLUTE MONOCYTES 1132 200-950 cells/uL ABSOLUTE EOSINOPHILS 135 15-500 cells/uL ABSOLUTE BASOPHILS 86 0-200 cells/uL NEUTROPHILS 65 LYMPHOCYTES 24.0 MONOCYTES 9.2 EOSINOPHILS 1.1 BASOPHILS 0.7 BASIC METABOLIC PANEL (00277 ) Reviewed date:11/27/2024 12:20:22 PM Interpretation: Performing Lab:DANITZA, [id number] Omg[address], SoClozDdquHD[address] Eliseo Kamara Notes/Report: NON-FASTING; NON-FASTING GLUCOSE 79 [...] 33 20-32 mmol/L CALCIUM 8.8 8.6-10.3 mg/dL COMPREHENSIVE METABOLIC PANE L (57286) Reviewed date:09/06/2024 09:52:08 AM Interpretation: Performing Lab:DANITZA, [employer] [id number] [employer], FanLibMflkQA[address] Eliseo Kamara Notes/Report: NON-FASTING; NON-FASTING; NON-FASTING; NON-FASTING [...] Reviewed date:09/06/2024 09:52:08 AM Interpretation: Performing Lab:DANITZA Se[address]se[address], FanLibXstwYC[address] Eliseo Kamara Notes/Report: NON-FASTING; NON-FASTING; NON-FASTING; NON-FASTING URIC ACID 3.9 4.0-8.0 mg/dL Therapeutic target for gout patients: <6.0 mg/dL CBC (INCLUDES DIFF/PLT) (639 9) Reviewed date:09/06/2024 09:52:08 AM Interpretation: Performing Lab:DANITZA [address] [employer], SoClozTbtySX[address] Eliseo Kamara Notes/Report: NON-FASTING; NON-FASTING; NON-FASTING; NON-FASTING [...] MPV 10.7 7.5-12.5 fL ABSOLUTE NEUTROPHILS 7989 6470-3251 cells/uL ABSOLUTE LYMPHOCYTES 2112 850-3900 cells/uL ABSOLUTE MONOCYTES 909 200-950 cells/uL ABSOLUTE EOSINOPHILS 649 15-500 cells/uL ABSOLUTE BASOPHILS 142 0-200 cells/uL NEUTROPHILS 67.7 LYMPHOCYTES 17.9 MONOCYTES 7.7 EOSINOPHILS 5.5 BASOPHILS 1.2 TSH W/REFLEX TO FT4 (67987) Reviewed date:09/06/2024 09:52:08 AM Interpretation: Performing Lab:CB, [facility] [address], [facility] HospitalDwgdTO[address] Eliseo Kamara Notes/Report: NON-FASTING; NON-FASTING; NON-FASTING; NON-FASTING TSH W/REFLEX TO FT4 4.48 0.40-4.50 mIU/L Rapid Covid/Flu A-B Combo Reviewed date:01/06/2024 02:42:48 PM Interpretation: Performing Lab: Notes/Report: Rapid Covid neg Flu A neg Flu B neg Reason For Referral Reason CT lung cancer scree krystyna GEORGE Diagnosis 1 Tobacco use (Z72.0) Referral Organization [facility] Referring Provider First Name Shauna Referring Provider Last Name Veronica Referring Provider [facility] ctice Referral Priority Routine Referral Appointment Date 02/24/[address] lung cancer scree krystyna Diagnosis 1 Tobacco dependence ( F17.200) Referral Organization [facility] Referring Provider First Name Shauna Referring Provider Last Name Veronica Referring Provider [facility] ct[facility] Referred Organization [facility] Referred Address [address] [facility] [address] [place], [place],[address], Referred Provider Specialty Diagnostic R adiology General Notes Nayana Michel 2024 11:52:11 AM >Placed referral to [facility]- they will call patient to schedule- no precert needed Referral Priority Routine Referral Appointment Date 08/11/[address] lung cancer scree krystyna ordered at previous appointment Diagnosis 1 COPD exacerbation (J 44.1) Referral Organization [facility] Referring Provider First Name Shauna Referring Provider Last Name Veronica Referring Provider [facility] ctice Referred Organization [facility] Referred Address [address] [facility] [address] [place], [place],[address],[place] Referred Provider Specialty Diagnostic R adiology General Notes Nayana Michel 2024 03:00:40 PM >sent Referral Priority Routine Referral Appointment Date 08/11/2024 Medications Medication SIG (Take, Route, Frequency, Duration) Notes Start Date End Date Status NIFEDIPINE (EQV-PROCARDIA XL) 30 MG 1 TAB(S) ORALLY ONCE A DAY; Duration: 30 DAYS 02/15/2024 Active Losartan Potassium 100 mg TAKE ONE TABLE T BY MOUTH EVERY DAY; Duration: 30 Active Trelegy Ellipta 100-62.5-25 MCG/ACT 1 puff Inhalation Once a day; Duration: 30 days 11/24/2024 Active Amiodarone HCl 400 MG 1 tablet Orally 3 times a day Active Atorvastatin Calcium 20 MG TAKE 1 TABLET EVERY DAY; Duration: 90 Active Farxiga 10 MG TAKE 1 TABLET EVERY DAY; Duration: 90 Active Trelegy Ellipta 100-62.5-25 MCG/ACT 1 puff Inhalation Once a day 10/18/2024 Active Clopidogrel Bisulfate 75 MG TAKE 1 TABLE T EVERY DAY; Duration: 90 Active Allopurinol 300 [...] a day; Duration: 90 days Active Nystatin 330322 UNIT/ML 5 mL Mouth/Throat Four times a day; Duration: 14 days swish in mouth 01/04/2025 Active Furosemide 40 mg TAKE ONE TABLET BY M OUTH EVERY DAY; Duration: 30 Active Pantoprazole Sodium 40 mg TAKE ONE TABLE T BY MOUTH TWICE DAILY; Duration: 30 Active Nitroglycerin 0.4 MG 1 tab(s) sublingual ly daily; Duration: 30 days Active Xarelto 20 MG 1 tablet with food O rally Once a day Active LORazepam 0.5 mg TAKE ONE TABLET BY M OUTH THREE TIMES DAILY; Duration: 30 11/25/2024 Active Immunizations Vaccine Route Administration Date Status [...] Administered Given by [facility] Lot # [id number] Exp 07/01/16 Arexvy IM Intramuscular 05/25/2024 Administered [...] Information temporarily unavailable 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) Active confirmed [...] (I48.19) Active confirmed Vital Signs Heart Rate 104 /min 01/04/2025 Temperature 97.9 degrees Fahrenheit 01/04/2025 Oximetry 93 10/18/2024 Blood pressure diastolic 80 mm Hg 01/04/2025 Height 72 in 01/04/2025 Blood pressure systolic 140 mm Hg 01/04/2025 Weight 219.4 lbs 01/04/2025 BMI 29.75 kg/m2 01/04/2025 Encounters Encounter Location Date Provider Diagnosis [facility] [address] [place], [place] [address] 07/15/2024 Provider Migration COPD exacerbation J44.1 and Thrush B37.0 [facility] [address] [place] [address] 01/06/2024 Shauna Veronica Acute cough R05.1 an d Bronchitis J40 [facility] [address] [place] [address] 01/18/2024 Yarely Concpecion Bilateral acute sero us otitis media, recurrence not specified H65.03 and Pre-syncope R55 [facility] [address] [place] [address] 02/01/2024 Shauna McNees Bronchitis J40 and L eg edema R60.0 [facility] [address] [place] [address] 02/15/2024 Shauna McDarielaes Shortness of breath R06.02 ; Pneumonia of both lower lobes due to infectious organism J18.9 ; Tobacco use Z72.0 ; Dizziness R42 ; Fatigue, unspecified type R53.83 ; Essential hypertension I10 ; Persistent cough R05.3 and Pleural effusion J90 [facility] [address] [place], [place] [address] 03/21/2024 Shauna Veronica Foreign body of left ear, initial encounter T16.2XXA [facility] [address] [place], [place] [address] 05/25/2024 Shauna Veronica Coronary artery dise ase involving ione coronary artery of ione heart without angina pectoris I25.10 ; Encounter [...] nodule R91.1 and Paroxysmal atrial fibrillation I48.0 [facility] [address] [facility] [address] [place] [address] 07/13/2024 Shauna McNees COPD exacerbation J4 4.1 and Thrush B37.0 [facility] [address] [facility] [address] [place] [address] 07/27/2024 Shauna McNees Diverticulitis K57.9 2 [facility] [address] [place] [address] 09/05/2024 Yarely Jane Hypothyroidism, unspecified type E03.9 ; Urticaria L50.9 ; Chronic kidney disease (CKD), stage II (mild) N18.2 and History of gout Z87.39 [facility] [address] [address] 10/18/2024 Yarely Jane Cough, persistent R0 5.3 ; Tarry stool K92.1 ; Chronic anticoagulation Z79.01 ; Persistent atrial fibrillation I48.19 ; Tobacco dependence F17.200 and Centrilobular emphysema J43.2 [facility] [address] [facility] [address] [place] [address] 11/23/2024 Yarely Jane Cough, persistent R0 5.3 ; Tobacco dependence F17.200 ; Centrilobular emphysema J43.2 and FABI (acute kidney injury) N17.9 [facility] [address] [facility] [address] [place] [address] 01/04/2025 Shauna McNees Persistent cough R05 .3 ; Thrush B37.0 and COPD exacerbation J44.1 [facility] [address] [facility] [address] [place] [address] 01/11/2024 Shauna McNees [facility] [address] [place] [address] 02/16/2024 Shauna McNees Essential hypertensi on I10 ; Persistent cough R05.3 ; Shortness of breath R06.02 and Pneumonia of both lower lobes due to infectious organism J18.9 [facility] [address] [place] [address] 02/16/2024 Shauna McNees [facility] [address] [place] [address] 02/16/2024 Shauna McNees Heart failure I50.9 [facility] [address] [place] [address] 03/28/2024 Shauna McNees [facility] [address] [place] [address] 04/20/2024 Shauna McNees Type 2 diabetes mellitus without complication E11.9 ; Hyperlipemia, idiopathic familial E78.5 ; Hypothyroidism, unspecified type E03.9 ; 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.10 and Gouty arthritis M10.9 [facility] [address] [place] [address] 05/25/2024 Shauna McNees [facility] [address] [place] [address] 05/26/2024 Shauna McNees [facility] [address] [place] [address] 05/26/2024 Karanestephania Fuller [facility] [address] [place] [address] 05/26/2024 Shauna McNees [facility] [place] [address] [place] [address] 06/16/2024 Shauna McNees [facility] [address] [place] [address] 06/19/2024 Shauna McNees [facility] [address] [place] [address] 07/13/2024 Shauna McNees [facility] [place] [address] [facility] [address] [place] [address] 11/02/2024 Yarely Lara [facility] [address] [place] [address] 11/23/2024 Karan Fuller Assessments Encounter Date Diagnosis (ICD Code) Assessment Notes Treatment Notes Treatment Clinical Notes Section Notes 05/25/2024 Encounter for annual wellness exam in Medicare patient (ICD-10 - Z00.00) Given patient''s advanced age is not a candidate for typical healthcare screening such as colonoscopy. No recent falls. Up-to-date with vaccinations. Routine labs from the past week reviewed 07/15/2024 COPD exacerbation (ICD-10 - J44.1) 07/15/2024 Thrush (ICD-10 - B37.0) 09/05/2024 Hypothyroidism, unspecified type (ICD-10 - E03.9) r 09/05/2024 Urticaria (ICD-10 - L50.9) discussed possible [employer] side effects with hydroxyzine...u se at HS only as needed, continue to try hydrating the skin well. _update labs to r/o underlying metabolic issues that may be contributing r 01/04/2025 Thrush (ICD-10 - B37.0) Rinse mouth out after using inhaler. Treat with nystatin as above 01/04/2025 Persistent cough (ICD-10 - R05.3) Likely related to chronic bronchitis. CT lung cancer screening UTD and stable Dexamethasone given IM CXR ordered- will obtain tomorrow Continue trelegy 01/06/2024 Bronchitis (ICD-10 - J40) Discussed the etiology and expected course of bronchitis. Discussed the rationale for antibiotics and steroid use and the importance of completing the prescription as prescribed. Discussed supportive care. Discussed the signs and symptoms of worsening infection/respira tory distress that may indicate need for reassement in clinic/ED. 01/06/2024 Acute cough (ICD-10 - R05.1) 02/01/2024 Bronchitis (ICD-10 - J40) Likely has some degree of lung disease given his ongoing tobacco use. Start abx, steroids. Discussed supportive care and return precautions. 02/01/2024 Leg edema (ICD-10 - R60.0) Likely r/t CCB. Stop amlodipine, lasix x 3 days. 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 Meds as above. Maximize glucose, LDL and blood pressure control. Stop smoking 11/23/2024 Tobacco dependence (ICD-10 - F17.200) encouraged cessation 11/23/2024 Cough, persistent (ICD-10 - R05.3) symptoms have improved, continue current regimen. Additional samples of Trelegy inhaler provided. Agreeable to repeat labs today. Has ongoing follow-up with cardiology 10/18/2024 Tarry stool (ICD-10 - K92.1) Increase PPI to BID, encouraged to reschedule his cardiology FU which was supposed to be yesterday. Labs as noted. 10/18/2024 Cough, persistent (ICD-10 - R05.3) Rec stop ACEI and start losartan as noted 07/27/2024 Diverticulitis (ICD-10 - K57.92) Counseled on etiology and typical time course of diverticulitis. Initiate antibiotics as prescribed above. Recommended soft diet, high in fiber, adequate hydration. Avoid foods such as popcorn, nuts, corn as these can be inciting foods worsening symptoms. Counseled to follow-up if symptoms not improving in 2 to 3 days, develop fever, worsening abdominal pain, or nausea and vomiting. 07/13/2024 COPD exacerbation (ICD-10 - J44.1) Discussed [...] well after inhaler use. Nystatin as above 04/20/2024 Type 2 diabetes mellitus without complication (ICD-10 - E11.9) 03/21/2024 Foreign body of left ear, initial encounter (ICD-10 - T16.2XXA) Multiple attempts to remove foreign body unsuccessful. Patient tolerated well. Called ENT provider who agreed to see patient immediately for removal. Sent from clinic to ENT office 02/15/2024 Shortness of breath (ICD-10 - R06.02) 02/16/2024 Essential hypertension (ICD-10 - I10) 01/18/2024 Bilateral acute serous otitis media, recurrence [...] agrees with the plan of care above. 02/15/2024 Pneumonia of both lower lobes due [...] for HTN. RTC in 1 week 02/16/2024 Persistent cough (ICD-10 - R05.3) 02/15/2024 Tobacco use (ICD-10 - Z72.0) 10/18/2024 Chronic anticoagulation (ICD-10 - Z79.01) 04/20/2024 Hyperlipemia, idiopathic familial (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) 11/23/2024 Centrilobular emphysema (ICD-10 - J43.2) 05/25/2024 Tobacco dependence (ICD-10 - F17.200) Smoking cessation counseling provided. WIll repeat CT scan of chest, recommendation for 3 month FU which is due 09/05/2024 Chronic kidney disease (CKD), stage II (mild) (ICD-10 - N18.2) Stable, avoid NSAIDs and nephrotoxic medications r 01/04/2025 COPD exacerbation (ICD-10 - J44.1) 05/25/2024 Peripheral neuropathic pain (ICD-10 - G62.9) At baseline. CSA utd and on chart. Darren report reviewed and is appropriate - discussed ongoing use of controlled medication and safety associated with these medications 09/05/2024 History of gout (ICD-10 - Z87.39) r 11/23/2024 FABI (acute kidney injury) (ICD-10 - N17.9) 02/16/2024 Shortness of breath (ICD-10 - R06.02) 10/18/2024 Persistent atrial fibrillation (ICD-10 - I48.19) cardiology managing 04/20/2024 Hypothyroidism, unspecified type (ICD-10 - E03.9) 02/15/2024 Dizziness (ICD-10 - R42) 02/15/2024 Fatigue, unspecified type (ICD-10 - R53.83) 02/16/2024 Pneumonia of both lower lobes due to infectious organism (ICD-10 - J18.9) 10/18/2024 Tobacco dependence (ICD-10 - F17.200) encouraged cessation 04/20/2024 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 No changes made. 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 Continue meds as above, diabetic diet, supportive footwear, yearly eye exams 05/25/2024 Essential hypertension (ICD-10 - I10) Blood pressure at goal, no changes 02/15/2024 Pleural effusion (ICD-10 - J90) 05/25/2024 Chronic kidney disease (CKD), stage II [...] Treatment Pending Test Test Name Order Date X ray : Chest 01/04/2025 Echocardiogram 11/06/2016 Physical Therapy 03/23/2019 Physical Therapy 03/17/2019 CT Scan : Chest, With & Without [...] End Date [employer] DUAL [address] [address] [place] [address] [id number] Moise Boswell Self - patient is the insured Medications Administered Medication Instructions Date of Administration Dosage Notes Dexamethasone 4mg Injection 01/06/2024 4 mg Dexamethasone 4mg Injection 01/04/2025 4 mg Triamcinolone Acetonide 40mg Injection 02/07/2020 [...] use NIDDM GERD C-scope in 2016 at [facility] - normal Normal LDCT 01/29 Surgical History Surgery Date(Month/Year) Open heart surgeryx 2, 5 stents angioplasty right leg rotator cuff surgery, right shoulder carotid endarctectomy Cholecystectomy bilateral eyelids-tucked 03/2015 2 stents 01/2017 cataract surgery-both eyes 02/2017 2 stents placed- left leg 05/26/2017 Stents placed 08/17/23 Hospitalization History Reason Date(Month/Year) above surgeries
--- OUTSIDE RECORDS SUMMARY | 2025-01-05 08:02 | XMS_ITS | Clinical Summary ---
Author Organization Healthcare Address [address] [place] [address] Care Team Providers Care Patient Service Technician Pst Name Role Phone Karan Fuller MD Primary Care Provider [phone] Allergies Active Allergy Reactions Criticality Noted Date [...] tablet 1 tab(s) 2 Active HYDROcodone-erum taminophen ([place]) 5-325 MG tablet Active nitroglycerin (Nitrostat) 0.4 [...] procedure. DO not drive, must have a street flusher driver present FOR procedure. MAY CAUSE DROWSINESS [...] Date Last Done Comments [facility]-Depression Screening 1945 [facility]-Medicare Annual Wellness (AWV) 1943 [facility]-/Child/Adol SDOH Screenings 1943 [facility]- SDOH Screenings 1961 [facility]-Adult SDOH Screenings 1961 [facility]-RSV Vaccine: 60+ Years or (1 - 1-dose 75+ series) 2018 [facility]-Zoster Vaccines (2 of 2) 01/28/2023 12/03/2022 [id number] Vaccine (3 - 2024- season) 2024 02/12/2021, 06/19/2020 [facility]-Influenza Vaccine (#1) 12/11/202412/03, 12/26/2021, [...] age to complete this topic Insurance [id number] MEDICARE Care Teams Patient Service Technician Pst Relationship Specialty Start Date End Date Karan Fuller MD [address] [place] [address] PCP - General Internal Medicine 03/13/22
--- NOTE | 2025-01-05 08:03 | XR_ITS ---
FINAL REPORT CLINICAL HISTORY: PERSISTANT COUGH FINDINGS: PA and lateral views of the chest are obtained. There is no prior exam for comparison. Prior median sternotomy. The cardiac and mediastinal silhouettes are within normal limits. The lungs are clear. There is no pleural effusion, pneumothorax, or acute osseous abnormality. IMPRESSION: No radiographic evidence of acute cardiac or pulmonary disease. Reviewed, Interpreted and Dictated by Heidi Mitchell MD Transcribed by Barbra Arellano Authenticated and [facility]
== END 2025-01-05 23:59 | disposition home or self-care (01) ==
LOC: RAD 08:00
PROVIDERS: PCP Nurse Practitioner Family; Visit Provider Nurse Practitioner Family
DX: R05.3 Chronic cough (principal)
CPT/HCPCS: 71046